=== PATIENT | female | born 1975 | race Caucasian/White ===

== ENCOUNTER 2021-01-03 11:39 | Emergency (ER) | payer OTHER, SELFPAY ==
[2021-01-03 12:16] VITALS: BP 114/64; PULSE 69; RESP 16; TEMP 37.1; O2SAT 100
--- NOTE | 2021-01-03 13:19 | ED.SKABFB ---
HPI - Skin/Abscess/Foreign Bdy General Chief complaint: Upper Respiratory Infection Stated complaint: sore throat Time Seen by Provider: 01/03/21 13:12 Source: patient and RN notes reviewed Mode of arrival: ambulatory Limitations: no limitations History of Present Illness HPI narrative: Patient presents today complaint of a sore throat x3 days with congestion, slight rhinorrhea. Denies cough, fever, headache, nausea, vomiting, diarrhea. Currently rates her pain 6/10 and has been taking sinus medication, and ibuprofen without relief. Related Data Home Medications Medication Instructions Recorded Confirmed lisinopril-hydrochlorothiazide 1 tablet PO DAILY 01/03/21 01/03/21 Allergies Allergy/AdvReac Type Severity Reaction Status Date / Time Penicillins Allergy Unknown Rash Verified 01/03/21 12:13 Review of Systems Review of Systems: Narrative: CONSTITUTIONAL: Denies body aches, fever, chills, or sweats. EYES: Denies visual changes, redness, or discharge. ENT: Denies otalgia. + Sore throat, congestion, rhinorrhea CARDIOVASCULAR: Denies chest pain, palpitations, or edema. RESPIRATORY: Denies cough or dyspnea. GASTROINTESTINAL: Denies abdominal pain, nausea, vomiting, or diarrhea. GENITOURINARY: Denies dysuria or hematuria. SKIN: Denies rash, itching, or wounds. MUSCULOSKELETAL: Denies back pain, joint pain, or myalgia. NEUROLOGIC: Denies headache, numbness, tingling, or weakness. PSYCH: Denies depression or anxiety. PMFSH Family History Family History Father Family history of colitis Family history of arthritis Grandparent Family history of chronic obstructive pulmonary disease Family history of Alzheimer's disease Family history of emphysema Family history of heart disease in male family member before age 55 Diabetes mellitus Other Family history of congestive heart failure Hypertension Social History Social History Smoking status: Never smoker Alcohol intake: current Comments At time of signature, I have reviewed and agree with nursing past medical, surgical, social and family history unless otherwise noted. Please see nursing chart for further information. There is no relevant family history pertinent to the presenting complaint Exam Narrative: Exam Narrative: GENERAL: Well-appearing, well-nourished, and in no acute distress. HEAD: Normocephalic, atraumatic. EYES: EOMI. No redness or drainage. Conjunctivae normal. ENT: Mucous membranes pink and moist. Nares clear. No rhinorrhea. TMs normal bilaterally. Throat mildly erythematous and edematous. Small ulceration to the uvula. Uvula midline. NECK: Normal AROM. Supple. No lymphadenopathy. CHEST: No respiratory distress. Clear to auscultation. HEART: Regular rate and rhythm. No murmur appreciated. Normal peripheral pulses. EXTREMITIES: Normal range of motion. No edema. SKIN: Warm, dry, no rash. Capillary refill normal. Normal skin turgor. NEURO: No focal deficits. Alert and oriented x3. Gait steady. PSYCH: Normal affect. No signs of depression or anxiety. Course Vital Signs Vital signs: Vital Signs Temperature 98.8 F 01/03/21 12:16 Pulse Rate 69 01/03/21 12:16 Respiratory Rate 16 01/03/21 12:16 Blood Pressure 114/64 01/03/21 12:16 Pulse Oximetry 100 01/03/21 12:16 Temperature 98.8 F 01/03/21 12:16 Pulse Rate 69 01/03/21 12:16 Respiratory Rate 16 01/03/21 12:16 Blood Pressure 114/64 01/03/21 12:16 Pulse Oximetry 100 01/03/21 12:16 Reviewed MDM - Skin/Abscess/Foreign Bdy Differential Diagnosis Differential diagnosis: Likely other (URI, pharyngitis, strep throat, tonsillitis, viral syndrome) Lab Data Attestation: I reviewed the patient's lab results. Labs: Strep Screen Presumptive Negative *(Reference Range: Negative)*
== END 2021-01-03 13:25 | disposition home or self-care (01) ==
PROVIDERS: Emergency Provider Nurse Practitioner; PCP Family Medicine
DX: J02.8 Acute pharyngitis due to other specified organisms (principal); I10 Essential (primary) hypertension
CPT/HCPCS: 87081; 87880; 99213; G0463

== ENCOUNTER 2022-08-25 11:38 | Emergency (ER) | payer OTHER, SELFPAY ==
[2022-08-25 11:45] VITALS: BP 141/88; PULSE 85; RESP 16; TEMP 37.4; O2SAT 100
--- NOTE | 2022-08-25 11:52 | ED.URI ---
HPI - URI/Sore Throat General Chief Complaint: Upper Respiratory Infection Stated Complaint: SORE THROAT/LOSING VOICE Time Seen by Provider: 08/25/22 11:52 Source: patient, RN notes reviewed and old records reviewed Mode of arrival: ambulatory Limitations: no limitations History of Present Illness HPI Narrative: 47 year old female presents to express care with complaints of sore throat and body aches on Tuesday. On Tuesday patient states that she started with hoarseness and loosing voice since. Patient reports that she has non-productive cough and her throat remains tender Patient denies any known fevers, denies any nausea vomiting or diarrhea and no further body aches since Tuesday.Patient reports that she has been taking Mucinex DM for her symptoms. She states that she has been COVID vaccinated but has not had flu shot this year. MD elicited complaint: cough and sore throat Onset (ago): day(s) (5 days) Treatments prior to arrival: other (Mucinex DM) Related Data Allergies Allergy/AdvReac Type Severity Reaction Status Date / Time Penicillins Allergy Unknown Rash Verified 08/25/22 11:50 Review of Systems Review of Systems: CONSTITUTIONAL: Denies malaise, chills, sweats, or fever. EYES: Denies visual changes, redness, or discharge. ENT: Reports rhinorrhea, congestion, sinus pain,no otalgia positive sore throat. CARDIOVASCULAR: Denies chest pain, palpitations, or edema. RESPIRATORY: Reports dry cough.? Denies dyspnea. GASTROINTESTINAL: Denies abdominal pain, nausea, vomiting, diarrhea SKIN: Denies rash or itching. MUSCULOSKELETAL: Denies myalgia. NEUROLOGIC: Denies headache. All systems reviewed & are unremarkable except as noted in HPI and below PMFSH Past Medical History Medical History (Updated 08/25/22 @ 12:22 by Miriam Danielson NP) History of sinus problem Family History Family History Father Family history of colitis Family history of arthritis Grandparent Family history of chronic obstructive pulmonary disease Family history of Alzheimer's disease Family history of emphysema Family history of heart disease in male family member before age 55 Diabetes mellitus Other Family history of congestive heart failure Hypertension Social History Social History Smoking status: Never smoker Alcohol intake: current Comments At time of signature, agree with nursing past medical, surgical, social and family history. There is no relevant family history pertinent to the presenting complaint Exam Narrative: GENERAL: Well-appearing, well-nourished, and in no acute distress. HEAD: Normocephalic EYES: PERRLA, conjunctivae clear ENT: Nares clear, turbinates edematous and erythematous, clear discharge. Mucous membranes moist. TM pearly winter with dull light reflex bilaterally; no tragal tenderness. Oropharynx erythematous without lesions. Tonsils red not mildly enlarged and without exudate, no drooling, no hoarseness, no trismus, uvula midline and swollen some post nasal discharge in back of throat. NECK: Supple. lymphadenopathy CHEST: Clear to auscultation, breath sounds equal. No wheezing, rhonchi, rales, or stridor. No respiratory distress, speaks in full sentences.dry cough noted SAO2 100% on room air HEART: Regular rate and rhythm. No murmur heard. SKIN: Warm, dry, no rash. NEURO: Alert and oriented x3. PSYCH: Normal mood and affect Course Course Emergency Course: Patient is aware of diagnosis, understands and agrees to treatment plan.? Anticipatory guidance given.? Patient agrees to follow-up as directed and is aware of reasons to seek care at the emergency department. Portions of this record may have been created with voice recognition software Level of Care: Express Care Visit Vital Signs Vital signs: Vital Signs Temperature 37.4 C 08/25/22 11:45 Pulse Rate
== END 2022-08-25 12:05 | disposition home or self-care (01) ==
PROVIDERS: Emergency Provider Registered Nurse; PCP Family Medicine
DX: J02.0 Streptococcal pharyngitis (principal); I10 Essential (primary) hypertension
CPT/HCPCS: 87081; 99213; G0463

== ENCOUNTER 2024-05-28 15:23 | Emergency (ER) | payer OTHER, SELFPAY ==
[2024-05-28 15:35] VITALS: BP 126/66; PULSE 95; RESP 18; TEMP 36.6; O2SAT 100
--- NOTE | 2024-05-28 16:06 | ED.GENADULT ---
HPI - General Adult General Chief complaint: Unspecified Stated complaint: fatigue Time Seen by Provider: 05/28/24 15:37 Source: patient, RN notes reviewed and old records reviewed (patient's lab records) Mode of arrival: ambulatory Limitations: no limitations History of Present Illness HPI narrative: Patient presents today with a 10 day history of extreme exhaustion/fatigue, ?brain fog , shortness of breath with exertion. Patient states she has to take several breaks when she is trying to get ready in the morning for her day. Denies any cold symptoms/respiratory symptoms, recent illness, chest pain, abdominal pain, black or tarry stools, bright red blood per rectum. Patient had her labs drawn [facility] week ago and looked up the results today. She had a hemoglobin of 8.8 with a hematocrit of 24. She does have history of anemia with need for blood transfusion in approximately 2012. States that the etiology of her anemia/bleeding was never found. Related Data Home Medications Medication Instructions Recorded Confirmed No Home Medications 05/28/24 05/28/24 Allergies Allergy/AdvReac Type Severity Reaction Status Date / Time Penicillins Allergy Unknown Rash Verified 05/28/24 15:44 Review of Systems Review of Systems: CONSTITUTIONAL: Denies body aches, fever, chills, or sweats. + fatigue EYES: Denies visual changes, redness, or discharge. ENT: Denies rhinorrhea, congestion, sore throat, or otalgia. CARDIOVASCULAR: Denies chest pain, palpitations, or edema. RESPIRATORY: Denies cough. + shortness of breath with exertion GASTROINTESTINAL: Denies abdominal pain, nausea, vomiting, or diarrhea. GENITOURINARY: Denies dysuria or hematuria. SKIN: Denies rash, itching, or wounds. MUSCULOSKELETAL: Denies back pain, joint pain, or myalgia. NEUROLOGIC: Denies headache, numbness, tingling, or weakness. PSYCH: Denies depression or anxiety. [facility] Past Medical History Medical History History of sinus problem Family History Family History Father Family history of colitis Family history of arthritis Grandparent Family history of chronic obstructive pulmonary disease Family history of Alzheimer's disease Family history of emphysema Family history of heart disease in male family member before age 55 Diabetes mellitus Other Family history of congestive heart failure Hypertension Social History Social History Smoking status: Never smoker Alcohol intake: current Comments At time of signature, I have reviewed and agree with nursing past medical, surgical, social and family history unless otherwise noted. Please see nursing chart for further information. There is no relevant family history pertinent to the presenting complaint Exam Narrative: GENERAL: Well-appearing, well-nourished, and in no acute distress. Mild generalized skin pallor. HEAD: Normocephalic, atraumatic. EYES: EOMI. No redness or drainage. Conjunctivae normal. ENT: Mucous membranes pink and moist. NECK: Normal AROM. Supple. No lymphadenopathy. CHEST: No respiratory distress. Clear to auscultation. HEART: Regular rate and rhythm. No murmur appreciated. Normal peripheral pulses. ABDOMEN: Soft, nontender, nondistended, normal active bowel sounds. EXTREMITIES: Normal range of motion. No edema. SKIN: Warm, dry, no rash. Capillary refill normal. Normal skin turgor. NEURO: No focal deficits. Alert and oriented x3. Gait steady. PSYCH: Normal affect. No signs of depression or anxiety. Course Course Level of Care: Express Care Visit Vital Signs Vital signs: Vital Signs Temperature 97.9 F 05/28/24 15:35 Pulse Rate 95 05/28/24 15:35 Respiratory Rate 18 05/28/24 15:35 Blood Pressure 126/66 05/28/24 15:35 Pul
== END 2024-05-28 16:10 | disposition short-term general hospital (02) ==
PROVIDERS: Emergency Provider Nurse Practitioner
DX: R06.09 Other forms of dyspnea (principal); R53.83 Other fatigue
CPT/HCPCS: 99212; G0463

== ENCOUNTER 2024-05-28 16:40 | Emergency (ER) | payer OTHER, SELFPAY ==
[2024-05-28] VITALS (9 sets, daily range): BP systolic 131–158; BP diastolic 60–80; PULSE 88–100; RESP 12–17; TEMP 36.5–37.3; O2SAT 98–100
--- NOTE | 2024-05-28 17:58 | ED.GENADULT ---
HPI - General Adult General Chief complaint: Recheck/Abnormal Lab/Rx Stated complaint: WEAK H/H 04/07 Time Seen by Provider: 05/28/24 17:20 History of Present Illness HPI narrative: 49-year-old female presents emergency department for evaluation for lightheaded dizziness and increasing fatigue. Patient states she has had worsening fatigue over the last few weeks. Patient states few weeks ago she did have some blood work checked and was found that she was anemic. Patient does have known history of anemia but does not take iron pills. Patient states she does not have heavy periods and has no prior history of a GI bleed. Patient states that she does get her blood checked yearly Related Data Home Medications Medication Instructions Recorded Confirmed No Home Medications 05/28/24 05/28/24 Allergies Allergy/AdvReac Type Severity Reaction Status Date / Time Penicillins Allergy Unknown Rash Verified 05/28/24 15:44 Review of Systems Review of Systems: All systems reviewed & are unremarkable except as noted in HPI and below PMFSH Past Medical History Medical History History of sinus problem Family History Family History Father Family history of colitis Family history of arthritis Grandparent Family history of chronic obstructive pulmonary disease Family history of Alzheimer's disease Family history of emphysema Family history of heart disease in male family member before age 55 Diabetes mellitus Other Family history of congestive heart failure Hypertension Social History Social History (Reviewed 05/28/24 @ 16:11 by Aracelis Olmstead, [facility], ) Smoking status: Never smoker Alcohol intake: current Exam Narrative: APPEARANCE: Well appearing, no pain, no distress, well-nourished. HEAD: normocephalic, atraumatic. EYES: PERRLA/EOMI, conjunctivae clear. NOSE: Normal no drainage EARS:TMS clear with good light reflex. THROAT: Pharynx clear, no exudate. NECK: Supple. No adenopathy, no masses. RESPIRATORY: Airway patent, respirations nonlabored. Clear to auscultation bilaterally, no rales, rhonchi, wheezing. CARDIOVASCULAR: Regular rate and rhythm without murmurs rubs or gallops. ABDOMINAL: Soft, nontender, nondistended, normal bowel sounds MUSCULOSKELETAL: Moves all extremities. Strength/ROM intact, No edema, No calf tenderness. NEURO: Alert. Cranial nerves II through XII intact. Good gait. Good coordination SKIN: Warm, dry. Normal Color PSYCHIATRIC: Normal affect/mood. Course Vital Signs Vital signs: Vital Signs Temperature 98.3 F 05/28/24 16:56 Pulse Rate 100 05/28/24 16:56 Respiratory Rate 16 05/28/24 16:56 Blood Pressure 131/68 05/28/24 16:56 Pulse Oximetry 100 05/28/24 16:56 Oxygen Delivery Room Air 05/28/24 16:56 Temperature 98.9 F 05/29/24 02:15 Pulse Rate 86 05/29/24 02:15 Respiratory Rate 15 05/29/24 02:15 Blood Pressure 148/84 H 05/29/24 02:15 Pulse Oximetry 99 05/29/24 02:15 Oxygen Delivery Room Air 05/28/24 16:56 Medical Decision Making MDM Narrative Medical decision making narrative: 49-year-old female present to the emergency department for evaluation for increased generalized weakness. Patient was shown to have an outpatient hemoglobin of 8.8. Patient was Hemoccult negative on the digital rectal exam in the emergency department today. the patient was treated with 2 units of packed red blood and iron studies were ordered. I did discuss the case with the patient's primary care physician and it she will have outpatient follow-up with Hematology. Patient was comfortable the plan for discharge and close follow-up. Patient does feel strong enough for discharge home. Patient has no active bleeding. Differential Diagnosis Differential Diagnosis: Per GI bleed, lower GI bleed, anemia, pancytopenia Vital Signs Vit
[2024-05-28 18:02] LABS: Eosinophils Percent Auto 1.1 % (0-4.4); Immature Granulocyte Absolute 0.03 K/mm3 (0.00-0.031); Immature Granulocyte Percent A 1.7 % (0-0.5); Immature Platelet Fraction Pct 3.9 % (0.9-11.2); Lymphocytes Absolute Auto 0.66 K/mm3 (0.9-3.2); Lymphocytes Percent Auto 37.5 % (18.3-44.2); Mean Corpuscular HGB Conc 35.3 g/dl (32-36); Mean Corpuscular Hemoglobin 40.1 pg (26-34); Mean Corpuscular Volume 113.6 fl (80-100); Mean Platelet Volume 9.8 fl (7.4-10.4); Monocytes Absolute Auto 0.1 K/mm3 (0.1-0.6); Monocytes Percent Auto 5.7 % (2.6-8.5); Nucleated Red Blood Cells Perc 1.1 % (0.0-0.2); Platelet Count Result 97 k/mm3 (150-375); Red Blood Count 1.62 M/mm3 (4.2-5.4); Red Cell Distribution Width 15.9 % (11.5-14.5); Reticulocyte Hemoglobin Conten 40.8 pg (28.2-36.6); Reticulocyte Percent 1.86 % (0.7-4.3); Reticulocytes Absolute 0.03 10^6/uL (0.02-0.10)
[2024-05-28 18:11] LABS: Alanine Aminotransferase 24 U/L (6-35); Albumin Level 4.3 g/dL (3.5-5.1); Alkaline Phosphatase 50 U/L (38-126); Anion Gap 7 mmol/L (4-12); Aspartate Amino Transferase 79 U/L (14-36); Bilirubin,Total 1.5 mg/dL (0.2-1.3); Blood Urea Nitrogen 12 mg/dL (7-17); Calcium 8.6 mg/dL (8.4-10.2); Carbon Dioxide 30 mmol/L (22-30); Chloride 102 mmol/L (98-107); Estimated CRCL calculation 88 ml/min; Estimated Glomerular Filt Rate > 60; Glucose 101 mg/dL (65-110); Potassium 3.7 mmol/L (3.4-5.0); Sodium 139 mmol/L (137-145)
[2024-05-28 18:12] LABS: Iron 77 ug/dL (37-170)
[2024-05-28] MEDS: SODIUM CHLORIDE 0.9% IV 1,000 ML 999 ML IV CONT (18:12)
[2024-05-28 18:21] LABS: Percent Iron Saturation 29 % (20-50); White Blood Count 1.8 K/mm3 (4.5-10.0)
[2024-05-28 18:22] LABS: Hematocrit 18.4 % (37.0-47.0); Hemoglobin 6.5 g/dL (12.0-15.0)
[2024-05-28 18:23] LABS: Platelet Estimate Decreased (Adequate)
[2024-05-28 18:24] LABS: Anisocytosis 2+; Macrocytosis 1+ (NORMAL); Microcytosis 1+ (NORMAL); Poikilocytosis 1+
[2024-05-28 18:25] LABS: Ovalocytes 1+
[2024-05-28 18:26] LABS: Schistocytes None Seen
[2024-05-28 18:29] LABS: Add Urine Microscopic? YES; Appearance Urine Cloudy (Clear); Bacteria Urine None Seen /hpf; Bilirubin Urine Negative (Negative); Blood Urine Negative (Negative); Color Urine Yellow (Yellow); Glucose Urine UA Negative (Negative); Ketones Urine Trace mg/dL (Negative); Leukocyte Esterase Ur Trace LEU/UL (Negative); Mucus Urine Present /lpf; Need Manual Microscopic Reviewed; Nitrate Urine Negative (Negative); Protein Urine 1+ mg/dL (Negative); RBC Urine 0-2 /hpf (0-2); Squamous Epithelial Cell Urine Occasional /hpf (Few); WBC Urine 0-5 /hpf (0-3)
[2024-05-28 18:46] LABS: Influenza A QL RT-PCR Negative (Negative); Influenza B QL RT-PCR Negative (Negative); RSV RNA, RT-PCR Negative (Negative); SARS-CoV-2 RNA PCR Negative (Negative)
[2024-05-28 19:18] LABS: Folic Acid 18.4 ng/mL (2.76->20); Vitamin B12 < 159.0 pg/mL (239-931)
[2024-05-28] MEDS: SODIUM CHLORIDE 0.9% IV 250 ML 30 ML IV CONT (21:35)
[2024-05-28] MEDS: TUBING, BLOOD PLUM PUMP TUBING 1 EACH XX (21:35)
[2024-05-29 00:02] VITALS: BP 140/82; PULSE 91; RESP 16; TEMP 37.4; O2SAT 100
[2024-05-29 01:01] VITALS: BP 138/67; PULSE 88; RESP 13; TEMP 37.6; O2SAT 100
[2024-05-29 01:02] VITALS: BP 138/67; PULSE 898; RESP 15; TEMP 37.6; O2SAT 99
[2024-05-29 01:20] VITALS: BP 142/75; PULSE 92; RESP 16; TEMP 37; O2SAT 100
[2024-05-29 02:02] VITALS: BP 148/90; PULSE 85; RESP 15; TEMP 37.3; O2SAT 99
[2024-05-29 02:15] VITALS: BP 148/84; PULSE 86; RESP 15; TEMP 37.2; O2SAT 99
== END 2024-05-29 02:21 | disposition home or self-care (01) ==
PROVIDERS: Emergency Provider Emergency Medicine; PCP Family Medicine
DX: D61.818 Other pancytopenia (principal); Z20.822 Contact with and (suspected) exposure to COVID-19
CPT/HCPCS: 36415; 36430; 80053; 81001; 82607; 82728; 82746; 83540; 83550; 85025; 85046; 85055; 86850; 86880; 86900; 86901; 86902; 86922; 87637; 96360; 96361; 99285; J7030; J7050; P9016

== ENCOUNTER 2024-06-12 12:56 | Inpatient (IN) | payer OTHER, SELFPAY ==
[2024-06-12] VITALS (7 sets, daily range): BP systolic 88–125; BP diastolic 40–56; PULSE 106–113; RESP 13–22; TEMP 36.6–37.6; O2SAT 97–100; BMI 26.6
--- NOTE | ~2024-06-12 | CT_ITS ---
EXAMINATION: CT abdomen pelvis wo/w con DATE: 06/14/2024 13:35 INDICATION: Hematuria. TECHNIQUE: Computed tomography (CT) of the abdomen and pelvis was performed without and with intraven ous contrast using a total of 130 mL Omnipaque-350 intravenous contrast with a double-bolus technique for simultaneous opacification of the renal parenchyma and renal collecting system. Automated exposu re control and iterative reconstruction technique were employed. The dose-length product was 1136.61 mGy-cm. COMPARISON: None FINDINGS: The visualized portions of lung bases demonstrate mild atelectasis. A calcified right lung nodule and calcified right hilar lymph nodes are consistent with old granulomatous disease. No pleural effusion . The heart size is normal. No pericardial effusion. The liver and gallbladder are normal. There is m oderate splenomegaly. The pancreas, adrenal glands, and kidneys are normal. There is no urolithiasis. The ureters are well opacified and are normal. There is a Leon catheter in expected position. There is a 4.9 cm cyst in right ovary. There is a 5.2 cm cyst with single thin septation in left ovary. Th ere are no dilated loops of bowel. The appendix is normal. There are no pathologically enlarged lymph nodes. There is no free intraperitoneal fluid. There is mild thoracic and lumbar spondylosis. There is a benign bone island in lumbar spine. IMPRESSION: 1. No etiology for hematuria. 2. Moderate splenomegaly. 3. Cysts in the ovaries measuring up to 5.2 cm on the left, likely benign. Consider pelvis ultrasound in 6-12 months. Reviewed, dictated and finalized at location B. IMPRESSION: 1. No etiology for hematuria. 2. Moderate splenomegaly. 3. Cysts in the ovaries measuring up to 5.2 cm on the left, likely benign. Cons ider pelvis ultrasound in 6-12 months.
--- NOTE | ~2024-06-12 | US_ITS ---
EXAMINATION: US abdomen complete DATE: 06/14/2024 09:53 INDICATION: Hepatosplenomegaly. TECHNIQUE: Multiple grayscale and Doppler ultrasound images of the abdomen were obtained. COMPARISON: None FINDINGS: Abdominal aorta is normal in caliber. Inferior vena cava is normal. The visualized portions of the head and body of the pancreas are normal. The liver is normal without focal lesion. No liver surface nodularity. There is normal flow in main portal vein. There is moderate splenomegaly measurin g 15.4 cm. The kidneys are normal in size. The gallbladder is normal in size contains sludge. No gall stones or gallbladder wall thickening. There is no sonographic Foss's sign. The common duct is norm al and measures 6 mm. IMPRESSION: 1. Moderate splenomegaly. Reviewed, dictated and finalized at location B. IMPRESSION: 1. Moderate splenomegaly.
--- NOTE | ~2024-06-12 | XR_ITS ---
EXAMINATION: XR chest 2V Exam Date/Time: 06/12/2024 15:10 CDT HISTORY: weakness, sob Comparison: None. RESULT: Lines, tubes, and devices: None. Lungs and pleura: Clear. Cardiomediastinal silhouette: Unremarkable. Other: No acute osseous or upper abdominal finding. IMPRESSION: No acute cardiopulmonary process. Reviewed, dictated and finalized at location K.
--- NOTE | ~2024-06-12 | BM_ITS ---
EXAMINATION: CCL bone marrow asp w bx diag ORDER COMPLETED DATE: 06/14/2024 10:58 INDICATION: Anemia TECHNIQUE: A time-out was performed to verify the patient's name, date of , and procedure to b e performed. The procedure including the risks and benefits was discussed with the patient. Risks dis cussed included bleeding, infection, nerve injury and allergic reaction. The patient understood the r isks and agreed to proceed. The skin overlying the right posterior iliac spine was prepped and draped in usual sterile fashion. Anesthetic was administered with 1% lidocaine subcutaneously. Moderate co nscious sedation was achieved with 50 mcg fentanyl IV. An 11 gauge needle was inserted into the right ilium with fluoroscopic guidance. Bone marrow was aspirated. An 8 gauge needle was then inserted int o the right ilium with fluoroscopic guidance. A core bone marrow biopsy was obtained. The needle was removed and the entry site was cleaned and dressed. There were no immediate complications. A total o f 40 fluoroscopic images were recorded. Fluoroscopy exposure time was 0.1 minutes. Total DAP was 171 mGycm^2. FINDINGS: Real-time fluoroscopy the tip of a hemostat for marking the site of biopsy overlying the ri ght posterior iliac spine. IMPRESSION: 1. Successful fluoroscopic guided bone marrow aspiration. 2. Successful fluoroscopic guided bone marrow biopsy. Reviewed, dictated and finalized at location A.
--- NOTE | ~2024-06-12 | XR_ITS ---
EXAMINATION: XR chest 1V portable DATE: 06/15/2024 14:39 INDICATION: Fever. TECHNIQUE: A single frontal view of the chest was obtained. COMPARISON: Chest 2 views 06/12/2024, CT abdomen and pelvis 06/14/2024 FINDINGS: A calcified right lung nodule and calcified right hilar lymph nodes are consistent with old granulomatous disease. No pleural effusion or pneumothorax. The heart size is normal. IMPRESSION: 1. No acute cardiopulmonary disease. Reviewed, dictated and finalized at location B.
--- NOTE | 2024-06-12 14:39 | ECG_ITS ---
Test Date: 2024-06-12 14:53:30 Measurements Intervals Cook Rate: 111 P: 25 NM: 100 QRS: 25 QRSD: 105 T: 29 QT: 337 QTc: 459 Interpretive Statements SINUS TACHYCARDIA WITH SHORT NM INTERVAL No previous ECG available for comparison Electronically Signed On 06-13-2024 14:23:48 CDT by Jaci Perry M.D.
[2024-06-12 15:18] LABS: Immature Platelet Fraction Pct 3.4 % (0.9-11.2); Mean Corpuscular HGB Conc 35.7 g/dl (32-36); Mean Corpuscular Volume 109.3 fl (80-100); Mean Platelet Volume 9.5 fl (7.4-10.4); Platelet Count Result 88 k/mm3 (150-375); Red Blood Count 1.18 M/mm3 (4.2-5.4); Red Cell Distribution Width 19.3 % (11.5-14.5)
[2024-06-12 15:30] LABS: Alanine Aminotransferase 14 U/L (6-35); Albumin Level 4.1 g/dL (3.5-5.1); Alkaline Phosphatase 40 U/L (38-126); Anion Gap 10 mmol/L (4-12); Aspartate Amino Transferase 59 U/L (14-36); Bilirubin,Total 1.9 mg/dL (0.2-1.3); Blood Urea Nitrogen 20 mg/dL (7-17); Calcium 7.8 mg/dL (8.4-10.2); Carbon Dioxide 26 mmol/L (22-30); Chloride 100 mmol/L (98-107); Estimated CRCL calculation 77 ml/min; Estimated Glomerular Filt Rate > 60; Glucose 110 mg/dL (65-110); Potassium 3.9 mmol/L (3.4-5.0); Sodium 136 mmol/L (137-145)
[2024-06-12 15:34] LABS: INR 1.2; Prothrombin Time 15.9 Seconds (11.1-14.7)
[2024-06-12 15:35] LABS: Partial Thromboplastin Time 27.8 Seconds (22.3-36.8)
[2024-06-12 15:43] LABS: White Blood Count 1.1 K/mm3 (4.5-10.0)
[2024-06-12 15:44] LABS: Hematocrit 12.9 % (37.0-47.0); Hemoglobin 4.6 g/dL (12.0-15.0)
--- NOTE | 2024-06-12 16:04 | ED.RECABL ---
HPI - Recheck/Abnormal Lab/Rx General Chief Complaint: Recheck/Abnormal Lab/Rx Stated Complaint: low hemoglobin, recent blood transfusion Time Seen by Provider: 06/12/24 15:54 History of Present Illness HPI narrative: 49-year-old female presenting with generalized weakness. She was here couple of weeks ago and told that her hemoglobin was too low. She received a couple units of RBCs and was feeling better. She was able to go home with the plan to follow-up with her PCP. She followed up today and she was advised to come back to the ER. States that she has again been feeling very fatigued over the last week with some lightheadedness, mild headaches, intermittent nausea. Denies any new pain. No chest or abdominal pain. States that she does feel short of breath when she walks. Related Data Home Medications Medication Instructions Recorded Confirmed No Home Medications 05/28/24 06/12/24 Allergies Allergy/AdvReac Type Severity Reaction Status Date / Time Penicillins Allergy Unknown Rash Verified 06/12/24 13:07 Review of Systems Review of Systems: All systems reviewed & are unremarkable except as noted in HPI and below PMFSH Past Medical History Medical History (Updated 06/13/24 @ 19:51 by Maldonado Walker MD) Gastric polyp (12/2013) Hematuria Iron deficiency (05/2013) Vitamin B12 deficiency (05/2013) Surgical History Surgical History (Updated 06/13/24 @ 19:51 by Maldonado Walker MD) History of colonoscopy (12/2013) unremarkable History of esophagogastroduodenoscopy (12/2013) benign gastric polyp Family History Family History Father Family history of colitis Family history of arthritis Grandparent Family history of chronic obstructive pulmonary disease Family history of Alzheimer's disease Family history of emphysema Family history of heart disease in male family member before age 55 Diabetes mellitus Other Family history of congestive heart failure Hypertension Social History Social History Social History: Surrogate medical decision maker: Balaji Cruz, chyna Code status: Full code. Smoking status: Never smoker Alcohol intake: current Drinks per week: 6 Substance use: never Substance use type: does not use Do You Feel Safe in your Home?: Yes Lack of Transportation: No Lack of Food: Never True Current Housing: I Have Housing Concerned About Future Housing: No Difficulty Paying Gas/Electric Bills: No Difficulty Paying for Meds: No Currently Unemployed: No Education: Master's Degree or Higher Difficulty w/ Childcare or Family Care: No Spiritual care concerns: No Exam Narrative: GENERAL: Jaundiced, in no acute distress, very pleasant cooperative HEAD: Normocephalic, atraumatic. EYES: PERRLA and EOMI. ENT: Mucous membranes moist. NECK: Supple. CHEST: Clear to auscultation. No respiratory distress. HEART: tachycardic, regular rhythm ABDOMEN: Soft, nontender, nondistended EXTREMITIES: Normal range of motion. No edema. SKIN: Warm, dry, jaundiced NEURO: No focal deficits. Alert and oriented x3. PSYCH: Normal mood and affect. Course Vital Signs Vital signs: Vital Signs Temperature 97.9 F 06/12/24 13:05 Pulse Rate 109 H 06/12/24 13:05 Respiratory Rate 18 06/12/24 13:05 Blood Pressure 105/49 L 06/12/24 13:05 Pulse Oximetry 99 06/12/24 13:05 Oxygen Delivery Room Air 06/12/24 13:05 Temperature 99.4 F 06/14/24 17:00 Pulse Rate 86 06/14/24 17:00 Respiratory Rate 16 06/14/24 17:00 Blood Pressure 105/63 06/14/24 17:00 Pulse Oximetry 100 06/14/24 17:00 Oxygen Delivery Room Air 06/14/24 16:00 MDM - Recheck/Abnormal Lab/Rx MDM Narrative Medical decision making narrative: 49-year-old female presenting with generalized weakness and fatigue. Patient is tachycardic on arrival, otherwise vitals are within normal limits. Exam remarkable for the above. EKG per my interpretation shows sinus tachycardia, no ST elevations or depressions. Blood works concerning for pancytopenia. Type and Screen is pending. 3 units of pRBCs have been ordered. she requires admission for further management. She is agreeable with this plan. I spoke with the hospitalist who has accepted the patient for admission. Differential Diagnosis Differential diagnosis: Likely other ( Pancytopenia, lightheadedness, generalized weakness) Medical Records Attestation: I reviewed the patient's medical records. Lab Data Attestation: I reviewed the patient's lab results. 06/14/24 04:30 06/14/24 04:30 Labs: Lab Results 06/12/24 06/12/24 06/12/24 Range/Units 15:00 15:09 15:10 WBC 1.1 L* (4.5-10.0) K/mm3 RBC 1.18 L (4.2-5.4) M/mm3 Hgb 4.6 L* (12.0-15.0) g/dL Hct 12.9 L* (37.0-47.0) % MCV 109.3 H (80-100) fl MCH 39.0 H (26-34) pg MCHC 35.7 (32-36) g/dl RDW 19.3 H (11.5-14.5) % Plt Count 88 L (150-375) k/mm3 MPV 9.5 (7.4-10.4) fl Immature Gran % (Auto) Not Reportable Neut % (Auto) Not Reportable Lymph % (Auto) Not Reportable Ross % (Auto) Not Reportable Eos % (Auto) Not Reportable Baso % (Auto) Not Reportable Lymph # (Auto) Not Reportable Ross # (Auto) Not Reportable Eos # (Auto) Not Reportable Baso # (Auto) Not Reportable Abs Immat Gran (auto) Not Reportable Absolute Neuts (auto) Not Reportable Absolute Nucleated RBC Not Reportable Total Counted 20 Neutrophils % (Manual) 40 L (46-73) % Lymphocytes % (Manual) 45 H (18-44) % Monocytes % (Manual) 10 H (3-9) % Eosinophils % (Manual) 5 H (0-4) % Nucleated RBC % Not Reportable Abs Lymphs (Manual) 0.49 L (1.1-4.5) K/mm3 Abs Monocytes (Manual) 0.11 (0.1-0.90) K/mm3 Absolute Eos (Manual) 0.05 (0.02-0.50) K/mm3 Platelet Estimate Decreased (Adequate) % Immature Plt Fraction 3.4 (0.9-11.2) % Ovalocytes 1+ Schistocytes None seen Absolute Retic 0.02 (0.02-0.10) 10^6/uL Percent Retic 1.57 (0.7-4.3) % Immature Retic Fraction 18.3 H (3.0-15.9) % Retic Hgb Content 42.6 H (28.2-36.6) pg Haptoglobin PT 15.9 H (11.1-14.7) Seconds INR 1.2 APTT 27.8 (22.3-36.8) Seconds Sodium 136 L (137-145) mmol/L Potassium 3.9 (3.4-5.0) mmol/L Chloride 100 (98-107) mmol/L Carbon Dioxide 26 (22-30) mmol/L Anion Gap 10 (4-12) mmol/L BUN 20 H (7-17) mg/dL Creatinine 0.70 (0.7-1.0) mg/dL Estim Creat Clear Calc 77 ml/min Estimated GFR > 60 (59 - ) Glucose 110 (65-110) mg/dL Calcium 7.8 L (8.4-10.2) mg/dL Iron (37-170) ug/dL TIBC (261-462) ug/dL % Saturation (20-50) % Transferrin (206-381) mg/dL Ferritin (11.1-264) ng/mL Total Bilirubin 1.9 H (0.2-1.3) mg/dL AST 59 H (14-36) U/L ALT 14 (6-35) U/L Alkaline Phosphatase 40 (38-126) U/L Lactate Dehydrogenase (120-246) U/L Total Protein 7.0 (6.3-8.2) g/dL Albumin 4.1 (3.5-5.1) g/dL Vitamin B12 (239-931) pg/mL Methylmalonic Acid Homocysteine (<10.4) umol/L TSH (Reflex) (0.465-4.68) uIU/mL Urine Color (Yellow) Urine Appearance (Clear) Urine pH (5.0-9.0) Ur Specific [place] (1.001-1.035) Urine Protein (Negative) mg/dL Urine Glucose (UA) (Negative) mg/dL Urine Ketones (Negative) mg/dL Ur Blood (Man) (Negative) Urine Nitrate (Negative) Urine Bilirubin (Negative) Urine Urobilinogen (<2.0) mg/dL Add Ur Microanalysis Leukocyte Esterase Rfl (Negative) DEMETRIA/UL Urine RBC (0-2) /hpf Urine WBC (0-3) /hpf Ur Squamous Epith Cells (Few) /hpf Urine Bacteria /hpf Urine Casts Hyaline Casts (None) /lpf Urine Mucus /lpf Anti-Parietal Cell Ab Intrinsic Factor (Block Blood Type B Positive Antibody Screen Positive Antibody Identification Cold Auto AB Antigen Identification FARHEEN, IgG Interpret FARHEEN, Poly Interpret FARHEEN, Complement Interp Enhanced Crossmatch Pre-Trans Antibody Scrn Post-Trans Antibody Scrn 06/12/24 06/12/24 06/12/24 Range/Units 15:10 15:40 17:12 WBC (4.5-10.0) K/mm3 RBC (4.2-5.4) M/mm3 Hgb (12.0-15.0) g/dL Hct (37.0-47.0) % MCV (80-100) fl MCH (26-34) pg MCHC (32-36) g/dl RDW (11.5-14.5) % Plt Count (150-375) k/mm3 MPV (7.4-10.4) fl Immature Gran % (Auto) Neut % (Auto) Lymph % (Auto) Ross % (Auto) Eos % (Auto) Baso % (Auto) Lymph # (Auto) Ross # (Auto) Eos # (Auto) Baso # (Auto) Abs Immat Gran (auto) Absolute Neuts (auto) Absolute Nucleated RBC Total Counted Neutrophils % (Manual) (46-73) % Lymphocytes % (Manual) (18-44) % Monocytes % (Manual) (3-9) % Eosinophils % (Manual) (0-4) % Nucleated RBC % Abs Lymphs (Manual) (1.1-4.5) K/mm3 Abs Monocytes (Manual) (0.1-0.90) K/mm3 Absolute Eos (Manual) (0.02-0.50) K/mm3 Platelet Estimate (Adequate) % Immature Plt Fraction (0.9-11.2) % Ovalocytes Schistocytes Absolute Retic (0.02-0.10) 10^6/uL Percent Retic (0.7-4.3) % Immature Retic Fraction (3.0-15.9) % Retic Hgb Content (28.2-36.6) pg Haptoglobin Pending PT (11.1-14.7) Seconds INR APTT (22.3-36.8) Seconds Sodium (137-145) mmol/L Potassium (3.4-5.0) mmol/L Chloride (98-107) mmol/L Carbon Dioxide (22-30) mmol/L Anion Gap (4-12) mmol/L BUN (7-17) mg/dL Creatinine (0.7-1.0) mg/dL Estim Creat Clear Calc ml/min Estimated GFR (59 - ) Glucose (65-110) mg/dL Calcium (8.4-10.2) mg/dL Iron 92 (37-170) ug/dL TIBC 218 L (261-462) ug/dL % Saturation 42 (20-50) % Transferrin 155 L (206-381) mg/dL Ferritin 385.00 H (11.1-264) ng/mL Total Bilirubin (0.2-1.3) mg/dL AST (14-36) U/L ALT (6-35) U/L Alkaline Phosphatase (38-126) U/L Lactate Dehydrogenase > 1000 H (120-246) U/L Total Protein (6.3-8.2) g/dL Albumin (3.5-5.1) g/dL Vitamin B12 (239-931) pg/mL Methylmalonic Acid Homocysteine (<10.4) umol/L TSH (Reflex) 1.150 (0.465-4.68) uIU/mL Urine Color Dark yellow (Yellow) Urine Appearance Cloudy H (Clear) Urine pH 5.5 (5.0-9.0) Ur Specific [place] 1.020 (1.001-1.035) Urine Protein 1+ H (Negative) mg/dL Urine Glucose (UA) Negative (Negative) mg/dL Urine Ketones 2+ H (Negative) mg/dL Ur Blood (Man) Trace (Negative) Urine Nitrate Negative (Negative) Urine Bilirubin 1+ H (Negative) Urine Urobilinogen 1.0 (<2.0) mg/dL Add Ur Microanalysis Reviewed Leukocyte Esterase Rfl Negative (Negative) DEMETRIA/UL Urine RBC 0-2 (0-2) /hpf Urine WBC 0-5 (0-3) /hpf Ur Squamous Epith Cells Few (Few) /hpf Urine Bacteria None seen /hpf Urine Casts 11-20 Hyaline Casts Present (None) /lpf Urine Mucus Present /lpf Anti-Parietal Cell Ab Intrinsic Factor (Block Blood Type Antibody Screen Antibody Identification Anti-Palacios A Antigen Identification [place] A Antigen - NEGATIVE FARHEEN, IgG Interpret Neg FARHEEN, Poly Interpret Not Performed FARHEEN, Complement Interp Negative Enhanced Crossmatch See Detail Pre-Trans Antibody Scrn Positive Post-Trans Antibody Scrn Positive 06/12/24 Range/Units 17:24 WBC (4.5-10.0) K/mm3 RBC (4.2-5.4) M/mm3 Hgb (12.0-15.0) g/dL Hct (37.0-47.0) % MCV (80-100) fl MCH (26-34) pg MCHC (32-36) g/dl RDW (11.5-14.5) % Plt Count (150-375) k/mm3 MPV (7.4-10.4) fl Immature Gran % (Auto) Neut % (Auto) Lymph % (Auto) Ross % (Auto) Eos % (Auto) Baso % (Auto) Lymph # (Auto) Ross # (Auto) Eos # (Auto) Baso # (Auto) Abs Immat Gran (auto) Absolute Neuts (auto) Absolute Nucleated RBC Total Counted Neutrophils % (Manual) (46-73) % Lymphocytes % (Manual) (18-44) % Monocytes % (Manual) (3-9) % Eosinophils % (Manual) (0-4) % Nucleated RBC % Abs Lymphs (Manual) (1.1-4.5) K/mm3 Abs Monocytes (Manual) (0.1-0.90) K/mm3 Absolute Eos (Manual) (0.02-0.50) K/mm3 Platelet Estimate (Adequate) % Immature Plt Fraction (0.9-11.2) % Ovalocytes Schistocytes Absolute Retic (0.02-0.10) 10^6/uL Percent Retic (0.7-4.3) % Immature Retic Fraction (3.0-15.9) % Retic Hgb Content (28.2-36.6) pg Haptoglobin PT (11.1-14.7) Seconds INR APTT (22.3-36.8) Seconds Sodium (137-145) mmol/L Potassium (3.4-5.0) mmol/L Chloride (98-107) mmol/L Carbon Dioxide (22-30) mmol/L Anion Gap (4-12) mmol/L BUN (7-17) mg/dL Creatinine (0.7-1.0) mg/dL Estim Creat Clear Calc ml/min Estimated GFR (59 - ) Glucose (65-110) mg/dL Calcium (8.4-10.2) mg/dL Iron (37-170) ug/dL TIBC (261-462) ug/dL % Saturation (20-50) % Transferrin (206-381) mg/dL Ferritin (11.1-264) ng/mL Total Bilirubin (0.2-1.3) mg/dL AST (14-36) U/L ALT (6-35) U/L Alkaline Phosphatase (38-126) U/L Lactate Dehydrogenase (120-246) U/L Total Protein (6.3-8.2) g/dL Albumin (3.5-5.1) g/dL Vitamin B12 < 159.0 L (239-931) pg/mL Methylmalonic Acid Pending Homocysteine 141.4 H (<10.4) umol/L TSH (Reflex) (0.465-4.68) uIU/mL Urine Color (Yellow) Urine Appearance (Clear) Urine pH (5.0-9.0) Ur Specific [place] (1.001-1.035) Urine Protein (Negative) mg/dL Urine Glucose (UA) (Negative) mg/dL Urine Ketones (Negative) mg/dL Ur Blood (Man) (Negative) Urine Nitrate (Negative) Urine Bilirubin (Negative) Urine Urobilinogen (<2.0) mg/dL Add Ur Microanalysis Leukocyte Esterase Rfl (Negative) DEMETRIA/UL Urine RBC (0-2) /hpf Urine WBC (0-3) /hpf Ur Squamous Epith Cells (Few) /hpf Urine Bacteria /hpf Urine Casts Hyaline Casts (None) /lpf Urine Mucus /lpf Anti-Parietal Cell Ab Pending Intrinsic Factor (Block Pending Blood Type Antibody Screen Antibody Identification Antigen Identification FARHEEN, IgG Interpret FARHEEN, Poly Interpret FARHEEN, Complement Interp Enhanced Crossmatch Pre-Trans Antibody Scrn Post-Trans Antibody Scrn Imaging Data Radiologist's impression: ITS Impressions Chest X-Ray 06/12/24 15:18 IMPRESSION: No acute cardiopulmonary process. Critical Care Time Critical Care Time Critical Care Time: No Discharge Plan Discharge Clinical Impression: Pancytopenia, Symptomatic anemia Patient Disposition: Still a Patient Condition: Serious
[2024-06-12 16:15] LABS: Add Urine Microscopic? YES; Appearance Urine Cloudy (Clear); Bacteria Urine None Seen /hpf; Bilirubin Urine 1+ (Negative); Blood Urine Trace (Negative); Color Urine Dark Yellow (Yellow); Glucose Urine UA Negative (Negative); Hyaline Casts Urine Present /lpf; Ketones Urine 2+ mg/dL (Negative); Leukocyte Esterase Ur Negative LEU/UL (Negative); Mucus Urine Present /lpf; Need Manual Microscopic Reviewed; Nitrate Urine Negative (Negative); Protein Urine 1+ mg/dL (Negative); RBC Urine 0-2 /hpf (0-2); Squamous Epithelial Cell Urine Few /hpf (Few); WBC Urine 0-5 /hpf (0-3); pH Urine 5.5 (5.0-9.0)
--- NOTE | 2024-06-12 17:10 | ADMGEN ---
This patient, Malorie Cruz, was admitted to Medical Room 241-. Patient/family oriented to hospital policies and general routines including ID bracelet, bed and alarms, visiting hours, pain management, procedures, bathroom and other care routines, personal items, smoking policy, room service/diet, and visiting hours. Information on how to activate the Rapid Response Team has been discussed. Patient/Family are encouraged to report perceived risks to care and to ask questions if they do not understand what they are told or what they should do.
--- NOTE | 2024-06-12 17:20 | PM.IMHP ---
H&P: HPI History of Present Illness Date/Time: 06/12/24 17:20 Chief Complaint: Low hemoglobin. Narrative: This is a pleasant 49-year-old female who presented to the emergency department for evaluation of low hemoglobin. The patient provides the following history. She was anemic while in 2006 and was again found to have anemia in May 2013 with both iron and vitamin B12 deficiency though she has not been taking iron or B12. Esophagogastroduodenoscopy and colonoscopy in December [address] Laureano showed a benign gastric polyp and no abnormalities respectively. In any event, she had labs drawn at the beginning of the month at a health [facility] and her hemoglobin at that time was around 8. Not long thereafter she began to feel poorly with generalized fatigue, decrease in energy, shortness of breath with minimal exertion, and occasional dizziness. She was seen in the ED on 06/07/2024 at which time she was found to have a hemoglobin of 6.5. She was transfused and felt better so she was discharged home with follow-up with her doctor. She felt good for couple of days but the aforementioned symptoms have returned. Repeat labs today shows that her hemoglobin was 4.6 and she was directed back to the emergency department. She denies easy bruising and bleeding and she specifically denies epistaxis, hemoptysis, hematemesis, melena, hematochezia, and hematuria. She also denies abdominal pain, nausea, vomiting, diarrhea, constipation, and paresthesias. Weight has remained stable. She has not noticed any swollen lymph nodes. She is not on any medications at home. She denies significant alcohol intake. She is not a vegetarian. No history of gastric surgery. In the ED: Blood pressures have been running at the lower end of normal and she is tachycardic in the low 100s. She has been afebrile. Labs are significant for WBC count 1.1, RBC count 1.18, hemoglobin 4.6, hematocrit 12.9%, MCV 109.3, platelet 88, sodium 136, BUN 20, creatinine 0.70, total bilirubin 1.9, AST 59, vitamin B12 less than 159. Urinalysis was positive for 1+ protein, 2+ ketones, 1+ bilirubin. She is being admitted in this setting for transfusion and further evaluation. Review of Systems Review of Systems: 12 systems were reviewed and are negative except for as per HPI. [facility] Past Medical History Medical History (Updated 06/12/24 @ 21:57 by Jaz Espinoza PA-C) Gastric polyp (12/2013) Iron deficiency (05/2013) Vitamin B12 deficiency (05/2013) Surgical History Surgical History History of colonoscopy (12/2013) unremarkable History of esophagogastroduodenoscopy (12/2013) benign gastric polyp Family History Family History Father Family history of colitis Family history of arthritis Grandparent Family history of chronic obstructive pulmonary disease Family history of Alzheimer's disease Family history of emphysema Family history of heart disease in male family member before age 55 Diabetes mellitus Other Family history of congestive heart failure Hypertension Social History Social History Social History: Surrogate medical decision maker: Balaji Cruz, spouse Code status: Full code. Smoking status: Never smoker Alcohol intake: current Drinks per week: 6 Substance use: never Substance use type: does not use Do You Feel Safe in your Home?: Yes Lack of Transportation: No Lack of Food: Never True Current Housing: I Have Housing Concerned About Future Housing: No Difficulty Paying Gas/Electric Bills: No Difficulty Paying for Meds: No Currently Unemployed: No Education: Master's Degree or Higher Difficulty w/ Childcare or Family Care: No Spiritual care concerns: No Meds Home Medications and Allergies Home Medications Medication Instructions Recorded Confirmed Type No Home Medications 05/28/24 06/12/24 History Allergies Allergy/AdvReac Type Severity Reaction Status Date / Time Penicillins Allergy Unknown Rash Verified 06/12/24 13:07 Vital Signs Vital Signs - 24 hr 06/12/24 13:05 06/12/24 13:57 06/12/24 14:01 Temperature 97.9 F Pulse Rate 109 H 111 H Respiratory Rate 18 20 20 Blood Pressure 105/49 L 107/54 L Pulse Oximetry 99 100 Oxygen Delivery Room Air 06/12/24 14:55 06/12/24 16:13 Temperature Pulse Rate 113 H 107 H Respiratory Rate 14 13 Blood Pressure 125/55 L 101/56 L Pulse Oximetry 97 Oxygen Delivery Exam Narrative: General: Mildly ill-appearing female sitting up in bed. Weight: 74.84 kg. BMI: 26.6. HEENT: PERRL, EOMI. Sclera anicteric. Pale conjunctiva. Oral mucosa moist. Neck: Supple. Respiratory: Lungs are clear to auscultation bilaterally. Cardiovascular: Tachycardic with normal S1-S2. Gastrointestinal: Abdomen is soft, nontender, and nondistended with positive bowel sounds. Skin: Warm and dry. Generalized pallor. Extremities: No cyanosis, clubbing, or edema. Radial and pedal pulses intact. Neurological: Alert. Cranial nerves 2-12 are grossly intact. No gross focal deficits to casual conversation. Psychiatric: Pleasant and cooperative with normal mood and affect. H&P: Results Labs Labs: Short CBC 06/12/24 Range/Units 15:10 WBC 1.1 L* (4.5-10.0) K/mm3 Hgb 4.6 L* (12.0-15.0) g/dL Hct 12.9 L* (37.0-47.0) % Plt Count 88 L (150-375) k/mm3 BMP 06/12/24 15:10 Sodium 136 L Potassium 3.9 Chloride 100 Carbon Dioxide 26 BUN 20 H Creatinine 0.70 Glucose 110 Calcium 7.8 L Liver Function 06/12/24 Range/Units 15:10 Total Bilirubin 1.9 H (0.2-1.3) mg/dL AST 59 H (14-36) U/L ALT 14 (6-35) U/L Alkaline Phosphatase 40 (38-126) U/L Albumin 4.1 (3.5-5.1) g/dL Urine 06/12/24 Range/Units 15:40 Urine Color Dark yellow (Yellow) Urine Appearance Cloudy H (Clear) Urine pH 5.5 (5.0-9.0) Ur Specific [place] 1.020 (1.001-1.035) Urine Protein 1+ H (Negative) mg/dL Urine Glucose (UA) Negative (Negative) mg/dL Imaging Chest X-Ray 06/12/24 15:18 IMPRESSION: No acute cardiopulmonary process. Assessment and Plan Assessment and plan (1) Symptomatic anemia: Code(s): D64.9 - Anemia, unspecified Status: Acute (2) Pancytopenia: Code(s): D61.818 - Other pancytopenia Status: Acute (3) Vitamin B12 deficiency: Onset Date: 05/2013 Code(s): E53.8 - Deficiency of other specified B group vitamins Status: Acute Plan The patient presented to the emergency department after she was found to have an extremely low hemoglobin as detailed in HPI. Labs, imaging, EKG, and all reports were personally reviewed. She has pretty profound pancytopenia which may very well be due to probable ongoing, significant vitamin B12 deficiency given concomitant macrocytosis. Other etiologies need to be ruled out and Dr. Walker has been consulted. Start vitamin B12 injections. Iron studies, haptoglobin, lactate dehydrogenase, haptoglobin, parietal cell antibodies, and intrinsic factor antibodies are pending. Blood pressures have been soft but should improve with transfusion. Findings and treatment plan were discussed with the patient. Questions were solicited and answered to satisfaction. The patient's medical management will be taken over by the hospitalist team in a.m. Quality VTE Prophylaxis VTE prophylaxis: mechanical ordered If No VTE Prophylaxis Answer both mechanical and pharmacologic: Reason no pharmacologic proph: medical contraindication (pancytopenia) The patient has been admitted under observation status. Hospitalist [facility] Advance Care Plan I have confirmed that the patient's Advanced Care Plan is present, code status is documented, or surrogate decision maker is listed in patient medical record.: Yes Medication Reconciliation I have utilized all available resources to obtain, update and review the patients current medications (includes all prescriptions, OTC, herbals, cannabis, and nutritional supplements).: Yes
[2024-06-12 17:34] LABS: Neutrophils Percent Manual 40 % (46-73); Total Cells Counted 20
[2024-06-12 17:35] LABS: Eosinophils Absolute Manual 0.05 K/mm3 (0.02-0.50); Eosinophils Percent Manual 5 % (0-4); Lymphocytes Absolute Manual 0.49 K/mm3 (1.1-4.5); Lymphocytes Percent Manual 45 % (18-44); Monocytes Absolute Manual 0.11 K/mm3 (0.1-0.90); Monocytes Percent Manual 10 % (3-9); Ovalocytes 1+; Platelet Estimate Decreased (Adequate); Schistocytes None Seen
[2024-06-12 18:32] LABS: Vitamin B12 < 159.0 pg/mL (239-931)
[2024-06-12 19:03] LABS: Immature Reticulocyte Fraction 18.3 % (3.0-15.9); Reticulocyte Hemoglobin Conten 42.6 pg (28.2-36.6); Reticulocyte Percent 1.57 % (0.7-4.3); Reticulocytes Absolute 0.02 10^6/uL (0.02-0.10)
[2024-06-13] VITALS (27 sets, daily range): BP systolic 88–138; BP diastolic 43–72; PULSE 73–99; RESP 12–24; TEMP 35.8–38.6; O2SAT 94–100
[2024-06-13 05:20] LABS: Transferrin 155 mg/dL (206-381)
[2024-06-13 05:50] LABS: Lactate Dehydrogenase > 1000 U/L (120-246)
[2024-06-13 06:26] LABS: Immature Platelet Fraction Pct 5.3 % (0.9-11.2); Mean Corpuscular Hemoglobin 38.9 pg (26-34); Mean Corpuscular Volume 111.1 fl (80-100); Mean Platelet Volume 9.9 fl (7.4-10.4); Platelet Count Result 78 k/mm3 (150-375); Red Blood Count 1.08 M/mm3 (4.2-5.4); Red Cell Distribution Width 19.6 % (11.5-14.5)
[2024-06-13 06:30] LABS: White Blood Count 1.3 K/mm3 (4.5-10.0)
[2024-06-13 06:31] LABS: Hemoglobin 4.2 g/dL (12.0-15.0)
[2024-06-13 06:41] LABS: Alanine Aminotransferase 10 U/L (6-35); Albumin Level 3.6 g/dL (3.5-5.1); Alkaline Phosphatase 36 U/L (38-126); Anion Gap 7 mmol/L (4-12); Aspartate Amino Transferase 54 U/L (14-36); Bilirubin,Total 1.8 mg/dL (0.2-1.3); Blood Urea Nitrogen 22 mg/dL (7-17); Calcium 7.6 mg/dL (8.4-10.2); Carbon Dioxide 29 mmol/L (22-30); Chloride 99 mmol/L (98-107); Estimated CRCL calculation 68 ml/min; Estimated Glomerular Filt Rate > 60; Glucose 104 mg/dL (65-110); Magnesium 2.4 mg/dL (1.6-2.3); Potassium 3.7 mmol/L (3.4-5.0); Sodium 135 mmol/L (137-145)
[2024-06-13 06:48] LABS: Iron 92 ug/dL (37-170); Percent Iron Saturation 42 % (20-50)
--- NOTE | 2024-06-13 07:29 | P.PNIM_ITS ---
Progress Note: A&P Assessment and Plan (1) Symptomatic anemia: Code(s): D64.9 - Anemia, unspecified Status: Acute Assessment and Plan: * Likely secondary to severe Vitamin B 12 deficiency as well as iron deficiency anemia * Hgb 4.2, Hct 12.0 * Iron 92, Ferritin 385, TIBC 218, Lactate dehydrogenase > 1000 * Awaiting blood transfusion, 3 units ordered--patient has antibodies * B/P running between 88/40-98/43--will move patient to ICU for closer monitoring considering her low blood pressures and profound anemia * Dr. Walker consulted for anemia/pancytopenia workup (2) Pancytopenia: Code(s): D61.818 - Other pancytopenia Status: Acute Assessment and Plan: * WBC 1.3, RBC 1.08, Plt 78 * Continue to trend * Dr. Walker consulted (3) Vitamin B12 deficiency: Onset Date: 05/2013 Code(s): E53.8 - Deficiency of other specified B group vitamins Status: Acute Assessment and Plan: * Vitamin 12 >159 * Replace Vitamin B12 (4) Serum total bilirubin elevated: Code(s): R17 - Unspecified jaundice Status: Acute Assessment and Plan: * Total Bili 1.8 * Likely secondary to anemia Time Spent With Patient Time with patient: Greater than 35 minutes Subjective Date/time seen: 06/13/24 07:29 Interval history: This is a 49-year-old female with iron deficiency anemia and vitamin B12 deficiency who presented to the hospital on 06/12/2024 for evaluation of low hem oglobin. Patient states that she has not taken anything for her anemia including vitamin B12 or ferrous sulfate. She denies any fever, chills, nausea, vomiting, diarrhea, abdominal pain, chest pain, shortness a breath, hemoptysis, hematuria, melena. She denies any family history of anemia or cancers. She reports extreme fatigue, shortness a breath with exertion, and dizziness. She was recently seen in the ED on 06/07/2024 and received 1 unit of blood for hemoglobin of 6.5 and then was discharged home. Labs today shown a white blood cell count of 1.3, RBC 1.08, hemoglobin 4.2, hematocrit 12.0, platelet count 78, sodium 135, calcium 7.6, total bili 1.8, AST 54, vitamin B12 less than 159, TSH 1.150. EKG was reviewed and showed sinus tachycardia with a rate of 111, QTC 459. Her blood pressures this morning are ranging 88/52 to 98/43. It was decided the for to ICU for closer monitoring considering her profound anemia and low blood pressures. Hematology/oncology consulted for additional workup. Review of Systems Review of Systems: All systems reviewed & are unremarkable except as noted in HPI and below Constitutional: Constitutional: Reports as per HPI and Reports no additional constitutional complaints Eyes: Eyes: Reports as per HPI and Reports no additional eye complaints ENT: Reports system reviewed and no additional complaints, except as documented and Reports as per HPI Cardiovascular: Cardiovascular: Reports as per HPI and Reports no additional cardiovascular complaints Respiratory: Respiratory: Reports as per HPI and Reports no additional respiratory complaints Gastrointestinal: Gastrointestinal: Reports as per HPI and Reports no additional gastrointestinal complaints Genitourinary: Genitourinary: Reports no additional female genitourinary complaints and Reports as per HPI Musculoskeletal: Musculoskeletal: Reports no additional musculoskeletal complaints and Reports as per HPI Integumentary/Breasts: Skin/Breast: Reports system reviewed and no additional complaints, except as docu and Reports as per HPI Neurologic: Reports system reviewed and no additional complaints, except as documented and Reports as per HPI Psychiatric: Psychiatric: Reports no additional psychiatric complaints and Reports as per HPI Exam Narrative: General: Fatigued, weak appearance Head: atraumatic, no encephalopathy Eyes:PERRLA, sclera clear ENT: moist mucous membranes, nasal passages clear Neck: supple, JVD 1+, no adenopathy, trachea midline Cardiac: Normal S1 and S2. Gallop noted, no murmur or friction rubs, peripheral pulses intact. Respiratory: Lungs clear to auscultation, no adventitious lung sounds, currently on room air Gastrointestinal: soft, non-distended, non-tender, normoactive bowel sounds. : voiding without difficulty. Extremities: moves all extremities well, no edema Skin: clean, dry, intact. No wounds or lesions. Pale Neuro: Alert and oriented x4, cranial nerves intact, no neuro deficits. Psych: normal mood, normal affect, interactive Objective Data Vital Signs Vital Signs: Vital Signs - 24 hr 06/12/24 13:05 06/12/24 13:57 06/12/24 14:01 Temperature 97.9 F Pulse Rate 109 H 111 H Respiratory Rate 18 20 20 Blood Pressure 105/49 L 107/54 L Pulse Oximetry 99 100 Oxygen Delivery Room Air 06/12/24 14:55 06/12/24 16:13 06/12/24 19:46 Temperature Pulse Rate 113 H 107 H Respiratory Rate 14 13 Blood Pressure 125/55 L 101/56 L Pulse Oximetry 97 Oxygen Delivery Room Air 06/12/24 19:35 06/13/24 02:35 06/13/24 04:20 Temperature 99.6 F 98.5 F 98.2 F Pulse Rate 106 H 95 93 Respiratory Rate 22 H 18 18 Blood Pressure 88/40 L 98/43 L 88/52 L Pulse Oximetry 98 98 97 Oxygen Delivery 06/12/24 20:00 06/13/24 00:00 06/13/24 04:00 Temperature Pulse Rate 110 H 99 91 Respiratory Rate Blood Pressure Pulse Oximetry Oxygen Delivery Intake/Output Intake/Output: Intake & Output 06/10/24 06/11/24 06/12/24 06/13/24 23:59 23:59 23:59 23:59 Intake Total 200 972 Balance 200 972 Meds/Results Medications: Active Medications Generic Name Dose Route Start Last Admin Trade Name Freq PRN Reason Stop Dose Admin Acetaminophen 650 mg 06/12/24 22:09 Acetaminophen 325 Mg Tablet PO Q6H PRN Mild Pain (1-3) or Fever Cyanocobalamin 1,000 mcg 06/13/24 09:00 Cyanocobalamin Inj 1,000 Mcg/Ml Vial IM 06/15/24 09:01 DAILY JOSELUIS Radiology Results: ITS Impressions Chest X-Ray 06/12/24 15:18 IMPRESSION: No acute cardiopulmonary process. Labs Labs: Laboratory Results - last 24 hr 06/12/24 06/12/24 06/12/24 15:00 15:09 15:10 WBC 1.1 L* RBC 1.18 L Hgb 4.6 L* Hct 12.9 L* MCV 109.3 H MCH 39.0 H MCHC 35.7 RDW 19.3 H Plt Count 88 L MPV 9.5 Immature Gran % (Auto) Not Reportable Neut % (Auto) Not Reportable Lymph % (Auto) Not Reportable [place] % (Auto) Not Reportable Eos % (Auto) Not Reportable Baso % (Auto) Not Reportable Lymph # (Auto) Not Reportable [place] # (Auto) Not Reportable Eos # (Auto) Not Reportable Baso # (Auto) Not Reportable Abs Immat Gran (auto) Not Reportable Absolute Neuts (auto) Not Reportable Absolute Nucleated RBC Not Reportable Total Counted 20 Neutrophils % (Manual) 40 L Lymphocytes % (Manual) 45 H Monocytes % (Manual) 10 H Eosinophils % (Manual) 5 H Nucleated RBC % Not Reportable Abs Lymphs (Manual) 0.49 L Abs Monocytes (Manual) 0.11 Absolute Eos (Manual) 0.05 Platelet Estimate Decreased % Immature Plt Fraction 3.4 Ovalocytes 1+ Schistocytes None seen Absolute Retic 0.02 Percent Retic 1.57 Immature Retic Fraction 18.3 H Retic Hgb Content 42.6 H PT 15.9 H INR 1.2 APTT 27.8 Sodium 136 L Potassium 3.9 Chloride 100 Carbon Dioxide 26 Anion Gap 10 BUN 20 H Creatinine 0.70 Estim Creat Clear Calc 77 Estimated GFR > 60 Glucose 110 Calcium 7.8 L Magnesium Iron TIBC % Saturation Transferrin Ferritin Total Bilirubin 1.9 H AST 59 H ALT 14 Alkaline Phosphatase 40 Lactate Dehydrogenase Total Protein 7.0 Albumin 4.1 Vitamin B12 TSH (Reflex) Urine Color Urine Appearance Urine pH Ur Specific [place] Urine Protein Urine Glucose (UA) Urine Ketones Ur Blood (Man) Urine Nitrate Urine Bilirubin Urine Urobilinogen Add Ur Microanalysis Leukocyte Esterase Rfl Urine RBC Urine WBC Ur Squamous Epith Cells Urine Bacteria Urine Casts Hyaline Casts Urine Mucus Blood Type B Positive Antibody Screen Positive Antibody Identification Cold Auto AB Antigen Identification FARHEEN, IgG Interpret FARHEEN, Poly Interpret FARHEEN, Complement Interp Crossmatch 06/12/24 06/12/24 06/12/24 15:10 15:40 17:12 WBC RBC Hgb Hct MCV MCH MCHC RDW Plt Count MPV Immature Gran % (Auto) Neut % (Auto) Lymph % (Auto) [place] % (Auto) Eos % (Auto) Baso % (Auto) Lymph # (Auto) [place] # (Auto) Eos # (Auto) Baso # (Auto) Abs Immat Gran (auto) Absolute Neuts (auto) Absolute Nucleated RBC Total Counted Neutrophils % (Manual) Lymphocytes % (Manual) Monocytes % (Manual) Eosinophils % (Manual) Nucleated RBC % Abs Lymphs (Manual) Abs Monocytes (Manual) Absolute Eos (Manual) Platelet Estimate % Immature Plt Fraction Ovalocytes Schistocytes Absolute Retic Percent Retic Immature Retic Fraction Retic Hgb Content PT INR APTT Sodium Potassium Chloride Carbon Dioxide Anion Gap BUN Creatinine Estim Creat Clear Calc Estimated GFR Glucose Calcium Magnesium Iron 92 TIBC 218 L % Saturation 42 Transferrin 155 L Ferritin 385.00 H Total Bilirubin AST ALT Alkaline Phosphatase Lactate Dehydrogenase > 1000 H Total Protein Albumin Vitamin B12 TSH (Reflex) 1.150 Urine Color Dark yellow Urine Appearance Cloudy H Urine pH 5.5 Ur Specific [place] 1.020 Urine Protein 1+ H Urine Glucose (UA) Negative Urine Ketones 2+ H Ur Blood (Man) Trace Urine Nitrate Negative Urine Bilirubin 1+ H Urine Urobilinogen 1.0 Add Ur Microanalysis Reviewed Leukocyte Esterase Rfl Negative Urine RBC 0-2 Urine WBC 0-5 Ur Squamous Epith Cells Few Urine Bacteria None seen Urine Casts 11-20 Hyaline Casts Present Urine Mucus Present Blood Type Antibody Screen Antibody Identification Anti-[place] A Antigen Identification [place] A Antigen - NEGATIVE FARHEEN, IgG Interpret Neg FARHEEN, Poly Interpret Not Performed FARHEEN, Complement Interp Negative Crossmatch See Detail 06/12/24 06/13/24 17:24 05:29 WBC 1.3 L* RBC 1.08 L Hgb 4.2 L* Hct 12.0 L* MCV 111.1 H MCH 38.9 H MCHC 35.0 RDW 19.6 H Plt Count 78 L MPV 9.9 Immature Gran % (Auto) Neut % (Auto) Lymph % (Auto) [place] % (Auto) Eos % (Auto) Baso % (Auto) Lymph # (Auto) [place] # (Auto) Eos # (Auto) Baso # (Auto) Abs Immat Gran (auto) Absolute Neuts (auto) Absolute Nucleated RBC Total Counted Neutrophils % (Manual) Lymphocytes % (Manual) Monocytes % (Manual) Eosinophils % (Manual) Nucleated RBC % Abs Lymphs (Manual) Abs Monocytes (Manual) Absolute Eos (Manual) Platelet Estimate % Immature Plt Fraction 5.3 Ovalocytes Schistocytes Absolute Retic Percent Retic Immature Retic Fraction Retic Hgb Content PT INR APTT Sodium 135 L Potassium 3.7 Chloride 99 Carbon Dioxide 29 Anion Gap 7 BUN 22 H Creatinine 0.80 Estim Creat Clear Calc 68 Estimated GFR > 60 Glucose 104 Calcium 7.6 L Magnesium 2.4 H Iron TIBC % Saturation Transferrin Ferritin Total Bilirubin 1.8 H AST 54 H ALT 10 Alkaline Phosphatase 36 L Lactate Dehydrogenase Total Protein 6.0 L Albumin 3.6 Vitamin B12 < 159.0 L TSH (Reflex) Urine Color Urine Appearance Urine pH Ur Specific [place] Urine Protein Urine Glucose (UA) Urine Ketones Ur Blood (Man) Urine Nitrate Urine Bilirubin Urine Urobilinogen Add Ur Microanalysis Leukocyte Esterase Rfl Urine RBC Urine WBC Ur Squamous Epith Cells Urine Bacteria Urine Casts Hyaline Casts Urine Mucus Blood Type Antibody Screen Antibody Identification Antigen Identification FARHEEN, IgG Interpret FARHEEN, Poly Interpret FARHEEN, Complement Interp Crossmatch Quality VTE Prophylaxis VTE prophylaxis: mechanical ordered
[2024-06-13] MEDS: SODIUM CHLORIDE 0.9% IV 250 ML 30 ML IV CONT (08:18)
[2024-06-13] MEDS: SODIUM CHLORIDE 0.9% IV 1,000 ML 100 ML IV CONT (08:18)
[2024-06-13] MEDS: CYANOCOBALAMIN INJ 1,000 MCG/ML VIAL 1000 MCG IM (08:34)
--- NOTE | 2024-06-13 08:55 | PC.NURSE ---
This patient, Malroie Cruz, was transferred to ICU on 06/13/24 at 0850. Personal belongings sent with patient. Report given to Yue WADSWORTH. Appropriate documentation sent with patient.
--- NOTE | 2024-06-13 09:11 | PC.NURSE ---
This patient, Malorie Cruz, was received from [facility] on 06/13/24 at 0911. Patient/family oriented to unit policies and routines. Blood transfusing per pump without difficulties. Call light within reach.
[2024-06-13] MEDS: PANTOPRAZOLE 40 MG TABLET PO ×2 (10:52→20:31)
[2024-06-13] MEDS: ONDANSETRON INJ 4 MG/2 ML VIAL IV PUSH (11:14)
[2024-06-13] MEDS: ACETAMINOPHEN 325 MG TABLET 650 MG PO ×2 (12:37→18:42)
--- NOTE | 2024-06-13 12:56 | P.CONIN_ITS ---
Assessment and Plan Assessment and plan (1) Symptomatic anemia: Code(s): D64.9 - Anemia, unspecified Status: Acute Assessment and Plan: Patient has a history of anemia, according to her she has been worked up for extensively with GI doctors -she has also been told that she has vitamin B12 and iron deficiency -not taking any supplements at this time -has antibodies so blood transfusion was slightly delayed -patient to get transfused 3 units of packed RBCs -she had mild fevers after the 1st unit, order Tylenol -will give a dose of Solu-Medrol 125 mg IV x1 -she will need Hematology for extensive workup for anemia given pancytopenia -vitamin B12 deficiency can cause pancytopenia but other factors such as myelodysplastic syndrome should be ruled out -hematology/oncology has consult (2) Vitamin B12 deficiency: Onset Date: 05/2013 Code(s): E53.8 - Deficiency of other specified B group vitamins Status: Acute Assessment and Plan: Continue by B12 supplement daily (3) Pancytopenia: Code(s): D61.818 - Other pancytopenia Status: Acute Assessment and Plan: As above Plan DVT prophylaxis: SCDs Stress ulcer prophylaxis: Protonix Nutrition: Regular diet Code Status: Full code Critical Care Time Spent: 48 minutes Due to a high probability of clinically significant, life threatening deterioration, the patient required my highest level of preparedness to intervene emergently and I personally spent this critical care time directly and personally managing the patient. This critical care time included obtaining a history; examining the patient; pulse oximetry; ordering and review of studies; arranging urgent treatment with development of a management plan; evaluation of patient's response to treatment; frequent reassessment; and discussions with other providers. It was exclusive of separately billable procedures and treating other patients and teaching time. Please see Assessment and Plan section and the rest of the note for further information on patient assessment and treatment This dictation may have been done utilizing a voice recognition system. Attempts have been made to correct errors. However, there may be uncorrected grammatical, spelling, and recognitions errors present. Supervisor [employer] Consult Note Consult date: 06/13/24 Reason for consult: Severe anemia, pancytopenia HPI: Malorie Cruz is a 49 year old female with past medical history of gastric polyp, iron deficiency anemia, vitamin B12 deficient presented the ED on 06/12/2024 with complains of low hemoglobin and was sent to the ER by her PCP. Patient has been complaining of generalized weakness, shortness of breath, fatigue and occasional dizziness. Hemoglobin in the ER was 4.6, WBC count of 1.1, platelets 88. Sodium was 136, BUN 20, creatinine 0.7. Bilirubin 1.9, AST 59, vitamin B12 less than 159. UA was positive for 1+ protein, 2+ ketones and 1+ bilirubin. Patient was admitted to the medical floor for blood transfusion. She has antibodies is so the blood transfusion was delayed. 06/13: This morning patient was hypotensive with systolic blood pressures in the 80s x2, she was transferred to the ICU for further management. Upon arrival to the ICU SBP were in the 100s. Blood transfusion was started, patient developed low-grade fever after the 1st unit. Tylenol and Zofran were administered. Patient denies any chest pain, shortness of breath, abdominal pain, nausea vomiting at this time. Hemodynamically stable, blood pressures are up to 130 systolic after 1 unit of packed RBCs Review of Systems Review of Systems: All systems reviewed & are unremarkable except as noted in HPI and below PMFSH Past Medical History Medical History (Updated 06/12/24 @ 21:57 by Jaz Espinoza PA-C) Gastric polyp (12/2013) Iron deficiency (05/2013) Vitamin B12 deficiency (05/2013) Surgical History Surgical History History of colonoscopy (12/2013) unremarkable History of esophagogastroduodenoscopy (12/2013) benign gastric polyp Family History Family History Father Family history of colitis Family history of arthritis Grandparent Family history of chronic obstructive pulmonary disease Family history of Alzheimer's disease Family history of emphysema Family history of heart disease in male family member before age 55 Diabetes mellitus Other Family history of congestive heart failure Hypertension Social History Social History Social History: Surrogate medical decision maker: Balaji Cruz, spouse Code status: Full code. Smoking status: Never smoker Alcohol intake: current Drinks per week: 6 Substance use: never Substance use type: does not use Do You Feel Safe in your Home?: Yes Lack of Transportation: No Lack of Food: Never True Current Housing: I Have Housing Concerned About Future Housing: No Difficulty Paying Gas/Electric Bills: No Difficulty Paying for Meds: No Currently Unemployed: No Education: Master's Degree or Higher Difficulty w/ Childcare or Family Care: No Spiritual care concerns: No Meds Home Medications and Allergies Home Medications Medication Instructions Recorded Confirmed Type No Home Medications 05/28/24 06/12/24 History Allergies Allergy/AdvReac Type Severity Reaction Status Date / Time Penicillins Allergy Unknown Rash Verified 06/12/24 13:07 Vital Signs Vital Signs - 24 hr 06/12/24 13:05 06/12/24 13:57 06/12/24 14:01 Temperature 97.9 F Pulse Rate 109 H 111 H Respiratory Rate 18 20 20 Blood Pressure 105/49 L 107/54 L Pulse Oximetry 99 100 Oxygen Delivery Room Air 06/12/24 14:55 06/12/24 16:13 06/12/24 19:46 Temperature Pulse Rate 113 H 107 H Respiratory Rate 14 13 Blood Pressure 125/55 L 101/56 L Pulse Oximetry 97 Oxygen Delivery Room Air 06/12/24 19:35 06/13/24 02:35 06/13/24 04:20 Temperature 99.6 F 98.5 F 98.2 F Pulse Rate 106 H 95 93 Respiratory Rate 22 H 18 18 Blood Pressure 88/40 L 98/43 L 88/52 L Pulse Oximetry 98 98 97 Oxygen Delivery 06/12/24 20:00 06/13/24 00:00 06/13/24 04:00 Temperature Pulse Rate 110 H 99 91 Respiratory Rate Blood Pressure Pulse Oximetry Oxygen Delivery 06/13/24 08:30 06/13/24 08:00 06/13/24 08:46 Temperature 97.6 F 97.6 F Pulse Rate 90 88 Respiratory Rate 22 H 20 Blood Pressure 101/48 L 100/46 L Pulse Oximetry 94 96 97 Oxygen Delivery Room Air 06/13/24 08:32 06/13/24 09:45 06/13/24 08:00 Temperature 99.1 F Pulse Rate 85 86 Respiratory Rate 12 Blood Pressure 109/66 Pulse Oximetry 98 97 Oxygen Delivery Room Air 06/13/24 10:00 06/13/24 10:46 06/13/24 10:46 Temperature 99.1 F 99.5 F Pulse Rate 87 85 94 Respiratory Rate 24 H 24 H 13 Blood Pressure 123/68 123/68 129/69 Pulse Oximetry 100 99 99 Oxygen Delivery 06/13/24 12:00 06/13/24 12:00 06/13/24 12:00 Temperature 100.6 F H Pulse Rate 95 94 92 Respiratory Rate 16 12 Blood Pressure 138/70 Pulse Oximetry 99 100 Oxygen Delivery Room Air 06/13/24 12:37 Temperature 100.6 F H Pulse Rate Respiratory Rate Blood Pressure Pulse Oximetry Oxygen Delivery Exam Narrative: General: Pleasant female, in no acute distress HEENT:? Pupils equal and reactive, sclera is clear, pallor noted Neck:? Supple Respiratory:? Clear to auscultation bilaterally, no wheezing Cardiac:? S1-S2 normal, regular rate and rhythm Abdomen:? Soft, nontender, nondistended, normoactive bowel sound Extremities:? No edema, palpable pedal pulses, pallor noted in the nail beds Neuro:? Patient is awake, alert, oriented x3, nonfocal Skin:? No lesions noted Psych:? Normal mentation and affect Results Labs 06/13/24 05:29 06/13/24 05:29 Labs: Short CBC 06/12/24 06/13/24 Range/Units 15:10 05:29 WBC 1.1 L* 1.3 L* (4.5-10.0) K/mm3 Hgb 4.6 L* 4.2 L* (12.0-15.0) g/dL Hct 12.9 L* 12.0 L* (37.0-47.0) % Plt Count 88 L 78 L (150-375) k/mm3 BMP 06/12/24 06/13/24 15:10 05:29 Sodium 136 L 135 L Potassium 3.9 3.7 Chloride 100 99 Carbon Dioxide 26 29 BUN 20 H 22 H Creatinine 0.70 0.80 Glucose 110 104 Calcium 7.8 L 7.6 L Liver Function 06/12/24 06/13/24 Range/Units 15:10 05:29 Total Bilirubin 1.9 H 1.8 H (0.2-1.3) mg/dL AST 59 H 54 H (14-36) U/L ALT 14 10 (6-35) U/L Alkaline Phosphatase 40 36 L (38-126) U/L Albumin 4.1 3.6 (3.5-5.1) g/dL Urine 06/12/24 Range/Units 15:40 Urine Color Dark yellow (Yellow) Urine Appearance Cloudy H (Clear) Urine pH 5.5 (5.0-9.0) Ur Specific [place] 1.020 (1.001-1.035) Urine Protein 1+ H (Negative) mg/dL Urine Glucose (UA) Negative (Negative) mg/dL
[2024-06-13 13:21] LABS: Immature Platelet Fraction Pct 3.8 % (0.9-11.2); Mean Corpuscular HGB Conc 37.1 g/dl (32-36); Mean Corpuscular Hemoglobin 38.6 pg (26-34); Mean Corpuscular Volume 103.9 fl (80-100); Mean Platelet Volume 10.7 fl (7.4-10.4); Platelet Count Result 50 k/mm3 (150-375); Red Blood Count 1.53 M/mm3 (4.2-5.4); Red Cell Distribution Width 20.1 % (11.5-14.5)
[2024-06-13] MEDS: methylPREDNISolone SOD SUCC 125 MG VIAL IV PUSH (13:44)
[2024-06-13 13:49] LABS: Hemoglobin 5.9 g/dL (12.0-15.0)
[2024-06-13 13:50] LABS: Hematocrit 15.9 % (37.0-47.0); Total Cells Counted 25
[2024-06-13 13:51] LABS: Lymphocytes Absolute Manual 0.09 K/mm3 (1.1-4.5); Lymphocytes Percent Manual 9 % (18-44); Metamyelocytes Percent 1 %; Neutrophils Percent Manual 15 % (46-73)
[2024-06-13 13:52] LABS: Band Neutrophils Percent 0 % (0-6); Neutrophils Absolute Manual 0.15 K/mm3 (1.7-7.2)
[2024-06-13 13:55] LABS: Hypochromasia 2+; Platelet Estimate Decreased (Adequate)
[2024-06-13 13:58] LABS: Anisocytosis 2+
[2024-06-13 13:59] LABS: Ovalocytes 1+; Schistocytes None Seen; Tear Drop Cells 1+
[2024-06-13] MEDS: SODIUM CHLORIDE 0.9% IV 1,000 ML 999 ML IV CONT (15:44)
[2024-06-13] MEDS: diphenhydrAMINE HCl INJ 50 MG/ML VIAL 25 MG IV PUSH (15:44)
--- NOTE | 2024-06-13 17:01 | WPDURCON ---
Assessment and Plan Assessment and plan (1) Pancytopenia: Code(s): D61.818 - Other pancytopenia Status: Acute (2) Hematuria: Code(s): R31.9 - Hematuria, unspecified Status: Acute Plan Very pleasant 49-year-old female with severe anemia. She had acute hematuria noted after blood transfusion today. -Leon catheter inserted. Urine sent for analysis and culture -CT urogram ordered to assess for upper tract etiology. -consider cystoscopy at a later time, will defer at this time -this is an unclear, acute episode of hematuria. Hopefully CT scan imaging will help with understanding the cause of her hematuria and her pancytopenia. Urology Consult Note HPI Date Seen: 06/13/24 Requesting Physician: Genoveva Dumont MD Primary Care Provider: Bg Erickson MD Consult Narrative Narrative: Malorie Cruz is a 49 year old female with past medical history of gastric polyp, iron deficiency anemia, vitamin B12 deficient presented the ED on 06/12/2024 with complains of low hemoglobin and was sent to the ER by her PCP. Patient has been complaining of generalized weakness, shortness of breath, fatigue and occasional dizziness. Hemoglobin in the ER was 4.6, WBC count of 1.1, platelets 88. Sodium was 136, BUN 20, creatinine 0.7. Bilirubin 1.9, AST 59, vitamin B12 less than 159. UA was positive for 1+ protein, 2+ ketones and 1+ bilirubin --no red blood cells. Patient was admitted to the ICU - She has antibodies is so the blood transfusion was delayed. The patient with initiation of blood transfusion today. She began with dark colored urine after her 1st unit of blood. Urology was called to evaluate the patient. Patient states no history of hematuria in the past, her 1st episode of hematuria was today. She denies vaginal bleeding. She denies history of kidney stones. She denies a family history of malignancy. Her father did have end-stage renal disease due to hypertension PMF Past Medical History Medical History (Updated 06/13/24 @ 17:05 by Jules Hobbs MD) Gastric polyp (12/2013) Hematuria Iron deficiency (05/2013) Vitamin B12 deficiency (05/2013) Surgical History Surgical History History of colonoscopy (12/2013) unremarkable History of esophagogastroduodenoscopy (12/2013) benign gastric polyp Family History Family History Father Family history of colitis Family history of arthritis Grandparent Family history of chronic obstructive pulmonary disease Family history of Alzheimer's disease Family history of emphysema Family history of heart disease in male family member before age 55 Diabetes mellitus Other Family history of congestive heart failure Hypertension Social History Social History Social History: Surrogate medical decision maker: Balaji Cruz, spouse Code status: Full code. Smoking status: Never smoker Alcohol intake: current Drinks per week: 6 Substance use: never Substance use type: does not use Do You Feel Safe in your Home?: Yes Lack of Transportation: No Lack of Food: Never True Current Housing: I Have Housing Concerned About Future Housing: No Difficulty Paying Gas/Electric Bills: No Difficulty Paying for Meds: No Currently Unemployed: No Education: Master's Degree or Higher Difficulty w/ Childcare or Family Care: No Spiritual care concerns: No Meds Home Medications and Allergies Home Medications Medication Instructions Recorded Confirmed Type No Home Medications 05/28/24 06/12/24 History Allergies Allergy/AdvReac Type Severity Reaction Status Date / Time Penicillins Allergy Unknown Rash Verified 06/12/24 13:07 Vital Signs Vital Signs - 24 hr 06/12/24 19:46 06/12/24 19:35 06/13/24 02:35 Temperature 37.6 C 36.9 C Pulse Rate 106 H 95 Respiratory Rate 22 H 18 Blood Pressure 88/40 L 98/43 L Pulse Oximetry 98 98 Oxygen Delivery Room Air 06/13/24 04:20 06/12/24 20:00 06/13/24 00:00 Temperature 36.8 C Pulse Rate 93 110 H 99 Respiratory Rate 18 Blood Pressure 88/52 L Pulse Oximetry 97 Oxygen Delivery 06/13/24 04:00 06/13/24 08:30 06/13/24 08:00 Temperature 36.4 C Pulse Rate 91 90 Respiratory Rate 22 H Blood Pressure 101/48 L Pulse Oximetry 94 96 Oxygen Delivery Room Air 06/13/24 08:46 06/13/24 08:32 06/13/24 09:45 Temperature 36.4 C 37.3 C Pulse Rate 88 85 Respiratory Rate 20 12 Blood Pressure 100/46 L 109/66 Pulse Oximetry 97 98 97 Oxygen Delivery Room Air 06/13/24 08:00 06/13/24 10:00 06/13/24 10:46 Temperature 37.3 C Pulse Rate 86 87 85 Respiratory Rate 24 H 24 H Blood Pressure 123/68 123/68 Pulse Oximetry 100 99 Oxygen Delivery 06/13/24 10:46 06/13/24 12:00 06/13/24 12:00 Temperature 37.5 C Pulse Rate 94 95 94 Respiratory Rate 13 16 Blood Pressure 129/69 Pulse Oximetry 99 99 Oxygen Delivery Room Air 06/13/24 12:00 06/13/24 12:37 06/13/24 13:50 Temperature 38.1 C H 38.1 C H 38.2 C H Pulse Rate 92 92 Respiratory Rate 12 14 Blood Pressure 138/70 118/69 Pulse Oximetry 100 97 Oxygen Delivery 06/13/24 13:37 06/13/24 14:00 06/13/24 14:10 Temperature 38.2 C H 38.2 C H 38.1 C H Pulse Rate 90 96 Respiratory Rate 18 20 Blood Pressure 118/63 125/63 Pulse Oximetry 99 96 Oxygen Delivery 06/13/24 15:10 Temperature 37.5 C Pulse Rate 99 Respiratory Rate 18 Blood Pressure 117/63 Pulse Oximetry 99 Oxygen Delivery Exam Narrative: The patient is awake alert no distress. She appears jaundiced. Her abdomen is soft nontender. Her breathing is unlabored. Extremities are within normal limits With general superintendent present we performed a exam. He has normal external genitalia. Patient has normal urethra. There was no blood in the introitus. Who passed a 16 F Leon catheter with temperature probe. With return of dark urine. Bladder irrigation through the catheter without clots noted. The urine remained clear. The catheter was placed to gravity drainage. Results Labs 06/13/24 13:14 06/13/24 05:29 Labs: Short CBC 06/13/24 06/13/24 Range/Units 05:29 13:14 WBC 1.3 L* 1.0 L* (4.5-10.0) K/mm3 Hgb 4.2 L* 5.9 L* (12.0-15.0) g/dL Hct 12.0 L* 15.9 L* (37.0-47.0) % Plt Count 78 L 50 L (150-375) k/mm3 BMP 06/13/24 05:29 Sodium 135 L Potassium 3.7 Chloride 99 Carbon Dioxide 29 BUN 22 H Creatinine 0.80 Glucose 104 Calcium 7.6 L Liver Function 06/13/24 Range/Units 05:29 Total Bilirubin 1.8 H (0.2-1.3) mg/dL AST 54 H (14-36) U/L ALT 10 (6-35) U/L Alkaline Phosphatase 36 L (38-126) U/L Albumin 3.6 (3.5-5.1) g/dL
[2024-06-13 17:46] LABS: Add Urine Microscopic? YES; Appearance Urine Turbid (Clear); Bacteria Urine None Seen /hpf; Color Urine Red (Yellow); Need Manual Microscopic Reviewed; Non Pathogenic Casts 0-2; RBC Urine >100 /hpf (0-2); Squamous Epithelial Cell Urine Occasional /hpf (Few); WBC Urine 0-5 /hpf (0-3)
--- NOTE | 2024-06-13 19:44 | P.CONONC_ITS ---
HPI - Date of Consult Date/Time: 06/13/24 19:44 Requesting Physician: Genoveva Dumont MD Primary Care Provider: Bg Erickson MD - Consult Narrative Reason for consult: Pancytopenia Narrative: Malorie Cruz is a 49 year old female came into the ER with generalized tiredness and fatigue and found to have hemoglobin of 6.5. She complain of dark stools. Patient has a history of anemia in May 2013. She had EGD and colonoscopy done in December 2013 that showed gastric polyps. Patient drinks alcohol mainly on the weekends. She denies being a vegetarian. No previous history of gastric bypass surgery. Labs showed hemoglobin of 5.9, WBC 1[place] [address]. MCV was 103.9. Iron was 92 saturation was 42% ferritin was 385 and B12 was less than 159. Review of Systems - Review of Systems All systems reviewed & are unremarkable except as noted in HPI and bel - Neurologic Reports system reviewed and no additional complaints, except as documented PMFSH Medical History: Medical History (Last Updated 06/13/24 @ 17:05 by Jules Hobbs MD) Gastric polyp Onset Date: 12/2013 Hematuria Iron deficiency Onset Date: 05/2013 Vitamin B12 deficiency Onset Date: 05/2013 Surgical History: Surgical History (Last Reviewed 06/12/24 @ 21:54 by Jaz Espinoza PA-C) History of colonoscopy Onset Date: 12/2013 unremarkable History of esophagogastroduodenoscopy Onset Date: 12/2013 benign gastric polyp Family History: Family History (Last Reviewed 06/12/24 @ 21:54 by Jaz Espinoza PA-C) Father Family history of colitis Family history of arthritis Grandparent Family history of chronic obstructive pulmonary disease Family history of Alzheimer's disease Family history of emphysema Family history of heart disease in male family member before age 55 Diabetes mellitus Other Family history of congestive heart failure Hypertension - Social History Social History: Social History (Last Reviewed 06/12/24 @ 21:55 by Jaz Espinoza PA-C) Alcohol Use: Alcohol intake: current Drinks per week: 6 Substance Use: Substance use: never Substance use type: does not use Others: Spiritual care concerns: No Smoking Status: Smoking status: Never smoker Social Determinants of Health: Do You Feel Safe in your Home?: Yes Has the Lack of Transportation Kept You From Medical Appointments or From Getting Medications?: No Within the Past 12 Months, Were You Worried Whether Your Food Would Run Out Before You Got Money to Buy More?: Never True What is Your Housing Situation Today?: I Have Housing Are You Worried That in the Next 2 Months, You May Not Have Your Own Housing to Live In?: No Do You Have Trouble Paying Your Heating Or Electricity Bill?: No Do You Have Trouble Paying For Medicines?: No Are You Currently Unemployed and Looking for Work?: No Highest Level of Education Completed: Master's Degree or Higher Do You Have Trouble With Childcare or the Care of a Family Member?: No Exam - Vital Signs Vital Signs - 24 hr 06/12/24 19:46 06/13/24 02:35 06/13/24 04:20 Temperature 36.9 C 36.8 C Pulse Rate 95 93 Respiratory Rate 18 18 Blood Pressure 98/43 L 88/52 L Pulse Oximetry 98 97 Oxygen Delivery Room Air 06/12/24 20:00 06/13/24 00:00 06/13/24 04:00 Temperature Pulse Rate 110 H 99 91 Respiratory Rate Blood Pressure Pulse Oximetry Oxygen Delivery 06/13/24 08:30 06/13/24 08:00 06/13/24 08:46 Temperature 36.4 C 36.4 C Pulse Rate 90 88 Respiratory Rate 22 H 20 Blood Pressure 101/48 L 100/46 L Pulse Oximetry 94 96 97 Oxygen Delivery Room Air 06/13/24 08:32 06/13/24 09:45 06/13/24 08:00 Temperature 37.3 C Pulse Rate 85 86 Respiratory Rate 12 Blood Pressure 109/66 Pulse Oximetry 98 97 Oxygen Delivery Room Air 06/13/24 10:00 06/13/24 10:46 06/13/24 10:46 Temperature 37.3 C 37.5 C Pulse Rate 87 85 94 Respiratory Rate 24 H 24 H 13 Blood Pressure 123/68 123/68 129/69 Pulse Oximetry 100 99 99 Oxygen Delivery 06/13/24 12:00 06/13/24 12:00 06/13/24 12:00 Temperature 38.1 C H Pulse Rate 95 94 92 Respiratory Rate 16 12 Blood Pressure 138/70 Pulse Oximetry 99 100 Oxygen Delivery Room Air 06/13/24 12:37 06/13/24 13:50 06/13/24 13:37 Temperature 38.1 C H 38.2 C H 38.2 C H Pulse Rate 92 Respiratory Rate 14 Blood Pressure 118/69 Pulse Oximetry 97 Oxygen Delivery 06/13/24 14:00 06/13/24 14:10 06/13/24 15:10 Temperature 38.2 C H 38.1 C H 37.5 C Pulse Rate 90 96 99 Respiratory Rate 18 20 18 Blood Pressure 118/63 125/63 117/63 Pulse Oximetry 99 96 99 Oxygen Delivery 06/13/24 16:00 06/13/24 16:00 06/13/24 16:00 Temperature 35.8 C L Pulse Rate 96 96 96 Respiratory Rate 16 16 Blood Pressure 122/70 Pulse Oximetry 98 99 Oxygen Delivery Room Air 06/13/24 18:00 06/13/24 18:42 Temperature 38.6 C H 38.6 C H Pulse Rate 91 Respiratory Rate 22 H Blood Pressure 137/72 Pulse Oximetry 96 Oxygen Delivery - Exam HEENT: EOMI, PERRLA, mucous membranes moist and pink, sclera icteric Neck: supple Lungs: clear to auscultation, normal air movement Heart: no murmurs, gallops, or rubs, regular rhythm Abdomen: abdomen soft, non-distended, normal bowel sounds Extremities: normal pulses Integumentary: no abnormalities Neurological: normal speech Psychological: mental status NL, mood NL - Lab Results Laboratory Last Values WBC 1.0 K/mm3 (4.5-10.0) L* 06/13/24 13:14 RBC 1.53 M/mm3 (4.2-5.4) L 06/13/24 13:14 Hgb 5.9 g/dL (12.0-15.0) L* 06/13/24 13:14 Hct 15.9 % (37.0-47.0) L* 06/13/24 13:14 MCV 103.9 fl (80-100) H D 06/13/24 13:14 MCH 38.6 pg (26-34) H 06/13/24 13:14 MCHC 37.1 g/dl (32-36) H 06/13/24 13:14 RDW 20.1 % (11.5-14.5) H 06/13/24 13:14 Plt Count 50 k/mm3 (150-375) L 06/13/24 13:14 MPV 10.7 fl (7.4-10.4) H 06/13/24 13:14 Immature Gran % (Auto) Not Reportable 06/13/24 13:14 Neut % (Auto) Not Reportable 06/13/24 13:14 Lymph % (Auto) Not Reportable 06/13/24 13:14 [place] % (Auto) Not Reportable 06/13/24 13:14 Eos % (Auto) Not Reportable 06/13/24 13:14 Baso % (Auto) Not Reportable 06/13/24 13:14 Lymph # (Auto) Not Reportable 06/13/24 13:14 [place] # (Auto) Not Reportable 06/13/24 13:14 Eos # (Auto) Not Reportable 06/13/24 13:14 Baso # (Auto) Not Reportable 06/13/24 13:14 Abs Immat Gran (auto) Not Reportable 06/13/24 13:14 Absolute Neuts (auto) Not Reportable 06/13/24 13:14 Absolute Nucleated RBC Not Reportable 06/13/24 13:14 Total Counted 25 06/13/24 13:14 Neutrophils % (Manual) 15 % (46-73) L 06/13/24 13:14 Band Neutrophils % 0 % (0-6) 06/13/24 13:14 Lymphocytes % (Manual) 9 % (18-44) L 06/13/24 13:14 Monocytes % (Manual) 10 % (3-9) H 06/12/24 15:10 Eosinophils % (Manual) 5 % (0-4) H 06/12/24 15:10 Metamyelocytes % 1 % 06/13/24 13:14 Nucleated RBC % Not Reportable 06/13/24 13:14 Abs Neuts (Manual) 0.15 K/mm3 (1.7-7.2) L 06/13/24 13:14 Abs Lymphs (Manual) 0.09 K/mm3 (1.1-4.5) L 06/13/24 13:14 Abs Monocytes (Manual) 0.11 K/mm3 (0.1-0.90) 06/12/24 15:10 Absolute Eos (Manual) 0.05 K/mm3 (0.02-0.50) 06/12/24 15:10 Platelet Estimate Decreased (Adequate) 06/13/24 13:14 % Immature Plt Fraction 3.8 % (0.9-11.2) 06/13/24 13:14 Hypochromasia 2+ 06/13/24 13:14 Anisocytosis 2+ 06/13/24 13:14 Tear Drop Cells 1+ 06/13/24 13:14 Ovalocytes 1+ 06/13/24 13:14 Schistocytes None seen 06/13/24 13:14 Absolute Retic 0.02 10^6/uL (0.02-0.10) 06/12/24 15:00 Percent Retic 1.57 % (0.7-4.3) 06/12/24 15:00 Immature Retic Fraction 18.3 % (3.0-15.9) H 06/12/24 15:00 Retic Hgb Content 42.6 pg (28.2-36.6) H 06/12/24 15:00 PT 15.9 Seconds (11.1-14.7) H 06/12/24 15:09 INR 1.2 06/12/24 15:09 APTT 27.8 Seconds (22.3-36.8) 06/12/24 15:09 Sodium 135 mmol/L (137-145) L 06/13/24 05:29 Potassium 3.7 mmol/L (3.4-5.0) 06/13/24 05:29 Chloride 99 mmol/L (98-107) 06/13/24 05:29 Carbon Dioxide 29 mmol/L (22-30) 06/13/24 05:29 Anion Gap 7 mmol/L (4-12) 06/13/24 05:29 BUN 22 mg/dL (7-17) H 06/13/24 05:29 Creatinine 0.80 mg/dL (0.7-1.0) 06/13/24 05:29 Estim Creat Clear Calc 68 ml/min 06/13/24 05:29 Estimated GFR > 60 (59-) 06/13/24 05:29 Glucose 104 mg/dL (65-110) 06/13/24 05:29 Calcium 7.6 mg/dL (8.4-10.2) L 06/13/24 05:29 Magnesium 2.4 mg/dL (1.6-2.3) H 06/13/24 05:29 Iron 92 ug/dL (37-170) 06/12/24 17:12 TIBC 218 ug/dL (261-462) L 06/12/24 17:12 % Saturation 42 % (20-50) 06/12/24 17:12 Transferrin 155 mg/dL (206-381) L 06/12/24 17:12 Ferritin 385.00 ng/mL (11.1-264) H 06/12/24 17:12 Total Bilirubin 1.8 mg/dL (0.2-1.3) H 06/13/24 05:29 AST 54 U/L (14-36) H 06/13/24 05:29 ALT 10 U/L (6-35) 06/13/24 05:29 Alkaline Phosphatase 36 U/L (38-126) L 06/13/24 05:29 Lactate Dehydrogenase > 1000 U/L (120-246) H 06/12/24 17:12 Total Protein 6.0 g/dL (6.3-8.2) L 06/13/24 05:29 Albumin 3.6 g/dL (3.5-5.1) 06/13/24 05:29 Vitamin B12 < 159.0 pg/mL (239-931) L 06/12/24 17:24 TSH (Reflex) 1.150 uIU/mL (0.465-4.68) 06/12/24 17:12 Urine Color Cancelled 06/13/24 17:26 Urine Color Red (Yellow) H 06/13/24 17:26 Urine Appearance Cancelled 06/13/24 17:26 Urine Appearance Turbid (Clear) H 06/13/24 17:26 Urine pH Cancelled 06/13/24 17:26 Urine pH TNP 06/13/24 17:26 Ur Specific [place] Cancelled 06/13/24 17:26 Ur Specific [place] TNP 06/13/24 17:26 Urine Protein Cancelled 06/13/24 17:26 Urine Protein TNP 06/13/24 17:26 Urine Glucose (UA) Cancelled 06/13/24 17:26 Urine Glucose (UA) TNP 06/13/24 17:26 Urine Ketones Cancelled 06/13/24 17:26 Urine Ketones TNP 06/13/24 17:26 Ur Blood (Man) Cancelled 06/13/24 17:26 Ur Blood (Man) TNP 06/13/24 17:26 Urine Nitrate Cancelled 06/13/24 17:26 Urine Nitrate TNP 06/13/24 17:26 Urine Bilirubin Cancelled 06/13/24 17:26 Urine Bilirubin TNP 06/13/24 17:26 Urine Urobilinogen Cancelled 06/13/24 17:26 Urine Urobilinogen TNP 06/13/24 17:26 Ur Leukocyte Esterase Cancelled 06/13/24 17:26 Add Ur Microanalysis Cancelled 06/13/24 17:26 Add Ur Microanalysis Reviewed 06/13/24 17:26 Leukocyte Esterase Rfl TNP 06/13/24 17:26 Urine RBC >100 /hpf (0-2) H 06/13/24 17:26 Urine RBC Cancelled 06/13/24 17:26 Urine WBC 0-5 /hpf (0-3) 06/13/24 17:26 Urine WBC Cancelled 06/13/24 17:26 Urine WBC Clumps Cancelled 06/13/24 17:26 Ur Squamous Epith Cells Cancelled 06/13/24 17:26 Ur Squamous Epith Cells Occasional /hpf (Few) 06/13/24 17:26 Ur Transition Epith Cell Cancelled 06/13/24 17:26 Ur Renal Epithelial Cell Cancelled 06/13/24 17:26 [place] Biurate Crystals Cancelled 06/13/24 17:26 Calcium Carbonate Cryst Cancelled 06/13/24 17:26 Calcium Phosphate Cryst Cancelled 06/13/24 17:26 Calcium Oxalate Crystal Cancelled 06/13/24 17:26 Leucine Crystals Cancelled 06/13/24 17:26 Cystine Crystals Cancelled 06/13/24 17:26 Uric Acid Crystals Cancelled 06/13/24 17:26 Triple Phos Crystals Cancelled 06/13/24 17:26 Sulfonamide Crystals Cancelled 06/13/24 17:26 Cholesterol Crystals Cancelled 06/13/24 17:26 Tyrosine Crystals Cancelled 06/13/24 17:26 Hippuric Acid Crystals Cancelled 06/13/24 17:26 Bilirubin Crystals Cancelled 06/13/24 17:26 Amorphous Sediment Cancelled 06/13/24 17:26 Other Sediment Cancelled 06/13/24 17:26 Urine Bacteria Cancelled 06/13/24 17:26 Urine Bacteria None seen /hpf 06/13/24 17:26 Urine Casts 0-2 10/30/24 17:26 Urine Casts Cancelled 06/13/24 17:26 Cellular Casts Cancelled 06/13/24 17:26 Epithelial Casts Cancelled 06/13/24 17:26 Fatty Casts Cancelled 06/13/24 17:26 Hyaline Casts Cancelled 06/13/24 17:26 Granular Casts Cancelled 06/13/24 17:26 Waxy Casts Cancelled 06/13/24 17:26 Broad Casts Cancelled 06/13/24 17:26 RBC Casts Cancelled 06/13/24 17:26 WBC Casts Cancelled 06/13/24 17:26 Urine Starch Cancelled 06/13/24 17:26 Urine Mucus Cancelled 06/13/24 17:26 Urine Trichomonas Cancelled 06/13/24 17:26 Urine Yeast (Budding) Cancelled 06/13/24 17:26 Ur Oval Fat Bodies Cancelled 06/13/24 17:26 Sperm Presence Cancelled 06/13/24 17:26 Blood Type B Positive 06/12/24 15:10 Antibody Screen Positive 06/12/24 15:10 Antibody Identification Cold Auto AB Anti-[place] A 06/12/24 15:10 Antibody Identification Cold Auto AB Anti-[place] A 06/12/24 15:10 Antigen Identification [place] A Antigen - NEGATIVE 06/12/24 15:10 FARHEEN, IgG Interpret Neg 06/12/24 15:10 FARHEEN, Poly Interpret Not Performed 06/12/24 15:10 FARHEEN, Complement Interp Negative 06/12/24 15:10 Enhanced Crossmatch See Detail 06/12/24 15:10 Pre-Trans Antibody Scrn Positive 06/12/24 15:10 Post-Trans Antibody Scrn Positive 06/12/24 15:10 Meds Home Medications Medication Instructions Recorded Confirmed Type No Home Medications 05/28/24 06/12/24 History Allergies Allergy/AdvReac Type Severity Reaction Status Date / Time Penicillins Allergy Unknown Rash Verified 06/12/24 13:07 Results - Labs CBC & Chem 7: 06/13/24 13:14 06/13/24 05:29 Labs: Short CBC 06/13/24 06/13/24 Range/Units 05:29 13:14 WBC 1.3 L* 1.0 L* (4.5-10.0) K/mm3 Hgb 4.2 L* 5.9 L* (12.0-15.0) g/dL Hct 12.0 L* 15.9 L* (37.0-47.0) % Plt Count 78 L 50 L (150-375) k/mm3 BMP 06/13/24 05:29 Sodium 135 L Potassium 3.7 Chloride 99 Carbon Dioxide 29 BUN 22 H Creatinine 0.80 Glucose 104 Calcium 7.6 L Liver Function 06/13/24 Range/Units 05:29 Total Bilirubin 1.8 H (0.2-1.3) mg/dL AST 54 H (14-36) U/L ALT 10 (6-35) U/L Alkaline Phosphatase 36 L (38-126) U/L Albumin 3.6 (3.5-5.1) g/dL Urine 06/13/24 06/13/24 06/13/24 Range/Units 17:26 17:26 17:26 Urine Color Cancelled Red H Urine Appearance Cancelled Turbid H Urine pH Cancelled Ur Specific [place] Urine Protein Urine Glucose (UA) 06/13/24 06/13/24 06/13/24 Range/Units 17:26 17:26 17:26 Urine Color Urine Appearance Urine pH TNP Ur Specific [place] Cancelled TNP Urine Protein Cancelled TNP Urine Glucose (UA) Cancelled 06/13/24 Range/Units 17:26 Urine Color Urine Appearance Urine pH Ur Specific [place] Urine Protein Urine Glucose (UA) TNP Assessment and Plan - Additional Plan Pancytopenia. Patient has a history of anemia in 2013. She came in with generalized weakness along with tiredness and fatigue. She has dark stools. Now she developed some hematuria. Labs showed profound pancytopenia. She has history of drinking alcohol but not heavy. Labs showed elevated total bilirubin of the. B12 was less than 159. Creatinine was normal and iron studies were also normal other than elevated ferritin. I am concerned about hemolytic anemia as well as bone marrow disorders and liver and spleen disorders. Direct Nicolasa test came back negative. I will order as well as bone marrow aspiration and biopsy. We will recommend GI consultation due to history of dark stools. Parietal cell and intrinsic factor antibodies has been ordered for the vitamin B12 level. We will continue vitamin B12 supplement with daily injections. I have answered all the questions to family and patient's satisfaction.
[2024-06-13 19:55] LABS: Mean Corpuscular HGB Conc 37.1 g/dl (32-36); Mean Corpuscular Hemoglobin 37.7 pg (26-34); Mean Corpuscular Volume 101.8 fl (80-100); Platelet Count Result 53 k/mm3 (150-375); Red Blood Count 1.67 M/mm3 (4.2-5.4); Red Cell Distribution Width 20.4 % (11.5-14.5)
[2024-06-13 20:03] LABS: Bilirubin,Total 5.5 mg/dL (0.2-1.3)
[2024-06-13 20:16] LABS: White Blood Count 0.9 K/mm3 (4.5-10.0)
[2024-06-13 20:17] LABS: Hemoglobin 6.3 g/dL (12.0-15.0)
[2024-06-13 20:23] LABS: Lymphocytes Absolute Manual 0.31 K/mm3 (1.1-4.5); Monocytes Absolute Manual 0.07 K/mm3 (0.1-0.90); Monocytes Percent Manual 8 % (3-9); Neutrophils Percent Manual 57 % (46-73); Platelet Estimate Decreased (Adequate); Total Cells Counted 100
[2024-06-13 20:24] LABS: Anisocytosis 3+; Schistocytes None Seen
--- NOTE | 2024-06-13 20:25 | PC.NURSE ---
Spoke with Dr. Arguelles. Reported Dr. Walker's new orders and pt's current CBC and temperature of 101.1. Pt to received 1 unit PRBCs. Administer Tylenol as needed.
[2024-06-14] VITALS (30 sets, daily range): BP systolic 87–141; BP diastolic 44–74; PULSE 60–89; RESP 12–19; TEMP 36.7–38.2; O2SAT 95–100
[2024-06-14 05:05] LABS: Immature Platelet Fraction Pct 5.2 % (0.9-11.2); Mean Corpuscular HGB Conc 36.8 g/dl (32-36); Mean Corpuscular Hemoglobin 36.2 pg (26-34); Mean Corpuscular Volume 98.4 fl (80-100); Platelet Count Result 63 k/mm3 (150-375); Red Blood Count 1.85 M/mm3 (4.2-5.4)
[2024-06-14 05:13] LABS: Alanine Aminotransferase 12 U/L (6-35); Albumin Level 3.6 g/dL (3.5-5.1); Alkaline Phosphatase 23 U/L (38-126); Anion Gap 8 mmol/L (4-12); Aspartate Amino Transferase 124 U/L (14-36); Bilirubin,Total 4.3 mg/dL (0.2-1.3); Blood Urea Nitrogen 29 mg/dL (7-17); Calcium 7.5 mg/dL (8.4-10.2); Carbon Dioxide 25 mmol/L (22-30); Chloride 103 mmol/L (98-107); Estimated CRCL calculation 81 ml/min; Estimated Glomerular Filt Rate > 60; Glucose 159 mg/dL (65-110); Magnesium 2.4 mg/dL (1.6-2.3); Potassium 4.1 mmol/L (3.4-5.0); Sodium 136 mmol/L (137-145)
[2024-06-14 05:14] LABS: INR 1.3; Partial Thromboplastin Time 24.8 Seconds (22.3-36.8); Prothrombin Time 16.3 Seconds (11.1-14.7)
[2024-06-14 05:34] LABS: Hematocrit 18.2 % (37.0-47.0); Hemoglobin 6.7 g/dL (12.0-15.0)
[2024-06-14 05:50] LABS: Band Neutrophils Percent 1 % (0-6); Lymphocytes Absolute Manual 0.36 K/mm3 (1.1-4.5); Monocytes Absolute Manual 0.05 K/mm3 (0.1-0.90); Monocytes Percent Manual 5 % (3-9); Neutrophils Absolute Manual 0.59 K/mm3 (1.7-7.2); Neutrophils Percent Manual 58 % (46-73); Platelet Estimate Decreased (Adequate); Schistocytes None Seen; Total Cells Counted 100
[2024-06-14 05:51] LABS: Anisocytosis 2+; Hypochromasia 2+; Microcytosis 1+ (NORMAL); Ovalocytes 1+
--- NOTE | 2024-06-14 06:41 | P.PNUR_ITS ---
Progress Note: A&P Assessment and Plan (1) Hematuria: Code(s): R31.9 - Hematuria, unspecified Status: Acute (2) Symptomatic anemia: Code(s): D64.9 - Anemia, unspecified Status: Acute (3) Pancytopenia: Code(s): D61.818 - Other pancytopenia Status: Acute Assessment and Plan: * Appreciate Dr. Walker's input * Urine grossly clear this morning. Catheter can be removed anytime from our standpoint. * Await CT-abd/pelvis Subjective Subjective Date/Time Seen: 06/14/24 06:41 Interval history: Comfortable, no complaints Review of Systems Cardiovascular: Cardiovascular: Denies chest pain, Denies lightheadedness, Denies palpitations and Denies dyspnea Respiratory: Respiratory: Denies dyspnea Gastrointestinal: Gastrointestinal: Denies diarrhea, Denies nausea and Denies vomiting Genitourinary: Genitourinary: Denies hematuria and Denies dysuria Endocrine: Endocrine: Denies palpitations Exam Const: General: no acute distress Resp: Effort & Inspection: normal respiratory effort GI: Inspection: non-distended GI Palp: No abdominal tenderness and No Guarding due to palpation present (GI) Auscultation: normal bowel sounds Objective Data Vital Signs Vital Signs: Vital Signs - 24 hr 06/13/24 08:30 06/13/24 08:00 06/13/24 08:46 Temperature 97.6 F 97.6 F Pulse Rate 90 88 Respiratory Rate 22 H 20 Blood Pressure 101/48 L 100/46 L Pulse Oximetry 94 96 97 Oxygen Delivery Room Air 06/13/24 08:32 06/13/24 09:45 06/13/24 08:00 Temperature 99.1 F Pulse Rate 85 86 Respiratory Rate 12 Blood Pressure 109/66 Pulse Oximetry 98 97 Oxygen Delivery Room Air 06/13/24 10:00 06/13/24 10:46 06/13/24 10:46 Temperature 99.1 F 99.5 F Pulse Rate 87 85 94 Respiratory Rate 24 H 24 H 13 Blood Pressure 123/68 123/68 129/69 Pulse Oximetry 100 99 99 Oxygen Delivery 06/13/24 12:00 06/13/24 12:00 06/13/24 12:00 Temperature 100.6 F H Pulse Rate 95 94 92 Respiratory Rate 16 12 Blood Pressure 138/70 Pulse Oximetry 99 100 Oxygen Delivery Room Air 06/13/24 12:37 06/13/24 13:50 06/13/24 13:37 Temperature 100.6 F H 100.8 F H 100.8 F H Pulse Rate 92 Respiratory Rate 14 Blood Pressure 118/69 Pulse Oximetry 97 Oxygen Delivery 06/13/24 14:00 06/13/24 14:10 06/13/24 15:10 Temperature 100.8 F H 100.5 F H 99.5 F Pulse Rate 90 96 99 Respiratory Rate 18 20 18 Blood Pressure 118/63 125/63 117/63 Pulse Oximetry 99 96 99 Oxygen Delivery 06/13/24 16:00 06/13/24 16:00 06/13/24 16:00 Temperature 96.4 F L Pulse Rate 96 96 96 Respiratory Rate 16 16 Blood Pressure 122/70 Pulse Oximetry 98 99 Oxygen Delivery Room Air 06/13/24 18:00 06/13/24 18:42 06/13/24 19:42 Temperature 101.4 F H 101.4 F H 101.5 F H Pulse Rate 91 Respiratory Rate 22 H Blood Pressure 137/72 Pulse Oximetry 96 Oxygen Delivery 06/13/24 20:00 06/13/24 20:00 06/13/24 20:00 Temperature 101.1 F H Pulse Rate 89 88 Respiratory Rate 17 Blood Pressure 120/58 L Pulse Oximetry 98 Oxygen Delivery Room Air 06/13/24 21:46 06/13/24 22:03 06/13/24 23:03 Temperature 100.3 F H 100.2 F H 99.8 F H Pulse Rate 81 78 73 Respiratory Rate 15 17 14 Blood Pressure 108/65 113/57 L 106/59 L Pulse Oximetry 99 99 99 Oxygen Delivery 06/14/24 00:03 06/14/24 00:00 06/14/24 01:01 Temperature 99.1 F 98.7 F Pulse Rate 69 73 65 Respiratory Rate 16 14 Blood Pressure 110/54 L 112/65 Pulse Oximetry 100 97 Oxygen Delivery 06/14/24 00:00 06/13/24 22:00 06/14/24 02:00 Temperature Pulse Rate 78 69 Respiratory Rate Blood Pressure Pulse Oximetry Oxygen Delivery Room Air 06/14/24 02:00 06/14/24 04:00 06/14/24 04:00 Temperature 98.6 F Pulse Rate 69 60 Respiratory Rate 16 Blood Pressure 103/58 L Pulse Oximetry 98 Oxygen Delivery Room Air 06/14/24 04:00 06/14/24 04:34 06/14/24 06:00 Temperature 98.1 F 98.4 F Pulse Rate 64 74 72 Respiratory Rate 16 16 Blood Pressure 87/44 L 112/70 Pulse Oximetry 99 100 Oxygen Delivery 06/14/24 06:00 Temperature 98.9 F Pulse Rate 72 Respiratory Rate 18 Blood Pressure 97/55 L Pulse Oximetry 100 Oxygen Delivery Intake/Output Intake/Output: Intake & Output 06/11/24 06/12/24 06/13/24 06/14/24 23:59 23:59 23:59 23:59 Intake Total 200 2223 1770 Output Total 700 450 Balance 200 1523 1320 Meds/Results Medications: Active Medications Generic Name Dose Route Start Last Admin Trade Name Freq PRN Reason Stop Dose Admin Acetaminophen 650 mg 06/13/24 11:08 06/13/24 18:42 Acetaminophen 325 Mg Tablet PO 650 mg Q4H PRN Administration Mild Pain (1-3) or Fever Cyanocobalamin 1,000 mcg 06/13/24 09:00 06/13/24 08:34 Cyanocobalamin Inj 1,000 Mcg/Ml Vial IM 06/15/24 09:01 1,000 mcg DAILY JOSELUIS Administration Neomycin/Polymyxin/Bacitracin 1 applic 06/13/24 19:50 Neomycin/Polymyxin/Bacitracin Ointment 15 Gm Tube TOPICAL PRN PRN with dressing changes Ondansetron HCl 4 mg 06/13/24 11:08 06/13/24 11:14 Ondansetron Inj 4 Mg/2 Ml Vial IV PUSH 4 mg Q4H PRN Administration Nausea And Vomiting Pantoprazole Sodium 40 mg 06/13/24 09:00 06/13/24 20:31 Pantoprazole 40 Mg Tablet PO 40 mg Q12HR JOSELUIS Administration Radiology Results: ITS Impressions Chest X-Ray 06/12/24 15:18 IMPRESSION: No acute cardiopulmonary process. Labs Labs: Laboratory Results - last 24 hr 06/12/24 06/12/24 06/12/24 15:10 15:10 17:12 WBC RBC Hgb Hct MCV MCH MCHC RDW Plt Count MPV Immature Gran % (Auto) Neut % (Auto) Lymph % (Auto) [place] % (Auto) Eos % (Auto) Baso % (Auto) Lymph # (Auto) [place] # (Auto) Eos # (Auto) Baso # (Auto) Abs Immat Gran (auto) Absolute Neuts (auto) Absolute Nucleated RBC Total Counted Neutrophils % (Manual) Band Neutrophils % Lymphocytes % (Manual) Monocytes % (Manual) Metamyelocytes % Nucleated RBC % Abs Neuts (Manual) Abs Lymphs (Manual) Abs Monocytes (Manual) Platelet Estimate % Immature Plt Fraction Hypochromasia Anisocytosis Microcytosis Tear Drop Cells Ovalocytes Schistocytes PT INR APTT Sodium Potassium Chloride Carbon Dioxide Anion Gap BUN Creatinine Estim Creat Clear Calc Estimated GFR Glucose Calcium Phosphorus Magnesium Iron 92 TIBC 218 L % Saturation 42 Ferritin 385.00 H Total Bilirubin AST ALT Alkaline Phosphatase Total Protein Albumin TSH (Reflex) 1.150 Urine Color Urine Appearance Urine pH Ur Specific [place] Urine Protein Urine Glucose (UA) Urine Ketones Ur Blood (Man) Urine Nitrate Urine Bilirubin Urine Urobilinogen Ur Leukocyte Esterase Add Ur Microanalysis Leukocyte Esterase Rfl Urine RBC Urine WBC Urine WBC Clumps Ur Squamous Epith Cells Ur Transition Epith Cell Ur Renal Epithelial Cell [place] Biurate Crystals Calcium Carbonate Cryst Calcium Phosphate Cryst Calcium Oxalate Crystal Leucine Crystals Cystine Crystals Uric Acid Crystals Triple Phos Crystals Sulfonamide Crystals Cholesterol Crystals Tyrosine Crystals Hippuric Acid Crystals Bilirubin Crystals Amorphous Sediment Other Sediment Urine Bacteria Urine Casts Cellular Casts Epithelial Casts Fatty Casts Hyaline Casts Granular Casts Waxy Casts Broad Casts RBC Casts WBC Casts Urine Starch Urine Mucus Urine Trichomonas Urine Yeast (Budding) Ur Oval Fat Bodies Sperm Presence Blood Type B Positive Antibody Screen Positive Antibody Identification Cold Auto AB Anti-[place] A Antigen Identification [place] A Antigen - NEGATIVE FARHEEN, IgG Interpret Neg FARHEEN, Complement Interp Negative Enhanced Crossmatch See Detail Pre-Trans Antibody Scrn Positive Post-Trans Antibody Scrn Positive 06/13/24 06/13/24 06/13/24 05:29 13:14 17:26 WBC 1.0 L* RBC 1.53 L Hgb 5.9 L* Hct 15.9 L* MCV 103.9 H D MCH 38.6 H MCHC 37.1 H RDW 20.1 H Plt Count 50 L MPV 10.7 H Immature Gran % (Auto) Not Reportable Neut % (Auto) Not Reportable Lymph % (Auto) Not Reportable [place] % (Auto) Not Reportable Eos % (Auto) Not Reportable Baso % (Auto) Not Reportable Lymph # (Auto) Not Reportable [place] # (Auto) Not Reportable Eos # (Auto) Not Reportable Baso # (Auto) Not Reportable Abs Immat Gran (auto) Not Reportable Absolute Neuts (auto) Not Reportable Absolute Nucleated RBC Not Reportable Total Counted 25 Neutrophils % (Manual) 15 L Band Neutrophils % 0 Lymphocytes % (Manual) 9 L Monocytes % (Manual) Metamyelocytes % 1 Nucleated RBC % Not Reportable Abs Neuts (Manual) 0.15 L Abs Lymphs (Manual) 0.09 L Abs Monocytes (Manual) Platelet Estimate Decreased % Immature Plt Fraction 3.8 Hypochromasia 2+ Anisocytosis 2+ Microcytosis Tear Drop Cells 1+ Ovalocytes 1+ Schistocytes None seen PT INR APTT Sodium 135 L Potassium 3.7 Chloride 99 Carbon Dioxide 29 Anion Gap 7 BUN 22 H Creatinine 0.80 Estim Creat Clear Calc 68 Estimated GFR > 60 Glucose 104 Calcium 7.6 L Phosphorus Magnesium 2.4 H Iron TIBC % Saturation Ferritin Total Bilirubin 1.8 H AST 54 H ALT 10 Alkaline Phosphatase 36 L Total Protein 6.0 L Albumin 3.6 TSH (Reflex) Urine Color Cancelled Urine Appearance Urine pH Ur Specific [place] Urine Protein Urine Glucose (UA) Urine Ketones Ur Blood (Man) Urine Nitrate Urine Bilirubin Urine Urobilinogen Ur Leukocyte Esterase Add Ur Microanalysis Leukocyte Esterase Rfl Urine RBC Urine WBC Urine WBC Clumps Ur Squamous Epith Cells Ur Transition Epith Cell Ur Renal Epithelial Cell Ramu Biurate Crystals Calcium Carbonate Cryst Calcium Phosphate Cryst Calcium Oxalate Crystal Leucine Crystals Cystine Crystals Uric Acid Crystals Triple Phos Crystals Sulfonamide Crystals Cholesterol Crystals Tyrosine Crystals Hippuric Acid Crystals Bilirubin Crystals Amorphous Sediment Other Sediment Urine Bacteria Urine Casts Cellular Casts Epithelial Casts Fatty Casts Hyaline Casts Granular Casts Waxy Casts Broad Casts RBC Casts WBC Casts Urine Starch Urine Mucus Urine Trichomonas Urine Yeast (Budding) Ur Oval Fat Bodies Sperm Presence Blood Type Antibody Screen Antibody Identification Antigen Identification FARHEEN, IgG Interpret FARHEEN, Complement Interp Enhanced Crossmatch Pre-Trans Antibody Scrn Post-Trans Antibody Scrn 06/13/24 06/13/24 06/13/24 17:26 17:26 17:26 WBC RBC Hgb Hct MCV MCH MCHC RDW Plt Count MPV Immature Gran % (Auto) Neut % (Auto) Lymph % (Auto) [place] % (Auto) Eos % (Auto) Baso % (Auto) Lymph # (Auto) [place] # (Auto) Eos # (Auto) Baso # (Auto) Abs Immat Gran (auto) Absolute Neuts (auto) Absolute Nucleated RBC Total Counted Neutrophils % (Manual) Band Neutrophils % Lymphocytes % (Manual) Monocytes % (Manual) Metamyelocytes % Nucleated RBC % Abs Neuts (Manual) Abs Lymphs (Manual) Abs Monocytes (Manual) Platelet Estimate % Immature Plt Fraction Hypochromasia Anisocytosis Microcytosis Tear Drop Cells Ovalocytes Schistocytes PT INR APTT Sodium Potassium Chloride Carbon Dioxide Anion Gap BUN Creatinine Estim Creat Clear Calc Estimated GFR Glucose Calcium Phosphorus Magnesium Iron TIBC % Saturation Ferritin Total Bilirubin AST ALT Alkaline Phosphatase Total Protein Albumin TSH (Reflex) Urine Color Red H Urine Appearance Cancelled Turbid H Urine pH Cancelled TNP Ur Specific [place] Cancelled Urine Protein Urine Glucose (UA) Urine Ketones Ur Blood (Man) Urine Nitrate Urine Bilirubin Urine Urobilinogen Ur Leukocyte Esterase Add Ur Microanalysis Leukocyte Esterase Rfl Urine RBC Urine WBC Urine WBC Clumps Ur Squamous Epith Cells Ur Transition Epith Cell Ur Renal Epithelial Cell Ramu Biurate Crystals Calcium Carbonate Cryst Calcium Phosphate Cryst Calcium Oxalate Crystal Leucine Crystals Cystine Crystals Uric Acid Crystals Triple Phos Crystals Sulfonamide Crystals Cholesterol Crystals Tyrosine Crystals Hippuric Acid Crystals Bilirubin Crystals Amorphous Sediment Other Sediment Urine Bacteria Urine Casts Cellular Casts Epithelial Casts Fatty Casts Hyaline Casts Granular Casts Waxy Casts Broad Casts RBC Casts WBC Casts Urine Starch Urine Mucus Urine Trichomonas Urine Yeast (Budding) Ur Oval Fat Bodies Sperm Presence Blood Type Antibody Screen Antibody Identification Antigen Identification FARHEEN, IgG Interpret FARHEEN, Complement Interp Enhanced Crossmatch Pre-Trans Antibody Scrn Post-Trans Antibody Scrn 06/13/24 06/13/24 06/13/24 17:26 17:26 17:26 WBC RBC Hgb Hct MCV MCH MCHC RDW Plt Count MPV Immature Gran % (Auto) Neut % (Auto) Lymph % (Auto) [place] % (Auto) Eos % (Auto) Baso % (Auto) Lymph # (Auto) [place] # (Auto) Eos # (Auto) Baso # (Auto) Abs Immat Gran (auto) Absolute Neuts (auto) Absolute Nucleated RBC Total Counted Neutrophils % (Manual) Band Neutrophils % Lymphocytes % (Manual) Monocytes % (Manual) Metamyelocytes % Nucleated RBC % Abs Neuts (Manual) Abs Lymphs (Manual) Abs Monocytes (Manual) Platelet Estimate % Immature Plt Fraction Hypochromasia Anisocytosis Microcytosis Tear Drop Cells Ovalocytes Schistocytes PT INR APTT Sodium Potassium Chloride Carbon Dioxide Anion Gap BUN Creatinine Estim Creat Clear Calc Estimated GFR Glucose Calcium Phosphorus Magnesium Iron TIBC % Saturation Ferritin Total Bilirubin AST ALT Alkaline Phosphatase Total Protein Albumin TSH (Reflex) Urine Color Urine Appearance Urine pH Ur Specific [place] TNP Urine Protein Cancelled TNP Urine Glucose (UA) Cancelled TNP Urine Ketones Cancelled Ur Blood (Man) Urine Nitrate Urine Bilirubin Urine Urobilinogen Ur Leukocyte Esterase Add Ur Microanalysis Leukocyte Esterase Rfl Urine RBC Urine WBC Urine WBC Clumps Ur Squamous Epith Cells Ur Transition Epith Cell Ur Renal Epithelial Cell Ramu Biurate Crystals Calcium Carbonate Cryst Calcium Phosphate Cryst Calcium Oxalate Crystal Leucine Crystals Cystine Crystals Uric Acid Crystals Triple Phos Crystals Sulfonamide Crystals Cholesterol Crystals Tyrosine Crystals Hippuric Acid Crystals Bilirubin Crystals Amorphous Sediment Other Sediment Urine Bacteria Urine Casts Cellular Casts Epithelial Casts Fatty Casts Hyaline Casts Granular Casts Waxy Casts Broad Casts RBC Casts WBC Casts Urine Starch Urine Mucus Urine Trichomonas Urine Yeast (Budding) Ur Oval Fat Bodies Sperm Presence Blood Type Antibody Screen Antibody Identification Antigen Identification FARHEEN, IgG Interpret FARHEEN, Complement Interp Enhanced Crossmatch Pre-Trans Antibody Scrn Post-Trans Antibody Scrn 06/13/24 06/13/24 06/13/24 17:26 17:26 17:26 WBC RBC Hgb Hct MCV MCH MCHC RDW Plt Count MPV Immature Gran % (Auto) Neut % (Auto) Lymph % (Auto) [place] % (Auto) Eos % (Auto) Baso % (Auto) Lymph # (Auto) [place] # (Auto) Eos # (Auto) Baso # (Auto) Abs Immat Gran (auto) Absolute Neuts (auto) Absolute Nucleated RBC Total Counted Neutrophils % (Manual) Band Neutrophils % Lymphocytes % (Manual) Monocytes % (Manual) Metamyelocytes % Nucleated RBC % Abs Neuts (Manual) Abs Lymphs (Manual) Abs Monocytes (Manual) Platelet Estimate % Immature Plt Fraction Hypochromasia Anisocytosis Microcytosis Tear Drop Cells Ovalocytes Schistocytes PT INR APTT Sodium Potassium Chloride Carbon Dioxide Anion Gap BUN Creatinine Estim Creat Clear Calc Estimated GFR Glucose Calcium Phosphorus Magnesium Iron TIBC % Saturation Ferritin Total Bilirubin AST ALT Alkaline Phosphatase Total Protein Albumin TSH (Reflex) Urine Color Urine Appearance Urine pH Ur Specific [place] Urine Protein Urine Glucose (UA) Urine Ketones TNP Ur Blood (Man) Cancelled TNP Urine Nitrate Cancelled TNP Urine Bilirubin Cancelled Urine Urobilinogen Ur Leukocyte Esterase Add Ur Microanalysis Leukocyte Esterase Rfl Urine RBC Urine WBC Urine WBC Clumps Ur Squamous Epith Cells Ur Transition Epith Cell Ur Renal Epithelial Cell [place] Biurate Crystals Calcium Carbonate Cryst Calcium Phosphate Cryst Calcium Oxalate Crystal Leucine Crystals Cystine Crystals Uric Acid Crystals Triple Phos Crystals Sulfonamide Crystals Cholesterol Crystals Tyrosine Crystals Hippuric Acid Crystals Bilirubin Crystals Amorphous Sediment Other Sediment Urine Bacteria Urine Casts Cellular Casts Epithelial Casts Fatty Casts Hyaline Casts Granular Casts Waxy Casts Broad Casts RBC Casts WBC Casts Urine Starch Urine Mucus Urine Trichomonas Urine Yeast (Budding) Ur Oval Fat Bodies Sperm Presence Blood Type Antibody Screen Antibody Identification Antigen Identification FARHEEN, IgG Interpret FARHEEN, Complement Interp Enhanced Crossmatch Pre-Trans Antibody Scrn Post-Trans Antibody Scrn 06/13/24 06/13/24 06/13/24 17:26 17:26 17:26 WBC RBC Hgb Hct MCV MCH MCHC RDW Plt Count MPV Immature Gran % (Auto) Neut % (Auto) Lymph % (Auto) [place] % (Auto) Eos % (Auto) Baso % (Auto) Lymph # (Auto) [place] # (Auto) Eos # (Auto) Baso # (Auto) Abs Immat Gran (auto) Absolute Neuts (auto) Absolute Nucleated RBC Total Counted Neutrophils % (Manual) Band Neutrophils % Lymphocytes % (Manual) Monocytes % (Manual) Metamyelocytes % Nucleated RBC % Abs Neuts (Manual) Abs Lymphs (Manual) Abs Monocytes (Manual) Platelet Estimate % Immature Plt Fraction Hypochromasia Anisocytosis Microcytosis Tear Drop Cells Ovalocytes Schistocytes PT INR APTT Sodium Potassium Chloride Carbon Dioxide Anion Gap BUN Creatinine Estim Creat Clear Calc Estimated GFR Glucose Calcium Phosphorus Magnesium Iron TIBC % Saturation Ferritin Total Bilirubin AST ALT Alkaline Phosphatase Total Protein Albumin TSH (Reflex) Urine Color Urine Appearance Urine pH Ur Specific [place] Urine Protein Urine Glucose (UA) Urine Ketones Ur Blood (Man) Urine Nitrate Urine Bilirubin TNP Urine Urobilinogen Cancelled TNP Ur Leukocyte Esterase Cancelled Add Ur Microanalysis Cancelled Reviewed Leukocyte Esterase Rfl TNP Urine RBC Cancelled Urine WBC Urine WBC Clumps Ur Squamous Epith Cells Ur Transition Epith Cell Ur Renal Epithelial Cell Ramu Biurate Crystals Calcium Carbonate Cryst Calcium Phosphate Cryst Calcium Oxalate Crystal Leucine Crystals Cystine Crystals Uric Acid Crystals Triple Phos Crystals Sulfonamide Crystals Cholesterol Crystals Tyrosine Crystals Hippuric Acid Crystals Bilirubin Crystals Amorphous Sediment Other Sediment Urine Bacteria Urine Casts Cellular Casts Epithelial Casts Fatty Casts Hyaline Casts Granular Casts Waxy Casts Broad Casts RBC Casts WBC Casts Urine Starch Urine Mucus Urine Trichomonas Urine Yeast (Budding) Ur Oval Fat Bodies Sperm Presence Blood Type Antibody Screen Antibody Identification Antigen Identification FARHEEN, IgG Interpret FARHEEN, Complement Interp Enhanced Crossmatch Pre-Trans Antibody Scrn Post-Trans Antibody Scrn 06/13/24 06/13/24 06/13/24 17:26 17:26 17:26 WBC RBC Hgb Hct MCV MCH MCHC RDW Plt Count MPV Immature Gran % (Auto) Neut % (Auto) Lymph % (Auto) [place] % (Auto) Eos % (Auto) Baso % (Auto) Lymph # (Auto) [place] # (Auto) Eos # (Auto) Baso # (Auto) Abs Immat Gran (auto) Absolute Neuts (auto) Absolute Nucleated RBC Total Counted Neutrophils % (Manual) Band Neutrophils % Lymphocytes % (Manual) Monocytes % (Manual) Metamyelocytes % Nucleated RBC % Abs Neuts (Manual) Abs Lymphs (Manual) Abs Monocytes (Manual) Platelet Estimate % Immature Plt Fraction Hypochromasia Anisocytosis Microcytosis Tear Drop Cells Ovalocytes Schistocytes PT INR APTT Sodium Potassium Chloride Carbon Dioxide Anion Gap BUN Creatinine Estim Creat Clear Calc Estimated GFR Glucose Calcium Phosphorus Magnesium Iron TIBC % Saturation Ferritin Total Bilirubin AST ALT Alkaline Phosphatase Total Protein Albumin TSH (Reflex) Urine Color Urine Appearance Urine pH Ur Specific [place] Urine Protein Urine Glucose (UA) Urine Ketones Ur Blood (Man) Urine Nitrate Urine Bilirubin Urine Urobilinogen Ur Leukocyte Esterase Add Ur Microanalysis Leukocyte Esterase Rfl Urine RBC >100 H Urine WBC Cancelled 0-5 Urine WBC Clumps Cancelled Ur Squamous Epith Cells Cancelled Occasional Ur Transition Epith Cell Cancelled Ur Renal Epithelial Cell Cancelled Ramu Biurate Crystals Cancelled Calcium Carbonate Cryst Cancelled Calcium Phosphate Cryst Cancelled Calcium Oxalate Crystal Cancelled Leucine Crystals Cancelled Cystine Crystals Cancelled Uric Acid Crystals Cancelled Triple Phos Crystals Cancelled Sulfonamide Crystals Cancelled Cholesterol Crystals Cancelled Tyrosine Crystals Cancelled Hippuric Acid Crystals Cancelled Bilirubin Crystals Cancelled Amorphous Sediment Cancelled Other Sediment Cancelled Urine Bacteria Cancelled Urine Casts Cellular Casts Epithelial Casts Fatty Casts Hyaline Casts Granular Casts Waxy Casts Broad Casts RBC Casts WBC Casts Urine Starch Urine Mucus Urine Trichomonas Urine Yeast (Budding) Ur Oval Fat Bodies Sperm Presence Blood Type Antibody Screen Antibody Identification Antigen Identification FARHEEN, IgG Interpret FARHEEN, Complement Interp Enhanced Crossmatch Pre-Trans Antibody Scrn Post-Trans Antibody Scrn 06/13/24 06/13/24 06/13/24 17:26 17:26 19:48 WBC 0.9 L* RBC 1.67 L Hgb 6.3 L* Hct 17.0 L* MCV 101.8 H MCH 37.7 H MCHC 37.1 H RDW 20.4 H Plt Count 53 L MPV 10.0 Immature Gran % (Auto) Not Reportable Neut % (Auto) Not Reportable Lymph % (Auto) Not Reportable [place] % (Auto) Not Reportable Eos % (Auto) Not Reportable Baso % (Auto) Not Reportable Lymph # (Auto) Not Reportable [place] # (Auto) Not Reportable Eos # (Auto) Not Reportable Baso # (Auto) Not Reportable Abs Immat Gran (auto) Not Reportable Absolute Neuts (auto) Not Reportable Absolute Nucleated RBC Not Reportable Total Counted 100 Neutrophils % (Manual) 57 Band Neutrophils % Lymphocytes % (Manual) 35.0 Monocytes % (Manual) 8 Metamyelocytes % Nucleated RBC % Not Reportable Abs Neuts (Manual) Abs Lymphs (Manual) 0.31 L Abs Monocytes (Manual) 0.07 L Platelet Estimate Decreased % Immature Plt Fraction Hypochromasia Anisocytosis 3+ Microcytosis Tear Drop Cells Ovalocytes Schistocytes None seen PT INR APTT Sodium Potassium Chloride Carbon Dioxide Anion Gap BUN Creatinine Estim Creat Clear Calc Estimated GFR Glucose Calcium Phosphorus Magnesium Iron TIBC % Saturation Ferritin Total Bilirubin AST ALT Alkaline Phosphatase Total Protein Albumin TSH (Reflex) Urine Color Urine Appearance Urine pH Ur Specific [place] Urine Protein Urine Glucose (UA) Urine Ketones Ur Blood (Man) Urine Nitrate Urine Bilirubin Urine Urobilinogen Ur Leukocyte Esterase Add Ur Microanalysis Leukocyte Esterase Rfl Urine RBC Urine WBC Urine WBC Clumps Ur Squamous Epith Cells Ur Transition Epith Cell Ur Renal Epithelial Cell [place] Biurate Crystals Calcium Carbonate Cryst Calcium Phosphate Cryst Calcium Oxalate Crystal Leucine Crystals Cystine Crystals Uric Acid Crystals Triple Phos Crystals Sulfonamide Crystals Cholesterol Crystals Tyrosine Crystals Hippuric Acid Crystals Bilirubin Crystals Amorphous Sediment Other Sediment Urine Bacteria None seen Urine Casts Cancelled 0-2 Cellular Casts Cancelled Epithelial Casts Cancelled Fatty Casts Cancelled Hyaline Casts Cancelled Granular Casts Cancelled Waxy Casts Cancelled Broad Casts Cancelled RBC Casts Cancelled WBC Casts Cancelled Urine Starch Cancelled Urine Mucus Cancelled Urine Trichomonas Cancelled Urine Yeast (Budding) Cancelled Ur Oval Fat Bodies Cancelled Sperm Presence Cancelled Blood Type Antibody Screen Antibody Identification Antigen Identification FARHEEN, IgG Interpret FARHEEN, Complement Interp Enhanced Crossmatch Pre-Trans Antibody Scrn Post-Trans Antibody Scrn 06/13/24 06/14/24 19:49 04:30 WBC 1.0 L* RBC 1.85 L Hgb 6.7 L* Hct 18.2 L* MCV 98.4 MCH 36.2 H MCHC 36.8 H RDW 20.0 H Plt Count 63 L MPV TNP Immature Gran % (Auto) Not Reportable Neut % (Auto) Not Reportable Lymph % (Auto) Not Reportable [place] % (Auto) Not Reportable Eos % (Auto) Not Reportable Baso % (Auto) Not Reportable Lymph # (Auto) Not Reportable [place] # (Auto) Not Reportable Eos # (Auto) Not Reportable Baso # (Auto) Not Reportable Abs Immat Gran (auto) Not Reportable Absolute Neuts (auto) Not Reportable Absolute Nucleated RBC Not Reportable Total Counted 100 Neutrophils % (Manual) 58 Band Neutrophils % 1 Lymphocytes % (Manual) 36.0 Monocytes % (Manual) 5 Metamyelocytes % Nucleated RBC % Not Reportable Abs Neuts (Manual) 0.59 L Abs Lymphs (Manual) 0.36 L Abs Monocytes (Manual) 0.05 L Platelet Estimate Decreased % Immature Plt Fraction 5.2 Hypochromasia 2+ Anisocytosis 2+ Microcytosis 1+ Tear Drop Cells Ovalocytes 1+ Schistocytes None seen PT 16.3 H INR 1.3 APTT 24.8 Sodium 136 L Potassium 4.1 Chloride 103 Carbon Dioxide 25 Anion Gap 8 BUN 29 H Creatinine 0.80 Estim Creat Clear Calc 81 Estimated GFR > 60 Glucose 159 H Calcium 7.5 L Phosphorus 4.0 Magnesium 2.4 H Iron TIBC % Saturation Ferritin Total Bilirubin 5.5 H 4.3 H AST 124 H ALT 12 Alkaline Phosphatase 23 L Total Protein 6.0 L Albumin 3.6 TSH (Reflex) Urine Color Urine Appearance Urine pH Ur Specific [place] Urine Protein Urine Glucose (UA) Urine Ketones Ur Blood (Man) Urine Nitrate Urine Bilirubin Urine Urobilinogen Ur Leukocyte Esterase Add Ur Microanalysis Leukocyte Esterase Rfl Urine RBC Urine WBC Urine WBC Clumps Ur Squamous Epith Cells Ur Transition Epith Cell Ur Renal Epithelial Cell [place] Biurate Crystals Calcium Carbonate Cryst Calcium Phosphate Cryst Calcium Oxalate Crystal Leucine Crystals Cystine Crystals Uric Acid Crystals Triple Phos Crystals Sulfonamide Crystals Cholesterol Crystals Tyrosine Crystals Hippuric Acid Crystals Bilirubin Crystals Amorphous Sediment Other Sediment Urine Bacteria Urine Casts Cellular Casts Epithelial Casts Fatty Casts Hyaline Casts Granular Casts Waxy Casts Broad Casts RBC Casts WBC Casts Urine Starch Urine Mucus Urine Trichomonas Urine Yeast (Budding) Ur Oval Fat Bodies Sperm Presence Blood Type Antibody Screen Antibody Identification Antigen Identification FARHEEN, IgG Interpret FARHEEN, Complement Interp Enhanced Crossmatch Pre-Trans Antibody Scrn Post-Trans Antibody Scrn
[2024-06-14] MEDS: CYANOCOBALAMIN INJ 1,000 MCG/ML VIAL 1000 MCG IM (09:48)
[2024-06-14] MEDS: PANTOPRAZOLE 40 MG TABLET PO ×2 (09:48→23:00)
--- NOTE | 2024-06-14 10:07 | WPDGICN ---
Assessment and Plan Assessment and plan (1) Pancytopenia: Code(s): D61.818 - Other pancytopenia Status: Acute Assessment and Plan: The patient has severe pancytopenia, but there is no iron deficiency and no evidence of active or suggestion of gastrointestinal bleeding (patient reports dark brown stools but not melena or hematochezia). The main focus of her care at this moment should be the hematologic evaluation, for which a bone marrow biopsy is planned. In addition, patient has macrocytic anemia with marked B12 deficiency. Given her age group and the fact that her last colonoscopy was 10 years ago, she is certainly due for a screening colonoscopy, however this could be done at a later date once her underlying pancytopenia is addressed and treated. (2) Symptomatic anemia: Code(s): D64.9 - Anemia, unspecified Status: Acute (3) Vitamin B12 deficiency: Onset Date: 05/2013 Code(s): E53.8 - Deficiency of other specified B group vitamins Status: Acute GI Consult Note Consult date/time: 06/14/24 10:07 HPI: Malorie Cruz is a 49 year old female J came into the ER with generalized tiredness and fatigue and found to have hemoglobin of 6.5. Patient has a history of anemia in May 2013. She had EGD and colonoscopy 10 years ago. She denies melena or hematochezia. She denies alcohol use other than occasional social consumption. Labs showed hemoglobin of 5.9, WBC 1.0 and platelet 50 K . MCV 103.9. Iron 92 saturation 42% ferritin 385 and B12 less than 159. He is currently in the ICU and has been evaluated by Hematology, planning a bone marrow biopsy to assess pancytopenia. Review of Systems Review of Systems: All systems reviewed & are unremarkable except as noted in HPI and below PMFSH Past Medical History Medical History (Updated 06/13/24 @ 19:51 by Maldonado Walker MD) Gastric polyp (12/2013) Hematuria Iron deficiency (05/2013) Vitamin B12 deficiency (05/2013) Surgical History Surgical History (Updated 06/13/24 @ 19:51 by Maldonado Walker MD) History of colonoscopy (12/2013) unremarkable History of esophagogastroduodenoscopy (12/2013) benign gastric polyp Family History Family History Father Family history of colitis Family history of arthritis Grandparent Family history of chronic obstructive pulmonary disease Family history of Alzheimer's disease Family history of emphysema Family history of heart disease in male family member before age 55 Diabetes mellitus Other Family history of congestive heart failure Hypertension Social History Social History Social History: Surrogate medical decision maker: Balaji Cruz, spouse Code status: Full code. Smoking status: Never smoker Alcohol intake: current Drinks per week: 6 Substance use: never Substance use type: does not use Do You Feel Safe in your Home?: Yes Lack of Transportation: No Lack of Food: Never True Current Housing: I Have Housing Concerned About Future Housing: No Difficulty Paying Gas/Electric Bills: No Difficulty Paying for Meds: No Currently Unemployed: No Education: Master's Degree or Higher Difficulty w/ Childcare or Family Care: No Spiritual care concerns: No Meds Home Medications and Allergies Home Medications Medication Instructions Recorded Confirmed Type No Home Medications 05/28/24 06/12/24 History Allergies Allergy/AdvReac Type Severity Reaction Status Date / Time Penicillins Allergy Unknown Rash Verified 06/12/24 13:07 Vital Signs Vital Signs - 24 hr 06/13/24 10:46 06/13/24 10:46 06/13/24 12:00 Temperature 99.1 F 99.5 F Pulse Rate 85 94 95 Respiratory Rate 24 H 13 Blood Pressure 123/68 129/69 Pulse Oximetry 99 99 Oxygen Delivery 06/13/24 12:00 06/13/24 12:00 06/13/24 12:37 Temperature 100.6 F H 100.6 F H Pulse Rate 94 92 Respiratory Rate 16 12 Blood Pressure 138/70 Pulse Oximetry 99 100 Oxygen Delivery Room Air 06/13/24 13:50 06/13/24 13:37 06/13/24 14:00 Temperature 100.8 F H 100.8 F H 100.8 F H Pulse Rate 92 90 Respiratory Rate 14 18 Blood Pressure 118/69 118/63 Pulse Oximetry 97 99 Oxygen Delivery 06/13/24 14:10 06/13/24 15:10 06/13/24 16:00 Temperature 100.5 F H 99.5 F Pulse Rate 96 99 96 Respiratory Rate 20 18 Blood Pressure 125/63 117/63 Pulse Oximetry 96 99 Oxygen Delivery 06/13/24 16:00 06/13/24 16:00 06/13/24 18:00 Temperature 96.4 F L 101.4 F H Pulse Rate 96 96 91 Respiratory Rate 16 16 22 H Blood Pressure 122/70 137/72 Pulse Oximetry 98 99 96 Oxygen Delivery Room Air 06/13/24 18:42 06/13/24 19:42 06/13/24 20:00 Temperature 101.4 F H 101.5 F H 101.1 F H Pulse Rate 89 Respiratory Rate 17 Blood Pressure 120/58 L Pulse Oximetry 98 Oxygen Delivery 06/13/24 20:00 06/13/24 20:00 06/13/24 21:46 Temperature 100.3 F H Pulse Rate 88 81 Respiratory Rate 15 Blood Pressure 108/65 Pulse Oximetry 99 Oxygen Delivery Room Air 06/13/24 22:03 06/13/24 23:03 06/14/24 00:03 Temperature 100.2 F H 99.8 F H 99.1 F Pulse Rate 78 73 69 Respiratory Rate 17 14 16 Blood Pressure 113/57 L 106/59 L 110/54 L Pulse Oximetry 99 99 100 Oxygen Delivery 06/14/24 00:00 06/14/24 01:01 06/14/24 00:00 Temperature 98.7 F Pulse Rate 73 65 Respiratory Rate 14 Blood Pressure 112/65 Pulse Oximetry 97 Oxygen Delivery Room Air 06/13/24 22:00 06/14/24 02:00 06/14/24 02:00 Temperature 98.6 F Pulse Rate 78 69 69 Respiratory Rate 16 Blood Pressure 103/58 L Pulse Oximetry 98 Oxygen Delivery 06/14/24 04:00 06/14/24 04:00 06/14/24 04:00 Temperature 98.1 F Pulse Rate 60 64 Respiratory Rate 16 Blood Pressure 87/44 L Pulse Oximetry 99 Oxygen Delivery Room Air 06/14/24 04:34 06/14/24 06:00 06/14/24 06:00 Temperature 98.4 F 98.9 F Pulse Rate 74 72 72 Respiratory Rate 16 18 Blood Pressure 112/70 97/55 L Pulse Oximetry 100 100 Oxygen Delivery 06/14/24 08:00 Temperature 99.7 F H Pulse Rate 88 Respiratory Rate 15 Blood Pressure 124/74 Pulse Oximetry 100 Oxygen Delivery Exam Const: General: cooperative and healthy appearing Resp: Effort & Inspection: normal respiratory effort and able to speak in complete sentences Auscultation: clear to auscultation bilaterally Cardio: Rate: regular rate Rhythm: regular rhythm GI: Inspection: normal to inspection GI Palp: No No hepatosplenomegaly present Auscultation: normal bowel sounds Rectal Exam: deferred Skin: General skin exam: normal color Psych: Appearance: grossly normal Mental Status: mental status grossly normal Results Labs 06/14/24 04:30 06/14/24 04:30 Labs: Short CBC 06/13/24 06/13/24 06/14/24 Range/Units 13:14 19:48 04:30 WBC 1.0 L* 0.9 L* 1.0 L* (4.5-10.0) K/mm3 Hgb 5.9 L* 6.3 L* 6.7 L* (12.0-15.0) g/dL Hct 15.9 L* 17.0 L* 18.2 L* (37.0-47.0) % Plt Count 50 L 53 L 63 L (150-375) k/mm3 BMP 06/14/24 04:30 Sodium 136 L Potassium 4.1 Chloride 103 Carbon Dioxide 25 BUN 29 H Creatinine 0.80 Glucose 159 H Calcium 7.5 L Liver Function 06/13/24 06/14/24 Range/Units 19:49 04:30 Total Bilirubin 5.5 H 4.3 H (0.2-1.3) mg/dL AST 124 H (14-36) U/L ALT 12 (6-35) U/L Alkaline Phosphatase 23 L (38-126) U/L Albumin 3.6 (3.5-5.1) g/dL Urine 06/13/24 06/13/24 06/13/24 Range/Units 17:26 17:26 17:26 Urine Color Cancelled Red H Urine Appearance Cancelled Turbid H Urine pH Cancelled Ur Specific [place] Urine Protein Urine Glucose (UA) 06/13/24 06/13/24 06/13/24 Range/Units 17:26 17:26 17:26 Urine Color Urine Appearance Urine pH TNP Ur Specific [place] Cancelled TNP Urine Protein Cancelled TNP Urine Glucose (UA) Cancelled 06/13/24 Range/Units 17:26 Urine Color Urine Appearance Urine pH Ur Specific [place] Urine Protein Urine Glucose (UA) TNP
--- NOTE | 2024-06-14 10:24 | P.SEDATION_ITS ---
Moderate Sedation Note-Pt Data Patient Data Diagnosis: anemia Present Complaint: anemia Procedure to be performed/Plan: bone marrow biopsy Allergies Allergy/AdvReac Type Severity Reaction Status Date / Time Penicillins Allergy Unknown Rash Verified 06/12/24 13:07 Home Medications Medication Instructions Recorded Confirmed Type No Home Medications 05/28/24 06/12/24 History Current Medications: Active Medications Acetaminophen (Acetaminophen 325 Mg Tablet) 650 mg PO Q4H PRN PRN Reason: Mild Pain (1-3) or Fever Last Admin: 06/13/24 18:42 Dose: 650 mg Cyanocobalamin (Cyanocobalamin Inj 1,000 Mcg/Ml Vial) 1,000 mcg IM DAILY JOSELUIS Stop: 06/15/24 09:01 Last Admin: 06/14/24 09:48 Dose: 1,000 mcg Sodium Chloride (Normal Saline Iv) 250 mls @ 30 mls/hr IV CONT .Q8H20M STA Stop: 06/14/24 16:00 Neomycin/Polymyxin/Bacitracin (Neomycin/Polymyxin/Bacitracin Ointment 15 Gm Tube) 1 applic TOPICAL PRN PRN PRN Reason: with dressing changes Ondansetron HCl (Ondansetron Inj 4 Mg/2 Ml Vial) 4 mg IV PUSH Q4H PRN PRN Reason: Nausea And Vomiting Last Admin: 06/13/24 11:14 Dose: 4 mg Pantoprazole Sodium (Pantoprazole 40 Mg Tablet) 40 mg PO Q12HR JOSELUIS Last Admin: 06/14/24 09:48 Dose: 40 mg Sedation/Anesthesia: No previous sedation/anesthesia problems (including family history). [facility] Past Medical History Medical History (Updated 06/13/24 @ 19:51 by Maldonado Walker MD) Gastric polyp (12/2013) Hematuria Iron deficiency (05/2013) Vitamin B12 deficiency (05/2013) Surgical History Surgical History (Updated 06/13/24 @ 19:51 by Maldonado Walker MD) History of colonoscopy (12/2013) unremarkable History of esophagogastroduodenoscopy (12/2013) benign gastric polyp Family History Family History Father Family history of colitis Family history of arthritis Grandparent Family history of chronic obstructive pulmonary disease Family history of Alzheimer's disease Family history of emphysema Family history of heart disease in male family member before age 55 Diabetes mellitus Other Family history of congestive heart failure Hypertension Social History Social History Social History: Surrogate medical decision maker: Balaji Cruz, spouse Code status: Full code. Smoking status: Never smoker Alcohol intake: current Drinks per week: 6 Substance use: never Substance use type: does not use Do You Feel Safe in your Home?: Yes Lack of Transportation: No Lack of Food: Never True Current Housing: I Have Housing Concerned About Future Housing: No Difficulty Paying Gas/Electric Bills: No Difficulty Paying for Meds: No Currently Unemployed: No Education: Master's Degree or Higher Difficulty w/ Childcare or Family Care: No Spiritual care concerns: No Mod Sed Physical Exam Physical Exam Pre Procedural Exam: Normal: Appearance, Throat, Lungs, Heart Rate and Heart Rhythm Hours since solid foods: 12 Hours since liquid intake: 12 Mallampati Classification: class III Internal Medicine - PN: Obj Da Vital Signs Vital Signs: Vital Signs - 24 hr 06/13/24 10:46 06/13/24 10:46 06/13/24 12:00 Temperature 99.1 F 99.5 F Pulse Rate 85 94 95 Respiratory Rate 24 H 13 Blood Pressure 123/68 129/69 Pulse Oximetry 99 99 Oxygen Delivery 06/13/24 12:00 06/13/24 12:00 06/13/24 12:37 Temperature 100.6 F H 100.6 F H Pulse Rate 94 92 Respiratory Rate 16 12 Blood Pressure 138/70 Pulse Oximetry 99 100 Oxygen Delivery Room Air 06/13/24 13:50 06/13/24 13:37 06/13/24 14:00 Temperature 100.8 F H 100.8 F H 100.8 F H Pulse Rate 92 90 Respiratory Rate 14 18 Blood Pressure 118/69 118/63 Pulse Oximetry 97 99 Oxygen Delivery 06/13/24 14:10 06/13/24 15:10 06/13/24 16:00 Temperature 100.5 F H 99.5 F Pulse Rate 96 99 96 Respiratory Rate 20 18 Blood Pressure 125/63 117/63 Pulse Oximetry 96 99 Oxygen Delivery 06/13/24 16:00 06/13/24 16:00 06/13/24 18:00 Temperature 96.4 F L 101.4 F H Pulse Rate 96 96 91 Respiratory Rate 16 16 22 H Blood Pressure 122/70 137/72 Pulse Oximetry 98 99 96 Oxygen Delivery Room Air 06/13/24 18:42 06/13/24 19:42 06/13/24 20:00 Temperature 101.4 F H 101.5 F H 101.1 F H Pulse Rate 89 Respiratory Rate 17 Blood Pressure 120/58 L Pulse Oximetry 98 Oxygen Delivery 06/13/24 20:00 06/13/24 20:00 06/13/24 21:46 Temperature 100.3 F H Pulse Rate 88 81 Respiratory Rate 15 Blood Pressure 108/65 Pulse Oximetry 99 Oxygen Delivery Room Air 06/13/24 22:03 06/13/24 23:03 06/14/24 00:03 Temperature 100.2 F H 99.8 F H 99.1 F Pulse Rate 78 73 69 Respiratory Rate 17 14 16 Blood Pressure 113/57 L 106/59 L 110/54 L Pulse Oximetry 99 99 100 Oxygen Delivery 06/14/24 00:00 06/14/24 01:01 06/14/24 00:00 Temperature 98.7 F Pulse Rate 73 65 Respiratory Rate 14 Blood Pressure 112/65 Pulse Oximetry 97 Oxygen Delivery Room Air 06/13/24 22:00 06/14/24 02:00 06/14/24 02:00 Temperature 98.6 F Pulse Rate 78 69 69 Respiratory Rate 16 Blood Pressure 103/58 L Pulse Oximetry 98 Oxygen Delivery 06/14/24 04:00 06/14/24 04:00 06/14/24 04:00 Temperature 98.1 F Pulse Rate 60 64 Respiratory Rate 16 Blood Pressure 87/44 L Pulse Oximetry 99 Oxygen Delivery Room Air 06/14/24 04:34 06/14/24 06:00 06/14/24 06:00 Temperature 98.4 F 98.9 F Pulse Rate 74 72 72 Respiratory Rate 16 18 Blood Pressure 112/70 97/55 L Pulse Oximetry 100 100 Oxygen Delivery 06/14/24 08:00 Temperature 99.7 F H Pulse Rate 88 Respiratory Rate 15 Blood Pressure 124/74 Pulse Oximetry 100 Oxygen Delivery Intake/Output Intake/Output: Intake & Output 06/11/24 06/12/24 06/13/24 06/14/24 23:59 23:59 23:59 23:59 Intake Total 200 2223 1770 Output Total 700 450 Balance 200 1523 1320 Meds/Results Medications: Active Medications Generic Name Dose Route Start Last Admin Trade Name Freq PRN Reason Stop Dose Admin Acetaminophen 650 mg 06/13/24 11:08 06/13/24 18:42 Acetaminophen 325 Mg Tablet PO 650 mg Q4H PRN Administration Mild Pain (1-3) or Fever Cyanocobalamin 1,000 mcg 06/13/24 09:00 06/14/24 09:48 Cyanocobalamin Inj 1,000 Mcg/Ml Vial IM 06/15/24 09:01 1,000 mcg DAILY JOSELUIS Administration Sodium Chloride 250 mls @ 30 mls/hr 06/14/24 07:41 Normal Saline Iv IV CONT 06/14/24 16:00 .Q8H20M STA Neomycin/Polymyxin/Bacitracin 1 applic 06/13/24 19:50 Neomycin/Polymyxin/Bacitracin Ointment 15 Gm Tube TOPICAL PRN PRN with dressing changes Ondansetron HCl 4 mg 06/13/24 11:08 06/13/24 11:14 Ondansetron Inj 4 Mg/2 Ml Vial IV PUSH 4 mg Q4H PRN Administration Nausea And Vomiting Pantoprazole Sodium 40 mg 06/13/24 09:00 06/14/24 09:48 Pantoprazole 40 Mg Tablet PO 40 mg Q12HR JOSELUIS Administration Radiology Results: ITS Impressions Chest X-Ray 06/12/24 15:18 IMPRESSION: No acute cardiopulmonary process. Labs 06/14/24 04:30 06/14/24 04:30 Labs: Laboratory Results - last 24 hr 06/12/24 06/12/24 06/13/24 15:10 15:10 13:14 WBC 1.0 L* RBC 1.53 L Hgb 5.9 L* Hct 15.9 L* MCV 103.9 H D MCH 38.6 H MCHC 37.1 H RDW 20.1 H Plt Count 50 L MPV 10.7 H Immature Gran % (Auto) Not Reportable Neut % (Auto) Not Reportable Lymph % (Auto) Not Reportable [place] % (Auto) Not Reportable Eos % (Auto) Not Reportable Baso % (Auto) Not Reportable Lymph # (Auto) Not Reportable [place] # (Auto) Not Reportable Eos # (Auto) Not Reportable Baso # (Auto) Not Reportable Abs Immat Gran (auto) Not Reportable Absolute Neuts (auto) Not Reportable Absolute Nucleated RBC Not Reportable Total Counted 25 Neutrophils % (Manual) 15 L Band Neutrophils % 0 Lymphocytes % (Manual) 9 L Monocytes % (Manual) Metamyelocytes % 1 Nucleated RBC % Not Reportable Abs Neuts (Manual) 0.15 L Abs Lymphs (Manual) 0.09 L Abs Monocytes (Manual) Platelet Estimate Decreased % Immature Plt Fraction 3.8 Hypochromasia 2+ Anisocytosis 2+ Microcytosis Tear Drop Cells 1+ Ovalocytes 1+ Schistocytes None seen PT INR APTT Sodium Potassium Chloride Carbon Dioxide Anion Gap BUN Creatinine Estim Creat Clear Calc Estimated GFR Glucose Calcium Phosphorus Magnesium Total Bilirubin AST ALT Alkaline Phosphatase Total Protein Albumin Urine Color Urine Appearance Urine pH Ur Specific Sigel Urine Protein Urine Glucose (UA) Urine Ketones Ur Blood (Man) Urine Nitrate Urine Bilirubin Urine Urobilinogen Ur Leukocyte Esterase Add Ur Microanalysis Leukocyte Esterase Rfl Urine RBC Urine WBC Urine WBC Clumps Ur Squamous Epith Cells Ur Transition Epith Cell Ur Renal Epithelial Cell Ramu Biurate Crystals Calcium Carbonate Cryst Calcium Phosphate Cryst Calcium Oxalate Crystal Leucine Crystals Cystine Crystals Uric Acid Crystals Triple Phos Crystals Sulfonamide Crystals Cholesterol Crystals Tyrosine Crystals Hippuric Acid Crystals Bilirubin Crystals Amorphous Sediment Other Sediment Urine Bacteria Urine Casts Cellular Casts Epithelial Casts Fatty Casts Hyaline Casts Granular Casts Waxy Casts Broad Casts RBC Casts WBC Casts Urine Starch Urine Mucus Urine Trichomonas Urine Yeast (Budding) Ur Oval Fat Bodies Sperm Presence Blood Type B Positive Antibody Screen Positive Antibody Identification Cold Auto AB Anti-Palacios A Antigen Identification [place] A Antigen - NEGATIVE FARHEEN, IgG Interpret Neg FARHEEN, Complement Interp Negative Enhanced Crossmatch See Detail Pre-Trans Antibody Scrn Positive Post-Trans Antibody Scrn Positive 06/13/24 06/13/24 06/13/24 17:26 17:26 17:26 WBC RBC Hgb Hct MCV MCH MCHC RDW Plt Count MPV Immature Gran % (Auto) Neut % (Auto) Lymph % (Auto) [place] % (Auto) Eos % (Auto) Baso % (Auto) Lymph # (Auto) [place] # (Auto) Eos # (Auto) Baso # (Auto) Abs Immat Gran (auto) Absolute Neuts (auto) Absolute Nucleated RBC Total Counted Neutrophils % (Manual) Band Neutrophils % Lymphocytes % (Manual) Monocytes % (Manual) Metamyelocytes % Nucleated RBC % Abs Neuts (Manual) Abs Lymphs (Manual) Abs Monocytes (Manual) Platelet Estimate % Immature Plt Fraction Hypochromasia Anisocytosis Microcytosis Tear Drop Cells Ovalocytes Schistocytes PT INR APTT Sodium Potassium Chloride Carbon Dioxide Anion Gap BUN Creatinine Estim Creat Clear Calc Estimated GFR Glucose Calcium Phosphorus Magnesium Total Bilirubin AST ALT Alkaline Phosphatase Total Protein Albumin Urine Color Cancelled Red H Urine Appearance Cancelled Turbid H Urine pH Cancelled Ur Specific [place]el Urine Protein Urine Glucose (UA) Urine Ketones Ur Blood (Man) Urine Nitrate Urine Bilirubin Urine Urobilinogen Ur Leukocyte Esterase Add Ur Microanalysis Leukocyte Esterase Rfl Urine RBC Urine WBC Urine WBC Clumps Ur Squamous Epith Cells Ur Transition Epith Cell Ur Renal Epithelial Cell Ramu Biurate Crystals Calcium Carbonate Cryst Calcium Phosphate Cryst Calcium Oxalate Crystal Leucine Crystals Cystine Crystals Uric Acid Crystals Triple Phos Crystals Sulfonamide Crystals Cholesterol Crystals Tyrosine Crystals Hippuric Acid Crystals Bilirubin Crystals Amorphous Sediment Other Sediment Urine Bacteria Urine Casts Cellular Casts Epithelial Casts Fatty Casts Hyaline Casts Granular Casts Waxy Casts Broad Casts RBC Casts WBC Casts Urine Starch Urine Mucus Urine Trichomonas Urine Yeast (Budding) Ur Oval Fat Bodies Sperm Presence Blood Type Antibody Screen Antibody Identification Antigen Identification FARHEEN, IgG Interpret FARHEEN, Complement Interp Enhanced Crossmatch Pre-Trans Antibody Scrn Post-Trans Antibody Scrn 06/13/24 06/13/24 06/13/24 17:26 17:26 17:26 WBC RBC Hgb Hct MCV MCH MCHC RDW Plt Count MPV Immature Gran % (Auto) Neut % (Auto) Lymph % (Auto) [place] % (Auto) Eos % (Auto) Baso % (Auto) Lymph # (Auto) [place] # (Auto) Eos # (Auto) Baso # (Auto) Abs Immat Gran (auto) Absolute Neuts (auto) Absolute Nucleated RBC Total Counted Neutrophils % (Manual) Band Neutrophils % Lymphocytes % (Manual) Monocytes % (Manual) Metamyelocytes % Nucleated RBC % Abs Neuts (Manual) Abs Lymphs (Manual) Abs Monocytes (Manual) Platelet Estimate % Immature Plt Fraction Hypochromasia Anisocytosis Microcytosis Tear Drop Cells Ovalocytes Schistocytes PT INR APTT Sodium Potassium Chloride Carbon Dioxide Anion Gap BUN Creatinine Estim Creat Clear Calc Estimated GFR Glucose Calcium Phosphorus Magnesium Total Bilirubin AST ALT Alkaline Phosphatase Total Protein Albumin Urine Color Urine Appearance Urine pH TNP Ur Specific [place] Cancelled TNP Urine Protein Cancelled TNP Urine Glucose (UA) Cancelled Urine Ketones Ur Blood (Man) Urine Nitrate Urine Bilirubin Urine Urobilinogen Ur Leukocyte Esterase Add Ur Microanalysis Leukocyte Esterase Rfl Urine RBC Urine WBC Urine WBC Clumps Ur Squamous Epith Cells Ur Transition Epith Cell Ur Renal Epithelial Cell Ramu Biurate Crystals Calcium Carbonate Cryst Calcium Phosphate Cryst Calcium Oxalate Crystal Leucine Crystals Cystine Crystals Uric Acid Crystals Triple Phos Crystals Sulfonamide Crystals Cholesterol Crystals Tyrosine Crystals Hippuric Acid Crystals Bilirubin Crystals Amorphous Sediment Other Sediment Urine Bacteria Urine Casts Cellular Casts Epithelial Casts Fatty Casts Hyaline Casts Granular Casts Waxy Casts Broad Casts RBC Casts WBC Casts Urine Starch Urine Mucus Urine Trichomonas Urine Yeast (Budding) Ur Oval Fat Bodies Sperm Presence Blood Type Antibody Screen Antibody Identification Antigen Identification FARHEEN, IgG Interpret FARHEEN, Complement Interp Enhanced Crossmatch Pre-Trans Antibody Scrn Post-Trans Antibody Scrn 06/13/24 06/13/24 06/13/24 17:26 17:26 17:26 WBC RBC Hgb Hct MCV MCH MCHC RDW Plt Count MPV Immature Gran % (Auto) Neut % (Auto) Lymph % (Auto) [place] % (Auto) Eos % (Auto) Baso % (Auto) Lymph # (Auto) [place] # (Auto) Eos # (Auto) Baso # (Auto) Abs Immat Gran (auto) Absolute Neuts (auto) Absolute Nucleated RBC Total Counted Neutrophils % (Manual) Band Neutrophils % Lymphocytes % (Manual) Monocytes % (Manual) Metamyelocytes % Nucleated RBC % Abs Neuts (Manual) Abs Lymphs (Manual) Abs Monocytes (Manual) Platelet Estimate % Immature Plt Fraction Hypochromasia Anisocytosis Microcytosis Tear Drop Cells Ovalocytes Schistocytes PT INR APTT Sodium Potassium Chloride Carbon Dioxide Anion Gap BUN Creatinine Estim Creat Clear Calc Estimated GFR Glucose Calcium Phosphorus Magnesium Total Bilirubin AST ALT Alkaline Phosphatase Total Protein Albumin Urine Color Urine Appearance Urine pH Ur Specific [place] Urine Protein Urine Glucose (UA) TNP Urine Ketones Cancelled TNP Ur Blood (Man) Cancelled TNP Urine Nitrate Cancelled Urine Bilirubin Urine Urobilinogen Ur Leukocyte Esterase Add Ur Microanalysis Leukocyte Esterase Rfl Urine RBC Urine WBC Urine WBC Clumps Ur Squamous Epith Cells Ur Transition Epith Cell Ur Renal Epithelial Cell Ramu Biurate Crystals Calcium Carbonate Cryst Calcium Phosphate Cryst Calcium Oxalate Crystal Leucine Crystals Cystine Crystals Uric Acid Crystals Triple Phos Crystals Sulfonamide Crystals Cholesterol Crystals Tyrosine Crystals Hippuric Acid Crystals Bilirubin Crystals Amorphous Sediment Other Sediment Urine Bacteria Urine Casts Cellular Casts Epithelial Casts Fatty Casts Hyaline Casts Granular Casts Waxy Casts Broad Casts RBC Casts WBC Casts Urine Starch Urine Mucus Urine Trichomonas Urine Yeast (Budding) Ur Oval Fat Bodies Sperm Presence Blood Type Antibody Screen Antibody Identification Antigen Identification FARHEEN, IgG Interpret FARHEEN, Complement Interp Enhanced Crossmatch Pre-Trans Antibody Scrn Post-Trans Antibody Scrn 06/13/24 06/13/24 06/13/24 17:26 17:26 17:26 WBC RBC Hgb Hct MCV MCH MCHC RDW Plt Count MPV Immature Gran % (Auto) Neut % (Auto) Lymph % (Auto) [place] % (Auto) Eos % (Auto) Baso % (Auto) Lymph # (Auto) [place] # (Auto) Eos # (Auto) Baso # (Auto) Abs Immat Gran (auto) Absolute Neuts (auto) Absolute Nucleated RBC Total Counted Neutrophils % (Manual) Band Neutrophils % Lymphocytes % (Manual) Monocytes % (Manual) Metamyelocytes % Nucleated RBC % Abs Neuts (Manual) Abs Lymphs (Manual) Abs Monocytes (Manual) Platelet Estimate % Immature Plt Fraction Hypochromasia Anisocytosis Microcytosis Tear Drop Cells Ovalocytes Schistocytes PT INR APTT Sodium Potassium Chloride Carbon Dioxide Anion Gap BUN Creatinine Estim Creat Clear Calc Estimated GFR Glucose Calcium Phosphorus Magnesium Total Bilirubin AST ALT Alkaline Phosphatase Total Protein Albumin Urine Color Urine Appearance Urine pH Ur Specific [place] Urine Protein Urine Glucose (UA) Urine Ketones Ur Blood (Man) Urine Nitrate TNP Urine Bilirubin Cancelled TNP Urine Urobilinogen Cancelled TNP Ur Leukocyte Esterase Cancelled Add Ur Microanalysis Cancelled Leukocyte Esterase Rfl Urine RBC Urine WBC Urine WBC Clumps Ur Squamous Epith Cells Ur Transition Epith Cell Ur Renal Epithelial Cell [place] Biurate Crystals Calcium Carbonate Cryst Calcium Phosphate Cryst Calcium Oxalate Crystal Leucine Crystals Cystine Crystals Uric Acid Crystals Triple Phos Crystals Sulfonamide Crystals Cholesterol Crystals Tyrosine Crystals Hippuric Acid Crystals Bilirubin Crystals Amorphous Sediment Other Sediment Urine Bacteria Urine Casts Cellular Casts Epithelial Casts Fatty Casts Hyaline Casts Granular Casts Waxy Casts Broad Casts RBC Casts WBC Casts Urine Starch Urine Mucus Urine Trichomonas Urine Yeast (Budding) Ur Oval Fat Bodies Sperm Presence Blood Type Antibody Screen Antibody Identification Antigen Identification FARHEEN, IgG Interpret FARHEEN, Complement Interp Enhanced Crossmatch Pre-Trans Antibody Scrn Post-Trans Antibody Scrn 06/13/24 06/13/24 06/13/24 17:26 17:26 17:26 WBC RBC Hgb Hct MCV MCH MCHC RDW Plt Count MPV Immature Gran % (Auto) Neut % (Auto) Lymph % (Auto) [place] % (Auto) Eos % (Auto) Baso % (Auto) Lymph # (Auto) [place] # (Auto) Eos # (Auto) Baso # (Auto) Abs Immat Gran (auto) Absolute Neuts (auto) Absolute Nucleated RBC Total Counted Neutrophils % (Manual) Band Neutrophils % Lymphocytes % (Manual) Monocytes % (Manual) Metamyelocytes % Nucleated RBC % Abs Neuts (Manual) Abs Lymphs (Manual) Abs Monocytes (Manual) Platelet Estimate % Immature Plt Fraction Hypochromasia Anisocytosis Microcytosis Tear Drop Cells Ovalocytes Schistocytes PT INR APTT Sodium Potassium Chloride Carbon Dioxide Anion Gap BUN Creatinine Estim Creat Clear Calc Estimated GFR Glucose Calcium Phosphorus Magnesium Total Bilirubin AST ALT Alkaline Phosphatase Total Protein Albumin Urine Color Urine Appearance Urine pH Ur Specific [place] Urine Protein Urine Glucose (UA) Urine Ketones Ur Blood (Man) Urine Nitrate Urine Bilirubin Urine Urobilinogen Ur Leukocyte Esterase Add Ur Microanalysis Reviewed Leukocyte Esterase Rfl TNP Urine RBC Cancelled >100 H Urine WBC Cancelled 0-5 Urine WBC Clumps Cancelled Ur Squamous Epith Cells Cancelled Ur Transition Epith Cell Ur Renal Epithelial Cell [place] Biurate Crystals Calcium Carbonate Cryst Calcium Phosphate Cryst Calcium Oxalate Crystal Leucine Crystals Cystine Crystals Uric Acid Crystals Triple Phos Crystals Sulfonamide Crystals Cholesterol Crystals Tyrosine Crystals Hippuric Acid Crystals Bilirubin Crystals Amorphous Sediment Other Sediment Urine Bacteria Urine Casts Cellular Casts Epithelial Casts Fatty Casts Hyaline Casts Granular Casts Waxy Casts Broad Casts RBC Casts WBC Casts Urine Starch Urine Mucus Urine Trichomonas Urine Yeast (Budding) Ur Oval Fat Bodies Sperm Presence Blood Type Antibody Screen Antibody Identification Antigen Identification FARHEEN, IgG Interpret FARHEEN, Complement Interp Enhanced Crossmatch Pre-Trans Antibody Scrn Post-Trans Antibody Scrn 06/13/24 06/13/24 06/13/24 17:26 17:26 17:26 WBC RBC Hgb Hct MCV MCH MCHC RDW Plt Count MPV Immature Gran % (Auto) Neut % (Auto) Lymph % (Auto) [place] % (Auto) Eos % (Auto) Baso % (Auto) Lymph # (Auto) [place] # (Auto) Eos # (Auto) Baso # (Auto) Abs Immat Gran (auto) Absolute Neuts (auto) Absolute Nucleated RBC Total Counted Neutrophils % (Manual) Band Neutrophils % Lymphocytes % (Manual) Monocytes % (Manual) Metamyelocytes % Nucleated RBC % Abs Neuts (Manual) Abs Lymphs (Manual) Abs Monocytes (Manual) Platelet Estimate % Immature Plt Fraction Hypochromasia Anisocytosis Microcytosis Tear Drop Cells Ovalocytes Schistocytes PT INR APTT Sodium Potassium Chloride Carbon Dioxide Anion Gap BUN Creatinine Estim Creat Clear Calc Estimated GFR Glucose Calcium Phosphorus Magnesium Total Bilirubin AST ALT Alkaline Phosphatase Total Protein Albumin Urine Color Urine Appearance Urine pH Ur Specific [place] Urine Protein Urine Glucose (UA) Urine Ketones Ur Blood (Man) Urine Nitrate Urine Bilirubin Urine Urobilinogen Ur Leukocyte Esterase Add Ur Microanalysis Leukocyte Esterase Rfl Urine RBC Urine WBC Urine WBC Clumps Ur Squamous Epith Cells Occasional Ur Transition Epith Cell Cancelled Ur Renal Epithelial Cell Cancelled Ramu Biurate Crystals Cancelled Calcium Carbonate Cryst Cancelled Calcium Phosphate Cryst Cancelled Calcium Oxalate Crystal Cancelled Leucine Crystals Cancelled Cystine Crystals Cancelled Uric Acid Crystals Cancelled Triple Phos Crystals Cancelled Sulfonamide Crystals Cancelled Cholesterol Crystals Cancelled Tyrosine Crystals Cancelled Hippuric Acid Crystals Cancelled Bilirubin Crystals Cancelled Amorphous Sediment Cancelled Other Sediment Cancelled Urine Bacteria Cancelled None seen Urine Casts Cancelled 0-2 Cellular Casts Cancelled Epithelial Casts Cancelled Fatty Casts Cancelled Hyaline Casts Cancelled Granular Casts Cancelled Waxy Casts Cancelled Broad Casts Cancelled RBC Casts Cancelled WBC Casts Cancelled Urine Starch Cancelled Urine Mucus Cancelled Urine Trichomonas Cancelled Urine Yeast (Budding) Cancelled Ur Oval Fat Bodies Cancelled Sperm Presence Cancelled Blood Type Antibody Screen Antibody Identification Antigen Identification FARHEEN, IgG Interpret FARHEEN, Complement Interp Enhanced Crossmatch Pre-Trans Antibody Scrn Post-Trans Antibody Scrn 06/13/24 06/13/24 06/14/24 19:48 19:49 04:30 WBC 0.9 L* 1.0 L* RBC 1.67 L 1.85 L Hgb 6.3 L* 6.7 L* Hct 17.0 L* 18.2 L* MCV 101.8 H 98.4 MCH 37.7 H 36.2 H MCHC 37.1 H 36.8 H RDW 20.4 H 20.0 H Plt Count 53 L 63 L MPV 10.0 TNP Immature Gran % (Auto) Not Reportable Not Reportable Neut % (Auto) Not Reportable Not Reportable Lymph % (Auto) Not Reportable Not Reportable [place] % (Auto) Not Reportable Not Reportable Eos % (Auto) Not Reportable Not Reportable Baso % (Auto) Not Reportable Not Reportable Lymph # (Auto) Not Reportable Not Reportable [place] # (Auto) Not Reportable Not Reportable Eos # (Auto) Not Reportable Not Reportable Baso # (Auto) Not Reportable Not Reportable Abs Immat Gran (auto) Not Reportable Not Reportable Absolute Neuts (auto) Not Reportable Not Reportable Absolute Nucleated RBC Not Reportable Not Reportable Total Counted 100 100 Neutrophils % (Manual) 57 58 Band Neutrophils % 1 Lymphocytes % (Manual) 35.0 36.0 Monocytes % (Manual) 8 5 Metamyelocytes % Nucleated RBC % Not Reportable Not Reportable Abs Neuts (Manual) 0.59 L Abs Lymphs (Manual) 0.31 L 0.36 L Abs Monocytes (Manual) 0.07 L 0.05 L Platelet Estimate Decreased Decreased % Immature Plt Fraction 5.2 Hypochromasia 2+ Anisocytosis 3+ 2+ Microcytosis 1+ Tear Drop Cells Ovalocytes 1+ Schistocytes None seen None seen PT 16.3 H INR 1.3 APTT 24.8 Sodium 136 L Potassium 4.1 Chloride 103 Carbon Dioxide 25 Anion Gap 8 BUN 29 H Creatinine 0.80 Estim Creat Clear Calc 81 Estimated GFR > 60 Glucose 159 H Calcium 7.5 L Phosphorus 4.0 Magnesium 2.4 H Total Bilirubin 5.5 H 4.3 H AST 124 H ALT 12 Alkaline Phosphatase 23 L Total Protein 6.0 L Albumin 3.6 Urine Color Urine Appearance Urine pH Ur Specific [place] Urine Protein Urine Glucose (UA) Urine Ketones Ur Blood (Man) Urine Nitrate Urine Bilirubin Urine Urobilinogen Ur Leukocyte Esterase Add Ur Microanalysis Leukocyte Esterase Rfl Urine RBC Urine WBC Urine WBC Clumps Ur Squamous Epith Cells Ur Transition Epith Cell Ur Renal Epithelial Cell [place] Biurate Crystals Calcium Carbonate Cryst Calcium Phosphate Cryst Calcium Oxalate Crystal Leucine Crystals Cystine Crystals Uric Acid Crystals Triple Phos Crystals Sulfonamide Crystals Cholesterol Crystals Tyrosine Crystals Hippuric Acid Crystals Bilirubin Crystals Amorphous Sediment Other Sediment Urine Bacteria Urine Casts Cellular Casts Epithelial Casts Fatty Casts Hyaline Casts Granular Casts Waxy Casts Broad Casts RBC Casts WBC Casts Urine Starch Urine Mucus Urine Trichomonas Urine Yeast (Budding) Ur Oval Fat Bodies Sperm Presence Blood Type Antibody Screen Antibody Identification Antigen Identification FARHEEN, IgG Interpret FARHEEN, Complement Interp Enhanced Crossmatch Pre-Trans Antibody Scrn Post-Trans Antibody Scrn ASA Classification/Sedation ASA Classification/Sedation ASA Class: II Emergent: No Risks: Risks, benefits and alternatives explained and patient/family accepted plan for sedation. Patient re-evaluated immediately prior to sedation.
--- NOTE | 2024-06-14 10:52 | WPDINTPN ---
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, hemolytic anemia no direct Nicolasa test was negative -not taking any supplements at this time -has antibodies so blood transfusion was slightly delayed -06/13: patient received 2.5 units of packed RBCs (she had infusion reaction with hematuria on the 2nd unit which was stopped.) -06/13: she had mild fevers after the 1st unit, order Tylenol -06/13: patient received 1 dose of Solu-Medrol 125 mg IV x1 -appreciate hematology evaluation and recommendations, continue vitamin B12 supplementation with daily injections -appreciate GI evaluation recommendation, patient will require endoscopy at a later date, primarily hematology evaluation for now. -patient had hematuria for which Urology had evaluated the patient. Placed a Leon catheter, urine output clear this morning continue to monitor 06/14: Hemoglobin 6.7, will transfuse 1 unit of packed RBCs, monitor for transfusion reaction (2) Pancytopenia: Code(s): D61.818 - Other pancytopenia Status: Acute Assessment and Plan: Patient scheduled for bone marrow biopsy -06/14: Ultrasound of the abdomen showed small grade splenomegaly -urology as ordered CT urogram the abdomen and pelvis with and without contrast which will be done today, 06/14 (3) Vitamin B12 deficiency: Onset Date: 05/2013 Code(s): E53.8 - Deficiency of other specified B group vitamins Status: Acute Assessment and Plan: Continue by B12 supplement daily Plan DVT prophylaxis: SCDs Stress ulcer prophylaxis: Protonix Nutrition: NPO for procedures Code Status: Full code Critical Care Time Spent: 34 minutes -discussed with patient and her family at bedside and updated them with patient's condition and plan of care. She is aware that she is going to be getting a bone marrow biopsy followed by CT scan. Due to a high probability of clinically significant, life threatening deterioration, the patient required my highest level of preparedness to intervene emergently and I personally spent this critical care time directly and personally managing the patient. This critical care time included obtaining a history; examining the patient; pulse oximetry; ordering and review of studies; arranging urgent treatment with development of a management plan; evaluation of patient's response to treatment; frequent reassessment; and discussions with other providers. It was exclusive of separately billable procedures and treating other patients and teaching time. Please see Assessment and Plan section and the rest of the note for further information on patient assessment and treatment This dictation may have been done utilizing a voice recognition system. Attempts have been made to correct errors. However, there may be uncorrected grammatical, spelling, and recognitions errors present. Subjective Date/time seen: 06/14/24 10:52 Interval history: Reason for consult: Severe anemia, pancytopenia, transfusion reaction 06/13: 2.5 units of packed RBCs (2nd unit was held due to transfusion reaction, hematuria) 06/14/2024: Patient seen and examined the ICU, is awake, alert, denies any chest pain, shortness of breath, abdominal pain, nausea, vomiting. Good urine output and the urine is clear. Patient has been afebrile overnight. Remains pancytopenic, hemoglobin 6.7 this morning, platelets 63 and WBC count 1.0. Patient is hemodynamically stable Review of Systems Review of Systems: All systems reviewed & are unremarkable except as noted in HPI and below Exam Narrative: General: Pleasant female, in no acute distress HEENT:? Pupils equal and reactive, sclera is clear, pallor noted, icterus Neck:? Supple Respiratory:? Clear to auscultation bilaterally, no wheezing Cardiac:? S1-S2 normal, regular rate and rhythm Abdomen:? Soft, nontender, nondistended, normoactive bowel sound Extremities:? No edema, palpable pedal pulses, pallor noted in the nail beds Neuro:? Patient is awake, alert, oriented x3, nonfocal Skin:? No lesions noted, jaundiced skin Psych:? Normal mentation and affect Objective Data Vital Signs Vital Signs: Vital Signs - 24 hr 06/13/24 12:00 06/13/24 12:00 06/13/24 12:00 Temperature 100.6 F H Pulse Rate 95 94 92 Respiratory Rate 16 12 Blood Pressure 138/70 Pulse Oximetry 99 100 Oxygen Delivery Room Air 06/13/24 12:37 06/13/24 13:50 06/13/24 13:37 Temperature 100.6 F H 100.8 F H 100.8 F H Pulse Rate 92 Respiratory Rate 14 Blood Pressure 118/69 Pulse Oximetry 97 Oxygen Delivery 06/13/24 14:00 06/13/24 14:10 06/13/24 15:10 Temperature 100.8 F H 100.5 F H 99.5 F Pulse Rate 90 96 99 Respiratory Rate 18 20 18 Blood Pressure 118/63 125/63 117/63 Pulse Oximetry 99 96 99 Oxygen Delivery 06/13/24 16:00 06/13/24 16:00 06/13/24 16:00 Temperature 96.4 F L Pulse Rate 96 96 96 Respiratory Rate 16 16 Blood Pressure 122/70 Pulse Oximetry 98 99 Oxygen Delivery Room Air 06/13/24 18:00 06/13/24 18:42 06/13/24 19:42 Temperature 101.4 F H 101.4 F H 101.5 F H Pulse Rate 91 Respiratory Rate 22 H Blood Pressure 137/72 Pulse Oximetry 96 Oxygen Delivery 06/13/24 20:00 06/13/24 20:00 06/13/24 20:00 Temperature 101.1 F H Pulse Rate 89 88 Respiratory Rate 17 Blood Pressure 120/58 L Pulse Oximetry 98 Oxygen Delivery Room Air 06/13/24 21:46 06/13/24 22:03 06/13/24 23:03 Temperature 100.3 F H 100.2 F H 99.8 F H Pulse Rate 81 78 73 Respiratory Rate 15 17 14 Blood Pressure 108/65 113/57 L 106/59 L Pulse Oximetry 99 99 99 Oxygen Delivery 06/14/24 00:03 06/14/24 00:00 06/14/24 01:01 Temperature 99.1 F 98.7 F Pulse Rate 69 73 65 Respiratory Rate 16 14 Blood Pressure 110/54 L 112/65 Pulse Oximetry 100 97 Oxygen Delivery 06/14/24 00:00 06/13/24 22:00 06/14/24 02:00 Temperature Pulse Rate 78 69 Respiratory Rate Blood Pressure Pulse Oximetry Oxygen Delivery Room Air 06/14/24 02:00 06/14/24 04:00 06/14/24 04:00 Temperature 98.6 F Pulse Rate 69 60 Respiratory Rate 16 Blood Pressure 103/58 L Pulse Oximetry 98 Oxygen Delivery Room Air 06/14/24 04:00 06/14/24 04:34 06/14/24 06:00 Temperature 98.1 F 98.4 F Pulse Rate 64 74 72 Respiratory Rate 16 16 Blood Pressure 87/44 L 112/70 Pulse Oximetry 99 100 Oxygen Delivery 06/14/24 06:00 06/14/24 08:00 Temperature 98.9 F 99.7 F H Pulse Rate 72 88 Respiratory Rate 18 15 Blood Pressure 97/55 L 124/74 Pulse Oximetry 100 100 Oxygen Delivery Intake/Output Intake/Output: Intake & Output 06/11/24 06/12/24 06/13/24 06/14/24 23:59 23:59 23:59 23:59 Intake Total 200 2223 1770 Output Total 700 450 Balance 200 1523 1320 Meds/Results Medications: Active Medications Generic Name Dose Route Start Last Admin Trade Name Freq PRN Reason Stop Dose Admin Acetaminophen 650 mg 06/13/24 11:08 06/13/24 18:42 Acetaminophen 325 Mg Tablet PO 650 mg Q4H PRN Administration Mild Pain (1-3) or Fever Cyanocobalamin 1,000 mcg 06/13/24 09:00 06/14/24 09:48 Cyanocobalamin Inj 1,000 Mcg/Ml Vial IM 06/15/24 09:01 1,000 mcg DAILY JOSELUIS Administration Sodium Chloride 250 mls @ 30 mls/hr 06/14/24 07:41 Normal Saline Iv IV CONT 06/14/24 16:00 .Q8H20M STA Neomycin/Polymyxin/Bacitracin 1 applic 06/13/24 19:50 Neomycin/Polymyxin/Bacitracin Ointment 15 Gm Tube TOPICAL PRN PRN with dressing changes Ondansetron HCl 4 mg 06/13/24 11:08 06/13/24 11:14 Ondansetron Inj 4 Mg/2 Ml Vial IV PUSH 4 mg Q4H PRN Administration Nausea And Vomiting Pantoprazole Sodium 40 mg 06/13/24 09:00 06/14/24 09:48 Pantoprazole 40 Mg Tablet PO 40 mg Q12HR JOSELUIS Administration Radiology Results: ITS Impressions Chest X-Ray 06/12/24 15:18 IMPRESSION: No acute cardiopulmonary process. Abdomen Ultrasound 06/14/24 10:49 IMPRESSION: 1. Moderate splenomegaly. Labs Labs: Laboratory Results - last 24 hr 06/12/24 06/12/24 06/13/24 15:10 15:10 13:14 WBC 1.0 L* RBC 1.53 L Hgb 5.9 L* Hct 15.9 L* MCV 103.9 H D MCH 38.6 H MCHC 37.1 H RDW 20.1 H Plt Count 50 L MPV 10.7 H Immature Gran % (Auto) Not Reportable Neut % (Auto) Not Reportable Lymph % (Auto) Not Reportable [place] % (Auto) Not Reportable Eos % (Auto) Not Reportable Baso % (Auto) Not Reportable Lymph # (Auto) Not Reportable [place] # (Auto) Not Reportable Eos # (Auto) Not Reportable Baso # (Auto) Not Reportable Abs Immat Gran (auto) Not Reportable Absolute Neuts (auto) Not Reportable Absolute Nucleated RBC Not Reportable Total Counted 25 Neutrophils % (Manual) 15 L Band Neutrophils % 0 Lymphocytes % (Manual) 9 L Monocytes % (Manual) Metamyelocytes % 1 Nucleated RBC % Not Reportable Abs Neuts (Manual) 0.15 L Abs Lymphs (Manual) 0.09 L Abs Monocytes (Manual) Platelet Estimate Decreased % Immature Plt Fraction 3.8 Hypochromasia 2+ Anisocytosis 2+ Microcytosis Tear Drop Cells 1+ Ovalocytes 1+ Schistocytes None seen PT INR APTT Sodium Potassium Chloride Carbon Dioxide Anion Gap BUN Creatinine Estim Creat Clear Calc Estimated GFR Glucose Calcium Phosphorus Magnesium Total Bilirubin AST ALT Alkaline Phosphatase Total Protein Albumin Urine Color Urine Appearance Urine pH Ur Specific [place] Urine Protein Urine Glucose (UA) Urine Ketones Ur Blood (Man) Urine Nitrate Urine Bilirubin Urine Urobilinogen Ur Leukocyte Esterase Add Ur Microanalysis Leukocyte Esterase Rfl Urine RBC Urine WBC Urine WBC Clumps Ur Squamous Epith Cells Ur Transition Epith Cell Ur Renal Epithelial Cell Ramu Biurate Crystals Calcium Carbonate Cryst Calcium Phosphate Cryst Calcium Oxalate Crystal Leucine Crystals Cystine Crystals Uric Acid Crystals Triple Phos Crystals Sulfonamide Crystals Cholesterol Crystals Tyrosine Crystals Hippuric Acid Crystals Bilirubin Crystals Amorphous Sediment Other Sediment Urine Bacteria Urine Casts Cellular Casts Epithelial Casts Fatty Casts Hyaline Casts Granular Casts Waxy Casts Broad Casts RBC Casts WBC Casts Urine Starch Urine Mucus Urine Trichomonas Urine Yeast (Bud[place]) Ur Oval Fat Bodies Sperm Presence Blood Type B Positive Antibody Screen Positive Antibody Identification Cold Auto AB Anti-[place] A Antigen Identification [place] A Antigen - NEGATIVE FARHEEN, IgG Interpret Neg FARHEEN, Complement Interp Negative Enhanced Crossmatch See Detail Pre-Trans Antibody Scrn Positive Post-Trans Antibody Scrn Positive 06/13/24 06/13/24 06/13/24 17:26 17:26 17:26 WBC RBC Hgb Hct MCV MCH MCHC RDW Plt Count MPV Immature Gran % (Auto) Neut % (Auto) Lymph % (Auto) [place] % (Auto) Eos % (Auto) Baso % (Auto) Lymph # (Auto) [place] # (Auto) Eos # (Auto) Baso # (Auto) Abs Immat Gran (auto) Absolute Neuts (auto) Absolute Nucleated RBC Total Counted Neutrophils % (Manual) Band Neutrophils % Lymphocytes % (Manual) Monocytes % (Manual) Metamyelocytes % Nucleated RBC % Abs Neuts (Manual) Abs Lymphs (Manual) Abs Monocytes (Manual) Platelet Estimate % Immature Plt Fraction Hypochromasia Anisocytosis Microcytosis Tear Drop Cells Ovalocytes Schistocytes PT INR APTT Sodium Potassium Chloride Carbon Dioxide Anion Gap BUN Creatinine Estim Creat Clear Calc Estimated GFR Glucose Calcium Phosphorus Magnesium Total Bilirubin AST ALT Alkaline Phosphatase Total Protein Albumin Urine Color Cancelled Red H Urine Appearance Cancelled Turbid H Urine pH Cancelled Ur Specific [place] Urine Protein Urine Glucose (UA) Urine Ketones Ur Blood (Man) Urine Nitrate Urine Bilirubin Urine Urobilinogen Ur Leukocyte Esterase Add Ur Microanalysis Leukocyte Esterase Rfl Urine RBC Urine WBC Urine WBC Clumps Ur Squamous Epith Cells Ur Transition Epith Cell Ur Renal Epithelial Cell Ramu Biurate Crystals Calcium Carbonate Cryst Calcium Phosphate Cryst Calcium Oxalate Crystal Leucine Crystals Cystine Crystals Uric Acid Crystals Triple Phos Crystals Sulfonamide Crystals Cholesterol Crystals Tyrosine Crystals Hippuric Acid Crystals Bilirubin Crystals Amorphous Sediment Other Sediment Urine Bacteria Urine Casts Cellular Casts Epithelial Casts Fatty Casts Hyaline Casts Granular Casts Waxy Casts Broad Casts RBC Casts WBC Casts Urine Starch Urine Mucus Urine Trichomonas Urine Yeast (Budding) Ur Oval Fat Bodies Sperm Presence Blood Type Antibody Screen Antibody Identification Antigen Identification FARHEEN, IgG Interpret FARHEEN, Complement Interp Enhanced Crossmatch Pre-Trans Antibody Scrn Post-Trans Antibody Scrn 06/13/24 06/13/24 06/13/24 17:26 17:26 17:26 WBC RBC Hgb Hct MCV MCH MCHC RDW Plt Count MPV Immature Gran % (Auto) Neut % (Auto) Lymph % (Auto) [place] % (Auto) Eos % (Auto) Baso % (Auto) Lymph # (Auto) [place] # (Auto) Eos # (Auto) Baso # (Auto) Abs Immat Gran (auto) Absolute Neuts (auto) Absolute Nucleated RBC Total Counted Neutrophils % (Manual) Band Neutrophils % Lymphocytes % (Manual) Monocytes % (Manual) Metamyelocytes % Nucleated RBC % Abs Neuts (Manual) Abs Lymphs (Manual) Abs Monocytes (Manual) Platelet Estimate % Immature Plt Fraction Hypochromasia Anisocytosis Microcytosis Tear Drop Cells Ovalocytes Schistocytes PT INR APTT Sodium Potassium Chloride Carbon Dioxide Anion Gap BUN Creatinine Estim Creat Clear Calc Estimated GFR Glucose Calcium Phosphorus Magnesium Total Bilirubin AST ALT Alkaline Phosphatase Total Protein Albumin Urine Color Urine Appearance Urine pH TNP Ur Specific [place] Cancelled TNP Urine Protein Cancelled TNP Urine Glucose (UA) Cancelled Urine Ketones Ur Blood (Man) Urine Nitrate Urine Bilirubin Urine Urobilinogen Ur Leukocyte Esterase Add Ur Microanalysis Leukocyte Esterase Rfl Urine RBC Urine WBC Urine WBC Clumps Ur Squamous Epith Cells Ur Transition Epith Cell Ur Renal Epithelial Cell Ramu Biurate Crystals Calcium Carbonate Cryst Calcium Phosphate Cryst Calcium Oxalate Crystal Leucine Crystals Cystine Crystals Uric Acid Crystals Triple Phos Crystals Sulfonamide Crystals Cholesterol Crystals Tyrosine Crystals Hippuric Acid Crystals Bilirubin Crystals Amorphous Sediment Other Sediment Urine Bacteria Urine Casts Cellular Casts Epithelial Casts Fatty Casts Hyaline Casts Granular Casts Waxy Casts Broad Casts RBC Casts WBC Casts Urine Starch Urine Mucus Urine Trichomonas Urine Yeast (Budding) Ur Oval Fat Bodies Sperm Presence Blood Type Antibody Screen Antibody Identification Antigen Identification FARHEEN, IgG Interpret FARHEEN, Complement Interp Enhanced Crossmatch Pre-Trans Antibody Scrn Post-Trans Antibody Scrn 06/13/24 06/13/24 06/13/24 17:26 17:26 17:26 WBC RBC Hgb Hct MCV MCH MCHC RDW Plt Count MPV Immature Gran % (Auto) Neut % (Auto) Lymph % (Auto) [place] % (Auto) Eos % (Auto) Baso % (Auto) Lymph # (Auto) [place] # (Auto) Eos # (Auto) Baso # (Auto) Abs Immat Gran (auto) Absolute Neuts (auto) Absolute Nucleated RBC Total Counted Neutrophils % (Manual) Band Neutrophils % Lymphocytes % (Manual) Monocytes % (Manual) Metamyelocytes % Nucleated RBC % Abs Neuts (Manual) Abs Lymphs (Manual) Abs Monocytes (Manual) Platelet Estimate % Immature Plt Fraction Hypochromasia Anisocytosis Microcytosis Tear Drop Cells Ovalocytes Schistocytes PT INR APTT Sodium Potassium Chloride Carbon Dioxide Anion Gap BUN Creatinine Estim Creat Clear Calc Estimated GFR Glucose Calcium Phosphorus Magnesium Total Bilirubin AST ALT Alkaline Phosphatase Total Protein Albumin Urine Color Urine Appearance Urine pH Ur Specific [place] Urine Protein Urine Glucose (UA) TNP Urine Ketones Cancelled TNP Ur Blood (Man) Cancelled TNP Urine Nitrate Cancelled Urine Bilirubin Urine Urobilinogen Ur Leukocyte Esterase Add Ur Microanalysis Leukocyte Esterase Rfl Urine RBC Urine WBC Urine WBC Clumps Ur Squamous Epith Cells Ur Transition Epith Cell Ur Renal Epithelial Cell Ramu Biurate Crystals Calcium Carbonate Cryst Calcium Phosphate Cryst Calcium Oxalate Crystal Leucine Crystals Cystine Crystals Uric Acid Crystals Triple Phos Crystals Sulfonamide Crystals Cholesterol Crystals Tyrosine Crystals Hippuric Acid Crystals Bilirubin Crystals Amorphous Sediment Other Sediment Urine Bacteria Urine Casts Cellular Casts Epithelial Casts Fatty Casts Hyaline Casts Granular Casts Waxy Casts Broad Casts RBC Casts WBC Casts Urine Starch Urine Mucus Urine Trichomonas Urine Yeast (Budding) Ur Oval Fat Bodies Sperm Presence Blood Type Antibody Screen Antibody Identification Antigen Identification FARHEEN, IgG Interpret FARHEEN, Complement Interp Enhanced Crossmatch Pre-Trans Antibody Scrn Post-Trans Antibody Scrn 06/13/24 06/13/24 06/13/24 17:26 17:26 17:26 WBC RBC Hgb Hct MCV MCH MCHC RDW Plt Count MPV Immature Gran % (Auto) Neut % (Auto) Lymph % (Auto) [place] % (Auto) Eos % (Auto) Baso % (Auto) Lymph # (Auto) [place] # (Auto) Eos # (Auto) Baso # (Auto) Abs Immat Gran (auto) Absolute Neuts (auto) Absolute Nucleated RBC Total Counted Neutrophils % (Manual) Band Neutrophils % Lymphocytes % (Manual) Monocytes % (Manual) Metamyelocytes % Nucleated RBC % Abs Neuts (Manual) Abs Lymphs (Manual) Abs Monocytes (Manual) Platelet Estimate % Immature Plt Fraction Hypochromasia Anisocytosis Microcytosis Tear Drop Cells Ovalocytes Schistocytes PT INR APTT Sodium Potassium Chloride Carbon Dioxide Anion Gap BUN Creatinine Estim Creat Clear Calc Estimated GFR Glucose Calcium Phosphorus Magnesium Total Bilirubin AST ALT Alkaline Phosphatase Total Protein Albumin Urine Color Urine Appearance Urine pH Ur Specific [place] Urine Protein Urine Glucose (UA) Urine Ketones Ur Blood (Man) Urine Nitrate TNP Urine Bilirubin Cancelled TNP Urine Urobilinogen Cancelled TNP Ur Leukocyte Esterase Cancelled Add Ur Microanalysis Cancelled Leukocyte Esterase Rfl Urine RBC Urine WBC Urine WBC Clumps Ur Squamous Epith Cells Ur Transition Epith Cell Ur Renal Epithelial Cell [place] Biurate Crystals Calcium Carbonate Cryst Calcium Phosphate Cryst Calcium Oxalate Crystal Leucine Crystals Cystine Crystals Uric Acid Crystals Triple Phos Crystals Sulfonamide Crystals Cholesterol Crystals Tyrosine Crystals Hippuric Acid Crystals Bilirubin Crystals Amorphous Sediment Other Sediment Urine Bacteria Urine Casts Cellular Casts Epithelial Casts Fatty Casts Hyaline Casts Granular Casts Waxy Casts Broad Casts RBC Casts WBC Casts Urine Starch Urine Mucus Urine Trichomonas Urine Yeast (Budding) Ur Oval Fat Bodies Sperm Presence Blood Type Antibody Screen Antibody Identification Antigen Identification FARHEEN, IgG Interpret FARHEEN, Complement Interp Enhanced Crossmatch Pre-Trans Antibody Scrn Post-Trans Antibody Scrn 06/13/24 06/13/24 06/13/24 17:26 17:26 17:26 WBC RBC Hgb Hct MCV MCH MCHC RDW Plt Count MPV Immature Gran % (Auto) Neut % (Auto) Lymph % (Auto) [place] % (Auto) Eos % (Auto) Baso % (Auto) Lymph # (Auto) [place] # (Auto) Eos # (Auto) Baso # (Auto) Abs Immat Gran (auto) Absolute Neuts (auto) Absolute Nucleated RBC Total Counted Neutrophils % (Manual) Band Neutrophils % Lymphocytes % (Manual) Monocytes % (Manual) Metamyelocytes % Nucleated RBC % Abs Neuts (Manual) Abs Lymphs (Manual) Abs Monocytes (Manual) Platelet Estimate % Immature Plt Fraction Hypochromasia Anisocytosis Microcytosis Tear Drop Cells Ovalocytes Schistocytes PT INR APTT Sodium Potassium Chloride Carbon Dioxide Anion Gap BUN Creatinine Estim Creat Clear Calc Estimated GFR Glucose Calcium Phosphorus Magnesium Total Bilirubin AST ALT Alkaline Phosphatase Total Protein Albumin Urine Color Urine Appearance Urine pH Ur Specific [place] Urine Protein Urine Glucose (UA) Urine Ketones Ur Blood (Man) Urine Nitrate Urine Bilirubin Urine Urobilinogen Ur Leukocyte Esterase Add Ur Microanalysis Reviewed Leukocyte Esterase Rfl TNP Urine RBC Cancelled >100 H Urine WBC Cancelled 0-5 Urine WBC Clumps Cancelled Ur Squamous Epith Cells Cancelled Ur Transition Epith Cell Ur Renal Epithelial Cell Ramu Biurate Crystals Calcium Carbonate Cryst Calcium Phosphate Cryst Calcium Oxalate Crystal Leucine Crystals Cystine Crystals Uric Acid Crystals Triple Phos Crystals Sulfonamide Crystals Cholesterol Crystals Tyrosine Crystals Hippuric Acid Crystals Bilirubin Crystals Amorphous Sediment Other Sediment Urine Bacteria Urine Casts Cellular Casts Epithelial Casts Fatty Casts Hyaline Casts Granular Casts Waxy Casts Broad Casts RBC Casts WBC Casts Urine Starch Urine Mucus Urine Trichomonas Urine Yeast (Budding) Ur Oval Fat Bodies Sperm Presence Blood Type Antibody Screen Antibody Identification Antigen Identification FARHEEN, IgG Interpret FARHEEN, Complement Interp Enhanced Crossmatch Pre-Trans Antibody Scrn Post-Trans Antibody Scrn 06/13/24 06/13/24 06/13/24 17:26 17:26 17:26 WBC RBC Hgb Hct MCV MCH MCHC RDW Plt Count MPV Immature Gran % (Auto) Neut % (Auto) Lymph % (Auto) [place] % (Auto) Eos % (Auto) Baso % (Auto) Lymph # (Auto) [place] # (Auto) Eos # (Auto) Baso # (Auto) Abs Immat Gran (auto) Absolute Neuts (auto) Absolute Nucleated RBC Total Counted Neutrophils % (Manual) Band Neutrophils % Lymphocytes % (Manual) Monocytes % (Manual) Metamyelocytes % Nucleated RBC % Abs Neuts (Manual) Abs Lymphs (Manual) Abs Monocytes (Manual) Platelet Estimate % Immature Plt Fraction Hypochromasia Anisocytosis Microcytosis Tear Drop Cells Ovalocytes Schistocytes PT INR APTT Sodium Potassium Chloride Carbon Dioxide Anion Gap BUN Creatinine Estim Creat Clear Calc Estimated GFR Glucose Calcium Phosphorus Magnesium Total Bilirubin AST ALT Alkaline Phosphatase Total Protein Albumin Urine Color Urine Appearance Urine pH Ur Specific [place] Urine Protein Urine Glucose (UA) Urine Ketones Ur Blood (Man) Urine Nitrate Urine Bilirubin Urine Urobilinogen Ur Leukocyte Esterase Add Ur Microanalysis Leukocyte Esterase Rfl Urine RBC Urine WBC Urine WBC Clumps Ur Squamous Epith Cells Occasional Ur Transition Epith Cell Cancelled Ur Renal Epithelial Cell Cancelled [place] Biurate Crystals Cancelled Calcium Carbonate Cryst Cancelled Calcium Phosphate Cryst Cancelled Calcium Oxalate Crystal Cancelled Leucine Crystals Cancelled Cystine Crystals Cancelled Uric Acid Crystals Cancelled Triple Phos Crystals Cancelled Sulfonamide Crystals Cancelled Cholesterol Crystals Cancelled Tyrosine Crystals Cancelled Hippuric Acid Crystals Cancelled Bilirubin Crystals Cancelled Amorphous Sediment Cancelled Other Sediment Cancelled Urine Bacteria Cancelled None seen Urine Casts Cancelled 0-2 Cellular Casts Cancelled Epithelial Casts Cancelled Fatty Casts Cancelled Hyaline Casts Cancelled Granular Casts Cancelled Waxy Casts Cancelled Broad Casts Cancelled RBC Casts Cancelled WBC Casts Cancelled Urine Starch Cancelled Urine Mucus Cancelled Urine Trichomonas Cancelled Urine Yeast (Budding) Cancelled Ur Oval Fat Bodies Cancelled Sperm Presence Cancelled Blood Type Antibody Screen Antibody Identification Antigen Identification FARHEEN, IgG Interpret FARHEEN, Complement Interp Enhanced Crossmatch Pre-Trans Antibody Scrn Post-Trans Antibody Scrn 06/13/24 06/13/24 06/14/24 19:48 19:49 04:30 WBC 0.9 L* 1.0 L* RBC 1.67 L 1.85 L Hgb 6.3 L* 6.7 L* Hct 17.0 L* 18.2 L* MCV 101.8 H 98.4 MCH 37.7 H 36.2 H MCHC 37.1 H 36.8 H RDW 20.4 H 20.0 H Plt Count 53 L 63 L MPV 10.0 TNP Immature Gran % (Auto) Not Reportable Not Reportable Neut % (Auto) Not Reportable Not Reportable Lymph % (Auto) Not Reportable Not Reportable [place] % (Auto) Not Reportable Not Reportable Eos % (Auto) Not Reportable Not Reportable Baso % (Auto) Not Reportable Not Reportable Lymph # (Auto) Not Reportable Not Reportable [place] # (Auto) Not Reportable Not Reportable Eos # (Auto) Not Reportable Not Reportable Baso # (Auto) Not Reportable Not Reportable Abs Immat Gran (auto) Not Reportable Not Reportable Absolute Neuts (auto) Not Reportable Not Reportable Absolute Nucleated RBC Not Reportable Not Reportable Total Counted 100 100 Neutrophils % (Manual) 57 58 Band Neutrophils % 1 Lymphocytes % (Manual) 35.0 36.0 Monocytes % (Manual) 8 5 Metamyelocytes % Nucleated RBC % Not Reportable Not Reportable Abs Neuts (Manual) 0.59 L Abs Lymphs (Manual) 0.31 L 0.36 L Abs Monocytes (Manual) 0.07 L 0.05 L Platelet Estimate Decreased Decreased % Immature Plt Fraction 5.2 Hypochromasia 2+ Anisocytosis 3+ 2+ Microcytosis 1+ Tear Drop Cells Ovalocytes 1+ Schistocytes None seen None seen PT 16.3 H INR 1.3 APTT 24.8 Sodium 136 L Potassium 4.1 Chloride 103 Carbon Dioxide 25 Anion Gap 8 BUN 29 H Creatinine 0.80 Estim Creat Clear Calc 81 Estimated GFR > 60 Glucose 159 H Calcium 7.5 L Phosphorus 4.0 Magnesium 2.4 H Total Bilirubin 5.5 H 4.3 H AST 124 H ALT 12 Alkaline Phosphatase 23 L Total Protein 6.0 L Albumin 3.6 Urine Color Urine Appearance Urine pH Ur Specific [place] Urine Protein Urine Glucose (UA) Urine Ketones Ur Blood (Man) Urine Nitrate Urine Bilirubin Urine Urobilinogen Ur Leukocyte Esterase Add Ur Microanalysis Leukocyte Esterase Rfl Urine RBC Urine WBC Urine WBC Clumps Ur Squamous Epith Cells Ur Transition Epith Cell Ur Renal Epithelial Cell Ramu Biurate Crystals Calcium Carbonate Cryst Calcium Phosphate Cryst Calcium Oxalate Crystal Leucine Crystals Cystine Crystals Uric Acid Crystals Triple Phos Crystals Sulfonamide Crystals Cholesterol Crystals Tyrosine Crystals Hippuric Acid Crystals Bilirubin Crystals Amorphous Sediment Other Sediment Urine Bacteria Urine Casts Cellular Casts Epithelial Casts Fatty Casts Hyaline Casts Granular Casts Waxy Casts Broad Casts RBC Casts WBC Casts Urine Starch Urine Mucus Urine Trichomonas Urine Yeast (Budding) Ur Oval Fat Bodies Sperm Presence Blood Type Antibody Screen Antibody Identification Antigen Identification FARHEEN, IgG Interpret FARHEEN, Complement Interp Enhanced Crossmatch Pre-Trans Antibody Scrn Post-Trans Antibody Scrn Quality VTE Prophylaxis VTE prophylaxis: mechanical ordered
[2024-06-14 12:28] LABS: Homocysteine 141.4 umol/L (<10.4)
[2024-06-14] MEDS: ACETAMINOPHEN 325 MG TABLET 650 MG PO ×3 (13:43→22:59)
[2024-06-14] MEDS: SODIUM CHLORIDE 0.9% IV 250 ML 30 ML IV CONT (16:17)
[2024-06-14 17:16] LABS: IFOB Positive Control Positive; Immunochemical Fecal Occult Bl Negative (N)
[2024-06-14] MEDS: ONDANSETRON INJ 4 MG/2 ML VIAL IV PUSH (17:50)
--- NOTE | 2024-06-14 18:24 | WPDONCPN ---
Progress Note: A/P (1) Pancytopenia Code(s): D61.818 - Other pancytopenia Status: Acute Assessment and plan: Patient has a history of anemia in 2012. She presented with generalized weakness along with tiredness and fatigue. She has dark stools. Labs showed profound pancytopenia with WBC of 1.3, Hemoglobin of 4.7 and platelet count of 78K. She has history of drinking alcohol but not heavy. Labs showed elevated total bilirubin of the. B12 was less than 159. Creatinine was normal and iron studies were also normal other than elevated ferritin. There was a concern for hemolytic anemia as well as bone marrow disorders and liver and spleen disorders. Direct Nicolasa test came back negative. bone marrow aspiration and biopsy was recommended and performed on 06/14/24. Parietal cell and intrinsic factor antibodies has been ordered for the vitamin B12 level and are pending. Patient continues vitamin B12 supplement with daily injections. I told patient that it takes about a week to get the results of bone marrow biopsy. She will get supportive care with PRBC transfusions (antibodies present). She had infusion reaction after PRBC transfusion and received solumedrol yesterday, 06/13/24 after transfusion. Today, there was PRBC unit running when I saw the patient. She will continue transfusion as tolerated. Oncology will look for bone marrow biopsy report and will talk to patient. I don't see Haptoglobin and recommend repeating haptoglobin with 06/15/24 labs in am. - Time Spent With Patient Total time spent is greater than 50% in coordination of care (as documented) at patient's floor/unit and/or counseling patient: 25 - 35 minutes Subjective Interval history: Patient is seen at bedside for follow-up of pancytopenia. She underwent a bone marrow biopsy today 06/14/24. She was getting PRBC transfusion this evening. No overnight events. Review of Systems - Constitutional Reports fatigue, Reports lack of energy, Reports malaise - Eyes Comments: Normal - ENT Comments: Normal - Cardiovascular Comments: Denies any chest pain and shortness of breath - Respiratory Comments: Denies cough, phlegm production, hemoptysis - Gastrointestinal Comments: No abdominal pain, nausea, vomiting, diarrhea - Neurologic Reports system reviewed and no additional complaints, except as documented, Reports hearing normal Exam Vital signs: Temp Pulse Resp BP Pulse Ox O2 Del Method 37.4 C 89 17 141/68 H 100 Room Air 06/14/24 18:00 06/14/24 18:00 06/14/24 18:00 06/14/24 18:00 06/14/24 18:00 06/14/24 16:00 - Constitutional no acute distress - Routine HEENT Exam Head: Present: atraumatic, normal inspection Eye: Present: scleral icterus ENT: Present: mucous membranes dry - Routine Neck Exam Present: full ROM - Routine Respiratory Exam Present: CTAB - Routine Cardiovascular Exam Cardiovascular: Present: RRR, S1, S2 - Routine Abdominal Exam Present: soft Comments: Nontender nondistended - Routine Skin Exam Present: dry, jaundice - Routine Neurological Exam Present: alert, oriented X3, CN II-XII intact PN: Objective Data - Labs CBC & Chem 7: 06/14/24 04:30 06/14/24 04:30 Labs: Laboratory Results - last 24 hr 06/12/24 06/12/24 06/12/24 15:10 15:10 17:24 WBC RBC Hgb Hct MCV MCH MCHC RDW Plt Count MPV Immature Gran % (Auto) Neut % (Auto) Lymph % (Auto) [place] % (Auto) Eos % (Auto) Baso % (Auto) Lymph # (Auto) [place] # (Auto) Eos # (Auto) Baso # (Auto) Abs Immat Gran (auto) Absolute Neuts (auto) Absolute Nucleated RBC Total Counted Neutrophils % (Manual) Band Neutrophils % Lymphocytes % (Manual) Monocytes % (Manual) Nucleated RBC % Abs Neuts (Manual) Abs Lymphs (Manual) Abs Monocytes (Manual) Platelet Estimate % Immature Plt Fraction Hypochromasia Anisocytosis Microcytosis Ovalocytes Schistocytes PT INR APTT Sodium Potassium Chloride Carbon Dioxide Anion Gap BUN Creatinine Estim Creat Clear Calc Estimated GFR Glucose Calcium Phosphorus Magnesium Total Bilirubin AST ALT Alkaline Phosphatase Total Protein Albumin Homocysteine 141.4 H Stl Occult Blood (IFOB) Blood Type B Positive Antibody Screen Positive Antibody Identification Cold Auto AB Anti-[place] A Antigen Identification [place] A Antigen - NEGATIVE FARHEEN, IgG Interpret Neg FARHEEN, Complement Interp Negative Enhanced Crossmatch See Detail Pre-Trans Antibody Scrn Positive Post-Trans Antibody Scrn Positive 06/13/24 06/13/24 06/14/24 19:48 19:49 04:30 WBC 0.9 L* 1.0 L* RBC 1.67 L 1.85 L Hgb 6.3 L* 6.7 L* Hct 17.0 L* 18.2 L* MCV 101.8 H 98.4 MCH 37.7 H 36.2 H MCHC 37.1 H 36.8 H RDW 20.4 H 20.0 H Plt Count 53 L 63 L MPV 10.0 TNP Immature Gran % (Auto) Not Reportable Not Reportable Neut % (Auto) Not Reportable Not Reportable Lymph % (Auto) Not Reportable Not Reportable [place] % (Auto) Not Reportable Not Reportable Eos % (Auto) Not Reportable Not Reportable Baso % (Auto) Not Reportable Not Reportable Lymph # (Auto) Not Reportable Not Reportable [place] # (Auto) Not Reportable Not Reportable Eos # (Auto) Not Reportable Not Reportable Baso # (Auto) Not Reportable Not Reportable Abs Immat Gran (auto) Not Reportable Not Reportable Absolute Neuts (auto) Not Reportable Not Reportable Absolute Nucleated RBC Not Reportable Not Reportable Total Counted 100 100 Neutrophils % (Manual) 57 58 Band Neutrophils % 1 Lymphocytes % (Manual) 35.0 36.0 Monocytes % (Manual) 8 5 Nucleated RBC % Not Reportable Not Reportable Abs Neuts (Manual) 0.59 L Abs Lymphs (Manual) 0.31 L 0.36 L Abs Monocytes (Manual) 0.07 L 0.05 L Platelet Estimate Decreased Decreased % Immature Plt Fraction 5.2 Hypochromasia 2+ Anisocytosis 3+ 2+ Microcytosis 1+ Ovalocytes 1+ Schistocytes None seen None seen PT 16.3 H INR 1.3 APTT 24.8 Sodium 136 L Potassium 4.1 Chloride 103 Carbon Dioxide 25 Anion Gap 8 BUN 29 H Creatinine 0.80 Estim Creat Clear Calc 81 Estimated GFR > 60 Glucose 159 H Calcium 7.5 L Phosphorus 4.0 Magnesium 2.4 H Total Bilirubin 5.5 H 4.3 H AST 124 H ALT 12 Alkaline Phosphatase 23 L Total Protein 6.0 L Albumin 3.6 Homocysteine Stl Occult Blood (IFOB) Blood Type Antibody Screen Antibody Identification Antigen Identification FARHEEN, IgG Interpret FARHEEN, Complement Interp Enhanced Crossmatch Pre-Trans Antibody Scrn Post-Trans Antibody Scrn 06/14/24 15:57 WBC RBC Hgb Hct MCV MCH MCHC RDW Plt Count MPV Immature Gran % (Auto) Neut % (Auto) Lymph % (Auto) [place] % (Auto) Eos % (Auto) Baso % (Auto) Lymph # (Auto) [place] # (Auto) Eos # (Auto) Baso # (Auto) Abs Immat Gran (auto) Absolute Neuts (auto) Absolute Nucleated RBC Total Counted Neutrophils % (Manual) Band Neutrophils % Lymphocytes % (Manual) Monocytes % (Manual) Nucleated RBC % Abs Neuts (Manual) Abs Lymphs (Manual) Abs Monocytes (Manual) Platelet Estimate % Immature Plt Fraction Hypochromasia Anisocytosis Microcytosis Ovalocytes Schistocytes PT INR APTT Sodium Potassium Chloride Carbon Dioxide Anion Gap BUN Creatinine Estim Creat Clear Calc Estimated GFR Glucose Calcium Phosphorus Magnesium Total Bilirubin AST ALT Alkaline Phosphatase Total Protein Albumin Homocysteine Stl Occult Blood (IFOB) Negative Blood Type Antibody Screen Antibody Identification Antigen Identification FARHEEN, IgG Interpret FARHEEN, Complement Interp Enhanced Crossmatch Pre-Trans Antibody Scrn Post-Trans Antibody Scrn
[2024-06-15] VITALS (18 sets, daily range): BP systolic 100–143; BP diastolic 49–77; PULSE 81–103; RESP 12–20; TEMP 36.9–38.5; O2SAT 93–100
[2024-06-15] MEDS: ONDANSETRON INJ 4 MG/2 ML VIAL IV PUSH ×3 (04:11→12:16)
[2024-06-15 04:34] LABS: Hematocrit 21.3 % (37.0-47.0); Hemoglobin 7.5 g/dL (12.0-15.0); Immature Platelet Fraction Pct 4.9 % (0.9-11.2); Mean Corpuscular HGB Conc 35.2 g/dl (32-36); Mean Corpuscular Hemoglobin 34.9 pg (26-34); Mean Corpuscular Volume 99.1 fl (80-100); Platelet Count Result 40 k/mm3 (150-375); Red Blood Count 2.15 M/mm3 (4.2-5.4); Red Cell Distribution Width 20.6 % (11.5-14.5)
[2024-06-15 04:43] LABS: Alanine Aminotransferase 15 U/L (6-35); Albumin Level 4.2 g/dL (3.5-5.1); Alkaline Phosphatase 36 U/L (38-126); Anion Gap 8 mmol/L (4-12); Aspartate Amino Transferase 96 U/L (14-36); Bilirubin,Total 6.7 mg/dL (0.2-1.3); Blood Urea Nitrogen 21 mg/dL (7-17); Calcium 8.3 mg/dL (8.4-10.2); Carbon Dioxide 25 mmol/L (22-30); Chloride 104 mmol/L (98-107); Estimated CRCL calculation 73 ml/min; Estimated Glomerular Filt Rate > 60; Glucose 103 mg/dL (65-110); Magnesium 2.3 mg/dL (1.6-2.3); Phosphorus 2.3 mg/dL (2.5-4.5); Potassium 3.5 mmol/L (3.4-5.0); Sodium 137 mmol/L (137-145)
[2024-06-15 04:58] LABS: White Blood Count 1.2 K/mm3 (4.5-10.0)
[2024-06-15 05:03] LABS: Band Neutrophils Percent 2 % (0-6); Lymphocytes Percent Manual 42 % (18-44); Metamyelocytes Percent 2 %; Monocytes Absolute Manual 0.14 K/mm3 (0.1-0.90); Monocytes Percent Manual 12 % (3-9); Neutrophils Absolute Manual 0.52 K/mm3 (1.7-7.2); Neutrophils Percent Manual 42 % (46-73); Total Cells Counted 100
[2024-06-15 05:04] LABS: Platelet Estimate Decreased (Adequate)
[2024-06-15 05:05] LABS: Anisocytosis 2+; Hypochromasia 1+; Ovalocytes 2+; Schistocytes None Seen
[2024-06-15 05:06] LABS: Microcytosis 1+ (NORMAL)
[2024-06-15] MEDS: PROMETHAZINE HCL 25 MG/ML AMPUL IM (06:24)
--- NOTE | 2024-06-15 07:07 | P.PNUR_ITS ---
Progress Note: A&P Assessment and Plan (1) Hematuria: Code(s): R31.9 - Hematuria, unspecified Status: Acute (2) Vitamin B12 deficiency: Onset Date: 05/2013 Code(s): E53.8 - Deficiency of other specified B group vitamins Status: Acute (3) Symptomatic anemia: Code(s): D64.9 - Anemia, unspecified Status: Acute (4) Pancytopenia: Code(s): D61.818 - Other pancytopenia Status: Acute (5) Serum total bilirubin elevated: Code(s): R17 - Unspecified jaundice Status: Acute Assessment and Plan: * CT-abd/pelvis: splenomegaly / normal upper urinary tracts * No plans for cystoscopy (or any other intervention) as her issues not likely urological in origin. Subjective Subjective Date/Time Seen: 06/15/24 07:07 Interval history: Events noted Urine without gross blood Review of Systems Cardiovascular: Cardiovascular: Denies chest pain, Denies lightheadedness, Denies palpitations and Denies dyspnea Respiratory: Respiratory: Denies dyspnea Gastrointestinal: Gastrointestinal: Denies diarrhea, Denies nausea and Denies vomiting Genitourinary: Genitourinary: Denies hematuria and Denies dysuria Endocrine: Endocrine: Denies palpitations Exam Const: General: no acute distress Resp: Effort & Inspection: normal respiratory effort GI: Inspection: non-distended GI Palp: No abdominal tenderness and No Guarding due to palpation present (GI) Auscultation: normal bowel sounds Urinary Catheter: Urinary Catheter: patent and draining and urine clear Objective Data Vital Signs Vital Signs: Vital Signs - 24 hr 06/14/24 08:00 06/14/24 08:00 06/14/24 08:00 Temperature 99.7 F H Pulse Rate 88 83 Respiratory Rate 15 Blood Pressure 124/74 Pulse Oximetry 100 Oxygen Delivery Room Air 06/14/24 10:00 06/14/24 11:00 06/14/24 11:15 Temperature 99.7 F H 99.6 F Pulse Rate 81 76 79 Respiratory Rate 15 13 Blood Pressure 97/56 L 100/68 Pulse Oximetry 100 95 Oxygen Delivery 06/14/24 11:30 06/14/24 11:45 06/14/24 12:00 Temperature 99.2 F 99.3 F Pulse Rate 77 87 Respiratory Rate 12 18 Blood Pressure 109/52 L 105/57 L Pulse Oximetry 98 100 Oxygen Delivery Room Air 06/14/24 12:00 06/14/24 13:00 06/14/24 16:36 Temperature 99.0 F 99.0 F 99.4 F Pulse Rate 83 80 85 Respiratory Rate 15 15 18 Blood Pressure 97/73 L 106/65 106/62 Pulse Oximetry 98 100 100 Oxygen Delivery 06/14/24 14:00 06/14/24 15:00 06/14/24 16:00 Temperature 99.3 F 99.1 F 99.2 F Pulse Rate 86 89 86 Respiratory Rate 14 14 16 Blood Pressure 110/58 L 97/55 L 102/59 L Pulse Oximetry 98 100 99 Oxygen Delivery 06/14/24 16:00 06/14/24 16:55 06/14/24 12:00 Temperature 99.4 F Pulse Rate 87 79 Respiratory Rate 13 Blood Pressure 106/60 Pulse Oximetry 99 Oxygen Delivery Room Air 06/14/24 14:00 06/14/24 16:00 06/14/24 17:00 Temperature 99.4 F Pulse Rate 86 85 86 Respiratory Rate 16 Blood Pressure 105/63 Pulse Oximetry 100 Oxygen Delivery 06/14/24 17:55 06/14/24 18:00 06/14/24 18:00 Temperature 99.3 F 99.3 F Pulse Rate 89 89 89 Respiratory Rate 17 17 Blood Pressure 141/68 H 141/68 H Pulse Oximetry 100 100 Oxygen Delivery 06/14/24 18:55 06/14/24 19:55 06/14/24 21:00 Temperature 99.5 F 99.6 F Pulse Rate 86 83 77 Respiratory Rate 17 16 15 Blood Pressure 128/68 118/70 Pulse Oximetry 100 98 98 Oxygen Delivery 06/14/24 20:00 06/14/24 22:00 06/14/24 20:00 Temperature 100.0 F H Pulse Rate 79 77 79 Respiratory Rate 14 19 Blood Pressure 109/60 Pulse Oximetry 98 97 Oxygen Delivery Room Air 06/14/24 22:00 06/14/24 22:59 06/15/24 00:00 Temperature 100.1 F H 100.8 F H Pulse Rate 81 90 Respiratory Rate 16 Blood Pressure 126/57 L Pulse Oximetry 99 Oxygen Delivery 06/14/24 23:59 06/15/24 00:00 06/15/24 02:00 Temperature 100.8 F H Pulse Rate 88 90 Respiratory Rate Blood Pressure Pulse Oximetry Oxygen Delivery 06/15/24 02:00 06/15/24 04:00 06/15/24 04:00 Temperature 100.8 F H 101.0 F H Pulse Rate 90 97 Respiratory Rate 20 17 Blood Pressure 130/63 143/77 H Pulse Oximetry 96 100 Oxygen Delivery Room Air 06/15/24 04:00 06/15/24 06:00 06/15/24 06:00 Temperature 101.2 F H Pulse Rate 101 H 103 H 103 H Respiratory Rate 16 Blood Pressure 125/66 Pulse Oximetry 97 Oxygen Delivery Intake/Output Intake/Output: Intake & Output 06/12/24 06/13/24 06/14/24 06/15/24 23:59 23:59 23:59 23:59 Intake Total 200 2223 2560 200 Output Total 700 1100 450 Balance 200 1523 1460 -250 Meds/Results Medications: Active Medications Generic Name Dose Route Start Last Admin Trade Name Freq PRN Reason Stop Dose Admin Acetaminophen 650 mg 06/13/24 11:08 06/14/24 22:59 Acetaminophen 325 Mg Tablet PO 650 mg Q4H PRN Administration Mild Pain (1-3) or Fever Cyanocobalamin 1,000 mcg 06/13/24 09:00 06/14/24 09:48 Cyanocobalamin Inj 1,000 Mcg/Ml Vial IM 06/15/24 09:01 1,000 mcg DAILY JOSELUIS Administration Neomycin/Polymyxin/Bacitracin 1 applic 06/13/24 19:50 Neomycin/Polymyxin/Bacitracin Ointment 15 Gm Tube TOPICAL PRN PRN with dressing changes Ondansetron HCl 4 mg 06/13/24 11:08 06/15/24 04:11 Ondansetron Inj 4 Mg/2 Ml Vial IV PUSH 4 mg Q4H PRN Administration Nausea And Vomiting Pantoprazole Sodium 40 mg 06/13/24 09:00 06/14/24 23:00 Pantoprazole 40 Mg Tablet PO 40 mg Q12HR JOSELUIS Administration Promethazine HCl 25 mg 06/15/24 05:45 06/15/24 06:24 Promethazine Hcl 25 Mg/Ml Ampul IM 25 mg Q6H PRN Administration Nausea And Vomiting Radiology Results: ITS Impressions Chest X-Ray 06/12/24 15:18 IMPRESSION: No acute cardiopulmonary process. Abdomen Ultrasound 06/14/24 10:49 IMPRESSION: 1. Moderate splenomegaly. Biopsy,Fluoroscopy Guided 06/14/24 11:35 IMPRESSION: 1. Successful fluoroscopic guided bone marrow aspiration. 2. Successful fluoroscopic guided bone marrow biopsy. Abdomen/Pelvis CT 06/14/24 14:43 IMPRESSION: 1. No etiology for hematuria. 2. Moderate splenomegaly. 3. Cysts in the ovaries measuring up to 5.2 cm on the left, likely benign. Consider pelvis ultrasound in 6-12 months. Labs Labs: Laboratory Results - last 24 hr 06/12/24 06/12/24 06/12/24 15:10 15:10 17:24 WBC RBC Hgb Hct MCV MCH MCHC RDW Plt Count MPV Immature Gran % (Auto) Neut % (Auto) Lymph % (Auto) [place] % (Auto) Eos % (Auto) Baso % (Auto) Lymph # (Auto) [place] # (Auto) Eos # (Auto) Baso # (Auto) Abs Immat Gran (auto) Absolute Neuts (auto) Absolute Nucleated RBC Total Counted Neutrophils % (Manual) Band Neutrophils % Lymphocytes % (Manual) Monocytes % (Manual) Metamyelocytes % Nucleated RBC % Abs Neuts (Manual) Abs Lymphs (Manual) Abs Monocytes (Manual) Platelet Estimate % Immature Plt Fraction Hypochromasia Anisocytosis Microcytosis Ovalocytes Schistocytes Sodium Potassium Chloride Carbon Dioxide Anion Gap BUN Creatinine Estim Creat Clear Calc Estimated GFR Glucose Calcium Phosphorus Magnesium Total Bilirubin AST ALT Alkaline Phosphatase Total Protein Albumin Homocysteine 141.4 H Stl Occult Blood (IFOB) Blood Type B Positive Antibody Screen Positive Antibody Identification Cold Auto AB Anti-[place] A Antigen Identification [place] A Antigen - NEGATIVE FARHEEN, IgG Interpret Neg FARHEEN, Complement Interp Negative Enhanced Crossmatch See Detail Pre-Trans Antibody Scrn Positive Post-Trans Antibody Scrn Positive 06/14/24 06/15/24 15:57 04:26 WBC 1.2 L* RBC 2.15 L Hgb 7.5 L Hct 21.3 L MCV 99.1 MCH 34.9 H MCHC 35.2 RDW 20.6 H Plt Count 40 L MPV TNP Immature Gran % (Auto) Not Reportable Neut % (Auto) Not Reportable Lymph % (Auto) Not Reportable [place] % (Auto) Not Reportable Eos % (Auto) Not Reportable Baso % (Auto) Not Reportable Lymph # (Auto) Not Reportable [place] # (Auto) Not Reportable Eos # (Auto) Not Reportable Baso # (Auto) Not Reportable Abs Immat Gran (auto) Not Reportable Absolute Neuts (auto) Not Reportable Absolute Nucleated RBC Not Reportable Total Counted 100 Neutrophils % (Manual) 42 L Band Neutrophils % 2 Lymphocytes % (Manual) 42 Monocytes % (Manual) 12 H Metamyelocytes % 2 Nucleated RBC % Not Reportable Abs Neuts (Manual) 0.52 L Abs Lymphs (Manual) 0.50 L Abs Monocytes (Manual) 0.14 Platelet Estimate Decreased % Immature Plt Fraction 4.9 Hypochromasia 1+ Anisocytosis 2+ Microcytosis 1+ Ovalocytes 2+ Schistocytes None seen Sodium 137 Potassium 3.5 Chloride 104 Carbon Dioxide 25 Anion Gap 8 BUN 21 H Creatinine 0.90 Estim Creat Clear Calc 73 Estimated GFR > 60 Glucose 103 Calcium 8.3 L Phosphorus 2.3 L Magnesium 2.3 Total Bilirubin 6.7 H AST 96 H ALT 15 Alkaline Phosphatase 36 L Total Protein 7.0 Albumin 4.2 Homocysteine Stl Occult Blood (IFOB) Negative Blood Type Antibody Screen Antibody Identification Antigen Identification FARHEEN, IgG Interpret FARHEEN, Complement Interp Enhanced Crossmatch Pre-Trans Antibody Scrn Post-Trans Antibody Scrn
[2024-06-15 07:18] LABS: Haptoglobin <10 mg/dL (43-212)
[2024-06-15] MEDS: PANTOPRAZOLE 40 MG TABLET PO ×2 (08:11→21:21)
[2024-06-15] MEDS: CYANOCOBALAMIN INJ 1,000 MCG/ML VIAL 1000 MCG IM (08:12)
[2024-06-15 08:50] LABS: Procalcitonin 0.5 ng/mL
[2024-06-15] MEDS: POTASSIUM PHOS,M-BASIC-D-BASIC 20 MMOL in SODIUM CHLORIDE 0.9% IV 250 ML 64.17 MMOL IVPB (09:59)
[2024-06-15] MEDS: KCL 20 MEQ/0.45% NS 1,000 ML 75 ML IV CONT (09:59)
--- NOTE | 2024-06-15 10:29 | WPDINTPN ---
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, hemolytic anemia no direct Nicolasa test was negative -not taking any supplements at this time -has antibodies so blood transfusion was slightly delayed -06/13: patient received 2.5 units of packed RBCs (she had infusion reaction with hematuria on the 2nd unit which was stopped.) -06/13: she had mild fevers after the 1st unit, order Tylenol -06/13: patient received 1 dose of Solu-Medrol 125 mg IV x1 -appreciate hematology evaluation and recommendations, continue vitamin B12 supplementation with daily injections 06/14 status post bone marrow biopsy. Results are pending -appreciate GI evaluation recommendation, patient will require endoscopy at a later date, primarily hematology evaluation for now. -patient had hematuria for which Urology had evaluated the patient. Placed a Leon catheter, urine output clear this morning continue to monitor CT abdomen pelvis IMPRESSION: 1. No etiology for hematuria. 2. Moderate splenomegaly. 3. Cysts in the ovaries measuring up to 5.2 cm on the left, likely benign. Consider pelvis ultrasound in 6-12 months. 06/15 hemoglobin 7.5. Hemodynamics stable. Continue monitor transfuse if needed (2) Pancytopenia: Code(s): D61.818 - Other pancytopenia Status: Acute Assessment and Plan: Patient scheduled for bone marrow biopsy -06/14: Ultrasound of the abdomen showed small grade splenomegaly CT scan confirmed moderate splenomegaly (3) Vitamin B12 deficiency: Onset Date: 05/2013 Code(s): E53.8 - Deficiency of other specified B group vitamins Status: Acute Assessment and Plan: Continue by B12 supplement daily Plan DVT prophylaxis: SCDs Stress ulcer prophylaxis: Protonix Nutrition: Diet ordered Code Status: Full code -discussed with patient and her family at bedside and updated them with patient's condition and plan of care. Up in chair Incentive spirometry Transfer out of ICU Subjective Date/time seen: 06/15/24 Overnight events reviewed. febrile overnight. Patient received 30 units of PRBC overnight On room air. Good urine output. Tolerating p.o. diet. Complaining of nausea overnight. No vomiting. Patient denies fever, chest pain, shortness of breath, cough, abdominal pain,, diarrhea, headache or constipation. All other systems were reviewed and were negative Other Vitals acceptable Interval history: Reason for consult: Severe anemia, pancytopenia, transfusion reaction 06/13: 2.5 units of packed RBCs (2nd unit was held due to transfusion reaction, hematuria) Review of Systems Review of Systems: All systems reviewed & are unremarkable except as noted in HPI and below Exam Narrative: General: Pleasant female, in no acute distress HEENT:? Pupils equal and reactive, sclera is clear, pallor noted, icterus Neck:? Supple Respiratory:? Clear to auscultation bilaterally, no wheezing Cardiac:? S1-S2 normal, regular rate and rhythm Abdomen:? Soft, nontender, nondistended, normoactive bowel sound Extremities:? No edema, palpable pedal pulses, pallor noted in the nail beds Neuro:? Patient is awake, alert, oriented x3, nonfocal Skin:? No lesions noted, jaundiced skin Psych:? Normal mentation and affect Objective Data Vital Signs Vital Signs: Vital Signs - 24 hr 06/14/24 11:00 06/14/24 11:15 06/14/24 11:30 Temperature 37.6 C H 37.6 C 37.3 C Pulse Rate 76 79 77 Respiratory Rate 15 13 12 Blood Pressure 97/56 L 100/68 109/52 L Pulse Oximetry 100 95 98 Oxygen Delivery 06/14/24 11:45 06/14/24 12:00 06/14/24 12:00 Temperature 37.4 C 37.2 C Pulse Rate 87 83 Respiratory Rate 18 15 Blood Pressure 105/57 L 97/73 L Pulse Oximetry 100 98 Oxygen Delivery Room Air 06/14/24 13:00 06/14/24 16:36 06/14/24 14:00 Temperature 37.2 C 37.4 C 37.4 C Pulse Rate 80 85 86 Respiratory Rate 15 18 14 Blood Pressure 106/65 106/62 110/58 L Pulse Oximetry 100 100 98 Oxygen Delivery 06/14/24 15:00 06/14/24 16:00 06/14/24 16:00 Temperature 37.3 C 37.3 C Pulse Rate 89 86 Respiratory Rate 14 16 Blood Pressure 97/55 L 102/59 L Pulse Oximetry 100 99 Oxygen Delivery Room Air 06/14/24 16:55 06/14/24 12:00 06/14/24 14:00 Temperature 37.4 C Pulse Rate 87 79 86 Respiratory Rate 13 Blood Pressure 106/60 Pulse Oximetry 99 Oxygen Delivery 06/14/24 16:00 06/14/24 17:00 06/14/24 17:55 Temperature 37.4 C 37.4 C Pulse Rate 85 86 89 Respiratory Rate 16 17 Blood Pressure 105/63 141/68 H Pulse Oximetry 100 100 Oxygen Delivery 06/14/24 18:00 06/14/24 18:00 06/14/24 18:55 Temperature 37.4 C 37.5 C Pulse Rate 89 89 86 Respiratory Rate 17 17 Blood Pressure 141/68 H 128/68 Pulse Oximetry 100 100 Oxygen Delivery 06/14/24 19:55 06/14/24 21:00 06/14/24 20:00 Temperature 37.6 C Pulse Rate 83 77 79 Respiratory Rate 16 15 14 Blood Pressure 118/70 Pulse Oximetry 98 98 98 Oxygen Delivery Room Air 06/14/24 22:00 06/14/24 20:00 06/14/24 22:00 Temperature 37.8 C H Pulse Rate 77 79 81 Respiratory Rate 19 Blood Pressure 109/60 Pulse Oximetry 97 Oxygen Delivery 06/14/24 22:59 06/15/24 00:00 06/14/24 23:59 Temperature 37.8 C H 38.2 C H 38.2 C H Pulse Rate 90 Respiratory Rate 16 Blood Pressure 126/57 L Pulse Oximetry 99 Oxygen Delivery 06/15/24 00:00 06/15/24 02:00 06/15/24 02:00 Temperature 38.2 C H Pulse Rate 88 90 90 Respiratory Rate 20 Blood Pressure 130/63 Pulse Oximetry 96 Oxygen Delivery 06/15/24 04:00 06/15/24 04:00 06/15/24 04:00 Temperature 38.3 C H Pulse Rate 97 101 H Respiratory Rate 17 Blood Pressure 143/77 H Pulse Oximetry 100 Oxygen Delivery Room Air 06/15/24 06:00 06/15/24 06:00 06/15/24 08:00 Temperature 38.4 C H 38.3 C H Pulse Rate 103 H 103 H 100 Respiratory Rate 16 16 Blood Pressure 125/66 134/74 Pulse Oximetry 97 99 Oxygen Delivery Intake/Output Intake/Output: Intake & Output 06/12/24 06/13/24 06/14/24 06/15/24 23:59 23:59 23:59 23:59 Intake Total 200 2223 2560 200 Output Total 700 1100 450 Balance 200 1523 1460 -250 Meds/Results Medications: Active Medications Generic Name Dose Route Start Last Admin Trade Name Freq PRN Reason Stop Dose Admin Acetaminophen 650 mg 06/13/24 11:08 06/14/24 22:59 Acetaminophen 325 Mg Tablet PO 650 mg Q4H PRN Administration Mild Pain (1-3) or Fever Potassium Phosphate 20 mmol/ 256.6667 mls @ 64.167 mls/hr 06/15/24 08:10 06/15/24 09:59 Sodium Chloride IVPB 06/15/24 12:09 64.17 mls/hr ONCE ONE Administration Potassium Chloride/Sodium Chloride 1,000 mls @ 75 mls/hr 06/15/24 08:10 06/15/24 09:59 Kcl 20 Meq/0.45% Ns IV CONT 06/16/24 08:09 75 mls/hr .[id number] JOSELUIS Administration Neomycin/Polymyxin/Bacitracin 1 applic 06/13/24 19:50 Neomycin/Polymyxin/Bacitracin Ointment 15 Gm Tube TOPICAL PRN PRN with dressing changes Ondansetron HCl 4 mg 06/13/24 11:08 06/15/24 08:11 Ondansetron Inj 4 Mg/2 Ml Vial IV PUSH 4 mg Q4H PRN Administration Nausea And Vomiting Pantoprazole Sodium 40 mg 06/13/24 09:00 06/15/24 08:11 Pantoprazole 40 Mg Tablet PO 40 mg Q12HR JOSELUIS Administration Promethazine HCl 25 mg 06/15/24 05:45 06/15/24 06:24 Promethazine Hcl 25 Mg/Ml Ampul IM 25 mg Q6H PRN Administration Nausea And Vomiting Radiology Results: ITS Impressions Chest X-Ray 06/12/24 15:18 IMPRESSION: No acute cardiopulmonary process. Abdomen Ultrasound 06/14/24 10:49 IMPRESSION: 1. Moderate splenomegaly. Biopsy,Fluoroscopy Guided 06/14/24 11:35 IMPRESSION: 1. Successful fluoroscopic guided bone marrow aspiration. 2. Successful fluoroscopic guided bone marrow biopsy. Abdomen/Pelvis CT 06/14/24 14:43 IMPRESSION: 1. No etiology for hematuria. 2. Moderate splenomegaly. 3. Cysts in the ovaries measuring up to 5.2 cm on the left, likely benign. Consider pelvis ultrasound in 6-12 months. Labs Labs: Laboratory Results - last 24 hr 06/12/24 06/12/24 06/12/24 15:10 15:10 17:12 WBC RBC Hgb Hct MCV MCH MCHC RDW Plt Count MPV Immature Gran % (Auto) Neut % (Auto) Lymph % (Auto) [place] % (Auto) Eos % (Auto) Baso % (Auto) Lymph # (Auto) [place] # (Auto) Eos # (Auto) Baso # (Auto) Abs Immat Gran (auto) Absolute Neuts (auto) Absolute Nucleated RBC Total Counted Neutrophils % (Manual) Band Neutrophils % Lymphocytes % (Manual) Monocytes % (Manual) Metamyelocytes % Nucleated RBC % Abs Neuts (Manual) Abs Lymphs (Manual) Abs Monocytes (Manual) Platelet Estimate % Immature Plt Fraction Hypochromasia Anisocytosis Microcytosis Ovalocytes Schistocytes Haptoglobin <10 L Sodium Potassium Chloride Carbon Dioxide Anion Gap BUN Creatinine Estim Creat Clear Calc Estimated GFR Glucose Calcium Phosphorus Magnesium Total Bilirubin AST ALT Alkaline Phosphatase Total Protein Albumin Homocysteine Procalcitonin Stl Occult Blood (IFOB) Blood Type B Positive Antibody Screen Positive Antibody Identification Cold Auto AB Anti-[place] A Antigen Identification [place] A Antigen - NEGATIVE FARHEEN, IgG Interpret Neg FARHEEN, Complement Interp Negative Enhanced Crossmatch See Detail Pre-Trans Antibody Scrn Positive Post-Trans Antibody Scrn Positive 06/12/24 06/14/24 06/15/24 17:24 15:57 04:26 WBC 1.2 L* RBC 2.15 L Hgb 7.5 L Hct 21.3 L MCV 99.1 MCH 34.9 H MCHC 35.2 RDW 20.6 H Plt Count 40 L MPV TNP Immature Gran % (Auto) Not Reportable Neut % (Auto) Not Reportable Lymph % (Auto) Not Reportable [place] % (Auto) Not Reportable Eos % (Auto) Not Reportable Baso % (Auto) Not Reportable Lymph # (Auto) Not Reportable [place] # (Auto) Not Reportable Eos # (Auto) Not Reportable Baso # (Auto) Not Reportable Abs Immat Gran (auto) Not Reportable Absolute Neuts (auto) Not Reportable Absolute Nucleated RBC Not Reportable Total Counted 100 Neutrophils % (Manual) 42 L Band Neutrophils % 2 Lymphocytes % (Manual) 42 Monocytes % (Manual) 12 H Metamyelocytes % 2 Nucleated RBC % Not Reportable Abs Neuts (Manual) 0.52 L Abs Lymphs (Manual) 0.50 L Abs Monocytes (Manual) 0.14 Platelet Estimate Decreased % Immature Plt Fraction 4.9 Hypochromasia 1+ Anisocytosis 2+ Microcytosis 1+ Ovalocytes 2+ Schistocytes None seen Haptoglobin Sodium 137 Potassium 3.5 Chloride 104 Carbon Dioxide 25 Anion Gap 8 BUN 21 H Creatinine 0.90 Estim Creat Clear Calc 73 Estimated GFR > 60 Glucose 103 Calcium 8.3 L Phosphorus 2.3 L Magnesium 2.3 Total Bilirubin 6.7 H AST 96 H ALT 15 Alkaline Phosphatase 36 L Total Protein 7.0 Albumin 4.2 Homocysteine 141.4 H Procalcitonin 0.5 Stl Occult Blood (IFOB) Negative Blood Type Antibody Screen Antibody Identification Antigen Identification FARHEEN, IgG Interpret FARHEEN, Complement Interp Enhanced Crossmatch Pre-Trans Antibody Scrn Post-Trans Antibody Scrn Quality VTE Prophylaxis VTE prophylaxis: mechanical ordered
[2024-06-15] MEDS: ACETAMINOPHEN 325 MG TABLET 650 MG PO (12:16)
--- NOTE | 2024-06-15 13:27 | PC.NURSE ---
This patient, Malorie Cruz, was received from [ICU-2 ] on 06/15/24 at 1327. Patient/family oriented to unit policies and routines. Report received from ERMELINDA Virk
--- NOTE | 2024-06-15 13:30 | PC.NURSE ---
This patient, Malorie Cruz, was transferred to [facility] [place] on 06/15/24 at 1330. Personal belongings sent with patient. Report given to Roya. Appropriate documentation sent with patient.
[2024-06-15] MEDS: methylPREDNISolone SOD SUCC 125 MG VIAL IV PUSH ×2 (14:22→21:21)
[2024-06-15 14:23] LABS: Bilirubin Indirect 3.5 mg/dL (0-1.1)
--- NOTE | 2024-06-15 19:07 | WPDONCPN ---
Progress Note: A/P (1) Pancytopenia Code(s): D61.818 - Other pancytopenia Status: Acute - Additional Plan Patient has a history of anemia in 2013. She presented with generalized weakness along with tiredness and fatigue. She has dark stools. Labs showed profound pancytopenia with WBC of 1.3, Hemoglobin of 4.7 and platelet count of 78K. She has history of drinking alcohol but not heavy. Labs showed elevated total bilirubin of the. B12 was less than 159. Creatinine was normal and iron studies were also normal other than elevated ferritin. There was a concern for hemolytic anemia as well as bone marrow disorders and liver and spleen disorders. Direct Nicolasa test came back negative. Bone marrow aspiration and biopsy was recommended and performed on 06/14/24 and pathology is pending. Parietal cell and intrinsic factor antibodies has been ordered for the vitamin B12 level and are pending. Patient continues vitamin B12 supplement with daily injections. I told patient that it takes about a week to get the results of bone marrow biopsy. She will get supportive care with PRBC transfusions (antibodies present). so far she has received 2.5 units of PRBC when she had infusion reaction with the third unit on 06/13/24. Transfusion was stopped and patient received one dose of solumedrol 125mg IV. She has now received 3 units of PRBC so far. Haptoglobin was ordered on the day of admission, prior to transfusions and is very low. 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 I have recommended that patient start solumedrol 125mg IV q 8hrs to stabilize hemolysis. I have also ordered ADRIA panel. This could all be due to bone marrow etiology as well for which we are awaiting the results of bone marrow biopsy. - Time Spent With Patient Total time spent is greater than 50% in coordination of care (as documented) at patient's floor/unit and/or counseling patient: 25 - 35 minutes Subjective Interval history: Patient is seen at bedside for follow-up of pancytopenia. She underwent a bone marrow biopsy on 06/14/24 and results are pending. No overnight events. Patient is now moved to regular bed from ICU. Review of Systems - Constitutional Reports fatigue, Reports lack of energy, Reports malaise, Reports weakness - Eyes Reports dry eyes - ENT Comments: Normal - Cardiovascular Comments: No chest pain or shortness of breath - Respiratory Reports dyspnea on exertion - Gastrointestinal Reports belching, Reports dyspepsia - Musculoskeletal Reports body aches - Neurologic Reports system reviewed and no additional complaints, except as documented, Reports hearing normal Exam - Constitutional no acute distress - Routine HEENT Exam Head: Present: atraumatic, normal inspection Eye: Present: scleral icterus - Routine Neck Exam Present: full ROM - Routine Respiratory Exam Present: CTAB - Routine Cardiovascular Exam Cardiovascular: Present: RRR, S1, S2 - Routine Abdominal Exam Present: soft - Routine Skin Exam Present: dry, jaundice - Routine Neurological Exam Present: alert, oriented X3, CN II-XII intact PN: Objective Data - Labs CBC & Chem 7: 06/15/24 04:26 06/15/24 04:26 Labs: Laboratory Results - last 24 hr 06/12/24 06/12/24 06/15/24 15:10 17:12 04:26 WBC 1.2 L* RBC 2.15 L Hgb 7.5 L Hct 21.3 L MCV 99.1 MCH 34.9 H MCHC 35.2 RDW 20.6 H Plt Count 40 L MPV TNP Immature Gran % (Auto) Not Reportable Neut % (Auto) Not Reportable Lymph % (Auto) Not Reportable [place] % (Auto) Not Reportable Eos % (Auto) Not Reportable Baso % (Auto) Not Reportable Lymph # (Auto) Not Reportable [place] # (Auto) Not Reportable Eos # (Auto) Not Reportable Baso # (Auto) Not Reportable Abs Immat Gran (auto) Not Reportable Absolute Neuts (auto) Not Reportable Absolute Nucleated RBC Not Reportable Total Counted 100 Neutrophils % (Manual) 42 L Band Neutrophils % 2 Lymphocytes % (Manual) 42 Monocytes % (Manual) 12 H Metamyelocytes % 2 Nucleated RBC % Not Reportable Abs Neuts (Manual) 0.52 L Abs Lymphs (Manual) 0.50 L Abs Monocytes (Manual) 0.14 Platelet Estimate Decreased % Immature Plt Fraction 4.9 Hypochromasia 1+ Anisocytosis 2+ Microcytosis 1+ Ovalocytes 2+ Schistocytes None seen Haptoglobin <10 L Sodium 137 Potassium 3.5 Chloride 104 Carbon Dioxide 25 Anion Gap 8 BUN 21 H Creatinine 0.90 Estim Creat Clear Calc 73 Estimated GFR > 60 Glucose 103 Calcium 8.3 L Phosphorus 2.3 L Magnesium 2.3 Total Bilirubin 6.7 H Indirect Bilirubin AST 96 H ALT 15 Alkaline Phosphatase 36 L Total Protein 7.0 Albumin 4.2 Procalcitonin 0.5 Enhanced Crossmatch See Detail 06/15/24 13:59 WBC RBC Hgb Hct MCV MCH MCHC RDW Plt Count MPV Immature Gran % (Auto) Neut % (Auto) Lymph % (Auto) [place] % (Auto) Eos % (Auto) Baso % (Auto) Lymph # (Auto) [place] # (Auto) Eos # (Auto) Baso # (Auto) Abs Immat Gran (auto) Absolute Neuts (auto) Absolute Nucleated RBC Total Counted Neutrophils % (Manual) Band Neutrophils % Lymphocytes % (Manual) Monocytes % (Manual) Metamyelocytes % Nucleated RBC % Abs Neuts (Manual) Abs Lymphs (Manual) Abs Monocytes (Manual) Platelet Estimate % Immature Plt Fraction Hypochromasia Anisocytosis Microcytosis Ovalocytes Schistocytes Haptoglobin Sodium Potassium Chloride Carbon Dioxide Anion Gap BUN Creatinine Estim Creat Clear Calc Estimated GFR Glucose Calcium Phosphorus Magnesium Total Bilirubin Indirect Bilirubin 3.5 H AST ALT Alkaline Phosphatase Total Protein Albumin Procalcitonin Enhanced Crossmatch
[2024-06-16] VITALS (16 sets, daily range): BP systolic 104–117; BP diastolic 57–66; PULSE 69–90; RESP 16–18; TEMP 36.4–36.9; O2SAT 92–97
[2024-06-16] MEDS: KCL 20 MEQ/0.45% NS 1,000 ML 75 ML IV CONT (01:07)
[2024-06-16 04:55] LABS: Immature Platelet Fraction Pct 7.3 % (0.9-11.2); Mean Corpuscular HGB Conc 33.9 g/dl (32-36); Mean Corpuscular Volume 103.3 fl (80-100); Red Cell Distribution Width 21.4 % (11.5-14.5)
[2024-06-16 05:02] LABS: Hemoglobin 6.3 g/dL (12.0-15.0); White Blood Count 1.2 K/mm3 (4.5-10.0)
[2024-06-16 05:03] LABS: Hematocrit 18.6 % (37.0-47.0); Platelet Count Result 45 k/mm3 (150-375)
[2024-06-16 05:08] LABS: Alanine Aminotransferase 12 U/L (6-35); Albumin Level 3.6 g/dL (3.5-5.1); Alkaline Phosphatase 29 U/L (38-126); Anion Gap 5 mmol/L (4-12); Aspartate Amino Transferase 43 U/L (14-36); Bilirubin,Total 2.4 mg/dL (0.2-1.3); Blood Urea Nitrogen 17 mg/dL (7-17); Calcium 7.9 mg/dL (8.4-10.2); Carbon Dioxide 29 mmol/L (22-30); Chloride 103 mmol/L (98-107); Estimated CRCL calculation 77 ml/min; Estimated Glomerular Filt Rate > 60; Glucose 170 mg/dL (65-110); Magnesium 2.5 mg/dL (1.6-2.3); Potassium 4.9 mmol/L (3.4-5.0); Sodium 137 mmol/L (137-145)
[2024-06-16] MEDS: methylPREDNISolone SOD SUCC 125 MG VIAL IV PUSH ×3 (06:12→21:27)
[2024-06-16] MEDS: PANTOPRAZOLE 40 MG TABLET PO ×2 (08:53→21:26)
--- NOTE | 2024-06-16 11:37 | WPDONCPN ---
Progress Note: A/P (1) Pancytopenia Code(s): D61.818 - Other pancytopenia Status: Acute - Additional Plan Patient has a history of anemia in 2013. She presented with generalized weakness along with tiredness and fatigue. She has dark stools. Labs showed profound pancytopenia with WBC of 1.3, Hemoglobin of 4.7 and platelet count of 78K. She has history of drinking alcohol but not heavy. Labs showed elevated total bilirubin of the. B12 was less than 159. Creatinine was normal and iron studies were also normal other than elevated ferritin. There was a concern for hemolytic anemia as well as bone marrow disorders and liver and spleen disorders. Direct Nicolasa test came back negative. Bone marrow aspiration and biopsy was recommended and performed on 06/14/24 and pathology is pending. Parietal cell and intrinsic factor antibodies has been ordered for the vitamin B12 level and are pending. Patient continues vitamin B12 supplement with daily injections. I told patient that it takes about a week to get the results of bone marrow biopsy. She will get supportive care with PRBC transfusions (antibodies present). so far she has received 2.5 units of PRBC when she had infusion reaction with the third unit on 06/13/24. Transfusion was stopped and patient received one dose of solumedrol 125mg IV. She has now received 4 units of PRBC so far. Haptoglobin was ordered 06/12/24 and is very low consistent with hemolysis. We started solumedrol 125mg IV q 8hrs to stabilize hemolysis on 06/15/24. Additionally, patient has cold agglutinins in the blood bank testing. FARHEEN was negative. I am getting cold antibody titers. This could all be due to bone marrow etiology as well for which we are awaiting the results of bone marrow biopsy. I also recommend IVIg 1g/kg/day for two days. - Time Spent With Patient Total time spent is greater than 50% in coordination of care (as documented) at patient's floor/unit and/or counseling patient: Greater than 35 minutes (I spent 40 min evaluating patient's chart and answered questions at bedside) Subjective Interval history: Patient is seen at bedside for follow-up of pancytopenia with severe anemia. Hemoglobin is 6.3g/dL. She is getting transfusion today. She underwent a bone marrow biopsy on 06/14/24 and results are pending. No overnight events. family and friends at bedside Review of Systems - Constitutional Reports fatigue, Reports lack of energy - Eyes Comments: Normal - ENT Comments: normal - Cardiovascular Comments: No chest pain or dyspnea - Respiratory Comments: No cough or dyspnea - Gastrointestinal Comments: No abdominal pain, n/v/d. - Genitourinary Comments: No dysuria or hematuria - Neurologic Reports system reviewed and no additional complaints, except as documented, Reports hearing normal, Reports weakness - Endocrine Reports cold intolerance Exam - Constitutional no acute distress - Routine HEENT Exam Head: Present: atraumatic, normal inspection Eye: Present: scleral icterus - Routine Neck Exam Present: full ROM - Routine Respiratory Exam Present: CTAB - Routine Cardiovascular Exam Cardiovascular: Present: RRR, S1, S2 - Routine Abdominal Exam Present: soft - Routine Skin Exam Present: dry, jaundice - Routine Neurological Exam Present: alert, oriented X3, CN II-XII intact PN: Objective Data - Labs CBC & Chem 7: 06/16/24 04:06 06/16/24 04:06 Labs: Laboratory Results - last 24 hr 06/15/24 06/16/24 06/16/24 13:59 04:06 09:57 WBC 1.2 L* RBC 1.80 L Hgb 6.3 L* Hct 18.6 L* MCV 103.3 H MCH 35.0 H MCHC 33.9 RDW 21.4 H Plt Count 45 L MPV TNP % Immature Plt Fraction 7.3 Sodium 137 Potassium 4.9 Chloride 103 Carbon Dioxide 29 Anion Gap 5 BUN 17 Creatinine 0.70 Estim Creat Clear Calc 77 Estimated GFR > 60 Glucose 170 H Calcium 7.9 L Magnesium 2.5 H Total Bilirubin 2.4 H Indirect Bilirubin 3.5 H AST 43 H ALT 12 Alkaline Phosphatase 29 L Total Protein 6.0 L Albumin 3.6 Blood Type B Positive Crossmatch See Detail
[2024-06-16 12:11] LABS: CRP 7.5 mg/dL (<1.0)
[2024-06-16 12:34] LABS: Erythrocyte Sedimentation Rate 84 mm/hr (0-20)
[2024-06-16 12:45] LABS: Hepatitis B Surface Antigen Negative (Negative)
[2024-06-16 12:51] LABS: HAV RESULT Negative (Negative); Hepatitis B Core IgM Result Negative (Negative)
[2024-06-16 13:03] LABS: Hepatitis C Virus Antibody Negative (Negative)
--- NOTE | 2024-06-16 13:37 | PM.IMPN ---
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, hemolytic anemia no direct Nicolasa test was negative -not taking any supplements at this time -has antibodies so blood transfusion was slightly delayed -06/13: patient received 2.5 units of packed RBCs (she had infusion reaction with hematuria on the 2nd unit which was stopped.) -06/13: she had mild fevers after the 1st unit, order Tylenol -06/13: patient received 1 dose of Solu-Medrol 125 mg IV x1 -appreciate hematology evaluation and recommendations, been started on Solu-Medrol 125 mg q.8 hour continue vitamin B12 supplementation with daily injections 06/14 status post bone marrow biopsy. Results are pending -appreciate GI evaluation recommendation, patient will require endoscopy at a later date, primarily hematology evaluation for now. -patient had hematuria for which Urology had evaluated the patient. Placed a Leon catheter, urine output clear this morning continue to monitor CT abdomen pelvis IMPRESSION: 1. No etiology for hematuria. 2. Moderate splenomegaly. 3. Cysts in the ovaries measuring up to 5.2 cm on the left, likely benign. Consider pelvis ultrasound in 6-12 months. 06/15 hemoglobin 7.5. Hemodynamics stable. Continue monitor transfuse if needed Check hepatitis profile, HIV. Started on IVIG for hemolytic anemia as recommended by learning services coordinator (2) Pancytopenia: Code(s): D61.818 - Other pancytopenia Status: Acute Assessment and Plan: Patient scheduled for bone marrow biopsy -06/14: Ultrasound of the abdomen showed small grade splenomegaly CT scan confirmed moderate splenomegaly (3) Vitamin B12 deficiency: Onset Date: 05/2013 Code(s): E53.8 - Deficiency of other specified B group vitamins Status: Acute Assessment and Plan: Continue by B12 supplement daily Plan DVT prophylaxis: SCDs Stress ulcer prophylaxis: Protonix Nutrition: Diet ordered Code Status: Full code Subjective Date/time seen: 06/16/24 13:37 Interval history: no new complaints. No overnight events. Labs reviewed Review of Systems Review of Systems: All systems reviewed & are unremarkable except as noted in HPI and below Exam Narrative: General: Pleasant female, in no acute distress HEENT:? Pupils equal and reactive, sclera is clear, pallor noted, icterus Neck:? Supple Respiratory:? Clear to auscultation bilaterally, no wheezing Cardiac:? S1-S2 normal, regular rate and rhythm Abdomen:? Soft, nontender, nondistended, normoactive bowel sound Extremities:? No edema, palpable pedal pulses, pallor noted in the nail beds Neuro:? Patient is awake, alert, oriented x3, nonfocal Skin:? No lesions noted, jaundiced skin Psych:? Normal mentation and affect Objective Data Vital Signs Vital Signs: Vital Signs - 24 hr 06/15/24 13:39 06/15/24 14:00 06/15/24 15:43 Temperature 98.6 F 98.7 F Pulse Rate 100 88 93 Respiratory Rate 14 18 Blood Pressure 108/62 103/49 L Pulse Oximetry 100 97 Oxygen Delivery Fraction of Inspired Oxygen 06/15/24 16:00 06/15/24 16:00 06/15/24 18:00 Temperature Pulse Rate 91 87 Respiratory Rate Blood Pressure Pulse Oximetry Oxygen Delivery Room Air Fraction of Inspired Oxygen 06/15/24 20:16 06/15/24 20:00 06/15/24 20:00 Temperature 99.1 F Pulse Rate 82 85 Respiratory Rate 18 Blood Pressure 100/58 L Pulse Oximetry 93 Oxygen Delivery Room Air Fraction of Inspired Oxygen 06/15/24 22:00 06/15/24 22:56 06/15/24 23:17 Temperature 98.5 F Pulse Rate 81 82 Respiratory Rate 18 Blood Pressure 113/59 L Pulse Oximetry 99 Oxygen Delivery Room Air Fraction of Inspired Oxygen 06/16/24 00:00 06/16/24 02:00 06/16/24 03:53 Temperature 97.6 F Pulse Rate 78 76 69 Respiratory Rate 18 Blood Pressure 114/63 Pulse Oximetry 92 Oxygen Delivery Fraction of Inspired Oxygen 06/16/24 04:00 06/16/24 04:00 06/16/24 06:00 Temperature Pulse Rate 76 71 Respiratory Rate Blood Pressure Pulse Oximetry Oxygen Delivery Room Air Fraction of Inspired Oxygen 06/16/24 07:50 06/16/24 09:04 06/16/24 08:00 Temperature 98.1 F Pulse Rate 87 85 Respiratory Rate 16 Blood Pressure 107/66 Pulse Oximetry 97 97 Oxygen Delivery Room Air Fraction of Inspired Oxygen 21 06/16/24 10:00 06/16/24 08:00 06/16/24 11:25 Temperature 97.8 F Pulse Rate 89 87 Respiratory Rate 16 Blood Pressure 117/57 L Pulse Oximetry 97 Oxygen Delivery Room Air Fraction of Inspired Oxygen 06/16/24 12:00 06/16/24 12:00 Temperature Pulse Rate 90 Respiratory Rate Blood Pressure Pulse Oximetry Oxygen Delivery Room Air Fraction of Inspired Oxygen Intake/Output Intake/Output: Intake & Output 06/13/24 06/14/24 06/15/24 06/16/24 23:59 23:59 23:59 23:59 Intake Total 2223 2560 1916 2440 Output Total 700 1100 1350 600 Balance 1523 7054 389 5597 Meds/Results Medications: Active Medications Generic Name Dose Route Start Last Admin Trade Name Freq PRN Reason Stop Dose Admin Acetaminophen 650 mg 06/13/24 11:08 06/15/24 12:16 Acetaminophen 325 Mg Tablet PO 650 mg Q4H PRN Administration Mild Pain (1-3) or Fever Sodium Chloride 250 mls @ 30 mls/hr 06/16/24 09:26 Normal Saline Iv IV CONT 06/16/24 17:45 .Q8H20M STA Immune Globulin 75 gm/ N/A 750 mls @ 22.35 mls/hr 06/17/24 09:00 IVPB 06/19/24 08:59 DAILY JOSELUIS Methylprednisolone Sodium Succinate 125 mg 06/15/24 12:45 06/16/24 06:12 Methylprednisolone Sod Succ 125 Mg Vial IV PUSH 125 mg Q8HR JOSELUIS Administration Neomycin/Polymyxin/Bacitracin 1 applic 06/13/24 19:50 Neomycin/Polymyxin/Bacitracin Ointment 15 Gm Tube TOPICAL PRN PRN with dressing changes Ondansetron HCl 4 mg 06/13/24 11:08 06/15/24 12:16 Ondansetron Inj 4 Mg/2 Ml Vial IV PUSH 4 mg Q4H PRN Administration Nausea And Vomiting Pantoprazole Sodium 40 mg 06/13/24 09:00 06/16/24 08:53 Pantoprazole 40 Mg Tablet PO 40 mg Q12HR JOSELUIS Administration Promethazine HCl 25 mg 06/15/24 05:45 06/15/24 06:24 Promethazine Hcl 25 Mg/Ml Ampul IM 25 mg Q6H PRN Administration Nausea And Vomiting Radiology Results: ITS Impressions Abdomen Ultrasound 06/14/24 10:49 IMPRESSION: 1. Moderate splenomegaly. Biopsy,Fluoroscopy Guided 06/14/24 11:35 IMPRESSION: 1. Successful fluoroscopic guided bone marrow aspiration. 2. Successful fluoroscopic guided bone marrow biopsy. Abdomen/Pelvis CT 06/14/24 14:43 IMPRESSION: 1. No etiology for hematuria. 2. Moderate splenomegaly. 3. Cysts in the ovaries measuring up to 5.2 cm on the left, likely benign. Consider pelvis ultrasound in 6-12 months. Chest X-Ray 06/15/24 14:42 IMPRESSION: 1. No acute cardiopulmonary disease. Labs Labs: Laboratory Results - last 24 hr 06/15/24 06/16/24 06/16/24 13:59 04:06 09:57 WBC 1.2 L* RBC 1.80 L Hgb 6.3 L* Hct 18.6 L* MCV 103.3 H MCH 35.0 H MCHC 33.9 RDW 21.4 H Plt Count 45 L MPV TNP % Immature Plt Fraction 7.3 ESR Sodium 137 Potassium 4.9 Chloride 103 Carbon Dioxide 29 Anion Gap 5 BUN 17 Creatinine 0.70 Estim Creat Clear Calc 77 Estimated GFR > 60 Glucose 170 H Calcium 7.9 L Magnesium 2.5 H Total Bilirubin 2.4 H Indirect Bilirubin 3.5 H AST 43 H ALT 12 Alkaline Phosphatase 29 L C-Reactive Protein Total Protein 6.0 L Albumin 3.6 Hepatitis A IgM Ab Hep Bs Antigen Hep B Core IgM Ab Hepatitis C Ab Screen Blood Type B Positive Crossmatch See Detail 06/16/24 11:45 WBC RBC Hgb Hct MCV MCH MCHC RDW Plt Count MPV % Immature Plt Fraction ESR 84 H Sodium Potassium Chloride Carbon Dioxide Anion Gap BUN Creatinine Estim Creat Clear Calc Estimated GFR Glucose Calcium Magnesium Total Bilirubin Indirect Bilirubin AST ALT Alkaline Phosphatase C-Reactive Protein 7.5 H Total Protein Albumin Hepatitis A IgM Ab Negative Hep Bs Antigen Negative Hep B Core IgM Ab Negative Hepatitis C Ab Screen Negative Blood Type Crossmatch
[2024-06-16 13:54] LABS: HIV 1/2 Ab P24 Ag Result Negative (Negative)
--- NOTE | 2024-06-16 15:19 | PC.NURSE ---
Reviewed and acknowledge all charting Julisa Egan [facility]
[2024-06-17] VITALS (33 sets, daily range): BP systolic 103–133; BP diastolic 49–83; PULSE 69–106; RESP 12–20; TEMP 36.6–37.1; O2SAT 96–100
--- NOTE | 2024-06-17 01:03 | PC.NURSE ---
Daylight Savings Time For Daylight Savings Time Ending in the Fall - Clocks are moved back. For Daylight Savings Time Beginning in the Spring - Clocks are moved ahead. For [facility], the time of change occurs at 0200 hrs. Time is taken from the sql server dba developer. This entry on the patient's chart recognizes the change in time reflected during documentation. Example: 2 entries for vital signs may be charted for 0200 hrs.
[2024-06-17 05:06] LABS: Immature Platelet Fraction Pct 8.3 % (0.9-11.2); Mean Corpuscular HGB Conc 31.6 g/dl (32-36); Mean Corpuscular Hemoglobin 34.1 pg (26-34); Mean Corpuscular Volume 107.8 fl (80-100); Platelet Count Result 47 k/mm3 (150-375); Red Blood Count 1.79 M/mm3 (4.2-5.4); Red Cell Distribution Width 23.4 % (11.5-14.5)
[2024-06-17 05:23] LABS: Alanine Aminotransferase 13 U/L (6-35); Albumin Level 3.5 g/dL (3.5-5.1); Alkaline Phosphatase 32 U/L (38-126); Anion Gap 7 mmol/L (4-12); Aspartate Amino Transferase 27 U/L (14-36); Bilirubin,Total 1.5 mg/dL (0.2-1.3); Blood Urea Nitrogen 18 mg/dL (7-17); Calcium 8.2 mg/dL (8.4-10.2); Carbon Dioxide 28 mmol/L (22-30); Chloride 104 mmol/L (98-107); Estimated CRCL calculation 86 ml/min; Estimated Glomerular Filt Rate > 60; Glucose 161 mg/dL (65-110); Magnesium 2.6 mg/dL (1.6-2.3); Potassium 4.5 mmol/L (3.4-5.0); Sodium 139 mmol/L (137-145)
[2024-06-17 05:34] LABS: Hematocrit 19.3 % (37.0-47.0); Hemoglobin 6.1 g/dL (12.0-15.0); White Blood Count 1.5 K/mm3 (4.5-10.0)
[2024-06-17] MEDS: methylPREDNISolone SOD SUCC 125 MG VIAL IV PUSH ×3 (05:44→21:03)
[2024-06-17] MEDS: PANTOPRAZOLE 40 MG TABLET PO ×2 (08:45→21:02)
[2024-06-17] MEDS: IMMUNE GLOBULIN IVPB (09:12)
[2024-06-17] MEDS: PREMIXIV IVPB (09:12)
[2024-06-17] MEDS: TUBING, BLOOD PLUM PUMP TUBING 1 EACH XX ×2 (09:57→17:09)
--- NOTE | 2024-06-17 11:10 | P.PNONC_ITS ---
Progress Note: A/P (1) Pancytopenia Code(s): D61.818 - Other pancytopenia Status: Acute - Additional Plan Patient has a history of anemia in 2013. She presented with generalized weakness along with tiredness and fatigue. She has dark stools. Labs showed profound pancytopenia. Pancytopenia- CBC on day of admission showed WBC of 1.3, Hemoglobin of 4.7 and platelet count of 78K. She has history of drinking alcohol but not heavy. Labs showed elev ated total bilirubin of the. B12 was less than 159. Creatinine was normal and iron studies were also normal other than elevated ferritin. There was a concern for hemolytic anemia as well as bone marrow disorders and liver and spleen disorders. Direct Nicolasa test came back negative. Bone marrow aspiration and biopsy was recommended and performed on 06/14/24 and pathology is pending. Parietal cell and intrinsic factor antibodies has been ordered for the vitamin B12 level and are pending. Patient continues vitamin B12 supplement with daily injections. I told patient that it takes about a week to get the results of bone marrow biopsy. She will get supportive care with PRBC transfusions (antibodies present). so far she has received 2.5 units of PRBC when she had infusion reaction with the third unit on 06/13/24. Transfusion was stopped and patient received one dose of solumedrol 125mg IV. She has now received 4 units of PRBC so far. Haptoglobin was ordered 06/12/24 and is very low consistent with hemolysis. We started solumedrol 125mg IV q 8hrs to stabilize hemolysis on 06/15/24. Additionally, patient has cold agglutinins in the blood bank testing. FARHEEN was negative. cold agglutinin titers are pending. IVIg is started today 1g/kg/day for two days. Hemoglobin is 6.1g/dL. Type and cross shows Palacios A and Anti S antigens in the blood. It took a day to get Palacios A and Anti S negative PRBC. She will get the least incompatable transfusion today. This could all be due to bone marrow etiology as well for which we are awaiting the results of bone marrow biopsy. Differentials of pancytopenia include aplastic anemia, myelofibrosis or MDS. Lymphoma with only bone marrow involvement is also in differential as well. CT scan chest/abd/pelvis this admission shows splenomegaly. Hemolysis- Patient was found to have haptoglobin of less than 10 on day of admission 06/12/24 (prior to transfusion this admission). She did receive two units of PRBC on 05/28/24. FARHEEN negative multiple times ruling out Warm Hemolytic anemia. Cold agglutinins were noted in the blood, getting titers. She is on solumedrol 125mg IV q 8 hrs started 06/15/24 as well as IVIg 1g/kg/day, first dose 06/17/24. It could be that hemolysis seen is due to previous blood transfusion on 05/28/24 and ongoing transfusion this admission or has cold agglutinins although we are not seeing Red cell agglutination in the CBC sample. Patient should be transferred to [facility] with higher acuity hematology/oncology services. I recommend transfer to [facility]. - Time Spent With Patient Total time spent is greater than 50% in coordination of care (as documented) at patient's floor/unit and/or counseling patient: Greater than 35 minutes (I spent 40 mins with this encounter.) Subjective Interval history: Patient is seen at bedside for follow-up of pancytopenia with severe anemia. Hemoglobin is 6.3g/dL. She is getting transfusion today. She underwent a bone marrow biopsy on 06/14/24 and results are pending. No overnight events. at bedside Review of Systems - Constitutional Reports fatigue, Reports weakness - Eyes Comments: normal - ENT Comments: normal - Cardiovascular Reports shortness of breath with activity - Respiratory Reports dyspnea on exertion - Gastrointestinal Comments: normal - Neurologic Reports system reviewed and no additional complaints, except as documented, Reports hearing normal, Reports weakness Exam - Constitutional no acute distress - Routine HEENT Exam Head: Present: atraumatic, normal inspection - Routine Neck Exam Present: full ROM - Routine Respiratory Exam Present: CTAB - Routine Cardiovascular Exam Cardiovascular: Present: RRR, S1, S2 - Routine Abdominal Exam Present: soft - Routine Skin Exam Present: dry, jaundice - Routine Neurological Exam Present: alert, oriented X3, CN II-XII intact PN: Objective Data - Labs CBC & Chem 7: 06/17/24 04:27 06/17/24 04:26 Labs: Laboratory Results - last 24 hr 06/16/24 06/16/24 06/16/24 09:57 09:57 11:45 WBC RBC Hgb Hct MCV MCH MCHC RDW Plt Count MPV % Immature Plt Fraction ESR 84 H Sodium Potassium Chloride Carbon Dioxide Anion Gap BUN Creatinine Estim Creat Clear Calc Estimated GFR Glucose Calcium Magnesium Total Bilirubin AST ALT Alkaline Phosphatase C-Reactive Protein 7.5 H Total Protein Albumin Hepatitis A IgM Ab Negative Hep Bs Antigen Negative Hep B Core IgM Ab Negative Hepatitis C Ab Screen Negative HIV 1&2 Ab/P24 Ag 4thGn Negative Blood Type B Positive Antibody Screen Positive Antibody Identification Anti-Palacios A Anti-S Antigen Identification Cancelled FARHEEN, IgG Interpret Negative FARHEEN, Poly Interpret Neg FARHEEN, Complement Interp Negative Enhanced Crossmatch See Detail 06/17/24 06/17/24 04:26 04:27 WBC 1.5 L* RBC 1.79 L Hgb 6.1 L* Hct 19.3 L* MCV 107.8 H MCH 34.1 H MCHC 31.6 L RDW 23.4 H Plt Count 47 L MPV TNP % Immature Plt Fraction 8.3 ESR Sodium 139 Potassium 4.5 Chloride 104 Carbon Dioxide 28 Anion Gap 7 BUN 18 H Creatinine 0.70 Estim Creat Clear Calc 86 Estimated GFR > 60 Glucose 161 H Calcium 8.2 L Magnesium 2.6 H Total Bilirubin 1.5 H AST 27 ALT 13 Alkaline Phosphatase 32 L C-Reactive Protein Total Protein 6.0 L Albumin 3.5 Hepatitis A IgM Ab Hep Bs Antigen Hep B Core IgM Ab Hepatitis C Ab Screen HIV 1&2 Ab/P24 Ag 4thGn Blood Type Antibody Screen Antibody Identification Antigen Identification FARHEEN, IgG Interpret FARHEEN, Poly Interpret FARHEEN, Complement Interp Enhanced Crossmatch
[2024-06-17 11:52] LABS: Immature Reticulocyte Fraction 56.7 % (3.0-15.9); Reticulocyte Hemoglobin Conten 30.5 pg (28.2-36.6); Reticulocytes Absolute 0.22 10^6/uL (0.02-0.10)
[2024-06-17] MEDS: CYANOCOBALAMIN INJ 1,000 MCG/ML VIAL 1000 MCG IM (12:05)
--- NOTE | 2024-06-17 12:10 | PM.IMPN ---
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, hemolytic anemia no direct Nicolasa test was negative -not taking any supplements at this time -has antibodies so blood transfusion was slightly delayed -06/13: patient received 2.5 units of packed RBCs (she had infusion reaction with hematuria on the 2nd unit which was stopped.) -06/13: she had mild fevers after the 1st unit, order Tylenol -06/13: patient received 1 dose of Solu-Medrol 125 mg IV x1 -appreciate hematology evaluation and recommendations, been started on Solu-Medrol 125 mg q.8 hour continue vitamin B12 supplementation with daily injections 06/14 status post bone marrow biopsy. Results are pending -appreciate GI evaluation recommendation, patient will require endoscopy at a later date, primarily hematology evaluation for now. -patient had hematuria for which Urology had evaluated the patient. Placed a Leon catheter, urine output clear this morning continue to monitor CT abdomen pelvis IMPRESSION: 1. No etiology for hematuria. 2. Moderate splenomegaly. 3. Cysts in the ovaries measuring up to 5.2 cm on the left, likely benign. Consider pelvis ultrasound in 6-12 months. 06/15 hemoglobin 7.5. Hemodynamics stable. Continue monitor transfuse if needed Check hepatitis profile, HIV. Started on IVIG for hemolytic anemia as recommended by dairy frozen manager Transfer to [facility] and has been accepted await bed placement (2) Pancytopenia: Code(s): D61.818 - Other pancytopenia Status: Acute Assessment and Plan: Patient scheduled for bone marrow biopsy -06/14: Ultrasound of the abdomen showed small grade splenomegaly CT scan confirmed moderate splenomegaly (3) Vitamin B12 deficiency: Onset Date: 05/2013 Code(s): E53.8 - Deficiency of other specified B group vitamins Status: Acute Assessment and Plan: Continue by B12 supplement daily Plan DVT prophylaxis: SCDs Stress ulcer prophylaxis: Protonix Nutrition: Diet ordered Code Status: Full code Subjective Date/time seen: 06/17/24 12:10 Interval history: No overnight events. Patient did not get PRBC transfused due to antibody yesterday . No new complaints today. Call to [facility] and has been accepted for transfer Review of Systems Review of Systems: All systems reviewed & are unremarkable except as noted in HPI and below Exam Narrative: General: Pleasant female, in no acute distress HEENT:? Pupils equal and reactive, sclera is clear, pallor noted, icterus Neck:? Supple Respiratory:? Clear to auscultation bilaterally, no wheezing Cardiac:? S1-S2 normal, regular rate and rhythm Abdomen:? Soft, nontender, nondistended, normoactive bowel sound Extremities:? No edema, palpable pedal pulses, pallor noted in the nail beds Neuro:? Patient is awake, alert, oriented x3, nonfocal Skin:? No lesions noted, jaundiced skin Psych:? Normal mentation and affect Objective Data Vital Signs Vital Signs: Vital Signs - 24 hr 06/16/24 14:00 06/16/24 16:00 06/16/24 16:00 Temperature 98.4 F Pulse Rate 82 88 86 Respiratory Rate 16 Blood Pressure 108/58 L Pulse Oximetry 96 Oxygen Delivery 06/16/24 16:00 06/16/24 18:00 06/16/24 20:00 Temperature 97.8 F Pulse Rate 88 79 Respiratory Rate 18 Blood Pressure 104/58 L Pulse Oximetry 96 Oxygen Delivery Room Air 06/16/24 21:00 06/16/24 20:00 06/16/24 22:00 Temperature Pulse Rate 77 73 Respiratory Rate Blood Pressure Pulse Oximetry Oxygen Delivery Room Air 06/17/24 00:00 06/17/24 00:00 06/17/24 00:00 Temperature 97.9 F Pulse Rate 79 80 Respiratory Rate 18 Blood Pressure 106/62 Pulse Oximetry 99 Oxygen Delivery Room Air 06/17/24 01:05 TRAILER TECHNICIAN 06/17/24 03:57 06/17/24 03:58 Temperature 97.8 F Pulse Rate 70 73 Respiratory Rate 18 Blood Pressure 108/62 Pulse Oximetry 100 Oxygen Delivery Room Air 06/17/24 04:00 06/17/24 06:00 06/17/24 07:53 Temperature 98.2 F Pulse Rate 69 69 84 Respiratory Rate 14 Blood Pressure 103/66 Pulse Oximetry 96 Oxygen Delivery 06/17/24 07:59 06/17/24 08:02 06/17/24 09:29 Temperature 98.3 F 98.5 F 98.6 F Pulse Rate 92 92 88 Respiratory Rate 16 14 Blood Pressure 127/67 117/66 105/49 L Pulse Oximetry 98 100 96 Oxygen Delivery 06/17/24 11:07 06/17/24 11:41 06/17/24 11:47 Temperature 98.3 F 98.4 F Pulse Rate 86 93 Respiratory Rate 14 16 Blood Pressure 115/75 131/67 119/62 Pulse Oximetry 100 98 Oxygen Delivery Intake/Output Intake/Output: Intake & Output 06/14/24 06/15/24 06/16/24 06/17/24 23:59 23:59 23:59 22:59 Intake Total 2560 1916 3300 678.8 Output Total 1100 1350 600 950 Balance 3849 900 2704 -271.2 Meds/Results Medications: Active Medications Generic Name Dose Route Start Last Admin Trade Name Freq PRN Reason Stop Dose Admin Acetaminophen 650 mg 06/13/24 11:08 06/15/24 12:16 Acetaminophen 325 Mg Tablet PO 650 mg Q4H PRN Administration Mild Pain (1-3) or Fever Cyanocobalamin 1,000 mcg 06/17/24 11:35 06/17/24 12:05 Cyanocobalamin Inj 1,000 Mcg/Ml Vial IM 1,000 mcg DAILY JOSELUIS Administration Immune Globulin 75 gm/ N/A 750 mls @ 22.35 mls/hr 06/17/24 09:00 06/17/24 12:05 IVPB 06/19/24 08:59 88 mls/hr DAILY JOSELUIS Infusion Methylprednisolone Sodium Succinate 125 mg 06/15/24 12:45 06/17/24 05:44 Methylprednisolone Sod Succ 125 Mg Vial IV PUSH 125 mg Q8HR JOSELUIS Administration Neomycin/Polymyxin/Bacitracin 1 applic 06/13/24 19:50 Neomycin/Polymyxin/Bacitracin Ointment 15 Gm Tube TOPICAL PRN PRN with dressing changes Ondansetron HCl 4 mg 06/13/24 11:08 06/15/24 12:16 Ondansetron Inj 4 Mg/2 Ml Vial IV PUSH 4 mg Q4H PRN Administration Nausea And Vomiting Pantoprazole Sodium 40 mg 06/13/24 09:00 06/17/24 08:45 Pantoprazole 40 Mg Tablet PO 40 mg Q12HR JOSELUIS Administration Promethazine HCl 25 mg 06/15/24 05:45 06/15/24 06:24 Promethazine Hcl 25 Mg/Ml Ampul IM 25 mg Q6H PRN Administration Nausea And Vomiting Radiology Results: ITS Impressions Abdomen Ultrasound 06/14/24 10:49 IMPRESSION: 1. Moderate splenomegaly. Biopsy,Fluoroscopy Guided 06/14/24 11:35 IMPRESSION: 1. Successful fluoroscopic guided bone marrow aspiration. 2. Successful fluoroscopic guided bone marrow biopsy. Abdomen/Pelvis CT 06/14/24 14:43 IMPRESSION: 1. No etiology for hematuria. 2. Moderate splenomegaly. 3. Cysts in the ovaries measuring up to 5.2 cm on the left, likely benign. Consider pelvis ultrasound in 6-12 months. Chest X-Ray 06/15/24 14:42 IMPRESSION: 1. No acute cardiopulmonary disease. Labs Labs: Laboratory Results - last 24 hr 06/16/24 06/16/24 06/16/24 09:57 09:57 11:45 WBC RBC Hgb Hct MCV MCH MCHC RDW Plt Count MPV % Immature Plt Fraction Absolute Retic Percent Retic Immature Retic Fraction Retic Hgb Content Sodium Potassium Chloride Carbon Dioxide Anion Gap BUN Creatinine Estim Creat Clear Calc Estimated GFR Glucose Calcium Magnesium Total Bilirubin AST ALT Alkaline Phosphatase Total Protein Albumin HIV 1&2 Ab/P24 Ag 4thGn Negative Blood Type B Positive Antibody Screen Positive Antibody Identification Anti-Palacios A Anti-S Antigen Identification Cancelled FARHEEN, IgG Interpret Negative FARHEEN, Poly Interpret Neg FARHEEN, Complement Interp Negative Enhanced Crossmatch See Detail 06/17/24 06/17/24 04:26 04:27 WBC 1.5 L* RBC 1.79 L Hgb 6.1 L* Hct 19.3 L* MCV 107.8 H MCH 34.1 H MCHC 31.6 L RDW 23.4 H Plt Count 47 L MPV TNP % Immature Plt Fraction 8.3 Absolute Retic 0.22 H Percent Retic 12.30 H Immature Retic Fraction 56.7 H Retic Hgb Content 30.5 Sodium 139 Potassium 4.5 Chloride 104 Carbon Dioxide 28 Anion Gap 7 BUN 18 H Creatinine 0.70 Estim Creat Clear Calc 86 Estimated GFR > 60 Glucose 161 H Calcium 8.2 L Magnesium 2.6 H Total Bilirubin 1.5 H AST 27 ALT 13 Alkaline Phosphatase 32 L Total Protein 6.0 L Albumin 3.5 HIV 1&2 Ab/P24 Ag 4thGn Blood Type Antibody Screen Antibody Identification Antigen Identification FARHEEN, IgG Interpret FARHEEN, Poly Interpret FARHEEN, Complement Interp Enhanced Crossmatch
[2024-06-17] MEDS: SODIUM CHLORIDE 0.9% IV 250 ML 30 ML IV CONT (17:10)
--- NOTE | 2024-06-17 21:49 | PC.NURSE ---
[facility] transfer center called for pt update. No beds available at this time. Pt remains on waitlist.
[2024-06-18] VITALS (11 sets, daily range): BP systolic 122–145; BP diastolic 69–80; PULSE 64–80; RESP 16–18; TEMP 36.7–37.2; O2SAT 96–100
[2024-06-18] MEDS: methylPREDNISolone SOD SUCC 125 MG VIAL IV PUSH ×3 (05:27→21:08)
[2024-06-18 05:43] LABS: Hematocrit 25.5 % (37.0-47.0); Hemoglobin 8.1 g/dL (12.0-15.0); Immature Platelet Fraction Pct 6.7 % (0.9-11.2); Mean Corpuscular HGB Conc 31.8 g/dl (32-36); Mean Corpuscular Hemoglobin 33.8 pg (26-34); Mean Corpuscular Volume 106.3 fl (80-100); Mean Platelet Volume 11.5 fl (7.4-10.4); Platelet Count Result 71 k/mm3 (150-375); Red Cell Distribution Width 24.1 % (11.5-14.5)
[2024-06-18 05:50] LABS: White Blood Count 1.9 K/mm3 (4.5-10.0)
[2024-06-18 05:58] LABS: Alanine Aminotransferase 13 U/L (6-35); Albumin Level 3.4 g/dL (3.5-5.1); Alkaline Phosphatase 38 U/L (38-126); Anion Gap 7 mmol/L (4-12); Aspartate Amino Transferase 23 U/L (14-36); Bilirubin,Total 1.8 mg/dL (0.2-1.3); Blood Urea Nitrogen 19 mg/dL (7-17); Calcium 7.9 mg/dL (8.4-10.2); Carbon Dioxide 27 mmol/L (22-30); Chloride 104 mmol/L (98-107); Estimated CRCL calculation 68 ml/min; Estimated Glomerular Filt Rate > 60; Glucose 184 mg/dL (65-110); Magnesium 2.5 mg/dL (1.6-2.3); Potassium 4.5 mmol/L (3.4-5.0); Sodium 138 mmol/L (137-145)
[2024-06-18] MEDS: PANTOPRAZOLE 40 MG TABLET PO ×2 (09:27→21:08)
[2024-06-18] MEDS: CYANOCOBALAMIN INJ 1,000 MCG/ML VIAL 1000 MCG IM (09:27)
[2024-06-18] MEDS: IMMUNE GLOBULIN IVPB (09:28)
[2024-06-18] MEDS: PREMIXIV IVPB (09:28)
--- NOTE | 2024-06-18 12:52 | P.PNIM_ITS ---
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, hemolytic anemia no direct Nicolasa test was negative -not taking any supplements at this time -has antibodies so blood transfusion was slightly delayed -06/13: patient received 2.5 units of packed RBCs (she had infusion reaction wit h hematuria on the 2nd unit which was stopped.) -06/13: she had mild fevers after the 1st unit, order Tylenol -06/13: patient received 1 dose of Solu-Medrol 125 mg IV x1 -appreciate hematology evaluation and recommendations, been started on Solu- Medrol 125 mg q.8 hour continue vitamin B12 supplementation with daily injections 06/14 status post bone marrow biopsy. Results are pending -appreciate GI evaluation recommendation, patient will require endoscopy at a later date, primarily hematology evaluation for now. -patient had hematuria for which Urology had evaluated the patient. Placed a Fo fidelia catheter, urine output clear this morning continue to monitor CT abdomen pelvis IMPRESSION: 1. No etiology for hematuria. 2. Moderate splenomegaly. 3. Cysts in the ovaries measuring up to 5.2 cm on the left, likely benign. Consider pelvis ultrasound in 6-12 months. 06/15 hemoglobin 7.5. Hemodynamics stable. Continue monitor transfuse if needed Hepatitis profile and HIV negative PRBC transfusion on 06/17/2024 which she tolerated well. Post transfusion H&H up to 8.1 Started on IVIG for hemolytic anemia as recommended by freight elevator erector x2 Transfer to [place] initiated and has been accepted await bed placement (2) Pancytopenia: Code(s): D61.818 - Other pancytopenia Status: Acute Assessment and Plan: Patient scheduled for bone marrow biopsy -06/14: Ultrasound of the abdomen showed small grade splenomegaly CT scan confirmed moderate splenomegaly (3) Vitamin B12 deficiency: Onset Date: 05/2013 Code(s): E53.8 - Deficiency of other specified B group vitamins Status: Acute Assessment and Plan: Continue by B12 supplement daily Plan DVT prophylaxis: SCDs Stress ulcer prophylaxis: Protonix Nutrition: Diet ordered Code Status: Full code Subjective Date/time seen: 06/18/24 12:52 Interval history: No overnight events. Received 1 unit of PRBC yesterday. No reaction. Feeling well. Awaiting bed placement at [place]. Review of Systems Review of Systems: All systems reviewed & are unremarkable except as noted in HPI and below Exam Narrative: General: Pleasant female, in no acute distress HEENT:? Pupils equal and reactive, sclera is clear, pallor noted, icterus Neck:? Supple Respiratory:? Clear to auscultation bilaterally, no wheezing Cardiac:? S1-S2 normal, regular rate and rhythm Abdomen:? Soft, nontender, nondistended, normoactive bowel sound Extremities:? No edema, palpable pedal pulses, pallor noted in the nail beds Neuro:? Patient is awake, alert, oriented x3, nonfocal Skin:? No lesions noted, jaundiced skin Psych:? Normal mentation and affect Objective Data Vital Signs Vital Signs: Vital Signs - 24 hr 06/17/24 13:30 06/17/24 14:38 06/17/24 15:39 Temperature 97.8 F 98.5 F 98.4 F Pulse Rate 93 84 77 Respiratory Rate 14 18 12 Blood Pressure 121/67 117/71 120/69 Pulse Oximetry 96 97 96 Oxygen Delivery 06/17/24 14:00 06/17/24 17:03 06/17/24 17:08 Temperature 98.5 F 98.5 F Pulse Rate 86 84 87 Respiratory Rate 20 20 Blood Pressure 117/69 105/68 Pulse Oximetry 98 98 Oxygen Delivery 06/17/24 17:13 06/17/24 17:18 06/17/24 16:00 Temperature 98.5 F 98.2 F Pulse Rate 86 80 Respiratory Rate 20 20 Blood Pressure 110/63 113/68 Pulse Oximetry 99 98 Oxygen Delivery Room Air 06/17/24 16:00 06/17/24 18:00 06/17/24 18:24 Temperature Pulse Rate 102 H 77 82 Respiratory Rate 16 Blood Pressure 116/73 Pulse Oximetry 97 Oxygen Delivery 06/17/24 19:20 06/17/24 19:38 06/17/24 19:54 Temperature 98.6 F 98.2 F Pulse Rate 72 74 72 Respiratory Rate 14 14 16 Blood Pressure 127/83 133/74 130/82 Pulse Oximetry 97 97 97 Oxygen Delivery 06/17/24 20:00 06/17/24 20:00 06/17/24 22:00 Temperature Pulse Rate 74 72 Respiratory Rate Blood Pressure Pulse Oximetry Oxygen Delivery Room Air 06/17/24 23:46 06/18/24 00:00 06/18/24 00:00 Temperature 98.1 F Pulse Rate 70 71 Respiratory Rate 18 Blood Pressure 118/71 Pulse Oximetry 96 Oxygen Delivery Room Air 06/18/24 02:00 06/18/24 04:00 06/18/24 04:00 Temperature Pulse Rate 65 64 Respiratory Rate Blood Pressure Pulse Oximetry Oxygen Delivery Room Air 06/18/24 05:26 06/18/24 06:00 06/18/24 07:26 Temperature 98.2 F 98.0 F Pulse Rate 72 80 67 Respiratory Rate 16 18 Blood Pressure 122/74 130/69 Pulse Oximetry 96 100 Oxygen Delivery 06/18/24 08:00 06/18/24 08:00 06/18/24 10:00 Temperature Pulse Rate 73 72 Respiratory Rate Blood Pressure Pulse Oximetry Oxygen Delivery Room Air 06/18/24 11:13 Temperature 98.1 F Pulse Rate 77 Respiratory Rate 18 Blood Pressure 140/73 Pulse Oximetry 99 Oxygen Delivery Intake/Output Intake/Output: Intake & Output 06/16/24 06/17/24 06/17/24 06/18/24 00:59 00:59 23:59 23:59 Intake Total 419.7 Output Total 725 Balance -305.3 Meds/Results Medications: Active Medications Generic Name Dose Route Start Last Admin Trade Name Freq PRN Reason Stop Dose Admin Acetaminophen 650 mg 06/13/24 11:08 06/15/24 12:16 Acetaminophen 325 Mg Tablet PO 650 mg Q4H PRN Administration Mild Pain (1-3) or Fever Cyanocobalamin 1,000 mcg 06/17/24 11:35 06/18/24 09:27 Cyanocobalamin Inj 1,000 Mcg/Ml Vial IM 1,000 mcg DAILY JOSELUIS Administration Immune Globulin 75 gm/ N/A 750 mls @ 22.35 mls/hr 06/17/24 09:00 06/18/24 11:55 IVPB 06/19/24 08:59 88 mls/hr DAILY JOSELUIS Infusion Methylprednisolone Sodium Succinate 125 mg 06/15/24 12:45 06/18/24 05:27 Methylprednisolone Sod Succ 125 Mg Vial IV PUSH 125 mg Q8HR JOSELUIS Administration Neomycin/Polymyxin/Bacitracin 1 applic 06/13/24 19:50 Neomycin/Polymyxin/Bacitracin Ointment 15 Gm Tube TOPICAL PRN PRN with dressing changes Ondansetron HCl 4 mg 06/13/24 11:08 06/15/24 12:16 Ondansetron Inj 4 Mg/2 Ml Vial IV PUSH 4 mg Q4H PRN Administration Nausea And Vomiting Pantoprazole Sodium 40 mg 06/13/24 09:00 06/18/24 09:27 Pantoprazole 40 Mg Tablet PO 40 mg Q12HR JOSELUIS Administration Promethazine HCl 25 mg 06/15/24 05:45 06/15/24 06:24 Promethazine Hcl 25 Mg/Ml Ampul IM 25 mg Q6H PRN Administration Nausea And Vomiting Radiology Results: ITS Impressions Abdomen Ultrasound 06/14/24 10:49 IMPRESSION: 1. Moderate splenomegaly. Biopsy,Fluoroscopy Guided 06/14/24 11:35 IMPRESSION: 1. Successful fluoroscopic guided bone marrow aspiration. 2. Successful fluoroscopic guided bone marrow biopsy. Abdomen/Pelvis CT 06/14/24 14:43 IMPRESSION: 1. No etiology for hematuria. 2. Moderate splenomegaly. 3. Cysts in the ovaries measuring up to 5.2 cm on the left, likely benign. Consider pelvis ultrasound in 6-12 months. Chest X-Ray 06/15/24 14:42 IMPRESSION: 1. No acute cardiopulmonary disease. Labs Labs: Laboratory Results - last 24 hr 06/12/24 06/16/24 06/16/24 15:10 09:57 09:57 WBC RBC Hgb Hct MCV MCH MCHC RDW Plt Count MPV % Immature Plt Fraction Sodium Potassium Chloride Carbon Dioxide Anion Gap BUN Creatinine Estim Creat Clear Calc Estimated GFR Glucose Calcium Magnesium Total Bilirubin AST ALT Alkaline Phosphatase Total Protein Albumin Blood Type B Positive Antibody Screen Positive Antibody Identification Anti-Palacios A Anti-S Antigen Identification Cancelled FARHEEN, IgG Interpret Negative FARHEEN, Poly Interpret Neg FARHEEN, Complement Interp Negative Enhanced Crossmatch See Detail See Detail 06/18/24 04:49 WBC 1.9 L* RBC 2.40 L Hgb 8.1 L Hct 25.5 L MCV 106.3 H MCH 33.8 MCHC 31.8 L RDW 24.1 H Plt Count 71 L D MPV 11.5 H % Immature Plt Fraction 6.7 Sodium 138 Potassium 4.5 Chloride 104 Carbon Dioxide 27 Anion Gap 7 BUN 19 H Creatinine 0.90 Estim Creat Clear Calc 68 Estimated GFR > 60 Glucose 184 H Calcium 7.9 L Magnesium 2.5 H Total Bilirubin 1.8 H AST 23 ALT 13 Alkaline Phosphatase 38 Total Protein 8.0 Albumin 3.4 L Blood Type Antibody Screen Antibody Identification Antigen Identification FARHEEN, IgG Interpret FARHEEN, Poly Interpret FARHEEN, Complement Interp Enhanced Crossmatch
--- NOTE | 2024-06-18 14:03 | PC.NURSE ---
patient being transferred rooms. Nurse gave report to receiving nurse Covarrubias. patient transferred via wheelchair with all belongings.
[2024-06-18 16:03] LABS: Intrinsic Factor Blocking Ab NEGATIVE
--- NOTE | 2024-06-18 20:26 | P.PNONC_ITS ---
Progress Note: A/P (1) Pancytopenia Code(s): D61.818 - Other pancytopenia Status: Acute - Additional Plan Patient has a history of anemia in 2013. She presented with generalized weakness along with tiredness and fatigue. She has dark stools. Labs showed profound pancytopenia. Pancytopenia- CBC on day of admission showed WBC of 1.3, Hemoglobin of 4.7 and platelet count of 78K. She has history of drinking alcohol but not heavy. Labs showed elev ated total bilirubin of the. B12 was less than 159. Creatinine was normal and iron studies were also normal other than elevated ferritin. There was a concern for hemolytic anemia as well as bone marrow disorders and liver and spleen disorders. Direct Nicolasa test came back negative. Bone marrow aspiration and biopsy was recommended and performed on 06/14/24 and pathology is pending. Parietal cell and intrinsic factor antibodies has been ordered for the vitamin B12 level and are pending. Patient continues vitamin B12 supplement with daily injections. I told patient that it takes about a week to get the results of bone marrow biopsy. She will get supportive care with PRBC transfusions (antibodies present). so far she has received 2.5 units of PRBC when she had infusion reaction with the third unit on 06/13/24. Transfusion was stopped and patient received one dose of solumedrol 125mg IV. She has now received 5 units of PRBC so far. Haptoglobin was ordered 06/12/24 and is very low consistent with hemolysis. We started solumedrol 125mg IV q 8hrs to stabilize hemolysis on 06/15/24. Additionally, patient has cold agglutinins in the blood bank testing. FARHEEN was negative. cold agglutinin titers are pending. IVIg was started at 1g/kg/day for two days. Patient received dose on 06/17/24 and 06/18/24 Hemoglobin was 6.1g/dL on 06/17/24. Type and cross shows Palacios A and Anti S antigens in the blood. She received Palacios A and Anti S negative PRBC on 06/17/24. Today, hemoglobin is 8.1g/dL. WBC has improved to 1.9 and platelets increased to 71. This is likely from IVIg and solumedrol Differentials of pancytopenia include aplastic anemia, myelofibrosis or MDS. Lymphoma with only bone marrow involvement is also in differential as well. CT scan chest/abd/pelvis this admission shows splenomegaly. We await the report of bone marrow biopsy. Hemolysis- Patient was found to have haptoglobin of less than 10 on day of admission 06/12/24 (prior to transfusion this admission). She did receive two units of PRBC on 05/28/24. FARHEEN negative multiple times ruling out Warm Hemolytic anemia. Cold agglutinins were noted in the blood, getting titers. She is on solumedrol 125mg IV q 8 hrs started 06/15/24 as well as IVIg 1g/kg/day, first dose 06/17/24 and second dose 06/18/24. Today Hemoglobin is 8.1g/dL and likely due to solumedrol and IVIg. Will continue daily monitoring of CBC. Patient is pending [facility] with higher [facility] hematology/onc ology [facility], [facility]. Awaiting bed availability. - Time Spent With Patient Total time spent is greater than 50% in coordination of care (as documented) at patient's floor/unit and/or counseling patient: 25 - 35 minutes Subjective Interval history: Patient is seen at bedside for follow-up of pancytopenia with severe anemia. Hemoglobin is 8.1g/dL. She underwent a bone marrow biopsy on 06/14/24 and resul ts are pending. No overnight events. friend at bedside Review of Systems - Review of Systems Patient feels well today. States that she has more energy and is moving better. She denies any fever, chills, night sweats. She does report generalized swelling. Denies chest pain, shortness of breath, cough, phlegm production. She denies any abdominal pain, nausea, vomiting, diarrhea. - Neurologic Reports system reviewed and no additional complaints, except as documented, Reports hearing normal, Reports weakness Exam - Constitutional no acute distress - Routine HEENT Exam Head: Present: atraumatic, normal inspection - Routine Neck Exam Present: full ROM - Routine Respiratory Exam Present: CTAB - Routine Cardiovascular Exam Cardiovascular: Present: RRR, S1, S2 - Routine Abdominal Exam Present: soft - Routine Skin Exam Present: dry, jaundice - Routine Neurological Exam Present: alert, oriented X3, CN II-XII intact PN: Objective Data - Labs CBC & Chem 7: 06/18/24 04:49 06/18/24 04:49 Labs: Laboratory Results - last 24 hr 06/12/24 06/16/24 06/18/24 17:24 11:45 04:49 WBC 1.9 L* RBC 2.40 L Hgb 8.1 L Hct 25.5 L MCV 106.3 H MCH 33.8 MCHC 31.8 L RDW 24.1 H Plt Count 71 L D MPV 11.5 H % Immature Plt Fraction 6.7 Sodium 138 Potassium 4.5 Chloride 104 Carbon Dioxide 27 Anion Gap 7 BUN 19 H Creatinine 0.90 Estim Creat Clear Calc 68 Estimated GFR > 60 Glucose 184 H Calcium 7.9 L Magnesium 2.5 H Total Bilirubin 1.8 H AST 23 ALT 13 Alkaline Phosphatase 38 Total Protein 8.0 Albumin 3.4 L ADRIA Screen Negative Intrinsic Factor (Block Negative
--- NOTE | 2024-06-18 21:39 | PC.NURSE ---
spoke to [facility] transfer center. update on pt's condition as well as last set of VS reported. no bed available at this time, pt is still on waitlist
[2024-06-19] MEDS: methylPREDNISolone SOD SUCC 125 MG VIAL IV PUSH ×3 (05:27→21:31)
[2024-06-19 06:00] VITALS: BP 138/64; PULSE 64; RESP 16; TEMP 36.4; O2SAT 98
[2024-06-19 06:30] LABS: Basophils Percent Auto 0.5 % (0.2-1.2); Hematocrit 24.7 % (37.0-47.0); Hemoglobin 7.6 g/dL (12.0-15.0); Immature Granulocyte Absolute 0.12 K/mm3 (0.00-0.031); Immature Granulocyte Percent A 6.5 % (0-0.5); Lymphocytes Absolute Auto 0.45 K/mm3 (0.9-3.2); Lymphocytes Percent Auto 24.5 % (18.3-44.2); Mean Corpuscular HGB Conc 30.8 g/dl (32-36); Mean Corpuscular Hemoglobin 32.9 pg (26-34); Mean Corpuscular Volume 106.9 fl (80-100); Mean Platelet Volume 11.3 fl (7.4-10.4); Monocytes Absolute Auto 0.3 K/mm3 (0.1-0.6); Monocytes Percent Auto 15.2 % (2.6-8.5); Neutrophils Percent Auto 53.3 % (45.5-73.1); Nucleated Red Blood Cells Perc 9.2 % (0.0-0.2); Platelet Count Result 128 k/mm3 (150-375); Red Blood Count 2.31 M/mm3 (4.2-5.4); Red Cell Distribution Width 22.5 % (11.5-14.5)
[2024-06-19 06:47] LABS: Alanine Aminotransferase 13 U/L (6-35); Albumin Level 3.1 g/dL (3.5-5.1); Alkaline Phosphatase 37 U/L (38-126); Anion Gap 5 mmol/L (4-12); Aspartate Amino Transferase 24 U/L (14-36); Bilirubin,Total 1.1 mg/dL (0.2-1.3); Blood Urea Nitrogen 19 mg/dL (7-17); Calcium 7.7 mg/dL (8.4-10.2); Carbon Dioxide 26 mmol/L (22-30); Chloride 104 mmol/L (98-107); Estimated CRCL calculation 76 ml/min; Estimated Glomerular Filt Rate > 60; Glucose 183 mg/dL (65-110); Magnesium 2.3 mg/dL (1.6-2.3); Sodium 135 mmol/L (137-145)
[2024-06-19 08:09] LABS: White Blood Count 1.8 K/mm3 (4.5-10.0)
[2024-06-19 08:11] LABS: Anisocytosis 2+; Giant Platelets Present; Large Platelets Present; Ovalocytes 1+; Platelet Estimate Slightly Decreased (Adequate); Polychromasia 1+
[2024-06-19 08:12] LABS: Schistocytes None Seen; Tear Drop Cells 1+
[2024-06-19] MEDS: PANTOPRAZOLE 40 MG TABLET PO ×2 (09:04→21:31)
[2024-06-19] MEDS: CYANOCOBALAMIN INJ 1,000 MCG/ML VIAL 1000 MCG IM (09:04)
--- NOTE | 2024-06-19 10:48 | PCNWS ---
Weekly nutritional screen. Patient is tolerating current regular diet with adequate intake 75-100% of meals. No weight loss reported. No nutritional recommendations at this time.
--- NOTE | 2024-06-19 13:47 | P.PNIM_ITS ---
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, hemolytic anemia no direct Nicolasa test was negative -not taking any supplements at this time -has antibodies so blood transfusion was slightly delayed -06/13: patient received 2.5 units of packed RBCs (she had infusion reaction wit h hematuria on the 2nd unit which was stopped.) -06/13: she had mild fevers after the 1st unit, order Tylenol -06/13: patient received 1 dose of Solu-Medrol 125 mg IV x1 -appreciate hematology evaluation and recommendations, been started on Solu- Medrol 125 mg q.8 hour continue vitamin B12 supplementation with daily injections 06/14 status post bone marrow biopsy. Results are pending -appreciate GI evaluation recommendation, patient will require endoscopy at a later date, primarily hematology evaluation for now. -patient had hematuria for which Urology had evaluated the patient. Placed a Fo fidelia catheter, urine output clear this morning continue to monitor CT abdomen pelvis IMPRESSION: 1. No etiology for hematuria. 2. Moderate splenomegaly. 3. Cysts in the ovaries measuring up to 5.2 cm on the left, likely benign. Consider pelvis ultrasound in 6-12 months. 06/15 hemoglobin 7.5. Hemodynamics stable. Continue monitor transfuse if needed Hepatitis profile and HIV negative PRBC transfusion on 06/17/2024 which she tolerated well. Post transfusion H&H up to 8.1 Started on IVIG for hemolytic anemia as recommended by intellectual property legal assistant x2 Transfer to [place] initiated and has been accepted await bed placement (2) Pancytopenia: Code(s): D61.818 - Other pancytopenia Status: Acute Assessment and Plan: Patient scheduled for bone marrow biopsy -06/14: Ultrasound of the abdomen showed small grade splenomegaly CT scan confirmed moderate splenomegaly (3) Vitamin B12 deficiency: Onset Date: 05/2013 Code(s): E53.8 - Deficiency of other specified B group vitamins Status: Acute Assessment and Plan: Continue by B12 supplement daily Plan DVT prophylaxis: SCDs Stress ulcer prophylaxis: Protonix Nutrition: Diet ordered Code Status: Full code Subjective Date/time seen: 06/19/24 13:47 Interval history: no overnight events. Remains the same. No fever. Labs reviewed and discussed with her. Awaiting bed placement. Review of Systems Review of Systems: All systems reviewed & are unremarkable except as noted in HPI and below Exam Narrative: General: Pleasant female, in no acute distress HEENT:? Pupils equal and reactive, sclera is clear, pallor noted, icterus Neck:? Supple Respiratory:? Clear to auscultation bilaterally, no wheezing Cardiac:? S1-S2 normal, regular rate and rhythm Abdomen:? Soft, nontender, nondistended, normoactive bowel sound Extremities:? No edema, palpable pedal pulses, pallor noted in the nail beds Neuro:? Patient is awake, alert, oriented x3, nonfocal Skin:? No lesions noted, jaundiced skin Psych:? Normal mentation and affect Objective Data Vital Signs Vital Signs: Vital Signs - 24 hr 06/18/24 14:39 06/18/24 20:00 06/18/24 21:31 Temperature 98.3 F 98.9 F Pulse Rate 76 74 Respiratory Rate 18 18 Blood Pressure 138/80 145/73 H Pulse Oximetry 96 96 Oxygen Delivery Room Air 06/19/24 06:00 06/19/24 09:04 Temperature 97.6 F Pulse Rate 64 Respiratory Rate 16 Blood Pressure 138/64 Pulse Oximetry 98 Oxygen Delivery Room Air Intake/Output Intake/Output: Intake & Output 06/17/24 06/17/24 06/18/24 06/19/24 00:59 23:59 23:59 23:59 Intake Total 1970.0 340 Output Total 725 Balance 1245.0 340 Meds/Results Medications: Active Medications Generic Name Dose Route Start Last Admin Trade Name Freq PRN Reason Stop Dose Admin Acetaminophen 650 mg 06/13/24 11:08 06/15/24 12:16 Acetaminophen 325 Mg Tablet PO 650 mg Q4H PRN Administration Mild Pain (1-3) or Fever Cyanocobalamin 1,000 mcg 06/17/24 11:35 06/19/24 09:04 Cyanocobalamin Inj 1,000 Mcg/Ml Vial IM 1,000 mcg DAILY JOSELUIS Administration Methylprednisolone Sodium Succinate 125 mg 06/15/24 12:45 06/19/24 05:27 Methylprednisolone Sod Succ 125 Mg Vial IV PUSH 125 mg Q8HR JOSELUIS Administration Neomycin/Polymyxin/Bacitracin 1 applic 06/13/24 19:50 Neomycin/Polymyxin/Bacitracin Ointment 15 Gm Tube TOPICAL PRN PRN with dressing changes Ondansetron HCl 4 mg 06/13/24 11:08 06/15/24 12:16 Ondansetron Inj 4 Mg/2 Ml Vial IV PUSH 4 mg Q4H PRN Administration Nausea And Vomiting Pantoprazole Sodium 40 mg 06/13/24 09:00 06/19/24 09:04 Pantoprazole 40 Mg Tablet PO 40 mg Q12HR JOSELUIS Administration Promethazine HCl 25 mg 06/15/24 05:45 06/15/24 06:24 Promethazine Hcl 25 Mg/Ml Ampul IM 25 mg Q6H PRN Administration Nausea And Vomiting Radiology Results: ITS Impressions Abdomen Ultrasound 06/14/24 10:49 IMPRESSION: 1. Moderate splenomegaly. Biopsy,Fluoroscopy Guided 06/14/24 11:35 IMPRESSION: 1. Successful fluoroscopic guided bone marrow aspiration. 2. Successful fluoroscopic guided bone marrow biopsy. Abdomen/Pelvis CT 06/14/24 14:43 IMPRESSION: 1. No etiology for hematuria. 2. Moderate splenomegaly. 3. Cysts in the ovaries measuring up to 5.2 cm on the left, likely benign. Consider pelvis ultrasound in 6-12 months. Chest X-Ray 06/15/24 14:42 IMPRESSION: 1. No acute cardiopulmonary disease. Labs Labs: Laboratory Results - last 24 hr 06/12/24 06/16/24 06/19/24 17:24 11:45 05:39 WBC 1.8 L* RBC 2.31 L Hgb 7.6 L Hct 24.7 L MCV 106.9 H MCH 32.9 MCHC 30.8 L RDW 22.5 H Plt Count 128 L D MPV 11.3 H Immature Gran % (Auto) 6.5 H Neut % (Auto) 53.3 Lymph % (Auto) 24.5 Lynn % (Auto) 15.2 H Eos % (Auto) 0.0 Baso % (Auto) 0.5 Lymph # (Auto) 0.45 L Lynn # (Auto) 0.3 Eos # (Auto) 0.0 Baso # (Auto) 0.0 Abs Immat Gran (auto) 0.12 H Absolute Neuts (auto) 1.0 L Absolute Nucleated RBC 0.170 H Nucleated RBC % 9.2 H Platelet Estimate Slightly decreased Large Platelets Present Giant Platelets Present Polychromasia 1+ Anisocytosis 2+ Tear Drop Cells 1+ Ovalocytes 1+ Schistocytes None seen Sodium 135 L Potassium 4.0 Chloride 104 Carbon Dioxide 26 Anion Gap 5 BUN 19 H Creatinine 0.80 Estim Creat Clear Calc 76 Estimated GFR > 60 Glucose 183 H Calcium 7.7 L Magnesium 2.3 Total Bilirubin 1.1 AST 24 ALT 13 Alkaline Phosphatase 37 L Total Protein 8.0 Albumin 3.1 L ADRIA Screen Negative Intrinsic Factor (Block Negative
[2024-06-19 14:00] VITALS: BP 156/86; PULSE 63; RESP 18; TEMP 36.7; O2SAT 97
[2024-06-19 16:44] LABS: Methylmalonic Acid >20000 nmol/L (55-335)
--- NOTE | 2024-06-19 21:59 | PC.NURSE ---
bilirubin trending down, but pt appears jaundice in color compared to yesterday to this RN. patient states she would consider this to be her normal color, and that she has yellow undertones. will continue to monitor
[2024-06-19 22:00] VITALS: BP 144/73; PULSE 61; RESP 18; TEMP 36.3; O2SAT 96
[2024-06-20] MEDS: methylPREDNISolone SOD SUCC 125 MG VIAL IV PUSH ×2 (05:43→14:40)
[2024-06-20 05:57] VITALS: BP 166/80; PULSE 53; RESP 16; TEMP 36.2; O2SAT 99
[2024-06-20 06:14] LABS: Hematocrit 26.9 % (37.0-47.0); Hemoglobin 8.3 g/dL (12.0-15.0); Mean Corpuscular HGB Conc 30.9 g/dl (32-36); Mean Corpuscular Hemoglobin 32.7 pg (26-34); Mean Corpuscular Volume 105.9 fl (80-100); Mean Platelet Volume 10.9 fl (7.4-10.4); Platelet Count Result 149 k/mm3 (150-375); Red Blood Count 2.54 M/mm3 (4.2-5.4); Red Cell Distribution Width 21.2 % (11.5-14.5); White Blood Count 2.2 K/mm3 (4.5-10.0)
[2024-06-20 06:36] LABS: Alanine Aminotransferase 18 U/L (6-35); Albumin Level 3.3 g/dL (3.5-5.1); Alkaline Phosphatase 37 U/L (38-126); Anion Gap 7 mmol/L (4-12); Aspartate Amino Transferase 32 U/L (14-36); Bilirubin,Total 1.1 mg/dL (0.2-1.3); Blood Urea Nitrogen 18 mg/dL (7-17); Calcium 7.9 mg/dL (8.4-10.2); Carbon Dioxide 28 mmol/L (22-30); Chloride 102 mmol/L (98-107); Estimated CRCL calculation 86 ml/min; Estimated Glomerular Filt Rate > 60; Glucose 171 mg/dL (65-110); Magnesium 2.2 mg/dL (1.6-2.3); Sodium 137 mmol/L (137-145)
[2024-06-20 07:38] LABS: SPREG INTERNAL CONTROL Positive; Serum Qual hCG Negative
[2024-06-20] MEDS: PANTOPRAZOLE 40 MG TABLET PO ×2 (08:29→20:36)
[2024-06-20] MEDS: CYANOCOBALAMIN INJ 1,000 MCG/ML VIAL 1000 MCG IM (08:29)
[2024-06-20 08:49] LABS: Hemoglobin A1C 4.4 % (<5.7)
[2024-06-20 14:00] VITALS: BP 146/76; PULSE 62; RESP 20; TEMP 36.5; O2SAT 99
--- NOTE | 2024-06-20 16:11 | P.PNIM_ITS ---
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, hemolytic anemia no direct Nicolasa test was negative -not taking any supplements at this time -has antibodies so blood transfusion was slightly delayed -06/13: patient received 2.5 units of packed RBCs (she had infusion reaction wit h hematuria on the 2nd unit which was stopped.) -06/13: she had mild fevers after the 1st unit, order Tylenol -06/13: patient received 1 dose of Solu-Medrol 125 mg IV x1 -appreciate hematology evaluation and recommendations, been started on Solu- Medrol 125 mg q.8 hour continue vitamin B12 supplementation with daily injections 06/14 status post bone marrow biopsy. Results are pending -appreciate GI evaluation recommendation, patient will require endoscopy at a later date, primarily hematology evaluation for now. -patient had hematuria for which Urology had evaluated the patient. Placed a Fo fidelia catheter, urine output clear this morning continue to monitor CT abdomen pelvis showing moderate splenomegaly and cysts in the ovaries measuring up to 5.2 cm on the left, likely benign. Consider pelvis ultrasound in 6-12 months. Hepatitis profile and HIV negative PRBC transfusion on 06/17/2024 which she tolerated well. Post transfusion H&H up to 8.1 Started on IVIG for hemolytic anemia and Solu-Medrol. Plan was to transfer to [facility] and has been accepted but await bed placement BM Bx 06/14 performed and results showing marked non-specific binding with left- shift myeloid population. No clonal B-cell populations. This can be consistent with B12 deficiency. Discussed with Hematolgy who recommended stopping Solu-Medrol and changing to Prednisone 60mg daily for 5 days starting in the morning. Plan for home tomorrow. (2) Pancytopenia: Code(s): D61.818 - Other pancytopenia Status: Acute Assessment and Plan: As above (3) Vitamin B12 deficiency: Onset Date: 05/2013 Code(s): E53.8 - Deficiency of other specified B group vitamins Status: Acute Assessment and Plan: B12 level < 159. MMA >20K. test is negative. Continue B12 1000mcg IM daily while hospitalized but then change to monthly injections per hematology. They also recommended starting oral supplement of B12 1000mcg daily Plan DVT prophylaxis: SCDs Code Status: Full code Subjective Date/time seen: 06/20/24 16:11 Interval history: 49yo female with hx of B12 deficiency here for low Hgb. Assuming care. Chart reviewed. Slept okay. No complaints today. Exam Narrative: AF 97.7 146/76 62 20 99% ra Gen - NARD Chest - CTA bilaterally, nml RR CV - RRR S1/S2 Abd - Soft, NT/ND, Positive BS Ext - No pedal edema Neuro - Alert and appropriate Psych - Nml mood and affect Skin - Warm and dry Objective Data Vital Signs Vital Signs: Vital Signs - 24 hr 06/19/24 20:00 06/19/24 22:00 06/20/24 05:57 Temperature 97.4 F L 97.2 F L Pulse Rate 61 53 L Respiratory Rate 18 16 Blood Pressure 144/73 H 166/80 H Pulse Oximetry 96 99 Oxygen Delivery Room Air 06/20/24 08:29 06/20/24 14:00 Temperature 97.7 F Pulse Rate 62 Respiratory Rate 20 Blood Pressure 146/76 H Pulse Oximetry 99 Oxygen Delivery Room Air Intake/Output Intake/Output: Intake & Output 06/17/24 06/18/24 06/19/24 06/20/24 23:59 23:59 23:59 23:59 Intake Total 1970.0 820 440 Output Total 725 Balance 1245.0 820 440 Meds/Results Medications: Active Medications Generic Name Dose Route Start Last Admin Trade Name Freq PRN Reason Stop Dose Admin Acetaminophen 650 mg 06/13/24 11:08 06/15/24 12:16 Acetaminophen 325 Mg Tablet PO 650 mg Q4H PRN Administration Mild Pain (1-3) or Fever Cyanocobalamin 1,000 mcg 06/17/24 11:35 06/20/24 08:29 Cyanocobalamin Inj 1,000 Mcg/Ml Vial IM 1,000 mcg DAILY JOSELUIS Administration Methylprednisolone Sodium Succinate 125 mg 06/15/24 12:45 06/20/24 14:40 Methylprednisolone Sod Succ 125 Mg Vial IV PUSH 125 mg Q8HR JOSELUIS Administration Neomycin/Polymyxin/Bacitracin 1 applic 06/13/24 19:50 Neomycin/Polymyxin/Bacitracin Ointment 15 Gm Tube TOPICAL PRN PRN with dressing changes Ondansetron HCl 4 mg 06/13/24 11:08 06/15/24 12:16 Ondansetron Inj 4 Mg/2 Ml Vial IV PUSH 4 mg Q4H PRN Administration Nausea And Vomiting Pantoprazole Sodium 40 mg 06/13/24 09:00 06/20/24 08:29 Pantoprazole 40 Mg Tablet PO 40 mg Q12HR JOSELUIS Administration Promethazine HCl 25 mg 06/15/24 05:45 06/15/24 06:24 Promethazine Hcl 25 Mg/Ml Ampul IM 25 mg Q6H PRN Administration Nausea And Vomiting Radiology Results: ITS Impressions Abdomen Ultrasound 06/14/24 10:49 IMPRESSION: 1. Moderate splenomegaly. Biopsy,Fluoroscopy Guided 06/14/24 11:35 IMPRESSION: 1. Successful fluoroscopic guided bone marrow aspiration. 2. Successful fluoroscopic guided bone marrow biopsy. Abdomen/Pelvis CT 06/14/24 14:43 IMPRESSION: 1. No etiology for hematuria. 2. Moderate splenomegaly. 3. Cysts in the ovaries measuring up to 5.2 cm on the left, likely benign. Consider pelvis ultrasound in 6-12 months. Chest X-Ray 06/15/24 14:42 IMPRESSION: 1. No acute cardiopulmonary disease. Labs Labs: Laboratory Results - last 24 hr 06/12/24 06/20/24 06/20/24 17:24 05:02 05:07 WBC 2.2 L RBC 2.54 L Hgb 8.3 L Hct 26.9 L MCV 105.9 H MCH 32.7 MCHC 30.9 L RDW 21.2 H Plt Count 149 L MPV 10.9 H Sodium 137 Potassium 4.0 Chloride 102 Carbon Dioxide 28 Anion Gap 7 BUN 18 H Creatinine 0.70 Estim Creat Clear Calc 86 Estimated GFR > 60 Glucose 171 H Hemoglobin A1c 4.4 Calcium 7.9 L Magnesium 2.2 Total Bilirubin 1.1 AST 32 ALT 18 Alkaline Phosphatase 37 L Total Protein 8.0 Albumin 3.3 L Methylmalonic Acid >26923 H Serum HCG, Qual Negative
--- NOTE | 2024-06-20 17:42 | WPDONCPN ---
Progress Note: A/P (1) Pancytopenia Code(s): D61.818 - Other pancytopenia Status: Acute - Additional Plan Patient has a history of anemia in 2013. She presented with generalized weakness along with tiredness and fatigue. She has dark stools. Labs showed profound pancytopenia. Pancytopenia- Likely Secondary to B12 deficiency- CBC on day of admission showed WBC of 1.3, Hemoglobin of 4.7 and platelet count of 78K. She has history of drinking alcohol but not heavy. Labs showed elevated total bilirubin of the. B12 was less than 159. Creatinine was normal and iron studies were also normal other than elevated ferritin. There was a concern for hemolytic anemia as well as bone marrow disorders and liver and spleen disorders. Direct Nicolasa test came back negative. Bone marrow aspiration and biopsy was recommended and performed on 06/14/24. Parietal cell antibodies are negative and intrinsic factor antibodies are pending. vitamin B12 level was very low. Patient is on B12 injections every day since 06/17/24. Flow cytometry on bone marrow biopsy shows left shift for myeloid lineage with no increase in blast. This is more consistent with severe B12 deficiency. full report of morphogical examination and the cytogenetics is pending. All three cell lines are now improved in CBC done 06/20/24. Recommend changing IV solumedrol to oral prednisone 60mg daily. 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 Hemolysis- Patient was found to have haptoglobin of less than 10 on day of admission 06/12/24 (prior to transfusion this admission). She did receive two units of PRBC on 05/28/24. FARHEEN negative multiple times ruling out Warm Hemolytic anemia. Cold agglutinins were noted in the blood, getting titers. She is on solumedrol 125mg IV q 8 hrs started 06/15/24 as well as IVIg 1g/kg/day, first dose 06/17/24 and second dose 06/18/24. Today Hemoglobin is 8.3 g/dL. Recommend changing IV solumedrol to oral prednisone 60mg daily. 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 Since her counts are improving, she does not need transfer to [facility]. If her CBC shows continued improvement or stabilization of the cell lines, she can be discharged tomorrow. She should be getting monthly B12 injections and oral B12 1000mcg daily. She should see Dr. Walker as outpatient to discuss the final report of bone marrow biopsy. She can be discharged on 5 more days of oral prednisone. - Time Spent With Patient Total time spent is greater than 50% in coordination of care (as documented) at patient's floor/unit and/or counseling patient: Greater than 35 minutes Subjective Interval history: Patient is seen at bedside for follow-up of pancytopenia with severe anemia. Hemoglobin is 8.3g/dL today with recovery of platelets and improvement in WBC. No overnight events. Daughter at bedside Review of Systems - Review of Systems Patient feels well today. states that she is been walking in the hallways and has better energy level. She denies any dizziness or lightheadedness. Denies any fevers overnight. No chest pain or shortness of breath. No spontaneous bleeding. - Neurologic Reports system reviewed and no additional complaints, except as documented, Reports hearing normal, Reports weakness Exam - Constitutional no acute distress - Routine HEENT Exam Head: Present: atraumatic, normal inspection - Routine Neck Exam Present: full ROM - Routine Respiratory Exam Present: CTAB - Routine Cardiovascular Exam Cardiovascular: Present: RRR, S1, S2 - Routine Abdominal Exam Present: normal bowel sounds, soft - Routine Skin Exam Present: dry, jaundice - Routine Neurological Exam Present: alert, oriented X3, CN II-XII intact PN: Objective Data - Labs CBC & Chem 7: 06/20/24 05:07 06/20/24 05:07 Labs: Laboratory Results - last 24 hr 06/20/24 06/20/24 05:02 05:07 WBC 2.2 L RBC 2.54 L Hgb 8.3 L Hct 26.9 L MCV 105.9 H MCH 32.7 MCHC 30.9 L RDW 21.2 H Plt Count 149 L MPV 10.9 H Sodium 137 Potassium 4.0 Chloride 102 Carbon Dioxide 28 Anion Gap 7 BUN 18 H Creatinine 0.70 Estim Creat Clear Calc 86 Estimated GFR > 60 Glucose 171 H Hemoglobin A1c 4.4 Calcium 7.9 L Magnesium 2.2 Total Bilirubin 1.1 AST 32 ALT 18 Alkaline Phosphatase 37 L Total Protein 8.0 Albumin 3.3 L Serum HCG, Qual Negative
[2024-06-20 17:45] LABS: Iron 66 ug/dL (37-170)
[2024-06-20 17:57] LABS: Percent Iron Saturation 30 % (20-50)
[2024-06-20 19:19] LABS: Folic Acid 4.4 ng/mL (2.76->20); Vitamin B12 > 1000.0 pg/mL (239-931)
[2024-06-20 22:00] VITALS: BP 162/81; PULSE 60; RESP 18; TEMP 36.8; O2SAT 98
[2024-06-21 06:00] VITALS: BP 143/81; PULSE 64; RESP 18; TEMP 36.4; O2SAT 100
[2024-06-21 06:47] LABS: Basophils Percent Auto 0.3 % (0.2-1.2); Eosinophils Percent Auto 0.3 % (0-4.4); Hematocrit 28.9 % (37.0-47.0); Immature Granulocyte Absolute 0.17 K/mm3 (0.00-0.031); Immature Granulocyte Percent A 4.5 % (0-0.5); Lymphocytes Absolute Auto 0.61 K/mm3 (0.9-3.2); Lymphocytes Percent Auto 16.3 % (18.3-44.2); Mean Corpuscular HGB Conc 31.1 g/dl (32-36); Mean Corpuscular Hemoglobin 32.8 pg (26-34); Mean Corpuscular Volume 105.5 fl (80-100); Mean Platelet Volume 9.8 fl (7.4-10.4); Monocytes Absolute Auto 0.6 K/mm3 (0.1-0.6); Neutrophils Absolute Auto 2.4 K/mm3 (1.3-6.7); Neutrophils Percent Auto 63.6 % (45.5-73.1); Nucleated Red Blood Cells Perc 2.1 % (0.0-0.2); Platelet Count Result 161 k/mm3 (150-375); Red Blood Count 2.74 M/mm3 (4.2-5.4); Red Cell Distribution Width 19.9 % (11.5-14.5); White Blood Count 3.7 K/mm3 (4.5-10.0)
[2024-06-21] MEDS: CYANOCOBALAMIN 1,000 MCG TABLET 1000 MCG PO (08:38)
[2024-06-21] MEDS: predniSONE 20 MG TABLET 60 MG PO (08:38)
[2024-06-21] MEDS: PANTOPRAZOLE 40 MG TABLET PO (08:38)
[2024-06-21 08:41] LABS: Anisocytosis 2+; Large Platelets Present; Platelet Estimate Adequate (Adequate)
[2024-06-21 08:42] LABS: Schistocytes None Seen; Tear Drop Cells 1+
--- NOTE | 2024-06-21 10:49 | P.DS_ITS ---
DS: Admitting Diagnosis Discharge Date 06/21/24 Admitting Diagnosis Low hemoglobin DS: Discharge Diagnosis Discharge Diagnosis (1) Symptomatic anemia: Code(s): D64.9 - Anemia, unspecified Status: Acute (2) Pancytopenia: Code(s): D61.818 - Other pancytopenia Status: Acute (3) Vitamin B12 deficiency: Onset Date: 05/2013 Code(s): E53.8 - Deficiency of other specified B group vitamins Status: Acute (4) Ovarian cyst: Code(s): N83.209 - Unspecified ovarian cyst, unspecified side Status: Acute DS: Summary Hospital Course Reason for hospitalization: 49yo female with hx of B12 deficiency here for low Hgb.Please see H&P for details. Hospital Course: Patient presents with complaints of low Hgb and was 4.6 on admission. She has a history of vitamin B12 and iron deficiency anemia. Was not taking any supplements on admission. She had antibodies with Cold auto Ab and Anti-Palacios but FARHEEN negative. No schistocytes. She was transfused 2.5 units PRBCs (she had infusion reaction with hematuria on the 2nd unit which was stopped.) Hematology was consulted and appreciate their recommendations. She was started on Solu- Medrol 125 mg q.8 hour. B12 level < 159. MMA >20K. Intrinsic factor Ab negative. test was negative. Iron studies not consistent with iron deficiency. She was treated with B12 1000mcg IM daily while hospitalized. She underwent bone marrow bx 06/14. The results showing marked non-specific binding with left-shift myeloid population. No clonal B-cell populations. This can be consistent with B12 deficiency. GI consulted as well and appreciate their recommendation. Patient will require endoscopy at a later date. Patient had hematuria for which Urology was consulted and evaluated the patient. Placed a Leon catheter and urine output was clear the next day. CT abdomen pelvis showing moderate splenomegaly and cysts in the ovaries measuring up to 5.2 cm on the left, likely benign. Consider pelvis ultrasound in 6-12 months. Hepatitis profile and HIV negative. Hgb improved but dropped again to 6.1 requiring a repeat transfusion which she tolerated well. Post transfusion H&H w as up to 8.1 and continued to climb to 9. She was also given IVIG for hemolytic anemia. WBC dropped to 900 cells before improving to 3700. Platelet count dropped to 45K before normalizing. Plan was to transfer to [place] but she had clinical improvement. Discussed with Hematology who recommended stopping Solu- Medrol and changing to Prednisone 60mg daily for 5 days, oral B12 1000mcg daily and B112 IM 1000mcg monthly. She overall did well and was able to be discharged on 06/21/24. Status at Discharge Cognitive/behavioral status at discharge: stable Time Spent with Patient Time attestation: Total time spent providing and/or coordinating discharge services: 35 minutes Time spent: Greater than 30 minutes Exam Narrative: AF 97.6 143/81 64 18 100% ra Gen - NARD Chest - CTA bilaterally, nml RR CV - RRR S1/S2 Abd - Soft, NT/ND, Positive BS Ext - No pedal edema Neuro - Alert and appropriate Psych - Nml mood and affect Skin - Warm and dry. BM bx site small ecchymosis but no hematoma. DS: Data Data Completed and Pending Pending studies at discharge: Pending at discharge 06/13/24 19:50 Bone Marrow [PTH] Routine Labs on day of discharge: Labs from last 24 hours 06/21/24 06/20/24 05:51 05:02 WBC 3.7 L RBC 2.74 L Hgb 9.0 L Hct 28.9 L MCV 105.5 H MCH 32.8 MCHC 31.1 L RDW 19.9 H Plt Count 161 MPV 9.8 Immature Gran % (Auto) 4.5 H Neut % (Auto) 63.6 Lymph % (Auto) 16.3 L Yuba % (Auto) 15.0 H Eos % (Auto) 0.3 Baso % (Auto) 0.3 Lymph # (Auto) 0.61 L Yuba # (Auto) 0.6 Eos # (Auto) 0.0 Baso # (Auto) 0.0 Abs Immat Gran (auto) 0.17 H Absolute Neuts (auto) 2.4 Absolute Nucleated RBC 0.080 H Nucleated RBC % 2.1 H Platelet Estimate Adequate Large Platelets Present Anisocytosis 2+ Tear Drop Cells 1+ Schistocytes None seen Iron 66 TIBC 217 L % Saturation 30 Ferritin 377.00 H Vitamin B12 > 1000.0 H Folate 4.4 Discharge Plan Discharge Attending physician on discharge: Amador Simmons Consulting providers: Maldonado Walker; Jules Hobbs Discharging Clinician: Amador Simmons Anticipated Discharge Date/Time: 06/21/24 11:07 Patient Disposition: Home, Self-Care Activity: as tolerated Diet: regular Discharge Instructions: Contact your doctor or call 911 and come to the Emergency Room if you have bleeding, lightheadedness with standing or other worrisome symptoms. Avoid NSAIDs (ibuprofen, naproxen, Aleve). Tylenol is safe to take. Check pelvic US in 6 months to follow up on ovarian cysts noted by CT. Follow-up with your primary care provider in 3-4 weeks. Please call for appointment. Follow-up with GI in 3-4 weeks. Please call for an appointment. Follow-up with Hematology tomorrow as previously scheduled. Please arrange for monthly B12 injections through either your PCP or through hematology office. Thank you for using [facility] for your health care needs. Patient Instructions: Antibiotic Form, Bone Marrow Biopsy (DC) Stand Alone Forms: General Discharge Information Follow-up/Referrals: Bg Erickson MD [Primary Care Provider] - Olga Lidia Sanchez MD [Physician] - Other Minh Gavin MD [Physician] - Call for Appointment Discharge Medications: New prednisone 20 mg Tablet 60 mg PO DAILY@0800 4 Days Qty: 12 0RF cyanocobalamin (vitamin B-12) [Vitamin B-12] 1,000 mcg Tablet 1,000 mcg PO QAM Qty: 30 4RF cyanocobalamin (vitamin B-12) 1,000 mcg/mL solution 1,000 mcg IM MONTHLY Qty: 6 1RF Rx Instructions: Give around the 6th of every month. Continued No Home Medications Other Ambulatory Orders: US pelvic complete w TV (Routine) Timeframe: 6 Months Location: Determined by Patient Ordered By: Amador Simmons Date of admission: 06/12/24 17:38 Primary Care Provider: Bg Erickson Admitting Provider: Genoveva Dumont Attending physician on admission: Genoveva Dumont Condition: Stable Hospitalist MIPS Heart Failure (Exclusion) Patient has history of Heart Transplant or Left Ventricular Assistive Device?: No IF YES, STOP HERE Heart Failure (Qualifier) Patient has current or prior documentation of LVEF less than or equal to 40%, or mod/servere depressed LVSF?: No IF NO, STOP HERE
--- NOTE | 2024-06-27 09:07 | PC.NURSE ---
Anti Parietal AB- 28, which is high. Dr. Simmons aware of results. Results faxed to Dr. Erickson.
== END 2024-06-21 12:15 | disposition home or self-care (01) | DRG 810 ==
LOC: ANHED 16:25 → ANH2MED 16:58 → ANHICU 06-13 08:55 → ANHIMU 06-15 13:20 → ANH3MEDSUR 06-18 14:09
PROVIDERS: Internal Medicine; Internal Medicine Hematology & Oncology; Physician Assistant; Urology; Admitting Provider Internal Medicine; Emergency Provider Emergency Medicine; PCP Family Medicine; Referring Provider Radiology Diagnostic Radiology; Visit Provider Internal Medicine
PROC: 079T3ZX Drainage of Bone Marrow, Percutaneous Approach, Diagnostic (ICD-10-PCS; principal; 2024-06-14 10:00)
DX: D61.818 Other pancytopenia (principal); D58.9 Hereditary hemolytic anemia, unspecified; E53.8 Deficiency of other specified B group vitamins; N83.202 Unspecified ovarian cyst, left side; R31.9 Hematuria, unspecified
CPT/HCPCS: 36415; 36430; 38222; 71045; 71046; 74178; 76700; 80053; 80074; 81001; 82247; 82274; 82607; 82728; 82746; 83010; 83036; 83090; 83540; 83550; 83615; 83735; 83921; 84100; 84145; 84443; 84466; 84703; 85025; 85027; 85046; 85055; 85610; 85652; 85730; 86038; 86039; 86140; 86157; 86162; 86340; 86364; 86703; 86850; 86860; 86870; 86880; 86900; 86901; 86902; 86920; 86922; 86971; 86978; 88305; 88311; 88313; 93005; 99285; A9270; G0378; G0432; J1200; J1459; J2003; J2250; J2405; J2550; J2919; J3010; J3420; J7030; J7050; J7512; P9016; Q9967

== ENCOUNTER 2024-06-27 15:40 | Outpatient (CLI) | payer OTHER, SELFPAY ==
[2024-06-27 15:57] LABS: Basophils Percent Auto 0.1 % (0.2-1.2); Eosinophils Percent Auto 0.1 % (0-4.4); Hematocrit 41.1 % (37.0-47.0); Hemoglobin 12.8 g/dL (12.0-15.0); Immature Granulocyte Absolute 0.06 K/mm3 (0.00-0.031); Immature Granulocyte Percent A 0.7 % (0-0.5); Lymphocytes Absolute Auto 0.74 K/mm3 (0.9-3.2); Lymphocytes Percent Auto 8.7 % (18.3-44.2); Mean Corpuscular HGB Conc 31.1 g/dl (32-36); Mean Corpuscular Volume 102.8 fl (80-100); Monocytes Percent Auto 11.1 % (2.6-8.5); Neutrophils Absolute Auto 6.8 K/mm3 (1.3-6.7); Neutrophils Percent Auto 79.3 % (45.5-73.1); Platelet Count Result 222 k/mm3 (150-375); Red Cell Distribution Width 16.2 % (11.5-14.5); White Blood Count 8.6 K/mm3 (4.5-10.0)
[2024-06-27 18:32] LABS: Alanine Aminotransferase 43 U/L (6-35); Albumin Level 4.2 g/dL (3.5-5.1); Alkaline Phosphatase 51 U/L (38-126); Anion Gap 6 mmol/L (4-12); Aspartate Amino Transferase 76 U/L (14-36); Bilirubin,Total 0.8 mg/dL (0.2-1.3); Blood Urea Nitrogen 13 mg/dL (7-17); Calcium 8.6 mg/dL (8.4-10.2); Carbon Dioxide 33 mmol/L (22-30); Chloride 98 mmol/L (98-107); Estimated Glomerular Filt Rate > 60; Glucose 123 mg/dL (65-110); Sodium 137 mmol/L (137-145)
[2024-07-02 07:29] LABS: Methylmalonic Acid 208 nmol/L (55-335)
== END 2024-06-27 15:41 | disposition home or self-care (01) ==
PROVIDERS: PCP Family Medicine; Visit Provider Internal Medicine Hematology & Oncology
DX: D64.9 Anemia, unspecified (principal)
CPT/HCPCS: 36415; 80053; 82607; 83921; 85025

== ENCOUNTER 2024-07-25 09:26 | Outpatient (CLI) | payer OTHER, SELFPAY ==
[2024-07-25 09:43] LABS: Basophils Absolute Auto 0.1 K/mm3 (0.0-0.1); Basophils Percent Auto 1.3 % (0.2-1.2); Eosinophils Percent Auto 0.7 % (0-4.4); Hematocrit 40.2 % (37.0-47.0); Hemoglobin 13.7 g/dL (12.0-15.0); Immature Granulocyte Absolute 0.02 K/mm3 (0.00-0.031); Immature Granulocyte Percent A 0.4 % (0-0.5); Lymphocytes Absolute Auto 0.96 K/mm3 (0.9-3.2); Lymphocytes Percent Auto 17.7 % (18.3-44.2); Mean Corpuscular HGB Conc 34.1 g/dl (32-36); Mean Corpuscular Hemoglobin 30.6 pg (26-34); Mean Corpuscular Volume 89.9 fl (80-100); Mean Platelet Volume 8.1 fl (7.4-10.4); Monocytes Absolute Auto 0.5 K/mm3 (0.1-0.6); Monocytes Percent Auto 8.7 % (2.6-8.5); Neutrophils Absolute Auto 3.9 K/mm3 (1.3-6.7); Neutrophils Percent Auto 71.2 % (45.5-73.1); Platelet Count Result 173 k/mm3 (150-375); Red Blood Count 4.47 M/mm3 (4.2-5.4); Red Cell Distribution Width 12.2 % (11.5-14.5); White Blood Count 5.4 K/mm3 (4.5-10.0)
[2024-07-25 13:40] LABS: Alanine Aminotransferase 10 U/L (6-35); Alkaline Phosphatase 70 U/L (38-126); Anion Gap 2 mmol/L (4-12); Aspartate Amino Transferase 26 U/L (14-36); Bilirubin,Total 0.6 mg/dL (0.2-1.3); Blood Urea Nitrogen 11 mg/dL (7-17); Calcium 8.6 mg/dL (8.4-10.2); Carbon Dioxide 29 mmol/L (22-30); Chloride 106 mmol/L (98-107); Estimated Glomerular Filt Rate > 60; Glucose 85 mg/dL (65-110); Potassium 4.4 mmol/L (3.4-5.0); Sodium 137 mmol/L (137-145)
[2024-07-26 00:18] LABS: Folic Acid 5.8 ng/mL (2.76->20)
== END 2024-07-25 09:27 | disposition home or self-care (01) ==
PROVIDERS: PCP Family Medicine; Visit Provider Internal Medicine Hematology & Oncology
DX: D64.9 Anemia, unspecified (principal)
CPT/HCPCS: 36415; 80053; 82607; 82746; 85025

== ENCOUNTER 2024-09-26 08:19 | Outpatient (CLI) | payer OTHER, SELFPAY ==
[2024-09-26 08:36] LABS: Basophils Percent Auto 0.9 % (0.2-1.2); Eosinophils Absolute Auto 0.2 K/mm3 (0-0.3); Eosinophils Percent Auto 4.8 % (0-4.4); Hematocrit 45.5 % (37.0-47.0); Hemoglobin 15.1 g/dL (12.0-15.0); Immature Granulocyte Absolute 0.02 K/mm3 (0.00-0.031); Immature Granulocyte Percent A 0.5 % (0-0.5); Lymphocytes Absolute Auto 0.98 K/mm3 (0.9-3.2); Lymphocytes Percent Auto 22.6 % (18.3-44.2); Mean Corpuscular HGB Conc 33.2 g/dl (32-36); Mean Corpuscular Hemoglobin 28.2 pg (26-34); Mean Platelet Volume 8.1 fl (7.4-10.4); Monocytes Absolute Auto 0.3 K/mm3 (0.1-0.6); Monocytes Percent Auto 6.2 % (2.6-8.5); Neutrophils Absolute Auto 2.8 K/mm3 (1.3-6.7); Platelet Count Result 195 k/mm3 (150-375); Red Blood Count 5.35 M/mm3 (4.2-5.4); Red Cell Distribution Width 12.3 % (11.5-14.5); White Blood Count 4.3 K/mm3 (4.5-10.0)
--- OUTSIDE RECORDS SUMMARY | 2024-09-26 08:39 | XMS_ITS | Encounter Summary ---
Author Organization [facility] Address [address] [place] [address] Care Team Providers Care Cylinder Filler Name Role Phone Unavailable Primary Care Provider Unavailabl e Encounter Details Date Type Department Care Team (Late st Contact Info) Description 06/14/2024 Lab Requisition [facility] - Pathology Lab [address] [place] [id number] Gordy Mims MD [address] [facility] [address] [place] [address] [id number] Anemia, unspecified Social History Tobacco Use Types Packs/Day Years Used Date Smoking Tobacco: Never Smokeless Tobacco: Never Alcohol Use Standard Drinks/Week Comments Yes 0 (1 standard drink = 0.6 oz pur e alcohol) Sex and Gender Information Value Date Recorded Sex Assigned at Not on file Gender Identity Not on file Sexual Orientation Not on file documented as of this encounter Plan of Treatment Not on file documented as of this encounter Procedures Procedure Name Priority Date/Time Associated Diagnosis Comments FLOW CYTOMETRY BONE MARROW Routine 06/14/2024 10:35 AM CDT Anemia, unspecified documented in this encounter Results * FLOW CYTOMETRY BONE MARROW (06/14/2024 10:35 AM CDT) Case Report Flow Cytometry Case: [id number] Authorizing Provider: Gordy Mims Collected: 06/14/2024 10:35 AM MD Ramsey Ordering Location: [facility] - Received: 06/14/2024 02:23 PM Pathology Lab Pathologist: Halina Caruso MD Specimen: Bone Marrow, Right Hip 4:49 PM [facility] Final Diagnosis Bone marrow, flow cytometry: - Marked non-specific binding with left-shifted myeloid population detected (see comment) - No clonal B-cell population identified 4 4:49 PM [facility] Flow Cytometry Interpretation Viability: 75% B-cells: polytypic, kappa:lambda ratio 1.5:1 T-cells: not increased Blasts: there is marked non-specific binding present. Using this non-specific binding as the control, no overt CD34+ myeloblast population is identified. However, immunohistochemical staining for blast markers on the core will bring a more definitive result if myeloblasts are present A bone marrow aspirate smear prepared from the flow cytometry specimen has been reviewed for quality assurance assessor purposes. There is marked left-shifted erythro-and myelopoiesis, which could be morphologically consistent with the reported Vit. B12 deficiency. Bone marrow histology is pending. 4 4:49 PM [facility] Flow Cytometry Results Differential Result Comment Flow Cell Count /uL 22,600 Total Viability % 75.0 Lymphocytes % 25 Dim CD45 Region % 63 Monocytes % 3 Granulocytes % 10 4 4:49 PM T [facility] Reason for test Anemia, unspecified 285.9 4 4:49 PM T [facility] Client Specimen ID # [id number] 4 4:49 PM [facility] Number of markers 19 were performed. A-2 Flow CD10 A-3 Flow CD13 A-5 Flow CD20 A-16 Flow CD2 A-18 Flow CD14 A-21 Flow CD117 A-22 Flow CD11b A-23 Flow CD11c A-1 Flow CD5 A-4 Flow CD19 A-6 Flow CD33 A-7 Flow CD34 A-8 Flow CD45 A-17 Flow CD7 A-19 Flow CD56 A-20 Flow CD64 A-9 Greenback+CD19+ A-10 Lambda+CD19+ A-24 Flow HLA-DR 4 4:49 PM CDT [facility] Pathologist Location at [facility] 4 4:49 PM CDT [facility] Disclaimer Test performed at [facility], [address], [place], [address]. *The established laboratory minimum viability is 70%. Values below the minimum may result in the failure to find an abnormal population of cells. This test was developed and its performance characteristics determined by the Flow Cytometry Laboratory. It has not been cleared by the [place] Food and Drug Administration (FDA). The FDA has determined that such clearance or approval is not necessary. This test is used for clinical purposes. It should not be regarded as investigational or for research. This laboratory is regulated under the Clinical Laboratory Improvement Amendments of 1998 (CLIA) as a qualified to perform high complexity clinical testing. 4 4:49 PM CDT [facility] Embedded Images 4:49 PM CDT [facility] Pathology/Cytolo gy BONE MARROW SPECIMEN / Unknown 06/14/2024 10:35 AM CDT 06/14/2024 2:23 PM CDT Gordy Mims MD LAB - PATHO LOGY/CYTOLOGY ORDERABLES [facility] [address] [facility] [place] [address], [facility] [phone] documented in this encounter Visit Diagnoses Diagnosis Anemia, unspecified documented in this encounter
--- OUTSIDE RECORDS SUMMARY | 2024-09-26 08:39 | XMS_ITS | Encounter Summary ---
Author Organization [facility] Address [address] [place] [address] Care Team Providers Care Copyist Name Role Phone Bg Erickson MD Primary Care Provider [phone] Encounter Details Date Type Department Care Team (Late Contact Info) Description 09/25/2024 External Device Data [facility] ABSTRACTION Provider, Abstract NO ADDRESS ON FILE Social History Tobacco Use Types Packs/Day Years Used Date Smoking Tobacco: Never Smokeless Tobacco: Never Alcohol Use Standard Drinks/Week Comments Yes 0 (1 standard drink = 0.6 oz pur e alcohol) Occasionally Comments Unknown Sex and Gender Information Value Date Recorded Sex Assigned at Not on file Legal Sex Female 11:45 AM CDT Gender Identity Not on file Sexual Orientation Not on file documented as of this encounter Plan of Treatment Upcoming Encounters Date Type Department Care Team (Late st Contact Info) Description 09/27/2024 2:00 PM CRIMINAL RECORDS TECHNICIAN Office Visit [facility] Oncology and Hematology - [place] [address] [facility] [address] [place] [address] Maldonado Walker MD [address] [facility] [address] [place] [address] documented as of this encounter Visit Diagnoses Not on filedocumented in this encounter Care Teams Copyist Relationship Specialty Start Date End Date Bg Erickson MD [address] [place] [phone] PCP - General Family Practice 10/31/24 documented as of this encounter
--- OUTSIDE RECORDS SUMMARY | 2024-09-26 08:39 | XMS_ITS | Encounter Summary ---
Author Organization [facility] Address [address] [place] [address] Care Team Providers Care Student Specialist Name Role Phone Unavailable Primary Care Provider Unavailabl e Encounter Details Date Type Department Care Team (Late st Contact Info) Description 06/15/2024 Lab Requisition [facility] - Pathology Lab [address] [place] [phone] Gordy Mims MD [address] [facility] [address] [place] [id number] Illness, unspecified Social History Tobacco Use Types Packs/Day [...] Procedure Name Priority Date/Time Associated Diagnosis Comments BONE MARROW BIOPSY (STL) Routine 06/14/2024 10:35 AM CDT Illness, unspecified documented in this encounter Results * BONE MARROW BIOPSY (STL) (06/14/2024 10:35 AM CDT) Case Report Bone Marrow Patholog y Report Case: [id number] Authorizing Provider: Gordy Mims Collected: 06/14/2024 10:35 AM MD Ramsey Ordering Location: [facility] - Received: 06/15/2024 02:11 PM Pathology Lab Pathologist: Ginger Rogers MD Specimens: A) - Bone Marrow Clot B) - Bone Marrow Core 06/19/2024 6:43 PM [facility] Final Diagnosis Bone marrow, iliac crest, core biopsy, clot section, and aspirate: - Hypercellular bone marrow (90% cellular) with marked erythroid hyperplasia/immaturity , minimal erythroid dyspoiesis, and 34% ring sideroblasts (see comment) - Mildly increased reticulin fibrosis (MF-1) - Adequate iron stores 06/19/2024 6:43 PM [facility] Comment The patient is a 49-year-old woman with pancytopenia including marked macrocytic anemia and known vitamin B12 deficiency. The bone marrow is hypercellular for the patient's age and shows marked erythroid hyperplasia, erythroid immaturity, minimal erythroid dyspoiesis, and 34% ring sideroblasts. While these features may be seen in myelodysplastic neoplasms, the same features may be seen in patients with vitamin B12 deficiency. Similarly, while ring sideroblasts are associated with myelodysplastic neoplasms they are nonspecific for such and may be associated with toxin exposures (lead), drugs, copper deficiency, zinc toxicity, and hereditary sideroblastic anemias. Correlation with relevant cytogenetic and molecular data is needed to evaluate for mutations associated with myelodysplastic neoplasm. Re-evaluation of the patient's CBC after normalization of B12 levels and an appropriate time interval is recommended. 06/19/2024 6:43 PM [facility] Peripheral Smear Description The patient's CBC performed on 06/12/2024 showed a white count of 1100/mcL, hemoglobin 4.6 g/dL, hematocrit 12.9%, MCV 109.3 fL, and a platelet count of 88,000/mcL. The white cell differential showed 40% neutrophils, 45% lymphocytes, 10% monocytes, and 5% eosinophils. A peripheral blood smear is not provided for review. 06/19/2024 6:43 PM [facility] Bone Marrow Aspirate Differential count (200 cells): 9.5% blasts, 21% maturing myeloid precursors, 54.5% erythroid progenitors, 1.5% monocytes, 0.5% eosinophils, 12% lymphocytes, 1% plasma cells. Specimen quality: markedly suboptimal. Spicules: absent. Trilineage Hematopoiesis: present. Myeloid:Erythroid ratio: decreased. Myeloid Maturation: overall normal with rare hypersegmented neutrophils. Erythroid Maturation: shift to immaturity. Rare cells show nuclear membrane irregularities. Megakaryocyte morphology: Not present insufficient number to adequately assess morphology. Storage iron (by special stain): decreased. Sideroblastic iron (by special stain): ring sideroblasts present accounting for 34% of the erythroid progenitors. 06/19/2024 6:43 PM [facility] Bone Marrow Core Biopsy and Clot Section Description Specimen quality: adequate with 2.2 cm of evaluable marrow. Cellularity: 90% Trilineage Hematopoiesis: present. Myeloid to Erythroid ratio: decreased. Myeloid maturation and localization: shift to immaturity. Erythroid maturation and localization: hyperplastic, shift to immaturity. Megakaryocyte number: increased. Megakaryocyte distribution: small, loose clusters. Lymphoid aggregates: absent. Bone trabeculae: normal. Blood vessels: normal. Other: no evidence of lymphoma, granulomata, or extrinsic tumor cells. Plasma cells: normal. Clot section marrow particles: numerous. Clot section morphology: similar to core biopsy. 06/19/2024 6:43 PM [facility] Flow Cytometry Summary Flow cytometry showed marked nonspecific binding with left shifted myeloid population and no clonal B-cell population ([id number]). 06/19/2024 6:43 PM [facility] Clinical History Anemia, B12 and iron deficiency 06/19/2024 6:43 PM [facility] Materials Received Received are 18 slide(s) labeled [id number] and 3 blocks labeled [id number] along with a copy of the outside pathology report. [place] [address] . All original materials are returned to the referring institution, along with a copy of our final report. 06/19/2024 6:43 PM [facility] Microscopic Description Immunohistochemistry and special stains are performed on the core biopsy and/or clot section to further characterize the marrow. Stains are performed in addition to flow cytometry given the cellular heterogeneity marrow. All stains reacted with appropriate controls. Iron stains of the clot sections reveal adequate iron stores. Ring sideroblasts are increased. An iron stain of the clot section shows similar findings. CD34 of the core biopsy and clot section highlights <5% of total cells. CD138 of the core and clot highlights approximately 3-5% plasma cells without abnormal collections appreciated. CD20 of the core biopsy and clot section highlights <5% of total cells CD3 of the core biopsy and clot section highlights approximately 10-15% of total cells. Small lymphoid aggregates are appreciated on the immunohistochemistry stains which are composed of both B and T cells and appear benign. CD117 of the core biopsy highlights scattered plasma cells, mast cells, and erythroblasts. An E-cadherin immunohistochemistry stain highlights erythroblasts. CD235 (glycophorin A) highlights >80% total cells which includes red blood cells. A p53 immunohistochemistry stain weakly highlights approximately 5-10 % of nuclei. A reticulin stain of the core biopsy highlights a mild increase in reticulin fibrosis. 06/19/2024 6:43 PM [facility] Pathologist Location at [facility] 06/19/2024 6:43 PM [facility] Disclaimer The performance characteristics of all immunohistochemical and indirect immunofluorescence stains (if any) cited in this report were determined by the [facility]opathology Laboratory of [facility]. Some of these tests were developed by our own laboratory and have not been cleared or approved by the US Food and Drug Administration. The FDA does not require this test to go through premarket FDA review. These tests are used for clinical purposes. They should not be regarded as investigational or for research. This laboratory is certified under the Clinical Laboratory Improvement Amendments (CLIA) as qualified to perform high complexity clinical laboratory testing. This case has been personally reviewed and interpreted by the attending (teaching) pathologist. 06/19/2024 6:43 PM [facility] Embedded Images 06/19/2024 6:43 PM [facility] Pathology/Cytology BONE MARROW SPECIMEN / Unknown 06/14/2024 10:35 AM CDT 06/15/2024 2:11 PM CDT Miscellaneous samples (specimen) BONE MARROW SPECIMEN / Unknown 06/14/2024 10:35 AM CDT 06/15/2024 2:11 PM CDT Gordy Mims MD LAB - PATHO LOGY/CYTOLOGY ORDERABLES [facility] [address] [place] [address], [facility] [phone] documented in this encounter Visit Diagnoses Diagnosis Illness, unspecified documented in this encounter
--- OUTSIDE RECORDS SUMMARY | 2024-09-26 08:39 | XMS_ITS | Clinical Summary ---
Author Organization [facility] [employer] Address [address] [place] [address] Care Team Providers Care Guitar Teacher Name Role Phone Unavailable Primary Care Provider Unavailabl e Source Comments [facility],non-owned Affiliates and Associated Physician Practices is amultiple site organization consisting of ambulatory clinics and hospital sitesin [place], [place], [place] and [place]. This disclosure is being madepursuant to the Care Everywhere program and may not contain all information available regarding this patient. Last updated 18.[facility] [employer] Allergies Active Allergy Reactions Criticality Noted Date Comments Penicillins 11/30/2011 Family History Medical History Relation Name Comments Arthritis - Osteo Father Status: Al keenan Cancer - Skin, Non Melanoma Father Heart Failure Father Hypertension Father Arthritis - Osteo Mother Status: Al keenan Hypertension Mother Relation Name Status Comments Father Mother Social History Tobacco Use Types Packs/Day Years Used Date Smoking Tobacco: Never Smokeless Tobacco: Never Alcohol Use Standard Drinks/Week Comments Yes 0 (1 standard drink = 0.6 oz pur e alcohol) Sex and Gender Information Value Date Recorded Sex Assigned at Not on file Gender Identity Not on file Sexual Orientation Not on file Last Filed Vital Signs Vital Sign Reading Time Taken Comments Blood Pressure 132/92 08/18/2017 3:04 PM BRICK SETTER Pulse 76 08/18/2017 3:04 PM BRICK SETTER Temperature 36.2 C (97.1 F) 08/18/2017 3:04 PM BRICK SETTER Respiratory Rate - - Oxygen Saturation 98% 08/18/2017 3:04 PM BRICK SETTER Inhaled Oxygen Concentration - - Weight 81.4 kg (179 lb 6.4 oz) 08/18/2017 3:04 P M BRICK SETTER Height - - Body Mass Index - - Plan of Treatment Health Maintenance Due Date Last Done Comments COLBRODIEUAAMAURY (AGES 45-75) - COL ON CA SCREENING 1973 COLON MONITORING 1973 COLONOSCOPY - COLON CA SCREENING 1973 CT COLONOGRAPHY - COLON CA SCREENING 1973 Colorectal Cancer Screening 1973 FIT - COLON CA SCREENING 1973 FLEX SIG - COLON CA SCREENING 1973 LIPID TESTING 1973 MAMMOGRAM 1973 PAP SMEAR 1973 HIV SCREENING 1988 HEPATITIS C SCREENING 05/09/1991 DTAP/TDAP/TD VACCINES (1 - Tdap) 1992 HEPATITIS B VACCINE (1 of 3 - 19+ 3-dose series) 1992 PNEUMOCOCCAL VACCINE 50+ (1 of 1 - PCV) 2023 ZOSTER VACCINE (1 of 2) 2023 COVID-19 VACCINE (1 - 2023-2 5 season) 2024 INFLUENZA VACCINE (#1) 2024 DEPRESSION SCREENING 08/15/2024 HIB VACCINE Aged Out No longer eligi ble based on patient's age to complete this topic HPV VACCINE Aged Out No longer eligi ble based on patient's age to complete this topic MENINGOCOCCAL (Group B) VACCINE Aged Out No longer eligible based on patient's age to complete this topic MENINGOCOCCAL VACCINE Aged Out No leesa herminia eligible based on patient's age to complete this topic PNEUMOCOCCAL VACCINE Aged Out No long er eligible based on patient's age to complete this topic
--- OUTSIDE RECORDS SUMMARY | 2024-09-26 08:39 | XMS_ITS | Clinical Summary ---
Author Organization [facility] [employer] Address [address] [place] [address] Care Team Providers Care Insurance Risk Analyst Name Role Phone Bg Erickson MD Primary Care Provider Allergies Active Allergy Reactions Criticality Noted Date Comments Penicillins Rash Low 06/27/2024 Medications cyanocobalamin (VITAMIN B-12) 1,000 mcg/mL SolutionIndica tions:Chronic anemia Inject 1 mL (1,000 mcg) by intramuscular injection one time only for 1 dose due 07/22/24. 10 mL 1 4 Active Syringe with Needle, Disp, 1 mL 27 x 1/2 SyringeIndicat ions:Chronic anemia Use with B12 injections. 6 Each 1 4 Active Active Problems No known active problems Encounters Date Type Department Care Team Description 09/25/2024 External Device Data STL ABSTRACTION Provider, Abstract 09/06/2024 External Device Data STL ABSTRACTION Provider, Abstract 09/05/2024 External Device Data STL ABSTRACTION Provider, Abstract 09/04/2024 External Device Data STL ABSTRACTION Provider, Abstract 08/28/2024 External Device Data STL ABSTRACTION Provider, Abstract 07/27/2024 Orders Only [facility] - [address] [place] [address] Maldonado Walker MD 07/26/2024 11:30 AM SHIP BOAT OR BARGE MATE Office Visit [facility] - [address] [place] [address] Maldonado Walker MD Chronic anemia (Primary Dx) 07/26/2024 Orders Only [facility]ology - [address] [place] [phone] Maldonado Walker MD 07/24/2024 Orders Only [facility]ology - [address] [place] [phone] Maldonado Walker MD Chronic anemia (Primary Dx) 07/18/2024 Abstract [facility] - [address] [place] [phone] Maldonado Walker MD 07/18/2024 Refill [facility] - [address] [place] [id number] Maldonado Walker MD Chronic anemia 07/03/2024 External Device Data STL ABSTRACTION Provider, Abstract 07/03/2024 Orders Only [facility]ology - [address] [place] [phone] Maldonado Walker MD 06/29/2024 Orders Only [facility]ology - [address] [place] [phone] Maldonado Walker MD 06/28/2024 Telephone [facility] - [address] [place] [phone] Maldonado Walker MD B12 injections 06/28/2024 Orders Only [facility] - [address] [place] [phone] Maldonado Walker MD 06/27/2024 3:00 PM SHIP BOAT OR BARGE MATE Office Visit [facility] Hematology - [address] [place] [address] Maldonado Walker MD Chronic anemia (Primary Dx) 06/27/2024 Orders Only [facility] Hematology - [place] [place] [address] Maldonado Walker MD from Last 3 Months Family History Medical History Relation Name Comments No Known Problems Brother No Known Problems Child 1 No Known Problems Child 2 No Known Problems Child 3 Heart Failure Father Hypertension Father Relation Name Status Comments Brother Alive Child 1 Alive Child 2 Alive Child 3 Alive Father Mother Alive Social History Tobacco Use Types Packs/Day Years Used Date Smoking Tobacco: Never Smokeless Tobacco: Never Tobacco Cessation:Counseling Given: Not Answered Alcohol Use Standard Drinks/Week Comments Yes 0 (1 standard drink = 0.6 oz pur e alcohol) Occasionally Comments Unknown Sex and Gender Information Value Date Recorded Sex Assigned at Not on file Legal Sex Female 11:45 AM CDT Gender Identity Not on file Sexual Orientation Not on file Last Filed Vital Signs Vital Sign Reading Time Taken Comments Blood Pressure 135/89 07/26/2024 11:33 AM SHIP BOAT OR BARGE MATE Pulse 74 07/26/2024 11:31 AM SHIP BOAT OR BARGE MATE Temperature 36.4 C (97.5 F) 07/26/2024 11:31 AM SHIP BOAT OR BARGE MATE Respiratory Rate 16 07/26/2024 11:3 1 AM SHIP BOAT OR BARGE MATE Oxygen Saturation 98% 07/26/2024 11: 31 AM SHIP BOAT OR BARGE MATE Inhaled Oxygen Concentration - - Weight 73.4 kg (161 lb 12.8 oz) 024 11:31 AM SHIP BOAT OR BARGE MATE Height 167.6 cm (5' 6 ) 06/27/2024 2:54 PM SHIP BOAT OR BARGE MATE Body Mass Index 26.12 06/27/2024 2:54 PM SHIP BOAT OR BARGE MATE Plan of Treatment Upcoming Encounters Date Type Department Care Team (Late st Contact Info) Description 09/27/2024 2:00 PM SHIP BOAT OR BARGE MATE Office Visit [facility] Oncology and Hematology - [address] [place] [address] Maldonado Walker MD [address] [facility] [address] [place] [address] Health Maintenance Due Date Last Done Comments Pre-Diabetes and Diabetes Screening 1973 DTAP/TDAP/TD VACCINES (1 - Tdap) 1992 HEPATITIS B VACCINES (1 of 3 - 19+ 3-dose series) 04/16 CERVICAL CANCER SCREENING 2003 BREAST CANCER SCREENING 2013 COLORECTAL SCREENING 2018 Colorectal Cancer Screening 2018 FIT-DNA Q 3 years 2018 FIT/FOBT Q 1 year 2018 Flex Sig/CT Colonography Q 5 years 2018 ZOSTER VACCINE (1 of 2) 2023 INFLUENZA VACCINE (#1) 2024 Preventative Visit- Commercial 08/15/2024 Procedures Procedure Name Priority Date/Time Associated Diagnosis Comments CBC WITH DIFFERENTIAL Routine 07/25/2024 3:58 PM SHIP BOAT OR BARGE MATE COMPREHENSIVE METABOLIC PANEL Routine 07/25/2024 1:08 PM SHIP BOAT OR BARGE MATE COMPREHENSIVE METABOLIC PANEL Routine 06/28/2024 11:05 AM SHIP BOAT OR BARGE MATE CBC WITH DIFFERENTIAL Routine 06/27/2024 2:12 PM SHIP BOAT OR BARGE MATE METHYLMALONIC ACID Routine 06/27/2024 1: 02 PM SHIP BOAT OR BARGE MATE from Last 3 Months Results * CBC WITH DIFFERENTIAL (07/25/2024 3:58 PM SHIP BOAT OR BARGE MATE) Only the most recent of2 resultswithin the time period is included. Blood us Maldonado Walker MD HEMATOLOGY ORDERABLES Final Res ult * COMPREHENSIVE METABOLIC PANEL (07/25/2024 1:08 PM SHIP BOAT OR BARGE MATE) Only the most recent of2 resultswithin the time period is included. Blood us Maldonado Walker MD CHEMISTRY ORDERABLES Final Resu lt * METHYLMALONIC ACID (06/27/2024 1:02 PM SHIP BOAT OR BARGE MATE) Blood us Maldonado Walker MD CHEMISTRY ORDERABLES Final Resu lt from Last 3 Months Insurance [facility] OPEN ACCESS HMO Care Teams Insurance Risk Analyst Relationship Specialty Start Date End Date Bg Erickson MD [address] [place] [address] [place] [id number] PCP - General Family Practice 06/14/24
--- OUTSIDE RECORDS SUMMARY | 2024-09-26 08:39 | XMS_ITS | Patient Health Summary ---
Author Organization [facility] [email or web address] Address [address] [place] [address] Care Team Providers Care Wheel Buffer Name Role Phone Unavailable Primary Care Provider Unavailabl e Note from [facility],non-owned Affiliates and Associated Physician Practices is amultiple site organization consisting of ambulatory clinics and hospital sitesin [place], [place], [place] and [place]. This disclosure is being madepursuant to the Care Everywhere program and may not contain all information available regarding this patient. Last updated 18.[facility] [email or web address] Allergies * Penicillins Social History Tobacco Use Types Packs/Day Years [...] Comments Blood Pressure 132/92 08/18/2017 3:04 PM RADIOTELEGRAPH OPERATOR SERVICER Pulse 76 08/18/2017 3:04 PM RADIOTELEGRAPH OPERATOR SERVICER Temperature 36.2 C (97.1 F) 08/18/2017 3:04 PM RADIOTELEGRAPH OPERATOR SERVICER Respiratory Rate - - Oxygen Saturation 98% 08/18/2017 3:04 PM RADIOTELEGRAPH OPERATOR SERVICER Inhaled Oxygen Concentration - - Weight 81.4 kg (179 lb 6.4 oz) 08/18/2017 3:04 P M RADIOTELEGRAPH OPERATOR SERVICER Height - - Body Mass Index - - Procedures * BONE MARROW BIOPSY (STL)(Performed 06/14/2024) Performed for Illness, unspecified * FLOW CYTOMETRY BONE MARROW(Performed 06/14/2024) Performed for Anemia, unspecified * XR FINGERS LEFT 2VW OR MORE(Performed 08/18/2017) * CBC W AUTO DIFFERENTIAL(Performed 08/18/2017) * URIC ACID BLOOD(Performed 08/18/2017) * C-REACTIVE PROTEIN(Performed 08/18/2017) * CBC W AUTO DIFFERENTIAL(Performed 08/18/2017) * DERMATOPATHOLOGY(Performed 12/07/2016) * STREP A RAPID - POINT OF CARE (AMB) [facility](Performed 11/30/2011) Results * FLOW CYTOMETRY BONE MARROW (06/14/2024 10:35 AM CDT) Case Report Flow Cytometry Case: [id number] Authorizing Provider: Gordy Mims Collected: 06/14/2024 10:35 AM MD Ramsey Ordering Location: [facility] - Received: 06/14/2024 02:23 PM Pathology Lab Pathologist: Halina Caruso MD Specimen: Bone Marrow, Right Hip 4:49 PM CDT [facility] Final Diagnosis Bone marrow, flow cytometry: - Marked non-specific binding with left-shifted myeloid population detected (see comment) - No clonal B-cell population identified 4:49 PM CDT [facility] Flow Cytometry Interpretation Viability: 75% [...] cytometry specimen has been reviewed for quality control inspector heading purposes. There is marked left-shifted erythro-and myelopoiesis, which could be morphologically consistent with the reported Vit. B12 deficiency. Bone marrow histology is pending. 4:49 PM CDT [facility] Flow Cytometry Results Differential Result Comment Flow Cell Count /uL 22,600 Total Viability % 75.0 Lymphocytes % 25 Dim CD45 Region % 63 Monocytes % 3 Granulocytes % 10 10/31/202 4 4:49 PM CDT [facility] Reason for test Anemia, unspecified 285.9 4 4:49 PM CDT [facility] Client Specimen ID # [id number] 4 4:49 PM CDT [facility] Number of markers 19 were performed. A-2 Flow CD10 A-3 Flow CD13 A-5 Flow CD20 A-16 Flow CD2 A-18 Flow CD14 A-21 Flow CD117 A-22 Flow CD11b A-23 Flow CD11c A-1 Flow CD5 A-4 Flow CD19 A-6 Flow CD33 A-7 Flow CD34 A-8 Flow CD45 A-17 Flow CD7 A-19 Flow CD56 A-20 Flow CD64 A-9 Plain+CD19+ A-10 Lambda+CD19+ A-24 Flow HLA-DR 4 4:49 PM CDT [facility] PATH[facility] LAB Pathologist Location at [facility] 4 4:49 PM CDT [facility] PATHOLOGY LAB Disclaimer Test performed at [facility], [address] [place] [address], [facility]. *The established laboratory minimum viability is 70%. [...] high complexity clinical testing. 4 4:49 PM T [facility] PATHOLOGY LAB Embedded Images 4:49 PM T [facility] PATHOLOGY LAB Pathology/Cytolo gy BONE MARROW SPECIMEN / Unknown 06/14/2024 10:35 AM CDT 06/14/2024 2:23 PM CDT Gordy Mims MD LAB - PATHO LOGY/CYTOLOGY ORDERABLES [facility] PATHOLOGY LAB [address] [place], [place] [address] [phone] * BONE MARROW BIOPSY (STL) (06/14/2024 10:35 AM CDT) Case Report Bone Marrow Patholog y Report Case: [id number] Authorizing Provider: Devmay Gordy Collected: 06/14/2024 10:35 AM MD Ramsey Ordering Location: [facility] - Received: 06/15/2024 02:11 PM Pathology Lab Pathologist: Ginger Rogers MD Specimens: A) - Bone Marrow Clot B) - Bone Marrow Core 06/19/2024 6:43 PM [facility] PATHOLOGY LAB Final Diagnosis Bone marrow, iliac crest, core biopsy, clot section, and aspirate: - Hypercellular bone marrow (90% cellular) with marked erythroid hyperplasia/immaturity , minimal erythroid dyspoiesis, and 34% ring sideroblasts (see comment) - Mildly increased reticulin fibrosis (MF-1) - Adequate iron stores 06/19/2024 6:43 PM [facility] PATHOLOGY LAB Comment The patient is a [...] time interval is recommended. 06/19/2024 6:43 PM [facility] PATHOLOGY LAB Peripheral Smear Description The patient's CBC performed on 06/12/2024 showed a white count of 1100/mcL, hemoglobin 4.6 g/dL, hematocrit 12.9%, MCV 109.3 fL, and a platelet count of 88,000/mcL. The white cell differential showed 40% neutrophils, 45% lymphocytes, 10% monocytes, and 5% eosinophils. A peripheral blood smear is not provided for review. 06/19/2024 6:43 PM [facility] PATHOLOGY LAB Bone Marrow Aspirate Differential count [...] of the erythroid progenitors. 06/19/2024 6:43 PM [facility] PATHOLOGY LAB Bone Marrow Core Biopsy and [...] similar to core biopsy. 06/19/2024 6:43 PM [facility] PATHOLOGY LAB Flow Cytometry Summary Flow cytometry showed marked nonspecific binding with left shifted myeloid population and no clonal B-cell population ([id number]). 06/19/2024 6:43 PM [facility] PATHOLOGY LAB Clinical History Anemia, B12 and iron deficiency 06/19/2024 6:43 PM [facility] PATHOLOGY LAB Materials Received Received are 18 slide(s) labeled [id number] and 3 blocks labeled [id number] along with a copy of the outside pathology report. [place] [address] . All original materials are returned to the referring institution, along with a copy of our final report. 06/19/2024 6:43 PM [facility] PATHOLOGY LAB Microscopic Description Immunohistochemistry and special [...] increase in reticulin fibrosis. 06/19/2024 6:43 PM [facility] PATHOLOGY LAB Pathologist Location at [facility] 06/19/2024 6:43 PM [facility] PATHOLOGY LAB Disclaimer The performance characteristics of all immunohistochemical and indirect immunofluorescence stains (if any) cited in this report were determined by the Histopathology Laboratory of [facility]. Some of these tests were [...] the attending (teaching) pathologist. 06/19/2024 6:43 PM [facility] PATHOLOGY LAB Embedded Images 06/19/2024 6:43 PM [facility] PATHOLOGY LAB Pathology/Cytology BONE MARROW SPECIMEN / Unknown 06/14/2024 10:35 AM CDT 06/15/2024 2:11 PM CDT Miscellaneous samples (specimen) BONE MARROW SPECIMEN / Unknown 06/14/2024 10:35 AM CDT 06/15/2024 2:11 PM CDT Gordy Mims MD LAB - PATHO LOGY/CYTOLOGY ORDERABLES [facility] PATHOLOGY LAB [address] [place] [address], [facility] [phone] * XR FINGERS LEFT 2VW OR MORE (08/18/2017 4:26 PM RADIOTELEGRAPH OPERATOR SERVICER) Anatomical Region Laterality Modality Upper Extremity, Wrist / Hand Ot her Impressions 08/19/2017 8:14 AM RADIOTELEGRAPH OPERATOR SERVICER Impression: No acute osseous abnormality. This report was electronically signed by RYAN DIAS MD on 08/19/2017 8:14 AM . Narrative 08/19/2017 8:14 AM RADIOTELEGRAPH OPERATOR SERVICER Exam: Left second finger 3 views History: 2nd MCP joint edema and pain Comparison: None. Findings: No acute fracture or dislocation is seen. The joint spaces are normal. Bone density is normal. There is very mild soft tissue swelling in the second finger. No erosions are present. Procedure Note Ryan Dias MD - 11/11/2017 Exam: Left second finger 3 views History: 2nd MCP joint edema and pain Comparison: None. Findings: No acute fracture or dislocation is seen. The joint spaces are normal.Bone density is normal. There is very mild soft tissue swelling in thesecond finger. No erosions are present. IMPRESSION Impression: No acute osseous abnormality. This report was electronically signed by RYAN DIAS MD on 08/19/20178:14 AM . Raul Anderson PA-C DIAGNOSTIC IMAGING O RDERABLES * URIC ACID BLOOD (08/18/2017 4:26 PM RADIOTELEGRAPH OPERATOR SERVICER) Uric Acid 3.4 2.6 - 7.2 mg/dL [facility] Blood specimen (specimen) BLOOD SPECIMEN / Unknown 08/18/2017 4:26 PM RADIOTELEGRAPH OPERATOR SERVICER 08/18/2017 5:01 PM RADIOTELEGRAPH OPERATOR SERVICER Raul Anderson PA-C LAB - CHEMISTRY [facility]DE [facility] [place] [address], [facility] [phone] * (ABNORMAL) C-REACTIVE PROTEIN (08/18/2017 4:26 PM RADIOTELEGRAPH OPERATOR SERVICER) [facility] C-Reactive Protein 0.8(H) <=0.5 mg/dL [facility] Blood specimen (specimen) BLOOD SPECIMEN / Unknown 08/18/2017 4:26 PM RADIOTELEGRAPH OPERATOR SERVICER 08/18/2017 5:01 PM RADIOTELEGRAPH OPERATOR SERVICER Raul Anderson PA-C LAB - CHEMISTRY TORY MCCARTY Performing Organization Address [facility]/ZIP Co de Phone Number [address] [phone] * (ABNORMAL) CBC W AUTO DIFFERENTIAL (08/18/2017 4:26 PM RADIOTELEGRAPH OPERATOR SERVICER) Only the most recent of2 resultswithin the time period is included. [facility] WBC 5.0 3.5 - 10.5 10 3/uL [facility] RBC 4.92 3.90 - 5.00 10 6/uL [facility] Hemoglobin 13.1 12.0 - 15.5 g/dL [facility] Hematocrit 40.5 35.0 - 45.0 % [facility] MCV 82.3 81.0 - 97.0 fL [facility] MCH 26.6(L) 28.0 - 34.0 pg [facility] MCHC 32.3 32.0 - 36.0 g/dL [facility] Platelet Count 216 150 - 400 10 3/uL [facility] RDW-SD 39.9 36.0 - 50.0 fL [facility] RDW-CV 13.2 11.2 - 14.8 % [facility] MPV 9.1(L) 9.3 - 12.8 fL [facility] nRBC Absolute 0.00 0 10 3/uL [facility] nRBC Auto 0.0 0 /100 WBC [facility] Neutrophils % 64.0 35.0 - 70.0 % [facility] Lymphocytes % 25.9 19.7 - 55.1 % [facility] Monocytes % 7.3 3.0 - 15.0 % [facility] Eosinophils % 2.4 0.0 - 6.0 % [facility] Basophil % 0.4 0.0 - 1.5 % [facility] Neutrophils Absolute 3.2 1.6 - 7.0 10 3/uL [facility] Lymphocyte Absolute 1.3 0.8 - 2.9 10 3/uL [facility] Monocytes Absolute 0.36 0.14 - 0.66 10 3/uL [facility] Eosinophils Absolute 0.12 0.00 - 0.22 10 3/uL [facility] Basophils Absolute 0.02 0.00 - 0.06 10 3/uL [facility] Immature Granulocytes % 0.2 0.0 - 1.0 % [facility] Blood specimen (specimen) BLOOD SPECIMEN / Unknown 08/18/2017 4:26 PM RADIOTELEGRAPH OPERATOR SERVICER 08/18/2017 5:01 PM RADIOTELEGRAPH OPERATOR SERVICER Raul Anderson PA-C LAB - HEMATOLOGY ORD ERABLES [address] [phone] * PATHOLOGY TISSUE FOR DERMATOLOGY (12/07/2016 12:00 AM CDT) Result CASE: [id number] PATIENT: MALORIE CRUZ PATHOLOGIC DIAGNOSIS: Right conchal bowl: INTRADERMAL MELANOCYTIC NEVUS CLINICAL DATA: Cyst vs R/O BCC. GROSS DESCRIPTION: Received is one formalin filled container labeled with the patients name and designated right conchal bowl. The specimen consists of a shave biopsy measuring [id number]. Jar 0. MICROSCOPIC DESCRIPTION: There are nests of melanocytes within the dermis that mature with depth. Electronically signed out by Tory Hammonds M.D. 12/09/2016 11:35:05AM [facility] DERMATOLOGY LAB Comment: Performed at: Dermatopathology Laboratory [facility] - Department of Dermatology [address] [place] [address], [address]th [place] [address] Phone number: [phone] FAX: [phone] Skin (tissue) specimen (specimen) 12/07/2016 12/08/2016 Narrative [facility] DERMATOLOGY LAB - 12/09/2016 11:36 AM CDT Specimen A: Type->Shave Site->R conchal bowl History->3 mm dome shaped pearly papule with central indentation and telangiectasias Impression->cyst vs r/o BCC Check Margins:->N/A Prior Biopsy->N/A Oly Michaels MD LAB - PATHOLOGY/CY TOLOGY ORDERABLES [facility] DERMATOLOGY LAB [address] [place] [address]. 5[address] Floor Lab [address] [phone] * STREP A CULTURE - POINT OF CARE (AMB) [facility] (11/30/2011 11:50 AM CDT) Strep A Antigen positive [facility] Throat swab (specimen) 11/30/2011 11:50 AM CDT Edwin Aguilera MD LAB - POINT OF CARE ORDERABLES [facility]
--- OUTSIDE RECORDS SUMMARY | 2024-09-26 08:39 | XMS_ITS | Referral Summary ---
Author Organization [facility] [email or web address] Address [address] [place] [address] Care Team Providers Care Mastic Man Name Role Phone Unavailable Primary Care Provider Unavailabl e Source Comments [facility],non-owned Affiliates and Associated Physician Practices is amultiple site organization consisting of ambulatory clinics and hospital sitesin [place], [place], [place] and [place]. This disclosure is being madepursuant to the Care Everywhere program and may not contain all information available regarding this patient. Last updated 18.[facility] [email or web address] Allergies Active Allergy Reactions Criticality Noted Date Comments Penicillins 11/30/2011 Social History Tobacco Use Types Packs/Day Years [...] Comments Blood Pressure 132/92 08/18/2017 3:04 PM DESIGN INSERTER Pulse 76 08/18/2017 3:04 PM DESIGN INSERTER Temperature 36.2 C (97.1 F) 08/18/2017 3:04 PM DESIGN INSERTER Respiratory Rate - - Oxygen Saturation 98% 08/18/2017 3:04 PM DESIGN INSERTER Inhaled Oxygen Concentration - - Weight 81.4 kg (179 lb 6.4 oz) 08/18/2017 3:04 P M DESIGN INSERTER Height - - Body Mass Index - - Plan of Treatment Not on file
[2024-09-26 10:35] LABS: Folic Acid 5.9 ng/mL (2.76->20)
== END 2024-09-26 08:20 | disposition home or self-care (01) ==
PROVIDERS: PCP Family Medicine; Visit Provider Internal Medicine Hematology & Oncology
DX: D64.9 Anemia, unspecified (principal)
CPT/HCPCS: 36415; 82607; 82746; 85025

== ENCOUNTER 2024-10-29 00:31 | Day surgery (SDC) | payer OTHER, SELFPAY ==
[2024-10-17 14:55] VITALS: BMI 25.0
--- OUTSIDE RECORDS SUMMARY | 2024-10-29 00:33 | XMS_ITS | Referral Summary ---
Author Organization [facility] [employer] Address [address] [place] [address] Care Team Providers Care Vascular Tech Name Role Phone Unavailable Primary Care Provider Unavailabl e Source Comments [facility] [place] [facility],non-owned Affiliates and Associated Physician Practices is amultiple site organization consisting of ambulatory clinics and hospital sitesin [place], [place], [place] and [place]. This disclosure is being madepursuant to the Care Everywhere program and may not contain all information available regarding this patient. Last updated 18.[facility] [employer] Allergies Active Allergy Reactions Criticality Noted Date [...] Comments Blood Pressure 132/92 08/18/2017 3:04 PM MARINE MAMMAL TRAINER Pulse 76 08/18/2017 3:04 PM MARINE MAMMAL TRAINER Temperature 36.2 C (97.1 F) 08/18/2017 3:04 PM MARINE MAMMAL TRAINER Respiratory Rate - - Oxygen Saturation 98% 08/18/2017 3:04 PM MARINE MAMMAL TRAINER Inhaled Oxygen Concentration - - Weight 81.4 kg (179 lb 6.4 oz) 08/18/2017 3:04 P M MARINE MAMMAL TRAINER Height - - Body Mass Index - - Plan of Treatment Not on file
--- OUTSIDE RECORDS SUMMARY | 2024-10-29 00:33 | XMS_ITS | Clinical Summary ---
Author Organization [facility] Address [address] [place] [address] Care Team Providers Care Room Service Food Server Name Role Phone Unavailable Primary Care Provider Unavailabl e Source Comments [facility],non-owned Affiliates and Associated Physician Practices is amultiple site organization consisting of ambulatory clinics and hospital sitesin [place], [place], [place] and [place]. This disclosure is being madepursuant to the Care Everywhere program and may not contain all information available regarding this patient. Last updated 18.[facility] Allergies Active Allergy Reactions Criticality Noted Date [...] Comments Blood Pressure 132/92 08/18/2017 3:04 PM DRUM TESTER Pulse 76 08/18/2017 3:04 PM DRUM TESTER Temperature 36.2 C (97.1 F) 08/18/2017 3:04 PM DRUM TESTER Respiratory Rate - - Oxygen Saturation 98% 08/18/2017 3:04 PM DRUM TESTER Inhaled Oxygen Concentration - - Weight 81.4 kg (179 lb 6.4 oz) 08/18/2017 3:04 P M DRUM TESTER Height - - Body Mass Index - - Plan of Treatment Health Maintenance Due Date Last Done Comments COLOGUARD (AGES 45-75) - COL ON CA SCREENING [...] to complete this topic MENINGOCOCCAL (Group B) VACC INE SHARED DECISION-MAKING Aged Out No longer eligibl e based on patient's age to complete this topic MENINGOCOCCAL GROUPS A/C/Y/W VACCINE Aged Out No longer eligible b ased on patient's age to complete this topic PNEUMOCOCCAL VACCINE Aged Out No long er eligible based on patient's age to complete this topic
--- OUTSIDE RECORDS SUMMARY | 2024-10-29 00:33 | XMS_ITS | Encounter Summary ---
Author Organization [facility] Address [address] [place] [address] Care Team Providers Care Artificial Candy Maker Name Role Phone Unavailable Primary Care Provider Unavailabl e Encounter Details Date Type Department Care Team (Late st Contact Info) Description 06/14/2024 Lab Requisition [facility] - Pathology Lab [address] [place] [id number] Gordy Mims MD [address] [place] [address] [id number] Anemia, unspecified Social History Tobacco Use Types [...] AM CDT) Case Report Flow Cytometry Case: [id number] Authorizing Provider: Godry Mims Collected: 06/14/2024 10:35 AM MD Ramsey Ordering Location: [facility] - Received: 06/14/2024 02:23 PM Pathology Lab Pathologist: Halina Caruso MD Specimen: Bone Marrow, Right Hip 4:49 PM [facility] PATHOLOGY LAB Final Diagnosis Bone marrow, flow cytometry: - Marked non-specific binding with left-shifted myeloid population detected (see comment) - No clonal B-cell population identified 4 4:49 PM [facility] PATHOLOGY LAB Flow Cytometry Interpretation Viability: 75% [...] specimen has been reviewed for quality control head purposes. There is marked left-shifted erythro-and myelopoiesis, which could be morphologically consistent with the reported Vit. B12 deficiency. Bone marrow histology is pending. 4 4:49 PM [facility] PATHOLOGY LAB Flow Cytometry Results Differential Result Comment Flow Cell Count /uL 22,600 Total Viability % 75.0 Lymphocytes % 25 Dim CD45 Region % 63 Monocytes % 3 Granulocytes % 10 4 4:49 PM T [facility] PATHOLOGY LAB Reason for test Anemia, unspecified 285.9 4 4:49 PM T [facility] PATH[facility] Client Specimen ID # [id number] 4 4:49 PM [facility] Number of markers 19 were performed. A-2 Flow CD10 A-3 Flow CD13 A-5 Flow CD20 A-16 Flow CD2 A-18 Flow CD14 A-21 Flow CD117 A-22 Flow CD11b A-23 Flow CD11c A-1 Flow CD5 A-4 Flow CD19 A-6 Flow CD33 A-7 Flow CD34 A-8 Flow CD45 A-17 Flow CD7 A-19 Flow CD56 A-20 Flow CD64 A-9 [place]+CD19+ A-10 Lambda+CD19+ A-24 Flow HLA-DR 4 4:49 PM CDT [facility] PATH[facility] Pathologist Location at [facility] 4 4:49 PM CDT [facility] PATH[facility] Disclaimer Test performed at [facility], [address] [place], [place], [address]. *The established laboratory minimum viability is 70%. [...] complexity clinical testing. 4 4:49 PM CDT [facility] Embedded Images 4:49 PM CDT [facility] Pathology/Cytolo gy BONE MARROW SPECIMEN / Unknown 06/14/2024 10:35 AM CDT 06/14/2024 2:23 PM CDT Gordy Mims MD LAB - PATHO LOGY/CYTOLOGY ORDERABLES [facility] PATH[facility] [address] [place] [address], [facility] [phone] documented in this encounter Visit Diagnoses Diagnosis Anemia, unspecified documented in this encounter
--- OUTSIDE RECORDS SUMMARY | 2024-10-29 00:33 | XMS_ITS | Patient Health Summary ---
Author Organization [email or web address] Address [address] [place] [address] Care Team Providers Care Tracer Clerk Name Role Phone Unavailable Primary Care Provider Unavailabl e Note from [facility] [place],non-owned Affiliates and Associated Physician Practices is amultiple site organization consisting of ambulatory clinics and hospital sitesin [place], [place], [place] and [place]. This disclosure is being madepursuant to the Care Everywhere program and may not contain all information available regarding this patient. Last updated 18.[email or web address] Allergies * Penicillins Social History Tobacco Use [...] Comments Blood Pressure 132/92 08/18/2017 3:04 PM MOTION PICTURE NARRATOR Pulse 76 08/18/2017 3:04 PM MOTION PICTURE NARRATOR Temperature 36.2 C (97.1 F) 08/18/2017 3:04 PM MOTION PICTURE NARRATOR Respiratory Rate - - Oxygen Saturation 98% 08/18/2017 3:04 PM MOTION PICTURE NARRATOR Inhaled Oxygen Concentration - - Weight 81.4 kg (179 lb 6.4 oz) 08/18/2017 3:04 P M MOTION PICTURE NARRATOR Height - - Body Mass Index - [...] AM CDT) Case Report Flow Cytometry Case: [id number] Authorizing Provider: Gordy Mims Collected: 06/14/2024 10:35 AM MD Ramsey Ordering Location: [facility] - Received: 06/14/2024 02:23 PM Pathology [...] specimen has been reviewed for quality control lab technician purposes. There is marked left-shifted erythro-and myelopoiesis, [...] A-19 Flow CD56 A-20 Flow CD64 A-9 [place]+CD19+ A-10 [place]+CD19+ A-24 Flow HLA-DR 4 4:49 PM CDT U PATHOLOGY LAB Pathologist Location at [facility] 4 4:49 PM CDT [facility] Disclaimer Test performed at [facility], [address] [place] [address], [facility]. *The established laboratory minimum viability is [...] complexity clinical testing. 4 4:49 PM T [facility] Embedded Images 4:49 PM T U PATHOLOGY LAB Pathology/Cytolo gy BONE MARROW SPECIMEN / Unknown 06/14/2024 10:35 AM CDT 06/14/2024 2:23 PM CDT Gordy Mims MD LAB - PATHO LOGY/CYTOLOGY ORDERABLES [facility] [address] [place], [place] [address] [phone] * BONE MARROW BIOPSY (STL) (06/14/2024 10:35 AM CDT) Case Report Bone Marrow Patholog y Report Case: [id number] Authorizing Provider: Devmay Gordy Collected: 06/14/2024 10:35 AM MD Ramsey Ordering Location: [facility] - Received: 06/15/2024 02:11 PM Pathology Lab Pathologist: Ginger Rogers MD Specimens: A) - Bone Marrow Clot B) - Bone Marrow Core 06/19/2024 6:43 PM [facility] Final Diagnosis Bone marrow, iliac crest, core biopsy, clot section, and aspirate: - Hypercellular bone marrow (90% cellular) with marked erythroid hyperplasia/immaturity , minimal erythroid dyspoiesis, and 34% ring sideroblasts (see comment) - Mildly increased reticulin fibrosis (MF-1) - Adequate iron stores 06/19/2024 6:43 PM [facility] Comment The patient is [...] time interval is recommended. 06/19/2024 6:43 PM [facility] Peripheral Smear Description The patient's CBC performed on 06/12/2024 showed a white count of 1100/mcL, hemoglobin 4.6 g/dL, hematocrit 12.9%, MCV 109.3 fL, and a platelet count of 88,000/mcL. The white cell differential showed 40% neutrophils, 45% lymphocytes, 10% monocytes, and 5% eosinophils. A peripheral blood smear is not provided for review. 06/19/2024 6:43 PM [facility] Bone Marrow Aspirate Differential [...] of the erythroid progenitors. 06/19/2024 6:43 PM [facility] Bone Marrow Core Biopsy [...] similar to core biopsy. 06/19/2024 6:43 PM [facility] Flow Cytometry Summary Flow cytometry showed marked nonspecific binding with left shifted myeloid population and no clonal B-cell population ([id number]). 06/19/2024 6:43 PM [facility] Clinical History Anemia, B12 and iron deficiency 06/19/2024 6:43 PM [facility] Materials Received Received are 18 slide(s) labeled [id number] and 3 blocks labeled [id number] along with a copy of the outside pathology report. [place] [address] . All original materials are returned to the referring institution, along with a copy of our final report. 06/19/2024 6:43 PM [facility] Microscopic Description Immunohistochemistry and [...] increase in reticulin fibrosis. 06/19/2024 6:43 PM [facility] Pathologist Location at [facility] 06/19/2024 6:43 PM [facility] Disclaimer The performance characteristics of all immunohistochemical and indirect immunofluorescence stains (if any) cited in this report were determined by the Histopathology Laboratory of [facility]. Some of these tests were developed by [...] the attending (teaching) pathologist. 06/19/2024 6:43 PM [facility] Embedded Images 06/19/2024 6:43 PM [facility] Pathology/Cytology BONE MARROW SPECIMEN / Unknown 06/14/2024 10:35 AM CDT 06/15/2024 2:11 PM CDT Miscellaneous samples (specimen) BONE MARROW SPECIMEN / Unknown 06/14/2024 10:35 AM CDT 06/15/2024 2:11 PM CDT Gordy Mims MD LAB - PATHO LOGY/CYTOLOGY ORDERABLES [facility] [address] [place] [address], [facility] [phone] * XR FINGERS LEFT 2VW OR MORE (08/18/2017 4:26 PM MOTION PICTURE NARRATOR) Anatomical Region Laterality Modality Upper Extremity, Wrist / Hand Ot her Impressions 08/19/2017 8:14 AM MOTION PICTURE NARRATOR Impression: No acute osseous abnormality. This report was electronically signed by RYAN DIAS MD on 08/19/2017 8:14 AM . Narrative 08/19/2017 8:14 AM MOTION PICTURE NARRATOR Exam: Left second finger 3 views History: [...] * URIC ACID BLOOD (08/18/2017 4:26 PM MOTION PICTURE NARRATOR) Uric Acid 3.4 2.6 - 7.2 mg/dL [facility] Blood specimen (specimen) BLOOD SPECIMEN / Unknown 08/18/2017 4:26 PM MOTION PICTURE NARRATOR 08/18/2017 5:01 PM MOTION PICTURE NARRATOR Raul Anderson PA-C LAB - CHEMISTRY [facility] [place] [address], [facility] [phone] * (ABNORMAL) C-REACTIVE PROTEIN (08/18/2017 4:26 PM MOTION PICTURE NARRATOR) [facility] C-Reactive Protein 0.8(H) <=0.5 mg/dL [facility] Blood specimen (specimen) BLOOD SPECIMEN / Unknown 08/18/2017 4:26 PM MOTION PICTURE NARRATOR 08/18/2017 5:01 PM MOTION PICTURE NARRATOR Raul Anderson PA-C LAB - CHEMISTRY TORY MCCARTY Performing Organization Address [facility]/ZIP Co de Phone Number [address] [phone] * (ABNORMAL) CBC W AUTO DIFFERENTIAL (08/18/2017 4:26 PM MOTION PICTURE NARRATOR) Only the most recent of2 resultswithin the time period is included. [facility] WBC 5.0 3.5 - 10.5 10 3/uL [facility] RBC 4.92 3.90 - 5.00 10 6/uL [facility] Hemoglobin 13.1 12.0 - 15.5 g/dL [facility] Hematocrit 40.5 35.0 - 45.0 % [facility] MCV 82.3 81.0 - 97.0 fL [facility] MCH 26.6(L) 28.0 - 34.0 pg [facility] MCHC 32.3 32.0 - 36.0 g/dL [facility] Platelet Count 216 150 - 400 10 3/uL [facility] RDW-SD 39.9 36.0 - 50.0 fL [facility] RDW-CV 13.2 11.2 - 14.8 % [facility] MPV 9.1(L) 9.3 - 12.8 fL [facility] nRBC Absolute 0.00 0 10 3/uL [facility] nRBC Auto 0.0 0 /100 WBC [facility] Neutrophils % 64.0 35.0 - 70.0 % [facility] Lymphocytes % 25.9 19.7 - 55.1 % [facility] Monocytes % 7.3 3.0 - 15.0 % [facility] Eosinophils % 2.4 0.0 - 6.0 % [facility] Basophil % 0.4 0.0 - 1.5 % [facility] Neutrophils Absolute 3.2 1.6 - 7.0 10 3/uL [facility] Lymphocyte Absolute 1.3 0.8 - 2.9 10 3/uL [facility] Monocytes Absolute 0.36 0.14 - 0.66 10 3/uL [facility] Eosinophils Absolute 0.12 0.00 - 0.22 10 3/uL [facility] Basophils Absolute 0.02 0.00 - 0.06 10 3/uL [facility] Immature Granulocytes % 0.2 0.0 - 1.0 % [facility] Blood specimen (specimen) BLOOD SPECIMEN / Unknown 08/18/2017 4:26 PM MOTION PICTURE NARRATOR 08/18/2017 5:01 PM MOTION PICTURE NARRATOR Raul Anderson PA-C LAB - HEMATOLOGY ORD ERABLES [address] [phone] * PATHOLOGY TISSUE FOR DERMATOLOGY (12/07/2016 12:00 AM CDT) Result CASE: [id number] PATIENT: MALORIE CRUZ PATHOLOGIC DIAGNOSIS: Right conchal bowl: INTRADERMAL MELANOCYTIC NEVUS CLINICAL DATA: Cyst vs R/O BCC. GROSS DESCRIPTION: Received is one formalin filled container labeled with the patients name and designated right conchal bowl. The specimen consists of a shave biopsy measuring [id number]. Jar 0. MICROSCOPIC DESCRIPTION: There are nests of melanocytes within the dermis that mature with depth. Electronically signed out by Tory Hammonds M.D. 12/09/2016 11:35:05AM [facility] Comment: Performed at: Dermatopathology Laboratory [facility] - Department of Dermatology [address] [place] [address], 5th [place] [address] Phone number: [phone] FAX: [phone] Skin (tissue) specimen (specimen) 12/07/2016 12/08/2016 Narrative [facility] - 12/09/2016 11:36 AM CDT Specimen A: Type->Shave Site->R conchal bowl History->3 mm dome shaped pearly papule with central indentation and telangiectasias Impression->cyst vs r/o BCC Check Margins:->N/A Prior Biopsy->N/A Oly Michaels MD LAB - PATHOLOGY/CY TOLOGY ORDERABLES [facility] [address] [place] [address]. 5[address] Floor Lab [address] [phone] * STREP A CULTURE - POINT OF CARE (AMB) [facility] (11/30/2011 11:50 AM CDT) Strep A Antigen positive [facility] Throat swab (specimen) 11/30/2011 11:50 AM CDT Edwin Aguilera MD LAB - POINT OF CARE ORDERABLES [facility]
--- OUTSIDE RECORDS SUMMARY | 2024-10-29 00:34 | XMS_ITS | Encounter Summary ---
Author Organization [facility] Address [address] [place] [address] Care Team Providers Care Dusting And Brushing Machine Operator Name Role Phone Unavailable Primary Care Provider Unavailabl e Encounter Details Date Type Department Care Team (Late st Contact Info) Description 06/15/2024 Lab Requisition [facility] - Pathology Lab [address] [place] [phone] Gordy Mims MD [address] [place] [id number] Illness, unspecified Social History Tobacco Use Types [...] Report Bone Marrow Patholog y Report Case: [id number] Authorizing Provider: Gordy Mims Collected: 06/14/2024 10:35 AM MD Ramsey Ordering Location: [facility] - Received: 06/15/2024 02:11 PM Pathology Lab Pathologist: Ginger Rogers MD Specimens: A) - Bone Marrow Clot B) - Bone Marrow Core 06/19/2024 6:43 PM [facility] PATH[facility] Final Diagnosis Bone marrow, iliac crest, core biopsy, clot section, and aspirate: - Hypercellular bone marrow (90% cellular) with marked erythroid hyperplasia/immaturity , minimal erythroid dyspoiesis, and 34% ring sideroblasts (see comment) - Mildly increased reticulin fibrosis (MF-1) - Adequate iron stores 06/19/2024 6:43 PM [facility] PATH[facility] Comment The patient is [...] time interval is recommended. 06/19/2024 6:43 PM [facility] Peripheral Smear Description The patient's CBC performed on 06/12/2024 showed a white count of 1100/mcL, hemoglobin 4.6 g/dL, hematocrit 12.9%, MCV 109.3 fL, and a platelet count of 88,000/mcL. The white cell differential showed 40% neutrophils, 45% lymphocytes, 10% monocytes, and 5% eosinophils. A peripheral blood smear is not provided for review. 06/19/2024 6:43 PM [facility] Bone Marrow Aspirate Differential [...] of the erythroid progenitors. 06/19/2024 6:43 PM [facility] Bone Marrow Core Biopsy [...] similar to core biopsy. 06/19/2024 6:43 PM [facility] Flow Cytometry Summary Flow cytometry showed marked nonspecific binding with left shifted myeloid population and no clonal B-cell population ([id number]). 06/19/2024 6:43 PM [facility] Clinical History Anemia, B12 and iron deficiency 06/19/2024 6:43 PM [facility] Materials Received Received are 18 slide(s) labeled [id number] and 3 blocks labeled [id number] along with a copy of the outside pathology report. [place] [address] . All original materials are returned to the referring institution, along with a copy of our final report. 06/19/2024 6:43 PM [facility] Microscopic Description Immunohistochemistry and [...] increase in reticulin fibrosis. 06/19/2024 6:43 PM [facility] Pathologist Location at [facility] 06/19/2024 6:43 PM [facility] Disclaimer The performance characteristics of all immunohistochemical and indirect immunofluorescence stains (if any) cited in this report were determined by the Histopathology Laboratory of [facility]. Some of these tests were developed [...] the attending (teaching) pathologist. 06/19/2024 6:43 PM [facility] Embedded Images 06/19/2024 6:43 PM [facility] Pathology/Cytology BONE MARROW SPECIMEN / Unknown 06/14/2024 10:35 AM CDT 06/15/2024 2:11 PM CDT Miscellaneous samples (specimen) BONE MARROW SPECIMEN / Unknown 06/14/2024 10:35 AM CDT 06/15/2024 2:11 PM CDT Gordy Mims MD LAB - PATHO LOGY/CYTOLOGY ORDERABLES [facility] LAB [address] [place] [address], [facility] [phone] documented in this encounter Visit Diagnoses Diagnosis Illness, unspecified documented in this encounter
--- OUTSIDE RECORDS SUMMARY | 2024-10-29 00:34 | XMS_ITS | Clinical Summary ---
Author Organization [facility] Address [address] [place] [address] Care Team Providers Care Returns Processor Name Role Phone Bg Erickson MD Primary Care Provider Allergies Active Allergy Reactions Criticality Noted Date Comments Penicillins Rash Low 06/27/2024 Medications cyanocobalamin (VITAMIN B-12) 1,000 mcg/mL SolutionIndica tions:Chronic anemia Inject 1 mL (1,000 mcg) by intramuscular injection one time only for 1 dose due 07/22/24. 10 mL 1 07/26/20 Active Syringe with Needle, Disp, (BD SafetyGlide Splitter Operator Tray) 1 mL 27 x 1/2 SyringeIndicat ions:Chronic anemia USE WITH B12 INJECTIONS. 6 Each 10/26/19 Active Syringe with Needle, Disp, 1 mL 27 x 1/2 SyringeIndicat ions:Chronic anemia Use with B12 injections. 6 Each 1 07/26/20 24 2024 Discontinued Active Problems No known active problems Encounters Date Type Department Care Team Description 10/24/2024 Refill [facility] Oncology and Hematology - [place] [address] [place] [address] Maldonado Walker MD Chronic anemia 10/23/2024 External Device Data STL ABSTRACTION Provider, Abstract 10/23/2024 External Device Data STL ABSTRACTION Provider, Abstract 10/20/2024 External Device Data STL ABSTRACTION Provider, Abstract 10/19/2024 External Device Data STL ABSTRACTION Provider, Abstract 10/16/2024 External Device Data STL ABSTRACTION Provider, Abstract 10/02/2024 External Device Data STL ABSTRACTION Provider, Abstract 09/27/2024 2:00 PM AIR ANALYST Office Visit [facility] Oncology and Hematology - Yahir Fabiana [address] [place] [phone] Maldonado Walker MD Chronic anemia (Primary Dx) 09/25/2024 External Device Data STL ABSTRACTION Provider, Abstract 09/06/2024 External Device Data STL ABSTRACTION Provider, Abstract 09/05/2024 External Device Data STL ABSTRACTION Provider, Abstract 09/04/2024 External Device Data STL ABSTRACTION Provider, Abstract 08/28/2024 External Device Data STL ABSTRACTION Provider, Abstract from Last 3 Months Family History Medical [...] Sign Reading Time Taken Comments Blood Pressure 134/83 09/27/2024 2:08 PM AIR ANALYST Pulse 73 09/27/2024 2:08 PM AIR ANALYST Temperature 35.9 C (96.6 F) 09/27/2024 2:08 PM AIR ANALYST Respiratory Rate 15 09/27/2024 2:08 PM AIR ANALYST Oxygen Saturation 98% 09/27/2024 2:08 PM AIR ANALYST Inhaled Oxygen Concentration - - Weight 74.6 kg (164 lb 6.4 oz) 09/27/2024 2:08 P M AIR ANALYST Height 167.6 cm (5' 6 ) 06/27/2024 2:54 PM AIR ANALYST Body Mass Index 26.53 06/27/2024 2:54 PM AIR ANALYST Plan of Treatment Upcoming Encounters Date Type Department Care Team (Late st Contact Info) Description 12/31/2024 2:45 PM CDT Office Visit [facility] Oncology and Hematology [facility] [address] [facility] [facility] [address] [place] [address] Maldonado Walker MD [address] [facility] [address] [place] [address] Health Maintenance Due Date Last [...] VACCINE (#1) 2024 Preventative Visit- Commercial 08/15/2024 Insurance OPEN ACCESS O Care Teams Returns Processor Relationship Specialty Start Date End Date Bg Erickson MD [address] [place] [phone] PCP - General Family Practice 06/14/24
[2024-10-29 09:33] VITALS: BP 146/78; PULSE 72; RESP 16; TEMP 36.6; BMI 25.0
--- NOTE | 2024-10-29 09:38 | PM.IMHP ---
H&P: HPI History of Present Illness Date/Time: 10/29/24 09:38 Chief Complaint: Screening colonoscopy Narrative: This is the patient's first colonoscopy after 10 years. At that time she was being investigated for anemia, but currently she has a diagnosis of pernicious anemia.. There are no GI symptoms and there is no family history of colorectal cancer. Review of Systems Review of Systems: All systems reviewed & are unremarkable except as noted in HPI and below PMFSH Past Medical History Medical History (Updated 10/29/24 @ 09:39 by Minh Gavin MD) Macrocytic anemia Ovarian cyst Hematuria Vitamin B12 deficiency (05/2013) Iron deficiency (05/2013) Gastric polyp (12/2013) Surgical History Surgical History History of colonoscopy (12/2013) unremarkable History of esophagogastroduodenoscopy (12/2013) benign gastric polyp Family History Family History Father Family history of colitis Family history of arthritis Grandparent Family history of chronic obstructive pulmonary disease Family history of Alzheimer's disease Family history of emphysema Family history of heart disease in male family member before age 55 Diabetes mellitus Other Family history of congestive heart failure Hypertension Social History Social History Social History: Surrogate medical decision maker: Balaji Cruz, spouse Code status: Full code. Smoking status: Never smoker Alcohol intake: current Drinks per week: 6 Substance use: never Substance use type: does not use Do You Feel Safe in your Home?: Yes Lack of Transportation: No Lack of Food: Never True Current Housing: I Have Housing Concerned About Future Housing: No Difficulty Paying Gas/Electric Bills: No Difficulty Paying for Meds: No Currently Unemployed: No Education: Master's Degree or Higher Difficulty w/ Childcare or Family Care: No Spiritual care concerns: No Meds Home Medications and Allergies Home Medications ?Medication ?Instructions ?Recorded ?Confirmed ?Type cyanocobalamin (vitamin B-12) 1,000 mcg IM WEEKLY 10/17/24 10/29/24 History 1,000 mcg/mL injection solution Allergies Allergy/AdvReac Type Severity Reaction Status Date / Time Penicillins Allergy Unknown Rash Verified 10/29/24 09:32 Vital Signs Vital Signs - 24 hr 10/29/24 09:33 Temperature 97.8 F Pulse Rate 72 Respiratory Rate 16 Blood Pressure 146/78 H Exam Const: General: cooperative and healthy appearing Resp: Effort & Inspection: normal respiratory effort and able to speak in complete sentences Auscultation: clear to auscultation bilaterally Cardio: Rate: regular rate Rhythm: regular rhythm GI: Inspection: normal to inspection GI Palp: No No hepatosplenomegaly present Auscultation: normal bowel sounds Rectal Exam: deferred Skin: General skin exam: normal color Psych: Appearance: grossly normal Mental Status: mental status grossly normal Assessment and Plan Assessment and plan (1) Encounter for screening colonoscopy: Code(s): Z12.11 - Encounter for screening for malignant neoplasm of colon Status: Acute Assessment and Plan: The patient is deemed a good candidate for the procedure. Consent signed. Will proceed.
--- NOTE | 2024-10-29 09:39 | P.PNAN_ITS ---
Anes - Initial Pre Proc Eval Procedure: Operation Date: 10/29/24 10:30 Proposed Procedures p Screening Colonoscopy - Minh Gavin MD Date/Time: 10/29/24 09:39 Surgeon: Minh Gavin MD Pre Op Diagnosis: screening for malignant neoplasm of colon Patient Data Age: 49 Gender: F Height: 1.7 m Weight: 72.4 kg Last Vital Signs Temp 36.6 C 10/29/24 09:33 Pulse 72 10/29/24 09:33 Resp 16 10/29/24 09:33 BP 146/78 H 10/29/24 09:33 Allergies Allergy/AdvReac Type Severity Reaction Status Date / Time Penicillins Allergy Unknown Rash Verified 10/29/24 09:32 Home Medications ?Medication ?Instructions ?Recorded ?Confirmed ?Type cyanocobalamin (vitamin B-12) 1,000 mcg IM WEEKLY 10/17/24 10/29/24 History 1,000 mcg/mL injection solution Patient hx anesthesia problems: none Family hx anesthesia problems: none Results Review: All pre-operative results and documents have been reviewed as part of the pre-operative evaluation. FORMERLY [facility], [facility] Past Medical History Medical History Macrocytic anemia Ovarian cyst Hematuria Vitamin B12 deficiency (05/2013) Iron deficiency (05/2013) Gastric polyp (12/2013) Surgical History Surgical History History of colonoscopy (12/2013) unremarkable History of esophagogastroduodenoscopy (12/2013) benign gastric polyp Family History Family History Father Family history of colitis Family history of arthritis Grandparent Family history of chronic obstructive pulmonary disease Family history of Alzheimer's disease Family history of emphysema Family history of heart disease in male family member before age 55 Diabetes mellitus Other Family history of congestive heart failure Hypertension Social History Social History Social History: Surrogate medical decision maker: Balaji Cruz, spouse Code status: Full code. Smoking status: Never smoker Alcohol intake: current Drinks per week: 6 Substance use: never Substance use type: does not use Do You Feel Safe in your Home?: Yes Lack of Transportation: No Lack of Food: Never True Current Housing: I Have Housing Concerned About Future Housing: No Difficulty Paying Gas/Electric Bills: No Difficulty Paying for Meds: No Currently Unemployed: No Education: Master's Degree or Higher Difficulty w/ Childcare or Family Care: No Spiritual care concerns: No Anes - Eval Final PreProcedure Day of Procedure 10/29/24 09:39 Patient weight: normal Heart: regular rate and rhythm Lungs: clear to auscultation Airway: Mallampati scale class II Neurological: alert and oriented Last oral intake: >/= 8 hours ASA classification: II Emergent: no Anesthetic plan: proceed Anesthesia type and monitoring: general GIVS and standard monitoring Results Review: All pre-operative results and documents have been reviewed as part of the pre- operative evaluation. Informed Consent: The patient's anesthetic plan and its attendant risks and benefits were discussed with the patient/family/POA. Questions were solicited and answers provided to the satisfaction of the patient/family/POA.
[2024-10-29] MEDS: LACTATED RINGERS 1,000 ML 150 ML IV CONT (09:42)
[2024-10-29] MEDS: SIMETHICONE ORAL SUSPENSION 20 MG/0.3 ML 30 ML BOTTLE 0.6 ML IRRIGATION (09:53)
[2024-10-29 10:01] VITALS: BP 129/83; PULSE 73; RESP 16; O2SAT 99
[2024-10-29 10:11] VITALS: BP 138/88; PULSE 70; RESP 21; O2SAT 100
[2024-10-29 10:21] VITALS: BP 148/86; PULSE 63; RESP 17; O2SAT 100
== END 2024-10-29 10:30 | disposition home or self-care (01) ==
PROVIDERS: PCP Family Medicine; Referring Provider Family Medicine; Visit Provider Internal Medicine Gastroenterology
PROC: 0DJD8ZZ Inspection of Lower Intestinal Tract, Via Natural or Artificial Opening Endoscopic (ICD-10-PCS; CPT 45378; principal; 2024-10-29 10:30)
DX: Z12.11 Encounter for screening for malignant neoplasm of colon (principal); D51.0 Vitamin B12 deficiency anemia due to intrinsic factor deficiency; E61.1 Iron deficiency; D53.9 Nutritional anemia, unspecified; Z98.890 Other specified postprocedural states; Z86.0100 Personal history of colon polyps, unspecified; Z82.49 Family history of ischemic heart disease and other diseases of the circulatory system
CPT/HCPCS: 45378; J2704; J7120

== ENCOUNTER 2025-03-29 11:01 | Outpatient (CLI) | payer OTHER, SELFPAY ==
--- OUTSIDE RECORDS SUMMARY | 2025-03-29 11:04 | XMS_ITS | Encounter Summary ---
Author Organization [facility] Address [address] [place] [address] Care Team Providers Care Wood Buffer Name Role Phone Unavailable Primary Care Provider Unavailabl e Encounter Details Date Type Department Care Team (Late st Contact Info) Description 06/14/2024 Lab Requisition [facility] - Pathology Lab [address] [place] [phone] Gordy Mims MD [address] [place] [address] Anemia, unspecified Social History Tobacco Use Types Packs/Day Years Used Date Smoking Tobacco: Never Smokeless Tobacco: Never Alcohol Use Standard Drinks/Week Comments Yes 0 (1 standard drink = 0.6 oz pur e alcohol) Comments Unknown Sex and Gender Information Value Date Recorded Sex Assigned at Not on file Legal Sex 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 Gender Identity Not on file Sexual Orientation [...] AM CDT) Case Report Flow Cytometry Case: [id number] Authorizing Provider: Gordy Mims Collected: 06/14/2024 10:35 AM MD [place] Ordering Location: [facility] - Received: 06/14/2024 02:23 PM Pathology Lab Pathologist: Halina Caruso MD Specimen: Bone Marrow, Right Hip 4:49 PM CDT [facility] Final Diagnosis Bone marrow, flow cytometry: - Marked non-specific binding with left-shifted myeloid population detected (see comment) - No clonal B-cell population identified 4:49 PM CDT [facility] PATH[facility] at 1649 CDT Flow Cytometry Interpretation Viability: 75% B-cells: polytypic, [...] flow cytometry specimen has been reviewed for ethanol quality leader purposes. There is marked left-shifted erythro-and myelopoiesis, which could be morphologically consistent with the reported Vit. B12 deficiency. Bone marrow histology is pending. 4:49 PM T [facility] Flow Cytometry Results Differential Result Comment Flow Cell Count /uL 22,600 Total Viability % 75.0 Lymphocytes % 25 Dim CD45 Region % 63 Monocytes % 3 Granulocytes % 10 4 4:49 PM CDT [facility] Reason for test Anemia, unspecified 285.9 4 4:49 PM CDT [facility] Client Specimen ID # [id number] 4 4:49 PM [facility] Number of markers 19 were performed. A-2 Flow CD10 A-3 Flow CD13 A-5 Flow CD20 A-16 Flow CD2 A-18 Flow CD14 A-21 Flow CD117 A-22 Flow CD11b A-23 Flow CD11c A-1 Flow CD5 A-4 Flow CD19 A-6 Flow CD33 A-7 Flow CD34 A-8 Flow CD45 A-17 Flow CD7 A-19 Flow CD56 A-20 Flow CD64 A-9 [place]+CD19+ A-10 Lambda+CD19+ A-24 Flow HLA-DR 10/31/202 4 4:49 PM CDT [facility] Pathologist Location at [facility] 4 4:49 PM CDT [facility] Disclaimer Test performed at [facility], [address] [place], [place], [address]. *The established laboratory minimum viability is 70%. [...] complexity clinical testing. 4 4:49 PM CDT [facility] PATHOLOGY LAB Embedded Images 4 4:49 PM CDT [facility] Pathology/Cytolo gy BONE MARROW SPECIMEN / Unknown 06/14/2024 10:35 AM CDT 06/14/2024 2:23 PM CDT Gordy Mims MD LAB - PATHOLOGY/CYT OLOGY ORDERABLES Final Result [facility] [address] [place] [address], [facility] [phone] documented in this encounter Visit Diagnoses Diagnosis Anemia, unspecified documented in this encounter
--- OUTSIDE RECORDS SUMMARY | 2025-03-29 11:04 | XMS_ITS | Clinical Summary ---
Author Organization [facility] Address [address] [place] [address] Care Team Providers Care Route Sales Person Name Role Phone Unavailable Primary Care Provider Unavailabl e Source Comments [facility],non-owned Affiliates and Associated Physician Practices is amultiple site organization consisting of ambulatory clinics and hospital sitesin [place], [place], [place] and [place]. This disclosure is being madepursuant to the Care Everywhere program and may not contain all information available regarding this patient. Last updated 18.[facility] Allergies Active Allergy Reactions Criticality Noted Date [...] on file Legal Sex Female 5:40 PM LIST OF FIRST JOB IDEAS Gender Identity Not on file Sexual Orientation Not on file Last Filed Vital Signs Vital Sign Reading Time Taken Comments Blood Pressure 132/92 08/18/2017 3:04 PM LIST OF FIRST JOB IDEAS Pulse 76 08/18/2017 3:04 PM LIST OF [employer] JOB IDEAS Temperature 36.2 C (97.1 F) 08/18/2017 3:04 PM LIST OF FIRST JOB IDEAS Respiratory Rate - - Oxygen Saturation 98% 08/18/2017 3:04 PM LIST OF FIRST JOB IDEAS Inhaled Oxygen Concentration - - Weight 81.4 kg (179 lb 6.4 oz) 08/18/2017 3:04 P M LIST OF FIRST JOB IDEAS Height - - Body Mass Index - - Plan of Treatment Health Maintenance Due Date Last Done Comments COLMACHO (AGES 45-75) - COL ON CA SCREENING 1973 COLON MONITORING 1973 COLONOSCOPY - COLON CA SCREENING 1973 CT COLONOGRAPHY - COLON CA SCREENING 1973 Colorectal Cancer Screening 1973 FIT - COLON CA SCREENING 1973 FLEX SIG - COLON CA SCREENING 1973 LIPID TESTING 1973 MAMMOGRAM 1973 HIV SCREENING 1988 HEPATITIS C SCREENING 05/09/1991 DTAP/TDAP/TD VACCINES (1 - Tdap) 1992 HEPATITIS B VACCINE (1 of 3 - 19+ 3-dose series) 1992 PAP SMEAR 1994 PNEUMOCOCCAL VACCINE 50+ (1 of 1 - PCV) 2023 ZOSTER VACCINE (1 of 2) 2023 COVID-19 VACCINE (1 - 2023-2 5 season) 2024 DEPRESSION SCREENING 08/15/2024 INFLUENZA VACCINE (#1) 2025 HIB VACCINE Aged Out No longer eligi [...]
--- OUTSIDE RECORDS SUMMARY | 2025-03-29 11:05 | XMS_ITS | Encounter Summary ---
Author Organization [facility] Address [address] [place] [address] Care Team Providers Care Entry Clerk Name Role Phone Unavailable Primary Care Provider Unavailabl e Encounter Details Date Type Department Care Team (Late st Contact Info) Description 06/15/2024 Lab Requisition [facility] - Pathology Lab [address] [place] [phone] Gordy Mims MD [address] [place] [address] Illness, unspecified Social History Tobacco Use Types Packs/Day Years Used Date Smoking Tobacco: Never Smokeless Tobacco: Never Alcohol Use Standard Drinks/Week Comments Yes 0 (1 standard drink = 0.6 oz pur e alcohol) Comments Unknown Sex and Gender Information Value Date Recorded Sex Assigned at Not on file Legal Sex Female 5:40 PM DIRECTOR OF PERIOPERATIVE SERVICES Gender Identity Not on file Sexual Orientation [...] Report Bone Marrow Patholog y Report Case: [id number] Authorizing Provider: Gordy Mims Collected: 06/14/2024 10:35 AM MD [place] Ordering Location: [facility] - Received: 06/15/2024 02:11 PM Pathology Lab Pathologist: Ginger Rogers MD Specimens: A) - Bone Marrow Clot B) - Bone Marrow Core 06/19/2024 6:[address] [facility] Final Diagnosis Bone marrow, iliac crest, core biopsy, clot section, and aspirate: - Hypercellular bone marrow (90% cellular) with marked erythroid hyperplasia/immaturity , minimal erythroid dyspoiesis, and 34% ring sideroblasts (see comment) - Mildly increased reticulin fibrosis (MF-1) - Adequate iron stores 06/19/2024 6:[address] [facility] PATH[facility] at 1843 DIRECTOR OF PERIOPERATIVE SERVICES AP Comment The patient is a 49-year-old woman [...] time interval is recommended. 06/19/2024 6:[address] [facility] Peripheral Smear Description The patient's CBC performed on 06/12/2024 showed a white count of 1100/mcL, hemoglobin 4.6 g/dL, hematocrit 12.9%, MCV 109.3 fL, and a platelet count of 88,000/mcL. The white cell differential showed 40% neutrophils, 45% lymphocytes, 10% monocytes, and 5% eosinophils. A peripheral blood smear is not provided for review. 06/19/2024 6:[address] [facility] Bone Marrow Aspirate Differential count [...] of the erythroid progenitors. 06/19/2024 6:[address] [facility] Bone Marrow Core Biopsy and [...] similar to core biopsy. 06/19/2024 6:[address] [facility] Flow Cytometry Summary Flow cytometry showed marked nonspecific binding with left shifted myeloid population and no clonal B-cell population ([id number]). 06/19/2024 6:[address] [facility] Clinical History Anemia, B12 and iron deficiency 06/19/2024 6:[address] [facility] Materials Received Received are 18 slide(s) labeled [id number] and 3 blocks labeled [id number] along with a copy of the outside pathology report. [place] [address] . All original materials are returned to the referring institution, along with a copy of our final report. 06/19/2024 6:[address] [facility] Microscopic Description Immunohistochemistry and special [...] increase in reticulin fibrosis. 06/19/2024 6:[address] [facility] Pathologist Location at [facility] 06/19/2024 6:[address] [facility] Disclaimer The performance characteristics of all immunohistochemical and indirect immunofluorescence stains (if any) cited in this report were determined by the Histopathology Laboratory of [facility]. Some of these tests were developed [...] the attending (teaching) pathologist. 06/19/2024 6:[address] [facility] Embedded Images 06/19/2024 6:[address] [facility] Pathology/Cytology BONE MARROW SPECIMEN / Unknown 06/14/2024 10:35 AM CDT 06/15/2024 2:11 PM CDT Miscellaneous samples (specimen) BONE MARROW SPECIMEN / Unknown 06/14/2024 10:35 AM CDT 06/15/2024 2:11 PM CDT Gordy Mims MD LAB - PATHOLOGY/CYT OLOGY ORDERABLES Final Result [facility] [address] [place] [address], [facility] [phone] documented in this encounter Visit Diagnoses Diagnosis Illness, unspecified documented in this encounter
--- OUTSIDE RECORDS SUMMARY | 2025-03-29 11:05 | XMS_ITS | Clinical Summary ---
Author Organization [facility] Address [address] [place] [address] Care Team Providers Care Home Housekeeper Name Role Phone Bg Erickson MD Primary Care Provider Allergies Active Allergy Reactions Criticality Noted Date Comments Penicillins Rash Low 06/27/2024 Medications cyanocobalamin (VITAMIN B-12) 1,000 mcg/mL SolutionIndicat ions:Chronic anemia Inject 1 mL (1,000 mcg) by intramuscular injection one time only for 1 dose due 07/22/24. 10 mL 1 4 Active Syringe with Needle, Disp, (BD SafetyGlide Install Technician Tray) 1 mL 27 x 1/2 SyringeIndicati ons:Chronic anemia USE WITH B12 INJECTIONS. 6 Each 5 Active Active Problems No known active problems Encounters Date Type Department Care Team Description 03/19/2025 External Device Data ST[facility] ABSTRACTION Provider, Abstract 02/27/2025 External Device Data ST[facility] ABSTRACTION Provider, Abstract 02/26/2025 External Device Data ST[facility] ABSTRACTION Provider, Abstract 01/29/2025 External Device Data STL ABSTRACTION Provider, Abstract 01/15/2025 External Device Data STL ABSTRACTION Provider, Abstract 01/03/2025 External Device Data STL ABSTRACTION Provider, Abstract 01/02/2025 External Device Data STL ABSTRACTION Provider, Abstract 01/01/2025 External Device Data STL ABSTRACTION Provider, Abstract [...] Comments Blood Pressure 134/83 09/27/2024 2:08 PM REPAIRER CYLINDER HEADS Pulse 73 09/27/2024 2:08 PM REPAIRER CYLINDER HEADS Temperature 35.9 C (96.6 F) 09/27/2024 2:08 PM REPAIRER CYLINDER HEADS Respiratory Rate 15 09/27/2024 2:08 PM REPAIRER CYLINDER HEADS Oxygen Saturation 98% 09/27/2024 2:08 PM REPAIRER CYLINDER HEADS Inhaled Oxygen Concentration - - Weight 74.6 kg (164 lb 6.4 oz) 09/27/2024 2:08 P M REPAIRER CYLINDER HEADS Height 167.6 cm (5' 6) 06/27/2024 2:54 PM REPAIRER CYLINDER HEADS Body Mass Index 26.53 06/27/2024 2:54 PM REPAIRER CYLINDER HEADS Plan of Treatment Upcoming Encounters Date Type Department Care Team (Late st Contact Info) Description 04/02/2025 2:30 PM CDT Office Visit [facility] Oncology and Hematology - [place] [address] [facility] [address] [place] [address] Maldonado Walker MD [address] [place] [address] Health Maintenance Due Date Last Done Comments Pre-Diabetes and Diabetes Screening 1973 DTAP/TDAP/TD VACCINES (1 - Tdap) 1992 HEPATITIS B VACCINES (1 of 3 - 19+ 3-dose series) 04/16 HPV/Cotest (21-29) 1994 CERVICAL CANCER SCREENING 2003 HPV/Cotest (30-65) 2003 PAP SMEAR 2003 BREAST CANCER SCREENING 2013 COLORECTAL SCREENING 2018 Colorectal Cancer Screening 2018 FIT-DNA Q 3 years 2018 FIT/FOBT Q 1 year 2018 Flex Sig/CT Colonography Q 5 years 2018 ZOSTER VACCINE (1 of 2) 2023 Preventative Visit- Commercial 08/15/2024 INFLUENZA VACCINE (#1) 2025 Insurance [facility] OPEN ACCESS HMO Care Teams Home Housekeeper Relationship Specialty Start Date End Date Bg Erickson MD [address] [place] [id number] PCP - General Family Practice 06/14/24
[2025-03-29 11:16] LABS: Hematocrit 42.0 % (37.0-47.0); Hemoglobin 14.2 g/dL (12.0-15.0); Immature Granulocyte Percent A 0.2 % (0-0.5); Lymphocytes Absolute Auto 1.10 K/mm3 (0.9-3.2); Mean Corpuscular HGB Conc 33.8 g/dl (32-36); Mean Corpuscular Hemoglobin 28.8 pg (26-34); Mean Corpuscular Volume 85.2 fl (80-100); Nucleated Red Blood Cells Absolute Auto 0.000 K/mm3 (0.0-0.012); Nucleated Red Blood Cells Perc 0.0 % (0.0-0.2); Platelet Count Result 179 k/mm3 (150-375); Red Blood Count 4.93 M/mm3 (4.2-5.4); White Blood Count 4.4 K/mm3 (4.5-10.0)
[2025-03-29 12:41] LABS: Alanine Aminotransferase 9 U/L (6-35); Albumin Level 4.5 g/dL (3.5-5.1); Alkaline Phosphatase 79 U/L (38-126); Anion Gap 7 mmol/L (4-12); Aspartate Amino Transferase 35 U/L (14-36); Bilirubin,Total 0.5 mg/dL (0.2-1.3); Blood Urea Nitrogen 15 mg/dL (7-17); Calcium 9.0 mg/dL (8.4-10.2); Carbon Dioxide 29 mmol/L (22-30); Chloride 102 mmol/L (98-107); Estimated Glomerular Filt Rate > 60; Glucose 93 mg/dL (65-110); Potassium 4.0 mmol/L (3.4-5.0); Sodium 138 mmol/L (137-145); Total Protein 7.1 g/dL (6.3-8.2)
[2025-03-29 13:54] LABS: Vitamin B12 827.0 pg/mL (239-931)
== END 2025-03-29 11:02 | disposition home or self-care (01) ==
LOC: ANHLAB 11:03
PROVIDERS: PCP Family Medicine; Visit Provider Internal Medicine Hematology & Oncology
DX: D64.9 Anemia, unspecified (principal)
CPT/HCPCS: 36415; 80053; 82607; 82746; 85025

== ENCOUNTER 2025-06-20 14:58 | Outpatient (CLI) | payer OTHER, SELFPAY ==
--- NOTE | ~2025-06-20 | MM_ITS ---
EXAMINATION: MM screening indra BI w jus HISTORY: Screening TECHNIQUE: Craniocaudal and mediolateral oblique 3-D tomosynthesis images were obtained and synthetic 2-D images were generated. CAD analysis was submitted and interpreted. COMPARISON: Baseline BREAST PARENCHYMAL COMPOSITION: There are scattered areas of fibroglandular density. FINDINGS: There is no evidence of suspicious mass, calcification, or architectural distortion to suggest malignancy in either breast. IMPRESSION: 1. No mammographic evidence of malignancy. 2. Recommend routine screening mammography in one year. BI-RADS Category 1: Negative Reviewed, dictated and finalized at location B. ENGINE OPERATOR
--- OUTSIDE RECORDS SUMMARY | 2025-06-20 20:43 | XMS_ITS | Encounter Summary ---
Author Organization [facility] Address [address] [place] [address] Care Team Providers Care Supervisor Food Checkers And Cashiers Name Role Phone Unavailable Primary Care Provider Unavailabl e Encounter Details Date Type Department Care Team (Late st Contact Info) Description 06/15/2024 Lab Requisition [facility] - Pathology Lab [address] [place] [phone] Gordy Mims MD [address] [place] [address] Illness, unspecified Social History Tobacco Use Types Packs/Day Years Used Date Smoking Tobacco: Never Smokeless Tobacco: Never Alcohol Use Standard Drinks/Week Comments Yes 0 (1 standard drink = 0.6 oz pur e alcohol) Comments Unknown Sex and Gender Information Value Date Recorded Sex Assigned at Not on file Legal Sex Female 5:40 PM SONAR TECHNICIAN Gender Identity Not on file Sexual Orientation [...] Report Bone Marrow Patholog y Report Case: [id number] Authorizing Provider: Gordy Mims Collected: 06/14/2024 10:35 AM MD [place] Ordering Location: [facility] - Received: 06/15/2024 02:11 PM Pathology Lab Pathologist: Ginger Rogers MD Specimens: A) - Bone Marrow Clot B) - Bone Marrow Core 06/19/2024 6:[address] [facility] Final Diagnosis Bone marrow, iliac crest, core biopsy, clot section, and aspirate: - Hypercellular bone marrow (90% cellular) with marked erythroid hyperplasia/immaturity , minimal erythroid dyspoiesis, and 34% ring sideroblasts (see comment) - Mildly increased reticulin fibrosis (MF-1) - Adequate iron stores 06/19/2024 6:[address] [facility] PATH[facility] at 1843 SONAR TECHNICIAN AP Comment The patient is a 49-year-old [...] interval is recommended. 06/19/2024 6:[address] [facility] Peripheral Smear Description The patient's CBC performed on 06/12/2024 showed a white count of 1100/mcL, hemoglobin 4.6 g/dL, hematocrit 12.9%, MCV 109.3 fL, and a platelet count of 88,000/mcL. The white cell differential showed 40% neutrophils, 45% lymphocytes, 10% monocytes, and 5% eosinophils. A peripheral blood smear is not provided for review. 06/19/2024 6:[address] [facility] Bone Marrow Aspirate Differential [...] the erythroid progenitors. 06/19/2024 6:[address] [facility] Bone Marrow Core Biopsy [...] to core biopsy. 06/19/2024 6:[address] [facility] Flow Cytometry Summary Flow cytometry showed marked nonspecific binding with left shifted myeloid population and no clonal B-cell population ([id number]). 06/19/2024 6:[address] [facility] Clinical History Anemia, B12 and iron deficiency 06/19/2024 6:[address] [facility] Materials Received Received are 18 slide(s) labeled [id number] and 3 blocks labeled [id number] along with a copy of the outside pathology report. [place] [address] . All original materials are returned to the referring institution, along with a copy of our final report. 06/19/2024 6:[address] [facility] Microscopic Description Immunohistochemistry and [...] in reticulin fibrosis. 06/19/2024 6:[address] [facility] Pathologist Location at [facility] 06/19/2024 6:[address] [facility] Disclaimer The performance characteristics of all immunohistochemical and indirect immunofluorescence stains (if any) cited in this report were determined by the Histopathology Laboratory of [facility]. Some of these tests were developed by [...] attending (teaching) pathologist. 06/19/2024 6:[address] [facility] Embedded Images 06/19/2024 6:[address] [facility] Pathology/Cytology BONE MARROW SPECIMEN / Unknown 06/14/2024 10:35 AM CDT 06/15/2024 2:11 PM CDT Miscellaneous samples (specimen) BONE MARROW SPECIMEN / Unknown 06/14/2024 10:35 AM CDT 06/15/2024 2:11 PM CDT Gordy Mims MD LAB - PATHOLOGY/CYT OLOGY ORDERABLES Final Result [facility] [address] [place] [place] [address], [facility] [phone] documented in this encounter Visit Diagnoses Diagnosis Illness, unspecified documented in this encounter
--- OUTSIDE RECORDS SUMMARY | 2025-06-20 20:43 | XMS_ITS | Clinical Summary ---
Author Organization [facility] Jessy clarke Fabiana Address [address] [place] [address] Care Team Providers Care Speech And Language Assistant Name Role Phone Bg Erickson MD Primary Care Provider Allergies Active Allergy Reactions Criticality Noted Date Comments Penicillins Rash Low 06/27/2024 Medications cyanocobalamin (VITAMIN B-12) 1,000 mcg/mL SolutionIndicat ions:Chronic anemia Inject 1 mL (1,000 mcg) by intramuscular injection one time only for 1 dose due 07/22/24. 10 mL 2 5 Active Syringe with Needle, Disp, (BD SafetyGlide Pesticide Chemist Tray) 1 mL 27 x 1/2 SyringeIndicati ons:Chronic anemia USE WITH B12 INJECTIONS. 6 Each 2 5 Active Active Problems No known active problems Encounters Date Type Department Care Team Description 06/04/2025 External Device Data STL ABSTRACTION Provider, Abstract 04/30/2025 External Device Data STL ABSTRACTION Provider, Abstract 04/02/2025 2:30 PM CDT Office Visit [facility] - [place] [address] [place] [address] Maldonado Walker MD Chronic anemia (Primary Dx) 04/01/2025 Orders Only [facility] [place] [address] [place] [address] Maldonado Walker MD from Last [...] Sign Reading Time Taken Comments Blood Pressure 140/79 04/02/2025 2:23 PM CDT Pulse 71 04/02/2025 2:23 PM CDT Temperature 36.7 C (98 F) 04/02/2025 2:23 PM CDT Respiratory Rate 15 04/02/2025 2:23 PM CDT Oxygen Saturation 98% 04/02/2025 2:23 PM CDT Inhaled Oxygen Concentration - - Weight 77.5 kg (170 lb 12.8 oz) 04/02/2025 2:23 PM CDT Height 167.6 cm (5' 6) 06/27/2024 2:54 PM FUN HOUSE OPERATOR Body Mass Index 27.57 06/27/2024 2:54 PM FUN HOUSE OPERATOR Plan of Treatment Upcoming Encounters Date Type Department Care Team (Late st Contact Info) Description 08/19/2025 3:30 PM FUN HOUSE OPERATOR Office Visit [facility] - [place] [address] [facility] [address] [place] [address] Maldonado Walker MD [address] [facility] [address] [place] [address] Health Maintenance Due Date Last Done Comments Pre-Diabetes and Diabetes Screening 1973 HEPATITIS B VACCINES (1 of 3 - 19+ 3-dose series) 04/16 HPV/Cotest (21-29) 1994 CERVICAL CANCER SCREENING 2003 HPV/Cotest (30-65) 2003 PAP SMEAR 2003 BREAST CANCER SCREENING 2013 COLORECTAL SCREENING 2018 Colorectal Cancer Screening 2018 FIT-DNA Q 3 years 2018 FIT/FOBT Q 1 year 2018 Flex Sig/CT Colonography Q 5 years 2018 ZOSTER VACCINE (1 of 2) 2023 INFLUENZA VACCINE (#1) 2025 DTAP/TDAP/TD VACCINES (2 - Td or Tdap) 09/30/2027 Procedures Procedure Name Priority Date/Time Associated Diagnosis Comments COMPREHENSIVE METABOLIC PANEL Routine 03/29/2025 1:52 PM CDT from Last 3 Months Results * COMPREHENSIVE METABOLIC PANEL (03/29/2025 1:52 PM CDT) Blood us Maldonado Walker MD CHEMISTRY ORDERABLES Final Resu lt from Last 3 Months Insurance [employer] OPEN ACCESS O Care Teams Speech And Language Assistant Relationship Specialty Start Date End Date Bg Erickson MD [address] [place] [phone] PCP - General Family Practice 06/14/24
--- OUTSIDE RECORDS SUMMARY | 2025-06-20 20:43 | XMS_ITS | Clinical Summary ---
Author Organization [facility] [employer] Address [address] [place] [address] Care Team Providers Care Psychology Lecturer Name Role Phone Unavailable Primary Care Provider Unavailabl e Source Comments [facility],non-owned Affiliates and Associated Physician Practices is amultiple site organization consisting of ambulatory clinics and hospital sitesin [place], [place], [place] and [place]. This disclosure is being madepursuant to the Care Everywhere program and may not contain all information available regarding this patient. Last updated 18.[facility] [employer] Allergies Active Allergy Reactions Criticality Noted Date [...] on file Legal Sex Female 5:40 PM EGG TRAYER Gender Identity Not on file Sexual Orientation Not on file Last Filed Vital Signs Vital Sign Reading Time Taken Comments Blood Pressure 132/92 08/18/2017 3:04 PM EGG TRAYER Pulse 76 08/18/2017 3:04 PM EGG TRAYER Temperature 36.2 C (97.1 F) 08/18/2017 3:04 PM EGG TRAYER Respiratory Rate - - Oxygen Saturation 98% 08/18/2017 3:04 PM EGG TRAYER Inhaled Oxygen Concentration - - Weight 81.4 kg (179 lb 6.4 oz) 08/18/2017 3:04 P M EGG TRAYER Height - - Body Mass Index - [...] 2023 ZOSTER VACCINE (1 of 2) 2023 DEPRESSION SCREENING 08/15/2024 COVID-19 VACCINE (1 - 2023-2 5 season) 2025 INFLUENZA VACCINE (#1) 2025 HIB VACCINE Aged [...]
--- OUTSIDE RECORDS SUMMARY | 2025-06-20 20:43 | XMS_ITS | Encounter Summary ---
Author Organization [facility] Address [address] [place] [address] Care Team Providers Care Motor Vehicle Examiner Name Role Phone Unavailable Primary Care Provider Unavailabl e Encounter Details Date Type Department Care Team (Late st Contact Info) Description 06/14/2024 Lab Requisition [facility] - Pathology Lab [address] [place] [phone] Gordy Mims MD [address] [place] [address] Anemia, unspecified Social History Tobacco Use Types Packs/Day Years Used Date Smoking Tobacco: Never Smokeless Tobacco: Never Alcohol Use Standard Drinks/Week Comments Yes 0 (1 standard drink = 0.6 oz pur e alcohol) Comments Unknown Sex and Gender Information Value Date Recorded Sex Assigned at Not on file Legal Sex Female 5:40 PM PROTECTION ENGINEER Gender Identity Not on file Sexual Orientation [...] AM CDT) Case Report Flow Cytometry Case: [id number] Authorizing Provider: Gordy Mims Collected: 06/14/2024 10:35 AM MD [place] Ordering Location: [facility] - Received: 06/14/2024 02:23 PM Pathology Lab Pathologist: Halina Caruso MD Specimen: Bone Marrow, Right Hip 4:49 PM CDT [facility] Final Diagnosis Bone marrow, flow cytometry: - Marked non-specific binding with left-shifted myeloid population detected (see comment) - No clonal B-cell population identified 4:49 PM CDT [facility] at 1649 CDT Flow Cytometry [...] specimen has been reviewed for quality assurance clerk purposes. There is marked left-shifted erythro-and myelopoiesis, which could be morphologically consistent with the reported Vit. B12 deficiency. Bone marrow histology is pending. 4:49 PM T [facility] Flow Cytometry Results Differential Result Comment Flow Cell Count /uL 22,600 Total Viability % 75.0 Lymphocytes % 25 Dim CD45 Region % 63 Monocytes % 3 Granulocytes % 10 4 4:49 PM CDT [facility] Reason for test Anemia, unspecified 285.9 4 4:49 PM CDT [facility] Client Specimen ID # [id number] 4:49 PM [facility] Number of markers 19 were performed. A-2 Flow CD10 A-3 Flow CD13 A-5 Flow CD20 A-16 Flow CD2 A-18 Flow CD14 A-21 Flow CD117 A-22 Flow CD11b A-23 Flow CD11c A-1 Flow CD5 A-4 Flow CD19 A-6 Flow CD33 A-7 Flow CD34 A-8 Flow CD45 A-17 Flow CD7 A-19 Flow CD56 A-20 Flow CD64 A-[address]+CD19+ A-10 Lambda+CD19+ A-24 Flow HLA-DR 10/31/202 4 4:49 PM CDT [facility] Pathologist Location at [facility] 4 4:49 PM CDT [facility] Disclaimer Test performed at [facility], [address] [place], [place], [address]. *The established laboratory minimum viability is 70%. [...] LAB Embedded Images 4 4:49 PM CDT [facility] Pathology/Cytolo gy BONE MARROW SPECIMEN / Unknown 06/14/2024 10:35 AM CDT 06/14/2024 2:23 PM CDT Gordy Mims MD LAB - PATHOLOGY/CYT OLOGY ORDERABLES Final Result [facility] [address] [facility] [address] [place] [address], [facility] [phone] documented in this encounter Visit Diagnoses Diagnosis Anemia, unspecified documented in this encounter
== END 2025-06-20 14:59 | disposition home or self-care (01) ==
LOC: CHSIMG 14:59
PROVIDERS: PCP Family Medicine; Visit Provider Family Medicine
DX: Z12.31 Encounter for screening mammogram for malignant neoplasm of breast (principal)
CPT/HCPCS: 77063; 77067

== ENCOUNTER 2025-08-13 10:35 | Outpatient (CLI) | payer OTHER, SELFPAY ==
[2025-08-13 10:55] LABS: Hematocrit 41.8 % (37.0-47.0); Hemoglobin 13.8 g/dL (12.0-15.0); Immature Granulocyte Percent A 0.6 % (0-0.5); Lymphocytes Absolute Auto 1.09 K/mm3 (0.9-3.2); Mean Corpuscular HGB Conc 33.0 g/dl (32-36); Mean Corpuscular Hemoglobin 28.5 pg (26-34); Mean Corpuscular Volume 86.4 fl (80-100); Nucleated Red Blood Cells Absolute Auto 0.000 K/mm3 (0.0-0.012); Nucleated Red Blood Cells Perc 0.0 % (0.0-0.2); Platelet Count Result 178 k/mm3 (150-375); Red Blood Count 4.84 M/mm3 (4.2-5.4); White Blood Count 5.0 K/mm3 (4.5-10.0)
--- OUTSIDE RECORDS SUMMARY | 2025-08-13 11:13 | XMS_ITS | Clinical Summary ---
Author Organization [facility] [employer] Address [address] [place] [address] Care Team Providers Care Community Engagement Leader Name Role Phone Unavailable Primary Care Provider Unavailabl e Source Comments [facility],non-owned Affiliates and Associated Physician Practices is amultiple site organization consisting of ambulatory clinics and hospital sitesin [place], [place], [place] and [place]. This disclosure is being madepursuant to the Care Everywhere program and may not contain all information available regarding this patient. 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 Gender Identity Not on file Sexual Orientation Not on file Last Filed Vital Signs Vital Sign Reading Time Taken Comments Blood Pressure 132/92 08/18/2017 3:04 PM SERVICE DELIVERY DIRECTOR Pulse 76 08/18/2017 3:04 PM SERVICE DELIVERY DIRECTOR Temperature 36.2 C (97.1 F) 08/18/2017 3:04 PM SERVICE DELIVERY DIRECTOR Respiratory Rate - - Oxygen Saturation 98% 08/18/2017 3:04 PM SERVICE DELIVERY DIRECTOR Inhaled Oxygen Concentration - - Weight 81.4 kg (179 lb 6.4 oz) 08/18/2017 3:04 P M SERVICE DELIVERY DIRECTOR Height - - Body Mass Index - [...] DEPRESSION SCREENING 08/15/2024 COVID-19 VACCINE (1 - 2024-2 6 season) 2025 INFLUENZA VACCINE (#1) 2025 HIB [...]
--- OUTSIDE RECORDS SUMMARY | 2025-08-13 11:13 | XMS_ITS | Clinical Summary ---
[facility] Address [address] [place] [address] Care Team Providers Care Sanitary Aide Name Role Phone Bg Erickson MD Primary Care Provider [phone] Allergies Active Allergy Reactions Criticality Noted Date Comments Penicillins Rash Low 06/27/2024 Medications Syringe with Needle, Disp, (BD SafetyGlide Hazardous Materials Tanker Driver Tray) 1 mL 27 x 1/2 SyringeIndicat ions:Chronic anemia USE WITH B12 INJECTIONS. 6 Each 2 025 Active cyanocobalamin (VITAMIN B-12) 1,000 mcg/mL SolutionIndica tions:Chronic anemia INEJCT ONE (1) ML INTRAMUSCULARLY EVERY TWO (2) WEEKS 2 mL 025 Active cyanocobalamin (VITAMIN B-12) 1,000 mcg/mL SolutionIndica tions:Chronic anemia Inject 1 mL (1,000 mcg) by intramuscular injection one time only for 1 dose due 07/22/24. 10 mL 2 025 2024 Discontinued Active Problems No known active problems Encounters Date Type Department Care Team Description 08/02/2025 Refill [facility] On[facility] and Hematology - [place] [address] [facility] [address] [address] Maldonado Walker MD Chronic anemia 07/30/2025 External Device Data STL ABSTRACTION Provider, Abstract 06/04/2025 External Device Data STL ABSTRACTION Provider, [...] 167.6 cm (5' 6) 06/27/2024 2:54 PM BREASTFEEDING PROGRAM COORDINATOR Body Mass Index 27.57 06/27/2024 2:54 PM BREASTFEEDING PROGRAM COORDINATOR Plan of Treatment Upcoming Encounters Date Type Department Care Team (Late st Contact Info) Description 08/19/2025 3:30 PM BREASTFEEDING PROGRAM COORDINATOR Office Visit [facility] Oncology and Hematology - [place] [address] [facility] [address] [place] [address] Maldonado Walker MD [address] [facility] [address] [place] [address] Health Maintenance Due Date Last [...] Visit- Commercial 08/15/2024 INFLUENZA VACCINE (#1) 2025 DTAP/TDAP/TD VACCINES (2 - Td or Tdap) 09/30/2027 Insurance [employer] OPEN ACCESS HMO Care Teams Sanitary Aide Relationship Specialty Start Date End Date Bg Erickson MD [address] [place] [phone] PCP - General Family Practice 06/14/24
--- OUTSIDE RECORDS SUMMARY | 2025-08-13 11:13 | XMS_ITS | Encounter Summary ---
Author Organization [facility] Address [address] [facility] [place] [address] Care Team Providers Care Food And Nutrition Services Assistant Name Role Phone Unavailable Primary Care Provider Unavailabl e Encounter Details Date Type Department Care Team (Late st Contact Info) Description 06/15/2024 Lab Requisition [facility] - Pathology Lab [address] [place] [phone] Gordy Mims MD [address] [facility] [address] [place] [address] Illness, unspecified Social History Tobacco Use Types Packs/Day Years Used Date Smoking Tobacco: Never Smokeless Tobacco: Never Alcohol Use Standard Drinks/Week Comments Yes 0 (1 standard drink = 0.6 oz pur e alcohol) Comments Unknown Sex and Gender Information Value Date Recorded Sex Assigned at Not on file Legal Sex 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 Gender Identity Not on file Sexual Orientation [...] Report Bone Marrow Patholog y Report Case: [id number] Authorizing Provider: Gordy Mims Collected: 06/14/2024 10:35 AM MD Ramsey Ordering Location: [facility] - Received: 06/15/2024 02:11 PM Pathology Lab Pathologist: Ginger Rogers MD Specimens: A) - Bone Marrow Clot B) - Bone Marrow Core 06/19/2024 6:43 PM [facility] Final Diagnosis Bone marrow, iliac crest, core biopsy, clot section, and aspirate: - Hypercellular bone marrow (90% cellular) with marked erythroid hyperplasia/immaturity , minimal erythroid dyspoiesis, and 34% ring sideroblasts (see comment) - Mildly increased reticulin fibrosis (MF-1) - Adequate iron stores 06/19/2024 6:43 PM [facility] at [address] DESILVERIZER AP Comment The patient is a 49-year-old [...] time interval is recommended. 06/19/2024 6:43 PM [facility] Peripheral Smear Description The patient's CBC performed on 06/12/2024 showed a white count of 1100/mcL, hemoglobin 4.6 g/dL, hematocrit 12.9%, MCV 109.3 fL, and a platelet count of 88,000/mcL. The white cell differential showed 40% neutrophils, 45% lymphocytes, 10% monocytes, and 5% eosinophils. A peripheral blood smear is not provided for review. 06/19/2024 6:43 PM [facility] Bone Marrow Aspirate Differential count [...] of the erythroid progenitors. 06/19/2024 6:43 PM [facility] Bone Marrow Core Biopsy and [...] similar to core biopsy. 06/19/2024 6:43 PM [facility] Flow Cytometry Summary Flow cytometry showed marked nonspecific binding with left shifted myeloid population and no clonal B-cell population ([id number]). 06/19/2024 6:43 PM [facility] Clinical History Anemia, B12 and iron deficiency 06/19/2024 6:43 PM [facility] Materials Received Received are 18 slide(s) labeled [id number] and 3 blocks labeled [id number] along with a copy of the outside pathology report. [place] [address] . All original materials are returned to the referring institution, along with a copy of our final report. 06/19/2024 6:43 PM [facility] Microscopic Description Immunohistochemistry and special [...] increase in reticulin fibrosis. 06/19/2024 6:43 PM [facility] Pathologist Location at [facility] 06/19/2024 6:43 PM [facility] Disclaimer The performance characteristics of all immunohistochemical and indirect immunofluorescence stains (if any) cited in this report were determined by the Histopathology Laboratory of [facility]. Some of these tests were [...] the attending (teaching) pathologist. 06/19/2024 6:43 PM [facility] Embedded Images 06/19/2024 6:43 PM [facility] Pathology/Cytology BONE MARROW SPECIMEN / Unknown 06/14/2024 10:35 AM CDT 06/15/2024 2:11 PM CDT Miscellaneous samples (specimen) BONE MARROW SPECIMEN / Unknown 06/14/2024 10:35 AM CDT 06/15/2024 2:11 PM CDT Gordy Mims MD LAB - PATHOLOGY/CYT OLOGY ORDERABLES Final Result [facility] [address] [place] [address], [facility] [phone] documented in this encounter Visit Diagnoses Diagnosis Illness, unspecified documented in this encounter
--- OUTSIDE RECORDS SUMMARY | 2025-08-13 11:13 | XMS_ITS | Encounter Summary ---
Author Organization [facility] Address [address] [place] [address] Care Team Providers Care Aviation Mechanic Name Role Phone Unavailable Primary Care Provider Unavailabl e Encounter Details Date Type Department Care Team (Late st Contact Info) Description 06/14/2024 Lab Requisition [facility] - Pathology Lab [address] [place] [phone] Gordy Mims MD [address] [place] [address] Anemia, unspecified Social History Tobacco Use Types Packs/Day Years Used Date Smoking Tobacco: Never Smokeless Tobacco: Never Alcohol Use Standard Drinks/Week Comments Yes 0 (1 standard drink = 0.6 oz pur e alcohol) Comments Unknown Sex and Gender Information Value Date Recorded Sex Assigned at Not on file 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 Gender Identity Not on file Sexual Orientation [...] AM CDT) Case Report Flow Cytometry Case: [id number] Authorizing Provider: Gordy Mims Collected: 06/14/2024 10:35 AM MD Ramsey Ordering Location: [facility] - Received: 06/14/2024 02:23 PM Pathology Lab Pathologist: Halina Caruso MD Specimen: Bone Marrow, Right Hip 4:49 PM CDT [facility] Final Diagnosis Bone marrow, flow cytometry: - Marked non-specific binding with left-shifted myeloid population detected (see comment) - No clonal B-cell population identified 4:49 PM CDT [facility] at 1649 CDT Flow Cytometry [...] specimen has been reviewed for quality assurance supervisor trim purposes. There is marked left-shifted erythro-and myelopoiesis, which could be morphologically consistent with the reported Vit. B12 deficiency. Bone marrow histology is pending. 4:49 PM T [facility] Flow Cytometry Results Differential Result Comment Flow Cell Count /uL 22,600 Total Viability % 75.0 Lymphocytes % 25 Dim CD45 Region % 63 Monocytes % 3 Granulocytes % 10 4 4:49 PM CDT [facility] Reason for test Anemia, unspecified 285.9 4 4:49 PM CDT [facility] Client Specimen ID # [id number] 4:49 PM [facility] Number of markers 19 were performed. A-2 Flow CD10 A-3 Flow CD13 A-5 Flow CD20 A-16 Flow CD2 A-18 Flow CD14 A-21 Flow CD117 A-22 Flow CD11b A-23 Flow CD11c A-1 Flow CD5 A-4 Flow CD19 A-6 Flow CD33 A-7 Flow CD34 A-8 Flow CD45 A-17 Flow CD7 A-19 Flow CD56 A-20 Flow CD64 A-9 [place]cl[place]+CD19+ A-10 Lambda+CD19+ A-24 Flow HLA-DR 10/31/202 4 4:49 PM CDT [facility] Pathologist Location at [facility] 4 4:49 PM CDT [facility] Disclaimer Test performed at [facility], [address] [place], [place], [address]. *The established laboratory minimum viability is 70%. [...] LAB Embedded Images 4 4:49 PM CDT [facility] Pathology/Cytolo gy BONE MARROW SPECIMEN / Unknown 06/14/2024 10:35 AM CDT 06/14/2024 2:23 PM CDT Gordy Mims MD LAB - PATHOLOGY/CYT OLOGY ORDERABLES Final Result [facility] [address] [facility] [place] [address], [facility] [phone] documented in this encounter Visit Diagnoses Diagnosis Anemia, unspecified documented in this encounter
[2025-08-13 16:32] LABS: Anion Gap 2 mmol/L (4-12); Blood Urea Nitrogen 15 mg/dL (7-17); Calcium 8.9 mg/dL (8.4-10.2); Carbon Dioxide 31 mmol/L (22-30); Chloride 105 mmol/L (98-107); Estimated Glomerular Filt Rate > 60; Glucose 97 mg/dL (65-110); Potassium 4.5 mmol/L (3.4-5.0); Sodium 138 mmol/L (137-145)
[2025-08-13 17:46] LABS: Vitamin B12 539.0 pg/mL (239-931)
== END 2025-08-13 10:36 | disposition home or self-care (01) ==
LOC: ANHLAB 10:36
PROVIDERS: PCP Family Medicine; Visit Provider Internal Medicine Hematology & Oncology
DX: D64.9 Anemia, unspecified (principal)
CPT/HCPCS: 36415; 80048; 82607; 82746; 85025